=== PATIENT | male | born 1955 | race Two or more races ===

== ENCOUNTER 2024-02-29 11:08 | Emergency (ER) | payer MEDICARE, MEDICAID ==
[~2024-02-29] VITALS: Ht 180.3 cm; Wt 73.1 kg
--- NOTE | 2024-02-29 11:51 | ED.PDOC ---
History of Present Illness HPI Comments 68-year-old male who comes in with chief complaint of some shortness for breath for approximately 45 minutes. The patient comes by paramedics from his home. The patient has a history of COPD and CHF and states that his shortness for breath started to worsened. The patient was also having some left leg swelling. He does have a history of possible DVT but the patient does have a history of CHF as well as the COPD. When the paramedics arrived, the patient had an oxygen saturation in the 90s. The patient was also now complaining of some chest pain but he also does have some mild anxiety for the paramedics. EN route, the patient was given one hand-held nebulizer with some improvement. He denies any fever or chills. Upon arrival, the patient was able to give us his entire medical history. Currently he is on Eliquis for this possible DVT in the left leg. Chief Complaint: Shortness of Breath Time Seen by MD: 11:17 Primary Care Provider: "I DON'T KNOW THE NAME" Reviewed Notes: Nurses Notes, Medications, Allergies (NKDA) Allergies: Coded Allergies: NO KNOWN ALLERGIES (Unverified , 02/29/24) Information Source: Patient Mode of Arrival: EMS Severity: Moderate Duration: Since onset Prehospital treatment: 12 Lead EKG, Breathing Tx, Special Agent, IVF Associated signs and symptoms Associated chest pain with no cough Past Medical History PAST MEDICAL HISTORY: Anxiety, CHF, COPD Past Medical History (Other): Left DVT Surgical History: Appendectomy Family History Family History: No family hx of Cancer, No family hx of DM, No family hx of Heart damaris Social History Smoker: Cigarettes Alcohol: Occasionally Drugs: Denies Drug Use Lives In: Home Constitutional: denies: chills, diaphoresis, fatigue, fever, malaise, sweats, weakness, others EENTM: denies: blurred vision, double vision, ear bleeding, ear discharge, ear drainage, ear pain, ear ringing, eye pain, eye redness, hearing loss, mouth pain, mouth swelling, nasal discharge, nose bleeding, nose congestion, nose pain, photophobia, tearing, throat pain, throat swelling, voice changes, others Respiratory: reports: shortness of breath; denies: cough, hemoptysis, orthopnea, SOB at rest, SOB with excertion, stridor, wheezing, others Cardiovascular: reports: chest pain; denies: dizzy spells, diaphoresis, Dyspnea on exertion, edema, irregular heart beat, left arm pain, lightheadedness, palpitations, PND, syncope, others Gastrointestinal: denies: abdomen distended, abdominal pain, blood streaked bowels, constipated, diarrhea, dysphagia, difficulty swallowing, hematemesis, melena, nausea, poor appetite, poor fluid intake, rectal bleeding, rectal pain, vomiting, others Genitourinary: denies: burning, dysuria, flank pain, frequency, hematuria, incontinence, penile discharge, penile sore, pain, testicle pain, testicle swelling, urgency, others Neurological: denies: dizziness, fainting, headache, left sided numbness, left sided weakness, numbness, paresthesia, pre-existing deficit, right sided nu mbness, right sided weakness, seizure, speech problems, tingling, tremors, weakness, others Musculoskeletal: denies: back pain, gout, joint pain, joint swelling, muscle pain, muscle stiffness, neck pain, others Integumetry: denies: bruises, change in color, change in hair/nails, dryness, laceration, lesions, lumps, rash, wounds, others Allergic/Immunocompromised: denies: Difficulty Healing, Frequent Infections, Hives, Itching, others Hematologic/Lymphatic: denies: anemia, blood clots, easy bleeding, easy bruising, swollen glands, others Endocrine: denies: excessive hunger, excessive sweating, excessive thirst, excessive urination, flushing, intolerance to cold, intolerance to heat, unexplained weight gain, unexplained weight loss, others Psychiatric: denies: anxiety, bipolar disorder, depression, hopeless, panic disorder, schizophrenia, sleepless, suicidal, others Physical Exam General Appearance: Moderate Distress HEENT: Normal ENT Inspection, Pharynx Normal, TMs Normal Neck: Full Range of Motion, Non-Tender, Normal, Normal Inspection Respiratory: Decreased Breath Sounds, No Accessory Muscle Use, Respiratory Distress, Wheezing Cardiovascular: No Edema, No JVD, No Murmur, No Gallop, Normal Peripheral Pulses, Regular Rate/Rhythm Breast Exam: Deferred Gastrointestinal: No Organomegaly, Non Tender, No Pulsatile Mass, Normal Bowel Sounds, Soft Genitalia: Deferred Pelvic: Deferred Rectal: Deferred Extremities: No calf tenderness, Normal capillary refill, Normal inspection, Normal range of motion, Non-tender, No pedal edema Musculoskeletal : Apperance: Normal Neurologic: Alert, lens grinding machine operator II-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 Was a procedure done?: No EKG EKG : Pulse Rate (adult): 75 Milliken: Normal Cardiac Rhythm: NSR Block: RBBB Differential Dx Considerations may include: Pneumonia, COPD, CHF, pneumothorax X-Ray, Labs, Meds, VS Vital Signs Date Time Temp Pulse Resp B/P (MAP) Pulse Ox O2 Delivery O2 Flow Rate FiO2 02/29/24 12:18 66 20 96 Room Air 02/29/24 12:18 66 18 109/52 (71) 96 02/29/24 11:56 75 02/29/24 11:13 74 02/29/24 11:09 97.8 74 18 120/76 (91) 94 02/29/24 11:09 18 94 Room Air* 0 21 Lab Test 02/29/24 15:00 02/29/24 13:29 02/29/24 12:27 Range/Units Urine Color Pending Urine Clarity Pending Urine pH Pending Urine Specific Holden Pending Urine Protein Pending Urine Ketones Pending Urine Blood Pending Urine Nitrite Pending Urine Bilirubin Pending Urine Urobilinogen Pending Urine Leukocyte Esterase Pending Urine RBC Pending Urine WBC Pending Urine Squamous Epithelial Cells Pending Urine Bacteria Pending Urine Glucose Pending Troponin I High Sensitivity < 3 L < 3 L </=54 ng/L White Blood Count 9.5 4.4-10.8 10^3/uL Red Blood Count 5.01 4.5-5.90 10^6/uL Hemoglobin 16.3 13.5-17.5 g/dL Hematocrit 47.0 41.0-53.0 % Mean Corpuscular Volume 93.9 80.0-100.0 fL Mean Corpuscular Hemoglobin 32.6 H 28.0-32.0 pg Mean Corpuscular Hemoglobin Concent 34.7 32.0-36.0 g/dL Red Cell Distribution Width 13.6 11.8-14.3 % Platelet Count 223 140-450 10^3/uL Mean Platelet Volume 8.1 6.9-10.8 fL Neutrophils (%) (Auto) 82.9 H 37.0-80.0 % Lymphocytes (%) (Auto) 8.9 L 10.0-50.0 % Monocytes (%) (Auto) 6.5 0.0-12.0 % Eosinophils (%) (Auto) 1.4 0.0-7.0 % Basophils (%) (Auto) 0.3 0.0-2.0 % Neutrophils # (Auto) 7.9 1.6-8.6 10 ^3/uL Lymphocytes # (Auto) 0.8 0.4-5.4 10 ^3/uL Monocytes # (Auto) 0.6 0-1.3 10 ^3/uL Eosinophils # (Auto) 0.1 0-0.8 10 ^3/uL Basophils # (Auto) 0 0-0.2 10 ^3/uL Nucleated Red Blood Cells 0.0 % Sodium Level 142 136-145 mmol/L Potassium Level 4.2 3.5-5.1 mmol/L Chloride Level 109 H 98-107 mmol/L Carbon Dioxide Level 28 20-31 mmol/L Anion Gap 5 5-15 Blood Urea Nitrogen 8 L 9-23 mg/dL Creatinine 0.93 0.700-1.30 mg/dL Glomerular Filtration Rate Calc 89 >90 mL/min BUN/Creatinine Ratio 8.6 L 10.0-20.0 Serum Glucose 107 H 74-106 mg/dL Calcium Level 9.4 8.7-10.4 mg/dL B-Type Natriuretic Peptide 16.46 0-100 pg/mL Current Medications Medications (Trade) Dose Ordered Sig/Jania Route Start Time Stop Time Status Last Admin Methylprednisolone Sodium Succinate (Solu Medrol) 125 mg ONCE ONCE IV 02/29/24 11:45 02/29/24 11:46 DC 02/29/24 13:33 Chest x-ray is negative The patient was given Solu-Medrol 125 mg IV push The patient's CBC and chemistry panel are within normal limits The troponin level times two is negative The patient is being admitted with a diagnosis of COPD exacerbation The patient understands and agrees with the management. Ultrasound of the left lower extremity shows: Impression: Nonocclusive thrombus in the left superficial femoral vein and left popliteal vein. Images Reviewed?: Images reviewed and evaluated by me Time of 1ST Reevaluation: 11:56 Reevaluation 1ST: Unchanged Patient Education/Counseling: Diagnosis, Treatment, Prognosis Family Education/Counseling: No Family Present Departure 1 Departure Time of Disposition: 14:55 Impression: Primary Impression: COPD exacerbation Additional Impression: Left leg DVT Qualified Codes: I82.402 - Acute embolism and thrombosis of unspecified deep veins of left lower extremity Disposition: 09 ADMITTED INPATIENT Admit to: Tele Condition: Fair Critical Care Note Critical Care Time?: No Stability Stability form required: Yes Unstable for transfer: Telemetry monitoring (Telemetry monitoring required), ED Physician Assesment (Clinical assesment) Heart Score Heart Score: Heart Score Response (Comments) Value History N/A 0 EKG N/A 0 Age N/A 0 Risk Factors N/A 0 Troponin N/A 0 Total 0 FIONA BOONE MD Feb 29, 2024 11:51
--- NOTE | 2024-02-29 12:15 | DVH ---
XY CHEST PORTABLE, HISTORY: sob COMPARISON: None None TECHNICAL DATA: 1 view of the chest was obtained. FINDINGS: Lines and tubes: None Cardiomediastinal silhouette: normal Pulmonary vasculature: normal Lung expansion: normal Lung airspace: normal Lung interstitium: normal Pleura: normal Pneumothorax: no Bones: Unremarkable Other: no IMPRESSION: No acute intrathoracic abnormality.
[2024-02-29 12:18] VITALS: BP 109/52; PULSE 66; RESP 20; O2SAT 96
[2024-02-29 12:52] LABS: Chloride 109 mmol/L (98-107); Potassium 4.2 mmol/L (3.5-5.1); Sodium 142 mmol/L (136-145)
[2024-02-29 12:53] LABS: Anion Gap 5 (5-15); Carbon Dioxide 28 mmol/L (20-31)
[2024-02-29 12:54] LABS: Calcium 9.4 mg/dL (8.7-10.4)
[2024-02-29 12:58] LABS: Glucose 107 mg/dL (74-106)
[2024-02-29 12:59] LABS: BUN/Creatinine Ratio 8.6 (10.0-20.0); Blood Urea Nitrogen 8 mg/dL (9-23)
[2024-02-29] MEDS: methylPREDNISolone SOD SUCC 125 MG/2 ML VL IV ONE (13:33)
--- NOTE | 2024-02-29 13:35 | DVH ---
Clinical History: left leg pain Comparison: None Technique: Duplex Doppler evaluation of the deep venous system of the left lower extremity from the common femor al vein to the popliteal vein including color Doppler and spectral/pulsed waveform analysis was perfo rmed. Findings: The common femoral vein demonstrates appropriate compressibility and waveform variability. There is compressibility/patency of the great saphenous vein at the proximal thigh. The femoral vein demonstrates incomplete compressibility. The deep femoral vein demonstrates incomplete compressibility. The popliteal vein demonstrates incomplete compressibility.. There is normal compressibility at the tibioperoneal trunk. Impression: Nonocclusive thrombus in the left superficial femoral vein and left popliteal vein. Critical finding s were discussed with Dr. Pinon by industrial technologist at time of exam.
[2024-02-29 13:49] LABS: Basophils # (auto) 0 10 ^3/uL (0-0.2); Basophils % (auto) 0.3 % (0.0-2.0); Eosinophils # (auto) 0.1 10 ^3/uL (0-0.8); Eosinophils % (auto) 1.4 % (0.0-7.0); Hemoglobin 16.3 g/dL (13.5-17.5); Lymphocytes # (auto) 0.8 10 ^3/uL (0.4-5.4); Lymphocytes % (auto) 8.9 % (10.0-50.0); Mean Corpuscular Hemoglobin 32.6 pg (28.0-32.0); Mean Corpuscular Hgb Conc. 34.7 g/dL (32.0-36.0); Mean Corpuscular Volume 93.9 fL (80.0-100.0); Monocytes # (auto) 0.6 10 ^3/uL (0-1.3); Monocytes % (auto) 6.5 % (0.0-12.0); Neutrophils # (auto) 7.9 10 ^3/uL (1.6-8.6); Neutrophils % (auto) 82.9 % (37.0-80.0); Platelet Count (auto) 223 10^3/uL (140-450); Red Blood Cells 5.01 10^6/uL (4.5-5.90); Red Cell Distribution Width 13.6 % (11.8-14.3); White Blood Cell 9.5 10^3/uL (4.4-10.8)
[2024-02-29 15:22] LABS: Urine Bacteria None Seen /hpf (None Seen)
[2024-02-29 15:37] LABS: Urine Blood Negative /uL (Negative); Urine Clarity Clear (Clear); Urine Color Light-Yellow (Yellow); Urine Protein, UAD Negative (Negative); Urine Specific Gravity 1.014 (1.001-1.035); Urine Urobilinogen Normal (Negative); Urine WBC 1 /hpf (0 - 3)
--- NOTE | 2024-03-03 13:53 | ECG ---
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
== END 2024-02-29 16:38 | disposition left against medical advice (07) ==
LOC: ER 11:08 → EDBD 11:08 → ER 16:38
DX: I82.412 Acute embolism and thrombosis of left femoral vein (principal); I82.432 Acute embolism and thrombosis of left popliteal vein; J44.1 Chronic obstructive pulmonary disease with (acute) exacerbation; F41.9 Anxiety disorder, unspecified; I50.9 Heart failure, unspecified; F17.210 Nicotine dependence, cigarettes, uncomplicated; Z90.49 Acquired absence of other specified parts of digestive tract; Z79.01 Long term (current) use of anticoagulants
CPT/HCPCS: 36415; 71045; 80048; 81001; 83880; 84484; 85025; 93005; 93971; 96374; 99285; J2919

== ENCOUNTER 2024-03-12 05:28 | Inpatient (IN) | payer MEDICARE, MEDICAID ==
[~2024-03-12] VITALS: Ht 175.3 cm; Wt 75.5 kg
[2024-03-12] VITALS (14 sets, daily range): BP systolic 105–128; BP diastolic 61–76; PULSE 63–91; RESP 16–20; TEMP 97.1–98.4; O2SAT 94–100
--- NOTE | 2024-03-12 06:28 | ED.PDOC ---
GI ASSESSMENT HPI Comments 68 year old male presents to the ED with chief complaint of abdominal pain. Patient reports that he has been experiencing epigastric/LUQ abdominal pain that radiates to his left ribs/shoulder since 2100 yesterday. Patient relays that he has history of gastritis, but is not sure if this may be the cause of his pain. Patient denies any N/V/D, fever, chills, dysuria, hematuria, or chest pain. Chief Complaint: Abdominal Pain Time Seen by MD: 06:17 Primary Care Provider: "I DON'T KNOW THE NAME" Reviewed Notes: Nurses Notes, Product Planner Notes, Medications, Allergies Allergies: Coded Allergies: NO KNOWN ALLERGIES (Unverified , 02/29/24) Information Source: Patient, Emergency Med Personnel Mode of Arrival: EMS Timing: Hours Duration: Since onset Prehospital treatment: None Quality: Aching Vomitus: None Stool: Normal Severity: Moderate Recent: None Recent Hx of: Other (Gastritis) Pain Location: Epigastric, LUQ Modifying Factors: Nothing Associated sign and symptoms: Abdominal Pain Past Medical History PAST MEDICAL HISTORY: Anxiety, CHF, COPD Surgical History: Appendectomy Family History Family History: Reviewed,noncontributory to illness, No family hx of Cancer, No family hx of DM, No family hx of Heart damaris Social History Smoker: Cigarettes Alcohol: Occasionally Drugs: Denies Drug Use Lives In: Home Constitutional: denies: chills, diaphoresis, fatigue, fever, malaise, sweats, weakness, others EENTM: denies: blurred vision, double vision, ear bleeding, ear discharge, ear drainage, ear pain, ear ringing, eye pain, eye redness, hearing loss, mouth pain, mouth swelling, nasal discharge, nose bleeding, nose congestion, nose pain, photophobia, tearing, throat pain, throat swelling, voice changes, others Respiratory: denies: cough, hemoptysis, orthopnea, SOB at rest, shortness of breath, SOB with excertion, stridor, wheezing, others Cardiovascular: denies: chest pain, dizzy spells, diaphoresis, Dyspnea on exertion, edema, irregular heart beat, left arm pain, lightheadedness, palpitations, PND, syncope, others Gastrointestinal: reports: abdominal pain; denies: abdomen distended, blood streaked bowels, constipated, diarrhea, dysphagia, difficulty swallowing, hematemesis, melena, nausea, poor appetite, poor fluid intake, rectal bleeding, rectal pain, vomiting, others Genitourinary: denies: burning, dysuria, flank pain, frequency, hematuria, incontinence, penile discharge, penile sore, pain, testicle pain, testicle swelling, urgency, others Neurological: denies: dizziness, fainting, headache, left sided numbness, left sided weakness, numbness, paresthesia, pre-existing deficit, right sided numbness, right sided weakness, seizure, speech problems, tingling, tremors, weakness, others Musculoskeletal: reports: others (Left shoulder/rib pain); denies: back pain, gout, joint pain, joint swelling, muscle pain, muscle stiffness, neck pain Integumetry: denies: bruises, change in color, change in hair/nails, dryness, laceration, lesions, lumps, rash, wounds, others Allergic/Immunocompromised: denies: Difficulty Healing, Frequent Infections, Hives, Itching, others Hematologic/Lymphatic: denies: anemia, blood clots, easy bleeding, easy bruising, swollen glands, others Endocrine: denies: excessive hunger, excessive sweating, excessive thirst, excessive urination, flushing, intolerance to cold, intolerance to heat, unexplained weight gain, unexplained weight loss, others Psychiatric: denies: anxiety, bipolar disorder, depression, hopeless, panic disorder, schizophrenia, sleepless, suicidal, others All Other Systems: Reviewed and Negative Physical Exam General Appearance: Mild Distress, Normal HEENT: Normal ENT Inspection, PERRL/EOMI Neck: Full Range of Motion, Non-Tender, Normal, Normal Inspection Respiratory: Chest Non-Tender, Lungs Clear, No Accessory Muscle Use, No Respiratory Distress, Normal Breath Sounds Cardiovascular: No Edema, No JVD, No Murmur, No Gallop, Normal Peripheral Pulses, Regular Rate/Rhythm Breast Exam: Deferred Gastrointestinal: No Organomegaly, No Pulsatile Mass, Normal Bowel Sounds, Soft, Tenderness (Mild epigastric and LUQ tenderness) Genitalia: Deferred Pelvic: Deferred Rectal: Deferred Extremities: No calf tenderness, Normal capillary refill, Normal inspection, Normal range of motion, Non-tender, No pedal edema Musculoskeletal : Apperance: Normal Neurologic: Alert, director of corporate 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 Was a procedure done?: No GI differential Dx Differential Diagnosis: Cholecystitis, Gastritis/PUD, Gastroenteritis, Electrol yte Imbalance, Food Poisoning, Bacterial, Viral X-Ray, Labs, Meds, VS Vital Signs Date Time Temp Pulse Resp B/P (MAP) Pulse Ox O2 Delivery O2 Flow Rate FiO2 03/12/24 07:32 66 16 95 Room Air 03/12/24 07:32 98.2 66 16 116/62 (80) 95 98.2 03/12/24 05:36 97.9 80 14 128/77 (94) 96 Lab Test 03/12/24 07:43 03/12/24 06:45 Range/Units Troponin I High Sensitivity < 3 L < 3 L </=54 ng/L White Blood Count 7.9 4.4-10.8 10^3/uL Red Blood Count 5.03 4.5-5.90 10^6/uL Hemoglobin 16.0 13.5-17.5 g/dL Hematocrit 47.1 41.0-53.0 % Mean Corpuscular Volume 93.6 80.0-100.0 fL Mean Corpuscular Hemoglobin 31.8 28.0-32.0 pg Mean Corpuscular Hemoglobin Concent 34.0 32.0-36.0 g/dL Red Cell Distribution Width 13.4 11.8-14.3 % Platelet Count 221 140-450 10^3/uL Mean Platelet Volume 7.9 6.9-10.8 fL Neutrophils (%) (Auto) 74.2 37.0-80.0 % Lymphocytes (%) (Auto) 13.2 10.0-50.0 % Monocytes (%) (Auto) 7.1 0.0-12.0 % Eosinophils (%) (Auto) 4.8 0.0-7.0 % Basophils (%) (Auto) 0.7 0.0-2.0 % Neutrophils # (Auto) 5.9 1.6-8.6 10 ^3/uL Lymphocytes # (Auto) 1.1 0.4-5.4 10 ^3/uL Monocytes # (Auto) 0.6 0-1.3 10 ^3/uL Eosinophils # (Auto) 0.4 0-0.8 10 ^3/uL Basophils # (Auto) 0.1 0-0.2 10 ^3/uL Nucleated Red Blood Cells 0.0 % Sodium Level 144 136-145 mmol/L Potassium Level 4.5 3.5-5.1 mmol/L Chloride Level 111 H 98-107 mmol/L Carbon Dioxide Level 28 20-31 mmol/L Anion Gap 5 5-15 Blood Urea Nitrogen 11 9-23 mg/dL Creatinine 0.90 0.700-1.30 mg/dL Glomerular Filtration Rate Calc 93 >90 mL/min BUN/Creatinine Ratio 12.2 10.0-20.0 Serum Glucose 102 74-106 mg/dL Calcium Level 9.2 8.7-10.4 mg/dL Total Bilirubin 0.5 0.2-1.0 mg/dL Aspartate Amino Transferase (AST) 17 13-40 U/L Alanine Aminotransferase (ALT) 22 7-40 U/L Alkaline Phosphatase 141 H 46-116 U/L B-Type Natriuretic Peptide Pending Total Protein 5.8 5.7-8.2 g/dL Albumin 4.2 3.2-4.8 g/dL Lipase 41 12-53 U/L Current Medications Medications (Trade) Dose Ordered Sig/Jania Route Start Time Stop Time Status Last Admin Ondansetron HCl (Zofran Po) 8 mg ONCE ONCE PO 03/12/24 06:45 03/12/24 06:46 DC 03/12/24 07:30 Al Hydrox/Mg Hydrox/Simethicone (Maalox Plus) 30 ml ONCE ONCE PO 03/12/24 06:45 03/12/24 06:46 DC 03/12/24 07:28 Famotidine (Pepcid Tablet) 40 mg ONCE ONCE PO 03/12/24 06:45 03/12/24 06:46 DC 03/12/24 07:30 Prednisone 40 mg ONCE ONCE PO 03/12/24 08:00 03/12/24 08:01 DC 03/12/24 08:12 CT Abd/Pel: FINDINGS: Lower Chest: Unremarkable. Hepatobiliary: Unremarkable. Spleen: Mildly enlarged, 12.3 cm in craniocaudal. A large, 10.5 x 3.7 x 6.4 cm subcapsular fluid collection along the superolateral aspect the spleen noted with average attenuation of 9 Hounsfield units, which is of simple fluid. Pancreas: Unremarkable. Adrenal Glands: Unremarkable. tract: The kidneys are normal in size bilaterally without hydronephrosis or nephrolithiasis. The urinary bladder is unremarkable. GI tract: The stomach is grossly normal in appearance. No evidence of small bowel obstruction. The large bowel is unremarkable. The appendix is not visualized. No inflammatory change is noted in the right lower quadrant. Lymphatics: No mesenteric, retroperitoneal or periportal lymphadenopathy. Vasculature: Mildly ectatic distal abdominal aorta measuring 2.8 cm in the maximum transverse diameter. Diffuse atherosclerotic calcification of the ao rtoiliac arteries noted. Pelvic Organs: Prostate is moderately enlarged. Bones/soft tissues: No acute abnormality. Multilevel degenerative changes of the lumbar spine noted. Other: None. IMPRESSION: 1. No CT evidence for acute intra-abdominal or intrapelvic process. 2. Mild splenomegaly and a large, 10 x 6.4 cm subcapsular lateral splenic simple fluid collection likely an organizing hematoma or seroma. Evaluation is limited without IV contrast. Recommend further evaluation by ultrasound. 3. Atherosclerotic disease of the aortoiliac arteries fusiform aneurysm of distal abdominal aorta with maximum transverse diameter 2.8 cm. Chest XR: FINDINGS: Lines and Tubes: None Lungs: No focal consolidation. Pleura: No effusion.No pneumothorax. Cardiomediastinal contours: Unremarkable Bones: No acute osseous abnormality. IMPRESSION: 1. No acute cardiopulmonary disease. HS:Y Images Reviewed?: Images reviewed and evaluated by me Time of 1ST Reevaluation: 07:17 Reevaluation 1ST: Improved Time of 2ND Reevaluation: 08:22 Reevaluation 2ND: Unchanged (hypoxic on room air, large splenic hematoma noted on CT, will admit for oxygen and further workup) Patient Education/Counseling: Diagnosis, Treatment Family Education/Counseling: No Family Present Departure 1 Departure Time of Disposition: 08:21 Impression: Primary Impression: COPD exacerbation Additional Impressions: Respiratory failure with hypoxia Spleen hematoma Disposition: ADMITTED INPATIENT Condition: Guarded Critical Care Note Critical Care Time?: No Stability Stability form required: No Heart Score Heart Score: Heart Score Response (Comments) Value History N/A 0 EKG N/A 0 Age N/A 0 Risk Factors N/A 0 Troponin N/A 0 Total 0 I personally scribed for JOHNNY JOEL MD ([email or web address]) on 03/12/24 at 06:28. Electronically submitted by Arcadio Gallagher ([email or web address]). I personally scribed for JOHNNY JOEL MD ([email or web address]) on 03/12/24 at 06:47. Electronically submitted by Arcadio Gallagher ([email or web address]). I personally scribed for JOHNNY JOEL MD ([email or web address]) on 03/12/24 at 08:20. Electronically submitted by Arcadio Gallagher ([email or web address]). I personally scribed for JOHNNY JOEL MD ([email or web address]) on 03/12/24 at 08:30. Electronically submitted by Ladan Suarez ([email or web address]). JOHNNY JOEL MD Mar 12, 2024 06:28
[2024-03-12 07:13] LABS: Basophils # (auto) 0.1 10 ^3/uL (0-0.2); Basophils % (auto) 0.7 % (0.0-2.0); Eosinophils # (auto) 0.4 10 ^3/uL (0-0.8); Eosinophils % (auto) 4.8 % (0.0-7.0); Hematocrit 47.1 % (41.0-53.0); Lymphocytes # (auto) 1.1 10 ^3/uL (0.4-5.4); Lymphocytes % (auto) 13.2 % (10.0-50.0); Mean Corpuscular Hemoglobin 31.8 pg (28.0-32.0); Mean Corpuscular Volume 93.6 fL (80.0-100.0); Monocytes # (auto) 0.6 10 ^3/uL (0-1.3); Monocytes % (auto) 7.1 % (0.0-12.0); Neutrophils # (auto) 5.9 10 ^3/uL (1.6-8.6); Neutrophils % (auto) 74.2 % (37.0-80.0); Platelet Count (auto) 221 10^3/uL (140-450); Red Blood Cells 5.03 10^6/uL (4.5-5.90); Red Cell Distribution Width 13.4 % (11.8-14.3); White Blood Cell 7.9 10^3/uL (4.4-10.8)
[2024-03-12 07:16] LABS: Alanine Aminotransferase 22 U/L (7-40); Alkaline Phosphatase 141 U/L (46-116); Anion Gap 5 (5-15); Aspartate Aminotransferase 17 U/L (13-40); BUN/Creatinine Ratio 12.2 (10.0-20.0); Blood Urea Nitrogen 11 mg/dL (9-23); Calcium 9.2 mg/dL (8.7-10.4); Carbon Dioxide 28 mmol/L (20-31); Chloride 111 mmol/L (98-107); Glucose 102 mg/dL (74-106); Lipase 41 U/L (12-53); Potassium 4.5 mmol/L (3.5-5.1); Sodium 144 mmol/L (136-145)
[2024-03-12 07:17] LABS: Albumin 4.2 g/dL (3.2-4.8); Bilirubin, Total 0.5 mg/dL (0.2-1.0); Total Protein 5.8 g/dL (5.7-8.2)
[2024-03-12] MEDS: MAALOX PLUS or MAALOX 30 ML PO ONE (07:28)
[2024-03-12] MEDS: ONDANSETRON ODT 4 MG TAB PO ONE (07:30)
[2024-03-12] MEDS: FAMOTIDINE 20 MG TAB PO ONE (07:30)
[2024-03-12] MEDS: predniSONE 20 MG TAB PO ONE (08:12)
--- NOTE | 2024-03-12 08:14 | DVH ---
Procedure: CT CT AB PEL WO CON-NO ORAL OR IV 03/12/2024 07:45 AM Indication: left flank pain Comparison Study: None available at time of dictation. Technique: Axial images were obtained and reformatted in coronal and sagittal planes. All CT scans at this medical facility are performed using dose modulation techniques as appropriate t o a performed exam including the following: Automated exposure control was utilized; adjustment of th e MA and/or KV according to patient size; and use of iterative reconstruction technique. CT Dose: CTDI volume is 7 mGy. Dose-length product is 352 mGy*cm FINDINGS: Lower Chest: Unremarkable. Hepatobiliary: Unremarkable. Spleen: Mildly enlarged, 12.3 cm in craniocaudal. A large, 10.5 x 3.7 x 6.4 cm subcapsular fluid col lection along the superolateral aspect the spleen noted with average attenuation of 9 Hounsfield unit s, which is of simple fluid. Pancreas: Unremarkable. Adrenal Glands: Unremarkable. tract: The kidneys are normal in size bilaterally without hydronephrosis or nephrolithiasis. The urinary bladder is unremarkable. GI tract: The stomach is grossly normal in appearance. No evidence of small bowel obstruction. The la rge bowel is unremarkable. The appendix is not visualized. No inflammatory change is noted in the ri ght lower quadrant. Lymphatics: No mesenteric, retroperitoneal or periportal lymphadenopathy. Vasculature: Mildly ectatic distal abdominal aorta measuring 2.8 cm in the maximum transverse diamete r. Diffuse atherosclerotic calcification of the aortoiliac arteries noted. Pelvic Organs: Prostate is moderately enlarged. Bones/soft tissues: No acute abnormality. Multilevel degenerative changes of the lumbar spine noted. Other: None. IMPRESSION: 1. No CT evidence for acute intra-abdominal or intrapelvic process. 2. Mild splenomegaly and a large, 10 x 6.4 cm subcapsular lateral splenic simple fluid collection lik emily an organizing hematoma or seroma. Evaluation is limited without IV contrast. Recommend further evaluation by ultrasound. 3. Atherosclerotic disease of the aortoiliac arteries fusiform aneurysm of distal abdominal aorta wit h maximum transverse diameter 2.8 cm.
--- NOTE | 2024-03-12 08:23 | DVH ---
CHEST RADIOGRAPH Indication: SOB Technique: Single frontal view of the chest was obtained Comparison: XY CHEST PORTABLE on DOS: 02/29/24 FINDINGS: Lines and Tubes: None Lungs: No focal consolidation. Pleura: No effusion.No pneumothorax. Cardiomediastinal contours: Unremarkable Bones: No acute osseous abnormality. IMPRESSION: 1. No acute cardiopulmonary disease. HS:Y
[2024-03-12] MEDS: ALBUTEROL SULF 2.5 MG/0.5ML(0.5%) NEB SOLN HHN ONE (08:31)
[2024-03-12] MEDS: IPRATROPIUM BROM 0.5 MG/2.5ML INH SOL HHN ONE (08:32)
[2024-03-12] MEDS ORDERED: DOCUSATE SOD 100 MG CAP PO PRN (09:30)
[2024-03-12] MEDS ORDERED: MORPHINE SULFATE INJ 2 MG/ml SYRG IV PRN (09:30)
[2024-03-12] MEDS ORDERED: ONDANSETRON HCL 4 MG/2 ML VIAL IV PRN (09:30)
[2024-03-12] MEDS ORDERED: AZITHROMYCIN 500MG/ 250ML 250 ML IV ONE (09:30)
--- NOTE | 2024-03-12 09:43 | DVHHP2 ---
History of Present Illness Reason for Visit: Abdominal pain History of Present Illness Yoandy Ac is a 68YO M with pmHx of gastritis, anxiety, CHF, and COPD who presents to the ED for abdominal pain x 2 days. Upon examination he reports his pain is in the epigastric area and radiates to the LUQ and RUQ throbbing, current pain is 0/10 but increases to 4/10. He reports he uses home O2 2LNC and smokes cigarettes 1/2 pack a day. He also reports he has been coughing phlegm yellow in color. He states he rents a room and he had an appendectomy in 1977. He denies N/V/D, fever, chills, shortness of breath, and chest pain. Cardiovascular: CHF Pulmonary: COPD GI: Gastritis Psych: Anxiety Past Surgical History: Appendectomy Family History: None Smoke: <1 pack per day ALCOHOL: none Drugs: None Lives: Other Domestic Violence: Neg Review of Systems Constitutional: No: Fever, Chills, Sweats, Weakness, Malaise, Other Eyes: No: Pain, Vision change, Conjunctivae inflammation, Eyelid inflammation, Other, Redness ENT: No: Ear pain, Ear discharge, Nose pain, Nose discharge, Nose congestion, Mouth pain, Mouth swelling, Throat pain, Throat swelling, Other Respiratory: Cough, Sputum; No: Dry, Shortness of breath, SOB with excertion, Wheezing, Hemoptysis, Pleuritic Pain, Wheezing, Other Cardiovascular: No: Chest Pain, Palpitations, Orthopnea, Paroxysmal Noc. Dyspnea, Edema, Lt Headedness, Other Gastrointestinal: Abdominal Pain; No: Nausea, Vomiting, Diarrhea, Constipation, Melena, Hematochezia, Other Genitourinary: No Dysuria, No Frequency, No Incontinence, No Hematuria, No Retention, No Other Musculoskeletal: No: other, neck pain, shoulder pain, arm pain, back pain, hand pain, leg pain, foot pain Skin: No: Rash, Lesions, Jaundice, Bruising, Other Neurological: No: Weakness, Numbness, Incoordination, Change in speech, Confusion, Seizures, Other Allergies: Coded Allergies: NO KNOWN ALLERGIES (Unverified , 02/29/24) Exam Vital Signs Vital Signs Date Time Temp Pulse Resp B/P (MAP) Pulse Ox O2 Delivery O2 Flow Rate FiO2 03/12/24 08:32 18 97 Nasal Cannula* 2 28 03/12/24 07:32 66 03/12/24 07:32 98.2 116/62 (80) 98.2 General Appearance: Alert, Oriented X3, Cooperative HEENT: Atraumatic, PERRLA, EOMI, Mucous membr. moist/pink Respiratory: Normal air movement Cardiovascular: Regular rate, Normal S1, Normal S2, No murmurs Abdominal: Normal bowel sounds, Soft Extremities: No clubbing, No cyanosis, No edema, Normal pulses, No tenderness/swelling Skin: No breakdown, No significant lesion Neuro: Normal gait, Normal speech, Strength at 5/5 X4 ext, Normal tone, Sensation intact Psych/Mental Status: Mental status NL, Mood NL Labs/Xrays Labs Test 03/12/24 07:43 03/12/24 06:45 Range/Units Troponin I High Sensitivity < 3 L </=54 ng/L White Blood Count 7.9 4.4-10.8 10^3/uL Red Blood Count 5.03 4.5-5.90 10^6/uL Hemoglobin 16.0 13.5-17.5 g/dL Hematocrit 47.1 41.0-53.0 % Mean Corpuscular Volume 93.6 80.0-100.0 fL Mean Corpuscular Hemoglobin 31.8 28.0-32.0 pg Mean Corpuscular Hemoglobin Concent 34.0 32.0-36.0 g/dL Red Cell Distribution Width 13.4 11.8-14.3 % Platelet Count 221 140-450 10^3/uL Mean Platelet Volume 7.9 6.9-10.8 fL Neutrophils (%) (Auto) 74.2 37.0-80.0 % Lymphocytes (%) (Auto) 13.2 10.0-50.0 % Monocytes (%) (Auto) 7.1 0.0-12.0 % Eosinophils (%) (Auto) 4.8 0.0-7.0 % Basophils (%) (Auto) 0.7 0.0-2.0 % Neutrophils # (Auto) 5.9 1.6-8.6 10 ^3/uL Lymphocytes # (Auto) 1.1 0.4-5.4 10 ^3/uL Monocytes # (Auto) 0.6 0-1.3 10 ^3/uL Eosinophils # (Auto) 0.4 0-0.8 10 ^3/uL Basophils # (Auto) 0.1 0-0.2 10 ^3/uL Nucleated Red Blood Cells 0.0 % Sodium Level 144 136-145 mmol/L Potassium Level 4.5 3.5-5.1 mmol/L Chloride Level 111 H 98-107 mmol/L Carbon Dioxide Level 28 20-31 mmol/L Anion Gap 5 5-15 Blood Urea Nitrogen 11 9-23 mg/dL Creatinine 0.90 0.700-1.30 mg/dL Glomerular Filtration Rate Calc 93 >90 mL/min BUN/Creatinine Ratio 12.2 10.0-20.0 Serum Glucose 102 74-106 mg/dL Calcium Level 9.2 8.7-10.4 mg/dL Total Bilirubin 0.5 0.2-1.0 mg/dL Aspartate Amino Transferase (AST) 17 13-40 U/L Alanine Aminotransferase (ALT) 22 7-40 U/L Alkaline Phosphatase 141 H 46-116 U/L B-Type Natriuretic Peptide 8.41 0-100 pg/mL Total Protein 5.8 5.7-8.2 g/dL Albumin 4.2 3.2-4.8 g/dL Lipase 41 12-53 U/L CHEST RADIOGRAPH Indication: SOB FINDINGS: Lines and Tubes: None Lungs: No focal consolidation. Pleura: No effusion.No pneumothorax. Cardiomediastinal contours: Unremarkable Bones: No acute osseous abnormality. IMPRESSION: 1. No acute cardiopulmonary disease. Procedure: CT CT AB PEL WO CON-NO ORAL OR IV 03/12/2024 07:45 AM Indication: left flank pain FINDINGS: Lower Chest: Unremarkable. Hepatobiliary: Unremarkable. Spleen: Mildly enlarged, 12.3 cm in craniocaudal. A large, 10.5 x 3.7 x 6.4 cm subcapsular fluid collection along the superolateral aspect the spleen noted with average attenuation of 9 Hounsfield units, which is of simple fluid. Pancreas: Unremarkable. Adrenal Glands: Unremarkable. tract: The kidneys are normal in size bilaterally without hydronephrosis or nephrolithiasis. The urinary bladder is unremarkable. GI tract: The stomach is grossly normal in appearance. No evidence of small bowel obstruction. The large bowel is unremarkable. The appendix is not visualized. No inflammatory change is noted in the right lower quadrant. Lymphatics: No mesenteric, retroperitoneal or periportal lymphadenopathy. Vasculature: Mildly ectatic distal abdominal aorta measuring 2.8 cm in the maximum transverse diameter. Diffuse atherosclerotic calcification of the aortoiliac arteries noted. Pelvic Organs: Prostate is moderately enlarged. Bones/soft tissues: No acute abnormality. Multilevel degenerative changes of the lumbar spine noted. Other: None. IMPRESSION: 1. No CT evidence for acute intra-abdominal or intrapelvic process. 2. Mild splenomegaly and a large, 10 x 6.4 cm subcapsular lateral splenic simple fluid collection likely an organizing hematoma or seroma. Evaluation is limited without IV contrast. Recommend further evaluation by ultrasound. 3. Atherosclerotic disease of the aortoiliac arteries fusiform aneurysm of distal abdominal aorta with maximum transverse diameter 2.8 cm. PROCEDURE(s): SPLUS - SPLEEN REASON: Spleen hematoma CLINICAL INFORMATION: 68 years old, Male; Spleen hematoma. COMPARISON: None FINDINGS: The spleen measures 11.3 cm in greatest dimension. Complex fluid collection with multiple septations along the superior aspect of the spleen measures up to 9.1 x 6.5 x 7.8 cm corresponding to history of splenic hematoma. IMPRESSION: Complex fluid collection adjacent to the spleen corresponds to history of splenic hematoma as described above. Assessment/Plan Assessment/Plan Assessment: Splenomegaly suspected spleen laceration COPD exacerbation suspected PNA Gastritis Hx of anxiety CHF Appendectomy Plan: Admit to med surg Surgery cx IVf IV and PO Abx Resp txs diet as tolerated O2 use at baseline GI ppx Spleen US noted Laxatives trend troponins Home medications reconciled Discussed plan of care with patient and nurse Plan discussed with: Patient Problem List: (1) COPD exacerbation (2) Spleen hematoma Date of Service: Mar 12, 2024 Billing Provider: ADVID BOWMAN Common Visit Codes: [id number] INP/OBS CARE (MOD) DAVID BOWMAN Mar 12, 2024 09:43
[2024-03-12] MEDS ORDERED: THIA100T10 PO (09:44)
[2024-03-12] MEDS ORDERED: ASPI-325 PO (09:44)
[2024-03-12] MEDS ORDERED: ARIP5TAB22 PO (09:44)
[2024-03-12] MEDS ORDERED: PANT40T PO (09:44)
[2024-03-12] MEDS ORDERED: FURO20TA4 PO (09:44)
[2024-03-12] MEDS ORDERED: ATOR40TA52 PO (09:44)
[2024-03-12] MEDS ORDERED: AZITHROMYCIN 500MG/ 250ML 250 ML IV SCH (10:00)
[2024-03-12] MEDS: ALBUTEROL SULF 2.5 MG/0.5ML(0.5%) NEB SOLN NEB SCH (10:28)
[2024-03-12] MEDS: MULTIPLE VITAMIN TAB PO SCH (10:33)
[2024-03-12] MEDS: ASCORBIC ACID 500 MG TAB PO SCH (10:33)
[2024-03-12] MEDS: ZINC SULFATE 220mg CAP or TAB PO SCH (10:33)
[2024-03-12] MEDS: cefTRIAXone 1GM/50ML D5W 50 ML IV ONE (11:56)
[2024-03-12] MEDS: SODIUM CHLORIDE 0.9% 1,000 ML IV SCH (11:56)
--- NOTE | 2024-03-12 11:57 | DVH ---
CLINICAL INFORMATION: 68 years old, Male; Spleen hematoma. TECHNIQUE: Grayscale sonographic imaging of the spleen was performed, assisted by color doppler oscar quinones. COMPARISON: None FINDINGS: The spleen measures 11.3 cm in greatest dimension. Complex fluid collection with multiple septations along the superior aspect of the spleen measures up to 9.1 x 6.5 x 7.8 cm corresponding t o history of splenic hematoma. IMPRESSION: Complex fluid collection adjacent to the spleen corresponds to history of splenic hematoma as describ ed above.
[2024-03-12 14:09] LABS: Urine Bacteria None Seen /hpf (None Seen)
[2024-03-12 14:20] LABS: Urine Blood Negative /uL (Negative); Urine Clarity Clear (Clear); Urine Color Yellow (Yellow); Urine Mucus FEW (None Seen); Urine Protein, UAD Negative (Negative); Urine Specific Gravity 1.017 (1.001-1.035); Urine Urobilinogen Normal (Negative); Urine WBC 3 /hpf (0 - 3); Urine pH 6.5 (5.0-9.0)
[2024-03-12] MEDS: HYDROcodone-ACET 5/325MG TAB PO PRN (21:03)
[2024-03-13] VITALS (18 sets, daily range): BP systolic 109–117; BP diastolic 54–67; PULSE 62–90; RESP 14–20; TEMP 97.8–98.5; O2SAT 91–100
[2024-03-13 06:21] LABS: Basophils # (auto) 0.1 10 ^3/uL (0-0.2); Basophils % (auto) 0.8 % (0.0-2.0); Eosinophils # (auto) 0.2 10 ^3/uL (0-0.8); Eosinophils % (auto) 2.7 % (0.0-7.0); Hematocrit 43.4 % (41.0-53.0); Hemoglobin 14.7 g/dL (13.5-17.5); Lymphocytes # (auto) 1.7 10 ^3/uL (0.4-5.4); Lymphocytes % (auto) 19.4 % (10.0-50.0); Mean Corpuscular Hemoglobin 31.7 pg (28.0-32.0); Mean Corpuscular Volume 93.2 fL (80.0-100.0); Monocytes # (auto) 0.6 10 ^3/uL (0-1.3); Monocytes % (auto) 6.5 % (0.0-12.0); Neutrophils # (auto) 6.4 10 ^3/uL (1.6-8.6); Neutrophils % (auto) 70.6 % (37.0-80.0); Nucleated Red Blood Cells % 0.1 %; Platelet Count (auto) 209 10^3/uL (140-450); Red Blood Cells 4.66 10^6/uL (4.5-5.90); Red Cell Distribution Width 13.7 % (11.8-14.3)
[2024-03-13 06:42] LABS: Alanine Aminotransferase 19 U/L (7-40); Albumin 3.7 g/dL (3.2-4.8); Alkaline Phosphatase 115 U/L (46-116); Anion Gap 6 (5-15); Bilirubin, Total 0.9 mg/dL (0.2-1.0); Blood Urea Nitrogen 15 mg/dL (9-23); Calcium 9.4 mg/dL (8.7-10.4); Carbon Dioxide 26 mmol/L (20-31); Glucose 87 mg/dL (74-106); Potassium 4.3 mmol/L (3.5-5.1); Sodium 143 mmol/L (136-145)
[2024-03-13 06:48] LABS: Aspartate Aminotransferase 10 U/L (13-40); Chloride 111 mmol/L (98-107); Total Protein 5.3 g/dL (5.7-8.2)
[2024-03-13] MEDS: AZITHROMYCIN 250 MG TAB PO SCH (08:32)
[2024-03-13] MEDS: FAMOTIDINE (10MG/ML) 2ML VL IV SCH (08:33)
[2024-03-13] MEDS: methylPREDNISolone SOD SUCC 40 MG/ML VL IV SCH (08:33)
[2024-03-13] MEDS: cefTRIAXone 1GM/50ML D5W 50 ML IV SCH (08:34)
[2024-03-13 08:48] LABS: INR 1.03 (0.9-1.15); Partial Thromboplastin Time 25.7 SEC (24.5-34.5); Prothrombin Time 10.9 sec (9.3-11.8)
[2024-03-13] MEDS: FUROSEMIDE 20 MG TAB PO SCH (10:52)
[2024-03-13] MEDS: PANTOPRAZOLE 40 MG TAB PO SCH (10:52)
--- NOTE | 2024-03-13 14:43 | DVHPNRES ---
Progress Note Date Seen: Mar 13, 2024 Resident Creating Document: GWEN MATUTE RESIDENT Medical Necessity Reason Pt with a Central, PICC or Fol: No Subjective Review of Systems Yoandy Ac is a 68-year-old male with PMH of CHF, COPD, gastritis, anxiety presented to the ED with the chief complaints of abdominal pain for past 2 days. Patient reported, that he poorly remembered that he hit a table corner to his abdomen but no pain at the time. But for past 2 days a developing out of no where in the epigastric area and radiates to the LUQ and RUQ throbbing, current pain is 0/10 but increases to 4/10, no aggravating or relieving factors, not associated with nausea, vomiting, fever, chest pain, diarrhea or hematemesis and other other symptoms PMH: CHF, COPD, gastritis, anxiety, DVT on Eliquis PSH: Appendectomy Family history: Reviewed, noncontributory Social history: Lives alone. Active smoker smokes less than 1 pack per day. Denies alcohol and other drug abuse Allergies: No known allergies Patient seen and examined at the bedside. Patient reports mild improvement in the pain since admission. CT abdominal pelvis showed mild splenomegaly and a large, 10 x 6.4 cm subcapsular lateral splenic simple fluid collection likely an organizing hematoma or seroma and atherosclerotic disease of the aortoiliac arteries fusiform aneurysm of distal abdominal aorta with maximum transverse diameter 2.8 cm. Splenic ultrasound showed Complex fluid collection adjacent to the spleen corresponds to history of splenic hematoma as described above. Consulted surgery for further evaluation Objective vital signs Vital Sign Date Time Temp Pulse Resp B/P (MAP) Pulse Ox O2 Delivery O2 Flow Rate FiO2 03/13/24 12:56 98.5 65 16 112/62 (79) 97 98.5 03/13/24 10:31 Room Air* 0 21 Total Intake and Output 03/12/24 03/12/24 03/13/24 15:00 23:00 07:00 Intake Total 220 ml Balance 220 ml medications Current Medications Medications Dose Ordered Sig/Jania Route Start Time Stop Time Status Last Admin Dose Admin Sodium Chloride 1,000 ml @ 60 mls/hr [id number] IV 03/12/24 09:30 03/13/24 02:34 60 MLS/HR Acetaminophen/ Hydrocodone Bitart 1 tab Q4HP PRN PO 03/12/24 09:30 03/12/24 21:03 1 TAB Ondansetron HCl 4 mg Q4HP PRN IV 03/12/24 09:30 Docusate Sodium 100 mg BIDPRN PRN PO 03/12/24 09:30 Zinc Sulfate 220 mg DAILY PO 03/12/24 10:00 03/13/24 08:32 220 MG Ascorbic Acid 500 mg BID PO 03/12/24 10:00 03/13/24 08:33 500 MG Multivitamins 1 tab DAILY PO 03/12/24 10:00 03/13/24 08:32 1 TAB Acetaminophen 650 mg Q6HP PRN PO 03/12/24 09:30 Morphine Sulfate 2 mg Q4HPRN PRN IV 03/12/24 09:30 Ceftriaxone Sodium 50 ml @ 100 mls/hr DAILY@09 IV 03/13/24 09:00 03/13/24 08:34 100 MLS/HR Famotidine 20 mg DAILY IV 03/13/24 10:00 03/13/24 08:33 20 MG Albuterol 2.5 mg Q4HWA NEB 03/12/24 10:00 03/13/24 10:31 2.5 MG Albuterol 2.5 mg Q2HPRN PRN NEB 03/12/24 09:30 Furosemide 20 mg DAILY PO 03/13/24 10:00 03/13/24 10:52 20 MG Pantoprazole Sodium 40 mg DAILY@0630 PO 03/13/24 10:00 03/13/24 10:52 40 MG Patient Own Medication 1 tab DAILY PO 03/13/24 10:00 Atorvastatin Calcium 40 mg HS PO 03/13/24 22:00 Examination Pt is lying on bed General Appearance: Alert, Oriented X3, Cooperative, Not in acute distress HEENT: Atraumatic, Mucous membranes moist/pink Respiratory: Clear to auscultation, Normal air movement, No added sounds Cardiovascular: Regular rate, Normal S1, Normal S2, No murmurs Abdominal: mild diffuse abdominal tenderness . Active bowel sounds, Soft, Extremities: both extremities are swollen but no edematous Skin: No Significant rash, except past surgical scars Neuro: Normal speech, sensorimotor deficits none Psych/Mental Status: Mental status NL, Mood NL Nurse was there as sharperone during examination laboratory and microbiology Laboratory Tests 03/13/24 06:03 Test 03/13/24 06:03 Range/Units Serum Glucose 87 74-106 mg/dL Microbiology Date/Time Source Procedure Growth Status 03/13/24 01:00 Nose MRSA Screen - Final Complete Labs and/or images reviewed: Labs reviewed by me, Image(s) reviewed by me Problem List/Assessment/Plan Problem List/Assessment/Plan # Splenomegaly with possible splenic hematoma -CT abdominal pelvis showed mild splenomegaly and a large, 10 x 6.4 cm subcapsular lateral splenic simple fluid collection likely an organizing hematoma or seroma - Splenic ultrasound showed Complex fluid collection adjacent to the spleen corresponds to history of splenic hematoma as described above. - Consulted surgery for further evaluation - currently on Rocephin # ruled out COPD exacerbation and pneumonia - discontinued azithromycin and methylprednisolone # chronic gastritis - continue home meds # CHF not in exacerbation - continue home meds # anxiety - resumed home meds # history of DVT - ordered new venous study - hold Eliquis due to splenic hematoma no DVT PPX since patient is bleeding Protonix Cardiac diet Reconciled home meds Goals of care discussed with the patient for more than 27 minutes: Full code status Case management discussed with Dr. Park, patient and nurse Plan discussed with: Patient My Orders My Orders Orders - GWEN MATUTE Procedure Category Date Status Time Vitamin D, 25-Hydroxy LAB 03/13/24 In Process 08:23 Vitamin B12 LAB 03/13/24 In Process 08:23 Drug Screen LAB 03/13/24 Logged 08:23 Furosemide Tablet PHA 03/13/24 In Process (Lasix Tablet) 10:00 Pantoprazole Tablet PHA 03/13/24 In Process (Protonix Tablet) 10:00 (Nf) Aripiprazole PHA 03/13/24 In Process 10:00 Atorvastatin (Lipitor) PHA 03/13/24 In Process 22:00 Bilat Lower Dvt US 03/13/24 Taken 13:53 Date of Service: Mar 13, 2024 Billing Provider: JOSE DE JESUS PARK MD Common Visit Codes: [id number] INP/OBS CARE(HIGH) GWEN MATUTE RESIDENT Mar 13, 2024 14:43 JOSE DE JESUS PARK MD Mar 15, 2024 23:18
--- NOTE | 2024-03-13 14:59 | DVHINCON2 ---
Date of service: Mar 13, 2024 History of Present Illness 68-year-old male with a history of gastritis, anxiety, CHF, and COPD admitted secondary to two day history of epigastric abdominal pain without fevers, chi lls, nausea or vomiting. Past Medical History As mentioned in HPI Past Surgical History No abdominal surgeries Family History: Cardiovascular disease G8 MOTHER G8 FATHER Diabetes mellitus G8 MOTHER Family History Noncontributory Social History Reports tobacco use. Denies any alcohol IV drug use. Allergies: Coded Allergies: NO KNOWN ALLERGIES (Unverified , 02/29/24) Home Meds Reported Medications Thiamine Hcl (VITAMIN B-1) 100 Mg Tb, 1 TAB PO DAILY 03/12/24 Aspirin (Aspirin Low Dose) 81 Mg Tab, 1 TAB PO DAILY 03/12/24 Aripiprazole (Aripiprazole) 5 Mg Tab, 1 TAB PO DAILY 03/12/24 Atorvastatin Calcium (ATORVASTATIN CALCIUM) 40 Mg Tab, 40 MG PO DAILY 03/12/24 Pantoprazole Sodium Sesquihydr (Pantoprazole Sodium) 40 Mg Tab, 1 TAB PO DAILY 03/12/24 Furosemide (Furosemide) 20 Mg Tab, 1 TAB PO DAILY 03/12/24 Current Medications Current Medications Medications (Trade) Dose Ordered Sig/Jania Route PRN Reason Start Time Stop Time Status Last Admin Ceftriaxone Sodium 50 ml @ 100 mls/hr DAILY@09 IV 03/13/24 09:00 03/13/24 08:34 Methylprednisolone Sodium Succinate (Solu Medrol) 40 mg DAILY IV 03/13/24 10:00 03/13/24 13:55 DC 03/13/24 08:33 Famotidine (Pepcid Injection) 20 mg DAILY IV 03/13/24 10:00 03/13/24 08:33 Azithromycin (Zithromax Tablet) 250 mg DAILY PO 03/13/24 10:00 03/13/24 14:40 DC 03/13/24 08:32 Furosemide (Lasix Tablet) 20 mg DAILY PO 03/13/24 10:00 03/13/24 10:52 Pantoprazole Sodium (Protonix Tablet) 40 mg DAILY@0630 PO 03/13/24 10:00 03/13/24 10:52 Patient Own Medication 1 tab DAILY PO 03/13/24 10:00 Atorvastatin Calcium (Lipitor) 40 mg HS PO 03/13/24 22:00 Vital Signs Vital Signs Date Time Temp Pulse Resp B/P (MAP) Pulse Ox O2 Delivery O2 Flow Rate FiO2 03/13/24 14:52 85 18 100 03/13/24 14:46 Room Air* 0 21 03/13/24 12:56 98.5 112/62 (79) 98.5 Physical Exam GEN: Elderly male in no acute distress. Alert. On nasal cannula oxygen. HEENT: Normocephalic atraumatic. Moist mucous membranes. Anicteric sclerae. CV: RRR Respiratory: Coarse breath sounds ABD: Soft. Nontender nondistended. CT of the abdomen and pelvis: No acute intra-abdominal or intrapelvic process. A large 10 x 6.4 cm subcapsular lateral splenic simple fluid collection likely organizing hematoma versus seroma. Splenic ultrasound: Complex fluid collection with multiple septations along the superior aspect of the spleen measuring up to 9.1 x 6.5 x 7.8 cm. Labs/Diagnostic Data Labs Test 03/13/24 06:03 03/12/24 07:43 03/12/24 07:30 03/12/24 06:45 Range/Units White Blood Count 9.0 4.4-10.8 10^3/uL Red Blood Count 4.66 4.5-5.90 10^6/uL Hemoglobin 14.7 13.5-17.5 g/dL Hematocrit 43.4 41.0-53.0 % Mean Corpuscular Volume 93.2 80.0-100.0 fL Mean Corpuscular Hemoglobin 31.7 28.0-32.0 pg Mean Corpuscular Hemoglobin Concent 34.0 32.0-36.0 g/dL Red Cell Distribution Width 13.7 11.8-14.3 % Platelet Count 209 140-450 10^3/uL Mean Platelet Volume 7.8 6.9-10.8 fL Neutrophils (%) (Auto) 70.6 37.0-80.0 % Lymphocytes (%) (Auto) 19.4 10.0-50.0 % Monocytes (%) (Auto) 6.5 0.0-12.0 % Eosinophils (%) (Auto) 2.7 0.0-7.0 % Basophils (%) (Auto) 0.8 0.0-2.0 % Neutrophils # (Auto) 6.4 1.6-8.6 10 ^3/uL Lymphocytes # (Auto) 1.7 0.4-5.4 10 ^3/uL Monocytes # (Auto) 0.6 0-1.3 10 ^3/uL Eosinophils # (Auto) 0.2 0-0.8 10 ^3/uL Basophils # (Auto) 0.1 0-0.2 10 ^3/uL Nucleated Red Blood Cells 0.1 % Prothrombin Time 10.9 9.3-11.8 sec Prothrombin Time INR 1.03 0.9-1.15 Activated Partial Thromboplast Time 25.7 24.5-34.5 SEC Sodium Level 143 136-145 mmol/L Potassium Level 4.3 3.5-5.1 mmol/L Chloride Level 111 H 98-107 mmol/L Carbon Dioxide Level 26 20-31 mmol/L Anion Gap 6 5-15 Blood Urea Nitrogen 15 9-23 mg/dL Creatinine 1.00 0.700-1.30 mg/dL Glomerular Filtration Rate Calc 82 >90 mL/min BUN/Creatinine Ratio 15.0 10.0-20.0 Serum Glucose 87 74-106 mg/dL Hemoglobin A1c 5.6 <5.7 % A1C Calcium Level 9.4 8.7-10.4 mg/dL Magnesium Level 1.9 1.6-2.6 mg/dL Total Bilirubin 0.9 0.2-1.0 mg/dL Aspartate Amino Transferase (AST) 10 L 13-40 U/L Alanine Aminotransferase (ALT) 19 7-40 U/L Alkaline Phosphatase 115 46-116 U/L Total Protein 5.3 L 5.7-8.2 g/dL Albumin 3.7 3.2-4.8 g/dL Thyroid Stimulating Hormone (TSH) 0.21 L 0.55-4.78 uIU/mL Troponin I High Sensitivity < 3 L </=54 ng/L Urine Color Yellow Yellow Urine Clarity Clear Clear Urine pH 6.5 5.0-9.0 Urine Specific Corry 1.017 1.001-1.035 Urine Protein Negative Negative Urine Ketones Negative Negative Urine Blood Negative Negative /uL Urine Nitrite Negative Negative Urine Bilirubin Negative Negative Urine Urobilinogen Normal Negative mg/dL Urine Leukocyte Esterase Negative Negative /uL Urine RBC <1 0 - 3 /hpf Urine WBC 3 0 - 3 /hpf Urine Squamous Epithelial Cells None seen <5 /hpf Urine Bacteria None seen None Seen /hpf Urine Mucus Few None Seen Urine Glucose Normal Normal mg/dL B-Type Natriuretic Peptide 8.41 0-100 pg/mL Lipase 41 12-53 U/L Microbiology Date/Time Source Procedure Growth Status 03/13/24 01:00 Nose MRSA Screen - Final Complete Assessment 1. Likely old splenic hematoma without acute infection. Plan/Recommendation 1. Consider IR consult for percutaneous drainage. No indication for acute surgical intervention at this time. Plan discussed with: Patient SHOBHA ZALDIVAR MD Mar 13, 2024 14:59
--- NOTE | 2024-03-13 15:12 | DVH ---
Bilateral lower extremity venous duplex Clinical History: history dvt Comparison: US LT LOWER DVT on DOS: 02/29/24 Technique: Duplex Doppler evaluation of the deep venous systems of both lower extremities from the common femora l veins to the popliteal veins including color Doppler and spectral/pulsed waveform analysis was perf ormed. Findings: RIGHT SIDE: The common femoral vein demonstrates appropriate compressibility and waveform variability. There is compressibility/patency of the great saphenous vein at the proximal thigh. The femoral vein demonstrates appropriate compressibility and waveform variability. The deep femoral vein demonstrates appropriate compressibility and waveform variability. The popliteal vein demonstrates appropriate compressibility and waveform variability. There is normal compressibility at the tibioperoneal trunk. LEFT SIDE: The common femoral vein demonstrates nonocclusive thrombus in the left femoral vein and popliteal vei n. There is compressibility/patency of the great saphenous vein at the proximal thigh. The femoral vein demonstrates appropriate compressibility and waveform variability. The deep femoral vein demonstrates appropriate compressibility and waveform variability. The popliteal vein demonstrates appropriate compressibility and waveform variability. There is normal compressibility at the tibioperoneal trunk Left inguinal lymph nodes Impression: 1. Nonocclusive thrombus throughout the left femoral vein and popliteal vein. 2. Left inguinal lymph nodes. 3. Unchanged from 02/29/2024
[2024-03-13] MEDS: ATORVASTATIN 20 MG TAB PO SCH (21:47)
[2024-03-14] VITALS (20 sets, daily range): BP systolic 97–114; BP diastolic 49–63; PULSE 52–71; RESP 15–20; TEMP 97.6–98.4; O2SAT 91–100
[2024-03-14 08:36] LABS: Basophils # (auto) 0 10 ^3/uL (0-0.2); Basophils % (auto) 0.4 % (0.0-2.0); Eosinophils # (auto) 0.1 10 ^3/uL (0-0.8); Eosinophils % (auto) 1.2 % (0.0-7.0); Hematocrit 42.8 % (41.0-53.0); Hemoglobin 14.5 g/dL (13.5-17.5); Lymphocytes # (auto) 1.8 10 ^3/uL (0.4-5.4); Mean Corpuscular Hemoglobin 31.6 pg (28.0-32.0); Mean Corpuscular Hgb Conc. 33.9 g/dL (32.0-36.0); Mean Corpuscular Volume 93.3 fL (80.0-100.0); Monocytes # (auto) 0.6 10 ^3/uL (0-1.3); Monocytes % (auto) 7.1 % (0.0-12.0); Neutrophils # (auto) 6.5 10 ^3/uL (1.6-8.6); Neutrophils % (auto) 71.3 % (37.0-80.0); Platelet Count (auto) 198 10^3/uL (140-450); Red Blood Cells 4.59 10^6/uL (4.5-5.90); Red Cell Distribution Width 13.5 % (11.8-14.3); White Blood Cell 9.1 10^3/uL (4.4-10.8)
--- NOTE | 2024-03-14 15:18 | DVHPNRES ---
Progress Note Date Seen: Mar 14, 2024 Resident Creating Document: GWEN MATUTE RESIDENT Medical Necessity Reason Pt with a Central, PICC or Fol: No Subjective Review of Systems Yoandy Ac is a 68-year-old male with PMH of CHF, COPD, gastritis, anxiety presented to the ED with the chief complaints of abdominal pain for past 2 days. Patient seen and examined at the bedside. Patient reports improvement in the pain since admission. No active complaints today CT abdominal pelvis showed mild splenomegaly and a large, 10 x 6.4 cm subcapsular lateral splenic simple fluid collection likely an organizing hematoma or seroma and atherosclerotic disease of the aortoiliac arteries fusiform aneurysm of distal abdominal aorta with maximum transverse diameter 2.8 cm. Splenic ultrasound showed Complex fluid collection adjacent to the spleen corresponds to history of splenic hematoma as described above. Consulted surgery, Advised IR consult for percutaneous drainage and no indication for acute surgical intervention. Pending drainage by IR consult Patient reports: No new complaints Objective vital signs Vital Sign Date Time Temp Pulse Resp B/P (MAP) Pulse Ox O2 Delivery O2 Flow Rate FiO2 03/14/24 14:30 60 18 98 03/14/24 13:00 98.0 97/60 (72) 98.0 03/14/24 10:00 Nasal Cannula 2.0 03/14/24 10:00 28 Total Intake and Output 03/13/24 03/13/24 03/14/24 14:59 22:59 06:59 Intake Total 600 ml Balance 600 ml medications Current Medications Medications Dose Ordered Sig/Jania Route Start Time Stop Time Status Last Admin Dose Admin Acetaminophen/ Hydrocodone Bitart 1 tab Q4HP PRN PO 03/12/24 09:30 03/14/24 05:40 1 TAB Ondansetron HCl 4 mg Q4HP PRN IV 03/12/24 09:30 Docusate Sodium 100 mg BIDPRN PRN PO 03/12/24 09:30 Zinc Sulfate 220 mg DAILY PO 03/12/24 10:00 03/14/24 10:12 220 MG Ascorbic Acid 500 mg BID PO 03/12/24 10:00 03/14/24 10:11 500 MG Multivitamins 1 tab DAILY PO 03/12/24 10:00 03/14/24 10:11 1 TAB Acetaminophen 650 mg Q6HP PRN PO 03/12/24 09:30 Morphine Sulfate 2 mg Q4HPRN PRN IV 03/12/24 09:30 Ceftriaxone Sodium 50 ml @ 100 mls/hr DAILY@09 IV 03/13/24 09:00 03/14/24 10:11 100 MLS/HR Famotidine 20 mg DAILY IV 03/13/24 10:00 03/14/24 10:13 20 MG Albuterol 2.5 mg Q4HWA NEB 03/12/24 10:00 03/14/24 14:20 2.5 MG Albuterol 2.5 mg Q2HPRN PRN NEB 03/12/24 09:30 Furosemide 20 mg DAILY PO 03/13/24 10:00 03/13/24 10:52 20 MG Pantoprazole Sodium 40 mg DAILY@0630 PO 03/13/24 10:00 03/14/24 05:40 40 MG Patient Own Medication 1 tab DAILY PO 03/13/24 10:00 Atorvastatin Calcium 40 mg HS PO 03/13/24 22:00 03/13/24 21:47 40 MG Examination Pt is lying on bed General Appearance: Alert, Oriented X3, Cooperative, Not in acute distress HEENT: Atraumatic, Mucous membranes moist/pink Respiratory: Clear to auscultation, Normal air movement, No added sounds Cardiovascular: Regular rate, Normal S1, Normal S2, No murmurs Abdominal: mild diffuse abdominal tenderness . Active bowel sounds, Soft, Extremities: both extremities are swollen but no edematous Skin: No Significant rash, except past surgical scars Neuro: Normal speech, sensorimotor deficits none Psych/Mental Status: Mental status NL, Mood NL Nurse was there as sharperone during examination laboratory and microbiology Laboratory Tests 03/14/24 08:15 03/13/24 06:03 Test 03/13/24 06:03 Range/Units Serum Glucose 87 74-106 mg/dL Microbiology Date/Time Source Procedure Growth Status 03/13/24 01:00 Nose MRSA Screen - Final Complete Labs and/or images reviewed: Labs reviewed by me, Image(s) reviewed by me Problem List/Assessment/Plan Problem List/Assessment/Plan # Splenomegaly with possible splenic hematoma -CT abdominal pelvis showed mild splenomegaly and a large, 10 x 6.4 cm subcapsular lateral splenic simple fluid collection likely an organizing hematoma or seroma - Splenic ultrasound showed Complex fluid collection adjacent to the spleen corresponds to history of splenic hematoma as described above. - Consulted surgery, Advised IR consult for percutaneous drainage and no indication for acute surgical intervention. - Pending IR consult - currently on Rocephin # ruled out COPD exacerbation and pneumonia - discontinued azithromycin and methylprednisolone # chronic gastritis - continue home meds # CHF not in exacerbation - continue home meds # anxiety - resumed home meds # history of DVT - ordered new venous study - hold Eliquis due to splenic hematoma no DVT PPX since patient is bleeding Protonix Cardiac diet Reconciled home meds Goals of care discussed with the patient for more than 27 minutes: Full code status Case management discussed with Dr. Park, patient and nurse. Consulted surgery, Advised IR consult for percutaneous drainage and no indication for acute surgical intervention. Pending drainage by IR consult Plan discussed with: Patient My Orders My Orders Orders - GWEN MATUTE Procedure Category Date Status Time Discharge DISCHARGE 03/14/24 Transmitted 12:17 Schedule For Dc ARIANA 03/14/24 In Process Clinic F/U 12:17 Date of Service: Mar 14, 2024 Billing Provider: JOSE DE JESUS PARK MD Common Visit Codes: [id number] INP/OBS CARE(HIGH) GWEN MATUTE Mar 14, 2024 15:18 JOSE DE JESUS PARK MD Mar 15, 2024 23:18
[2024-03-14 16:50] LABS: Free T3 2.97 pg/mL (2.3-4.2)
[2024-03-14 16:51] LABS: Free T4 (Free Thyroxine) 1.18 ng/dL (0.89-1.76)
[2024-03-15] VITALS (19 sets, daily range): BP systolic 105–121; BP diastolic 52–72; PULSE 61–101; RESP 15–31; TEMP 97.6–99.3; O2SAT 94–100
[2024-03-15] MEDS: ALBUTEROL SULF 2.5 MG/0.5ML(0.5%) NEB SOLN NEB PRN (02:38)
--- NOTE | 2024-03-15 09:21 | DVHPNRES ---
Progress Note Date Seen: Mar 15, 2024 Resident Creating Document: GWEN MATUTE RESIDENT Medical Necessity Reason Pt with a Central, PICC or Fol: No Subjective Review of Systems Yoandy Ac is a 68-year-old male with PMH of CHF, COPD, gastritis, anxiety presented to the ED with the chief complaints of abdominal pain for past 2 days. Patient seen and examined at the bedside. Patient reports improvement in the pain since admission. No active complaints today CT abdominal pelvis and splenic ultrasound showed Complex fluid collection adjacent to the spleen corresponds to history of splenic hematoma Consulted surgery, Advised IR consult for percutaneous drainage and no indication for acute surgical intervention. Pending IR consult for possible drainage and IVC filter placement Patient reports: No new complaints Changes from previous H/P or p: No Changes Objective vital signs Vital Sign Date Time Temp Pulse Resp B/P (MAP) Pulse Ox O2 Delivery O2 Flow Rate FiO2 03/15/24 08:59 113/66 03/15/24 07:21 77 18 99 03/15/24 07:15 Nasal Cannula 3.0 03/15/24 07:15 32 03/15/24 05:00 98.6 98.6 Total Intake and Output 03/14/24 03/14/24 03/15/24 15:00 23:00 07:00 Intake Total 50 ml Balance 50 ml medications Current Medications Medications Dose Ordered Sig/Jania Route Start Time Stop Time Status Last Admin Dose Admin Acetaminophen/ Hydrocodone Bitart 1 tab Q4HP PRN PO 03/12/24 09:30 03/15/24 06:03 1 TAB Ondansetron HCl 4 mg Q4HP PRN IV 03/12/24 09:30 Docusate Sodium 100 mg BIDPRN PRN PO 03/12/24 09:30 Zinc Sulfate 220 mg DAILY PO 03/12/24 10:00 03/15/24 08:52 220 MG Ascorbic Acid 500 mg BID PO 03/12/24 10:00 03/15/24 08:52 500 MG Multivitamins 1 tab DAILY PO 03/12/24 10:00 03/15/24 08:53 1 TAB Acetaminophen 650 mg Q6HP PRN PO 03/12/24 09:30 Morphine Sulfate 2 mg Q4HPRN PRN IV 03/12/24 09:30 Ceftriaxone Sodium 50 ml @ 100 mls/hr DAILY@09 IV 03/13/24 09:00 03/15/24 08:52 100 MLS/HR Famotidine 20 mg DAILY IV 03/13/24 10:00 03/15/24 08:52 20 MG Albuterol 2.5 mg Q4HWA NEB 03/12/24 10:00 03/15/24 07:20 2.5 MG Albuterol 2.5 mg Q2HPRN PRN NEB 03/12/24 09:30 03/15/24 02:38 2.5 MG Furosemide 20 mg DAILY PO 03/13/24 10:00 03/15/24 08:59 20 MG Pantoprazole Sodium 40 mg DAILY@0630 PO 03/13/24 10:00 03/15/24 06:02 40 MG Patient Own Medication 1 tab DAILY PO 03/13/24 10:00 Atorvastatin Calcium 40 mg HS PO 03/13/24 22:00 03/14/24 21:19 40 MG Examination Pt is lying on bed General Appearance: Alert, Oriented X3, Cooperative, Not in acute distress HEENT: Atraumatic, Mucous membranes moist/pink Respiratory: Clear to auscultation, Normal air movement, No added sounds Cardiovascular: Regular rate, Normal S1, Normal S2, No murmurs Abdominal: mild diffuse abdominal tenderness . Active bowel sounds, Soft, Extremities: both extremities are swollen but no edematous Skin: No Significant rash, except past surgical scars Neuro: Normal speech, sensorimotor deficits none Psych/Mental Status: Mental status NL, Mood NL Nurse was there as sharperone during examination laboratory and microbiology Laboratory Tests 03/14/24 08:15 03/13/24 06:03 Test 03/13/24 06:03 Range/Units Serum Glucose 87 74-106 mg/dL Microbiology Date/Time Source Procedure Growth Status 03/13/24 01:00 Nose MRSA Screen - Final Complete Labs and/or images reviewed: Labs reviewed by me, Image(s) reviewed by me Problem List/Assessment/Plan Problem List/Assessment/Plan # Splenomegaly with possible splenic hematoma -CT abdominal pelvis showed mild splenomegaly and a large, 10 x 6.4 cm subcapsular lateral splenic simple fluid collection likely an organizing hematoma or seroma - Splenic ultrasound showed Complex fluid collection adjacent to the spleen corresponds to history of splenic hematoma as described above. - Consulted surgery, Advised IR consult for percutaneous drainage and no indication for acute surgical intervention. - Pending IR consult for possible drainage and IVC filter placement - currently on Rocephin # Chronic DVT left femoral popliteal vein - evident on new venous scan - hold Eliquis due to splenic hematoma - consulted IR for possible IVC placement # COPD exacerbation and pneumonia - currently on doxycycline and prednisolone 20 mg and breathing treatments # chronic gastritis - continue home meds # CHF not in exacerbation - continue home meds # anxiety - resumed home meds no DVT PPX since patient is bleeding Protonix Cardiac diet Reconciled home meds Goals of care discussed with the patient for more than 27 minutes: Full code status Case management discussed with Dr. Moore, patient and nurse. Pending IR consult for possible drainage and IVC filter placement Plan discussed with: Patient My Orders My Orders Orders - GWEN MATUTE Procedure Category Date Status Time Discharge DISCHARGE 03/14/24 Transmitted 12:17 Schedule For Dc ARIANA 03/14/24 In Process Clinic F/U 12:17 * Radiologist Consult CONS 03/14/24 Transmitted 15:24 Date of Service: Mar 15, 2024 Billing Provider: KIMBERLY MOORE MD Common Visit Codes: [id number] INP/OBS CARE(HIGH) GWEN MATUTE Mar 15, 2024 09:21 KIMBERLY MOORE MD Mar 15, 2024 21:37
[2024-03-15] MEDS: DOXYCYCLINE 100 MG TAB/CAP PO ONE (13:49)
[2024-03-15] MEDS: predniSONE 20 MG TAB PO ONE (13:49)
[2024-03-15] MEDS: predniSONE 20 MG TAB PO SCH (21:41)
[2024-03-15] MEDS: DOXYCYCLINE 100 MG TAB/CAP PO SCH (21:41)
[2024-03-16] VITALS (18 sets, daily range): BP systolic 95–113; BP diastolic 57–64; PULSE 66–104; RESP 14–20; TEMP 97.8–98.5; O2SAT 92–99
[2024-03-16 07:10] LABS: Chloride 104 mmol/L (98-107); Potassium 4.4 mmol/L (3.5-5.1); Sodium 140 mmol/L (136-145)
[2024-03-16 07:11] LABS: Anion Gap 7 (5-15); Carbon Dioxide 29 mmol/L (20-31)
[2024-03-16 07:17] LABS: BUN/Creatinine Ratio 15.2 (10.0-20.0); Blood Urea Nitrogen 14 mg/dL (9-23)
[2024-03-16 07:37] LABS: Glucose 129 mg/dL (74-106)
--- NOTE | 2024-03-16 19:24 | DVHPNRES ---
Progress Note Date Seen: Mar 16, 2024 Resident Creating Document: LIBORIO TRAN RESIDENT Medical Necessity Reason Pt with a Central, PICC or Fol: No Subjective Review of Systems Yoandy Ac is a 68-year-old male who presents the ED chief complaint of abdominal pain for the past two days. Patient denies any recent left-sided abdominal trauma. He did have mild trauma on the right side of his abdomen approximately three months ago. Past medical history: CHF, COPD on home oxygen at 3 liters/minute, gastritis, anxiety, bilateral DVT under chronic anticoagulation with apixaban Surgical history: Denies Family history: Mother had procoagulant state (multiple clots) Social history: Lives alone in [place]. Current smoker (40 pack year history of smoking). Denies current alcohol and other drug abuse Allergies: Denies Home medication: Aripiprazole 5 mg p.o. daily, aspirin 81 mg p.o. daily, atorvastatin 40 mg p.o. daily, furosemide full 20 mg p.o. daily, pantoprazole 40 mg p.o. daily, thiamine 100 mg p.o. daily, apixaban 5 mg p.o. b.i.d. Patient seen and examined at bedside. Currently has no new complaints. Objective vital signs Vital Sign Date Time Temp Pulse Resp B/P (MAP) Pulse Ox O2 Delivery O2 Flow Rate FiO2 03/16/24 17:22 97.8 69 14 112/64 (80) 92 97.8 03/16/24 14:19 Room Air 0.0 03/16/24 14:19 21 Total Intake and Output 03/15/24 03/15/24 03/16/24 15:00 23:00 07:00 Intake Total 50 ml Balance 50 ml medications Current Medications Medications Dose Ordered Sig/Jania Route Start Time Stop Time Status Last Admin Dose Admin Acetaminophen/ Hydrocodone Bitart 1 tab Q4HP PRN PO 03/12/24 09:30 03/16/24 14:34 1 TAB Ondansetron HCl 4 mg Q4HP PRN IV 03/12/24 09:30 Docusate Sodium 100 mg BIDPRN PRN PO 03/12/24 09:30 Zinc Sulfate 220 mg DAILY PO 03/12/24 10:00 03/16/24 09:08 220 MG Ascorbic Acid 500 mg BID PO 03/12/24 10:00 03/16/24 09:08 500 MG Multivitamins 1 tab DAILY PO 03/12/24 10:00 03/16/24 09:09 1 TAB Acetaminophen 650 mg Q6HP PRN PO 03/12/24 09:30 Morphine Sulfate 2 mg Q4HPRN PRN IV 03/12/24 09:30 Famotidine 20 mg DAILY IV 03/13/24 10:00 03/16/24 09:10 20 MG Albuterol 2.5 mg Q4HWA NEB 03/12/24 10:00 03/16/24 18:58 2.5 MG Albuterol 2.5 mg Q2HPRN PRN NEB 03/12/24 09:30 03/16/24 04:28 2.5 MG Furosemide 20 mg DAILY PO 03/13/24 10:00 03/16/24 09:09 20 MG Pantoprazole Sodium 40 mg DAILY@0630 PO 03/13/24 10:00 03/16/24 06:26 40 MG Patient Own Medication 1 tab DAILY PO 03/13/24 10:00 Atorvastatin Calcium 40 mg HS PO 03/13/24 22:00 03/15/24 21:41 40 MG Doxycycline Monohydrate 100 mg Q12HR PO 03/15/24 22:00 03/16/24 09:09 100 MG Prednisone 20 mg BID PO 03/15/24 22:00 03/16/24 09:08 20 MG Examination Patient lying in bed, in no acute distress General: Lucid, cachectic, afebrile, mucosae are moist Cardiovascular: Normal S1 and S2. No murmurs, gallops or rubs Respiratory: Normal ventilation mechanics. Decreased lung sounds on auscultation. Currently on nasal cannula 3 liters/minute Abdomen: Soft, nontender, no organomegaly, normal bowel sounds MSK/skin: Mobilizes 4 limbs. Skin is dry and warm Neurological: Oriented in 3 spheres. No motor no sensitive deficits. Pupils are isocoric and reactive laboratory and microbiology Laboratory Tests 03/16/24 06:24 03/14/24 08:15 Test 03/16/24 06:24 Range/Units Serum Glucose 129 H 74-106 mg/dL Microbiology Date/Time Source Procedure Growth Status 03/13/24 01:00 Nose MRSA Screen - Final Complete Problem List/Assessment/Plan Problem List/Assessment/Plan Splenomegaly with possible splenic hematoma CT abdominal pelvis showed mild splenomegaly and a large, 10 x 6.4 cm subcapsular lateral splenic simple fluid collection likely an organizing hematoma or seroma Splenic ultrasound showed Complex fluid collection adjacent to the spleen corresponds to history of splenic hematoma as described above. Consulted surgery: Advised IR consult for percutaneous drainage and no indication for acute surgical intervention. Pending IR consult for possible drainage and IVC filter placement Chronic DVT left femoral popliteal vein Completed lower limb venous ultrasound which showed chronic nonocclusive DVT Hold Eliquis due to splenic hematoma Consulted IR for possible IVC placement COPD exacerbation vs pneumonia Currently on doxycycline and prednisolone 20 mg and breathing treatments Chronic gastritis Continue home meds CHF not in exacerbation Patient on furosemide p.o. 20 mg daily Ordered echocardiogram to evaluate optimal treatment depending on LVEF Anxiety Resumed home meds Sick euthyroid syndrome Evidence and laboratory findings. Follow up as outpatient Malnutrition BMI 16 Patient will benefit from stonework tracer as outpatient, eventual screening for lung cancer. Current tobacco abuse Patient has over 40 pack-year history of smoking We will benefit from lung cancer screening Counseled strongly on cessation of tobacco Indicated nicotine patches at this point. Goals of care discussed with the patient for over minutes: Full code status Case management discussed with Dr. Moore, patient and nurse: Pending IR consult for possible splenic drainage and IVC filter placement. Have hold apixaban due to splenic hematoma. Plan discussed with: Patient, Other (Nurses) My Orders My Orders Orders - LIBORIO TRAN Procedure Category Date Status Time Phosphorus LAB 03/17/24 Verified 04:00 PTPTT LAB 03/17/24 Verified 04:00 Magnesium LAB 03/17/24 Verified 04:00 Complete Blood Count LAB 03/17/24 Verified 04:00 Basic Metabolic Panel LAB 03/17/24 Verified 04:00 Date of Service: Mar 16, 2024 Billing Provider: KIMBERLY MOORE MD Common Visit Codes: [id number] INP/OBS CARE(HIGH) LIBORIO TRAN Mar 16, 2024 19:24 KIMBERLY MOORE MD Mar 16, 2024 23:24
[2024-03-16] MEDS: guaiFENesin-DM 100/10mg/5ml SYR PO PRN (21:39)
[2024-03-17] VITALS (19 sets, daily range): BP systolic 94–115; BP diastolic 48–71; PULSE 61–82; RESP 13–20; TEMP 97.5–98.3; O2SAT 93–100
[2024-03-17 08:09] LABS: Basophils # (auto) 0 10 ^3/uL (0-0.2); Basophils % (auto) 0.2 % (0.0-2.0); Eosinophils # (auto) 0 10 ^3/uL (0-0.8); Eosinophils % (auto) 0.1 % (0.0-7.0); Hematocrit 46.4 % (41.0-53.0); Hemoglobin 15.7 g/dL (13.5-17.5); Lymphocytes # (auto) 0.7 10 ^3/uL (0.4-5.4); Lymphocytes % (auto) 9.8 % (10.0-50.0); Mean Corpuscular Hemoglobin 31.7 pg (28.0-32.0); Mean Corpuscular Hgb Conc. 33.8 g/dL (32.0-36.0); Mean Corpuscular Volume 93.7 fL (80.0-100.0); Monocytes # (auto) 0.6 10 ^3/uL (0-1.3); Monocytes % (auto) 9.6 % (0.0-12.0); Neutrophils # (auto) 5.4 10 ^3/uL (1.6-8.6); Neutrophils % (auto) 80.3 % (37.0-80.0); Platelet Count (auto) 199 10^3/uL (140-450); Red Blood Cells 4.95 10^6/uL (4.5-5.90); Red Cell Distribution Width 13.5 % (11.8-14.3); White Blood Cell 6.8 10^3/uL (4.4-10.8)
[2024-03-17 08:21] LABS: INR 1.01 (0.9-1.15); Partial Thromboplastin Time 25.9 SEC (24.5-34.5); Prothrombin Time 10.7 sec (9.3-11.8)
[2024-03-17 08:34] LABS: Anion Gap 7 (5-15); Calcium 9.7 mg/dL (8.7-10.4); Carbon Dioxide 28 mmol/L (20-31); Chloride 103 mmol/L (98-107); Potassium 4.2 mmol/L (3.5-5.1); Sodium 138 mmol/L (136-145)
[2024-03-17 08:40] LABS: BUN/Creatinine Ratio 12.2 (10.0-20.0); Blood Urea Nitrogen 12 mg/dL (9-23)
[2024-03-17 08:42] LABS: Phosphorus 3.6 mg/dL (2.4-5.1)
[2024-03-17 08:52] LABS: Glucose 116 mg/dL (74-106)
[2024-03-17] MEDS: NICOTINE 14 MG/24HR TOPICAL PATCH TD SCH (09:56)
--- NOTE | 2024-03-17 14:36 | DVHPNRES ---
Progress Note Date Seen: Mar 17, 2024 Resident Creating Document: GWEN MATUTE RESIDENT Medical Necessity Reason Pt with a Central, PICC or Fol: No Subjective Review of Systems Yoandy Ac is a 68-year-old male with PMH of CHF, COPD, gastritis, anxiety presented to the ED with the chief complaints of abdominal pain for past 2 days. Patient seen and examined at the bedside. Patient reports improvement in the pain since admission. No active complaints today. Consulted surgery, Advised IR consult for percutaneous drainage and no indication for acute surgical intervention. Per radiologist Dr. Adams splenic hematoma can not be drained or draining can not be placed due to high risk for infection. IVC filter placement Likely tomorrow by IR. Patient reports: No new complaints, Feels better Objective vital signs Vital Sign Date Time Temp Pulse Resp B/P (MAP) Pulse Ox O2 Delivery O2 Flow Rate FiO2 03/17/24 13:26 82 20 98 03/17/24 13:20 Room Air* 0 21 03/17/24 09:57 108/71 03/17/24 09:15 97.5 97.5 Total Intake and Output 03/16/24 03/16/24 03/17/24 15:00 23:00 07:00 Intake Total 960 ml 2560 ml 550 ml Output Total 280 ml 800 ml Balance 960 ml 2280 ml -250 ml medications Current Medications Medications Dose Ordered Sig/Jania Route Start Time Stop Time Status Last Admin Dose Admin Acetaminophen/ Hydrocodone Bitart 1 tab Q4HP PRN PO 03/12/24 09:30 03/17/24 12:32 1 TAB Ondansetron HCl 4 mg Q4HP PRN IV 03/12/24 09:30 Docusate Sodium 100 mg BIDPRN PRN PO 03/12/24 09:30 Zinc Sulfate 220 mg DAILY PO 03/12/24 10:00 03/17/24 09:54 220 MG Ascorbic Acid 500 mg BID PO 03/12/24 10:00 03/17/24 09:54 500 MG Multivitamins 1 tab DAILY PO 03/12/24 10:00 03/17/24 09:55 1 TAB Acetaminophen 650 mg Q6HP PRN PO 03/12/24 09:30 Morphine Sulfate 2 mg Q4HPRN PRN IV 03/12/24 09:30 Famotidine 20 mg DAILY IV 03/13/24 10:00 03/17/24 09:54 20 MG Albuterol 2.5 mg Q4HWA NEB 03/12/24 10:00 03/17/24 13:19 2.5 MG Albuterol 2.5 mg Q2HPRN PRN NEB 03/12/24 09:30 03/17/24 02:39 2.5 MG Furosemide 20 mg DAILY PO 03/13/24 10:00 03/17/24 09:57 20 MG Pantoprazole Sodium 40 mg DAILY@0630 PO 03/13/24 10:00 03/17/24 05:09 40 MG Patient Own Medication 1 tab DAILY PO 03/13/24 10:00 Atorvastatin Calcium 40 mg HS PO 03/13/24 22:00 03/16/24 21:39 40 MG Doxycycline Monohydrate 100 mg Q12HR PO 03/15/24 22:00 03/17/24 09:54 100 MG Prednisone 20 mg BID PO 03/15/24 22:00 03/17/24 09:55 20 MG Nicotine 1 patch DAILY TD 03/17/24 10:00 Guaifenesin/ Dextromethorphan 10 ml Q6HPRN PRN PO 03/16/24 21:15 03/16/24 21:39 10 ML Examination Pt is lying on bed General Appearance: Alert, Oriented X3, Cooperative, Not in acute distress HEENT: Atraumatic, Mucous membranes moist/pink Respiratory: Clear to auscultation, Normal air movement, No added sounds Cardiovascular: Regular rate, Normal S1, Normal S2, No murmurs Abdominal: mild diffuse abdominal tenderness . Active bowel sounds, Soft, Extremities: both extremities are swollen but no edematous Skin: No Significant rash, except past surgical scars Neuro: Normal speech, sensorimotor deficits none Psych/Mental Status: Mental status NL, Mood NL Nurse was there as sharperone during examination laboratory and microbiology Laboratory Tests 03/17/24 06:59 Test 03/17/24 06:59 Range/Units Serum Glucose 116 H 74-106 mg/dL Microbiology Date/Time Source Procedure Growth Status 03/13/24 01:00 Nose MRSA Screen - Final Complete Labs and/or images reviewed: Labs reviewed by me, Image(s) reviewed by me Problem List/Assessment/Plan Problem List/Assessment/Plan # Splenomegaly with possible splenic hematoma -CT abdominal pelvis showed mild splenomegaly and a large, 10 x 6.4 cm subcapsular lateral splenic simple fluid collection likely an organizing hematoma or seroma - Splenic ultrasound showed Complex fluid collection adjacent to the spleen corresponds to history of splenic hematoma as described above. - Consulted surgery, Advised IR consult for percutaneous drainage and no indication for acute surgical intervention. - Per radiologist Dr. Adams splenic hematoma can not be drained or draining can not be placed due to high risk for infection &IVC filter placement Likely tomorrow by IR. - currently on Rocephin # Chronic DVT left femoral popliteal vein - evident on new venous scan - hold Eliquis due to splenic hematoma - consulted IR for possible IVC placement # COPD exacerbation and pneumonia - currently on doxycycline and prednisolone 20 mg and breathing treatments # chronic gastritis - continue home meds # CHF not in exacerbation - continue home meds # anxiety - resumed home meds # Sick euthyroid syndrome - Evidence and laboratory findings. - Follow up as outpatient # Tobacco dependence # tobacco abuse disorders - patient counseled regarding cessation for more than 17 minutes and advised nicotine patch, refused no DVT PPX since patient is bleeding Protonix Cardiac diet Reconciled home meds Goals of care discussed with the patient for more than 27 minutes: Full code status Case management discussed with Dr. Altman, patient and nurse. Per radiologist Dr. Adams splenic hematoma can not be drained or draining can not be placed due to high risk for infection. IVC filter placement Likely tomorrow by IR. Plan discussed with: Patient My Orders My Orders Orders - GWEN MATUTE Procedure Category Date Status Time * Radiologist Consult CONS 03/17/24 Transmitted 14:25 Date of Service: Mar 17, 2024 Billing Provider: HERNESTO ALTMAN MD Common Visit Codes: [id number] INP/OBS CARE(HIGH) GWEN MATUTE Mar 17, 2024 14:36 HERNESTO ALTMAN MD Mar 22, 2024 18:49
--- NOTE | 2024-03-17 14:42 | DVHSR ---
APPROVED REPORT EXAM: Two-dimensional and M-mode echocardiogram with Doppler and color Doppler. Blood Pressure: 94/48 mmHg INDICATION CHF RISK FACTORS Height: 69, Weight: 166 DIMENSIONS LVDd5.2 (3.8-5.7cm)LA (2D)4.2 (1.9-4.0cm)Aortic Root3.8 (2.0-3.7cm) LVDs3.9 (2.5-4.0cm)LA (MM) (1.9-4.0cm)Aortic Cusp Exc1.8 (1.5-2.0cm) EF (%) 50.0 (55-70%)Rt. Atrium4.9 (1.9-4.0cm)Asc. Aorta cm IVSd1.1 (0.7-1.1cm)RV (D) (1.8-2.4cm) PWd1.2 (0.7-1.1cm) Mitral Valve MitralMitral Stenosis E wave0.66m/sMV Mean GR.mmHg A wave0.54m/sMV Peak GR.mmHg E/A ratio1.22D MVAcm2 DECEL [id number] 1/2 Timems Aortic Valve Aortic ValveAortic Stenosis LVOT Diameter2.4 (1.8-2.4cm)Doppler AVAcm2 Other Information Technically limited study due to body habitus. Conclusion Lower normal limit left ventricular systolic function estimated ejection fraction 50%. There is mild septal wall hypokinesia. Normal right ventricular size and dimension. Normal right ventricular systolic function. Normal biatrial size and dimension. Normal aortic valve structure and function. Normal mitral valve structure and function. Normal tricuspid valve structure and function. The pulmonary valve is grossly normal. No pericardial effusion.
[2024-03-17] MEDS: ACETAMINOPHEN 325 MG TAB PO PRN (19:42)
[2024-03-18] VITALS (18 sets, daily range): BP systolic 100–122; BP diastolic 49–72; PULSE 58–83; RESP 14–20; TEMP 98.1–98.4; O2SAT 90–100
[2024-03-18 07:31] LABS: Basophils # (auto) 0 10 ^3/uL (0-0.2); Basophils % (auto) 0.2 % (0.0-2.0); Eosinophils # (auto) 0 10 ^3/uL (0-0.8); Eosinophils % (auto) 0.1 % (0.0-7.0); Hematocrit 43.4 % (41.0-53.0); Hemoglobin 15.4 g/dL (13.5-17.5); Lymphocytes # (auto) 0.6 10 ^3/uL (0.4-5.4); Lymphocytes % (auto) 11.2 % (10.0-50.0); Mean Corpuscular Hemoglobin 32.8 pg (28.0-32.0); Mean Corpuscular Hgb Conc. 35.5 g/dL (32.0-36.0); Mean Corpuscular Volume 92.5 fL (80.0-100.0); Monocytes # (auto) 0.7 10 ^3/uL (0-1.3); Monocytes % (auto) 13.5 % (0.0-12.0); Neutrophils # (auto) 3.8 10 ^3/uL (1.6-8.6); Nucleated Red Blood Cells % 0.1 %; Platelet Count (auto) 187 10^3/uL (140-450); Red Blood Cells 4.69 10^6/uL (4.5-5.90); Red Cell Distribution Width 13.5 % (11.8-14.3)
[2024-03-18 07:35] LABS: Anion Gap 7 (5-15); Carbon Dioxide 28 mmol/L (20-31); Chloride 104 mmol/L (98-107); Potassium 4.4 mmol/L (3.5-5.1); Sodium 139 mmol/L (136-145)
[2024-03-18 07:36] LABS: Calcium 9.6 mg/dL (8.7-10.4)
[2024-03-18 07:41] LABS: BUN/Creatinine Ratio 16.1 (10.0-20.0); Blood Urea Nitrogen 15 mg/dL (9-23); Glucose 117 mg/dL (74-106)
[2024-03-18] MEDS ORDERED: NICO14DI9 TD (14:18)
[2024-03-18] MEDS ORDERED: PRED20TA2 PO (14:18)
[2024-03-18] MEDS ORDERED: ACET-1882 PO (14:18)
[2024-03-18] MEDS ORDERED: DEXT1SYP9 PO (14:18)
[2024-03-18] MEDS ORDERED: MULTTAB99 PO (14:18)
[2024-03-18] MEDS ORDERED: ASCO500T11 PO (14:18)
[2024-03-18] MEDS ORDERED: DOX100T PO (14:18)
--- NOTE | 2024-03-18 16:51 | DVHPNRES ---
Progress Note Date Seen: Mar 18, 2024 Resident Creating Document: GWEN MATUTE RESIDENT Medical Necessity Reason Pt with a Central, PICC or Fol: No Subjective Review of Systems Yoandy Ac is a 68-year-old male with PMH of CHF, COPD, gastritis, anxiety presented to the ED with the chief complaints of abdominal pain for past 2 days. Patient seen and examined at the bedside. Patient reports improvement in the pain since admission. No active complaints today. Consulted surgery, Advised IR consult for percutaneous drainage and no indication for acute surgical intervention. Per radiologist Dr. Adams splenic hematoma can not be drained or draining can not be placed due to high risk for infection. IVC filter placement unable to do it today , Likely tomorrow by IR. Patient reports: No new complaints, Feels better Objective vital signs Vital Sign Date Time Temp Pulse Resp B/P (MAP) Pulse Ox O2 Delivery O2 Flow Rate FiO2 03/18/24 16:43 77 16 100 03/18/24 13:00 98.2 107/72 (84) 98.2 03/18/24 09:37 Nasal Cannula 3.0 03/18/24 09:37 32 Total Intake and Output 03/17/24 03/17/24 03/18/24 15:00 23:00 07:00 Intake Total 600 ml 300 ml Output Total 600 ml Balance 600 ml -300 ml medications Current Medications Medications Dose Ordered Sig/Jania Route Start Time Stop Time Status Last Admin Dose Admin Acetaminophen/ Hydrocodone Bitart 1 tab Q4HP PRN PO 03/12/24 09:30 03/17/24 12:32 1 TAB Ondansetron HCl 4 mg Q4HP PRN IV 03/12/24 09:30 Docusate Sodium 100 mg BIDPRN PRN PO 03/12/24 09:30 Zinc Sulfate 220 mg DAILY PO 03/12/24 10:00 03/17/24 09:54 220 MG Ascorbic Acid 500 mg BID PO 03/12/24 10:00 03/17/24 21:02 500 MG Multivitamins 1 tab DAILY PO 03/12/24 10:00 03/17/24 09:55 1 TAB Acetaminophen 650 mg Q6HP PRN PO 03/12/24 09:30 03/17/24 19:42 650 MG Morphine Sulfate 2 mg Q4HPRN PRN IV 03/12/24 09:30 Famotidine 20 mg DAILY IV 03/13/24 10:00 03/18/24 09:27 20 MG Albuterol 2.5 mg Q4HWA NEB 03/12/24 10:00 03/18/24 09:37 2.5 MG Albuterol 2.5 mg Q2HPRN PRN NEB 03/12/24 09:30 03/18/24 16:42 2.5 MG Furosemide 20 mg DAILY PO 03/13/24 10:00 03/18/24 09:28 20 MG Pantoprazole Sodium 40 mg DAILY@0630 PO 03/13/24 10:00 03/17/24 05:09 40 MG Patient Own Medication 1 tab DAILY PO 03/13/24 10:00 Atorvastatin Calcium 40 mg HS PO 03/13/24 22:00 03/17/24 21:02 40 MG Doxycycline Monohydrate 100 mg Q12HR PO 03/15/24 22:00 03/18/24 09:27 100 MG Prednisone 20 mg BID PO 03/15/24 22:00 03/18/24 09:27 20 MG Nicotine 1 patch DAILY TD 03/17/24 10:00 Guaifenesin/ Dextromethorphan 10 ml Q6HPRN PRN PO 03/16/24 21:15 03/16/24 21:39 10 ML Examination Pt is lying on bed General Appearance: Alert, Oriented X3, Cooperative, Not in acute distress HEENT: Atraumatic, Mucous membranes moist/pink Respiratory: Clear to auscultation, Normal air movement, No added sounds Cardiovascular: Regular rate, Normal S1, Normal S2, No murmurs Abdominal: mild diffuse abdominal tenderness . Active bowel sounds, Soft, Extremities: both extremities are swollen but no edematous Skin: No Significant rash, except past surgical scars Neuro: Normal speech, sensorimotor deficits none Psych/Mental Status: Mental status NL, Mood NL Nurse was there as sharperone during examination laboratory and microbiology Laboratory Tests 03/18/24 05:59 Test 03/18/24 05:59 Range/Units Serum Glucose 117 H 74-106 mg/dL Microbiology Date/Time Source Procedure Growth Status 03/13/24 01:00 Nose MRSA Screen - Final Complete Labs and/or images reviewed: Labs reviewed by me, Image(s) reviewed by me Problem List/Assessment/Plan Problem List/Assessment/Plan # Splenomegaly with possible splenic hematoma -CT abdominal pelvis showed mild splenomegaly and a large, 10 x 6.4 cm subcapsular lateral splenic simple fluid collection likely an organizing hematoma or seroma - Splenic ultrasound showed Complex fluid collection adjacent to the spleen corresponds to history of splenic hematoma as described above. - Consulted surgery, Advised IR consult for percutaneous drainage and no indication for acute surgical intervention. - Per radiologist Dr. Adams splenic hematoma can not be drained or draining can not be placed due to high risk for infection &IVC filter placement Likely tomorrow by IR. - currently on Rocephin # Chronic DVT left femoral popliteal vein - evident on new venous scan - hold Eliquis due to splenic hematoma - consulted IR for possible IVC placement # COPD exacerbation and pneumonia - currently on doxycycline and prednisolone 20 mg and breathing treatments # chronic gastritis - continue home meds # CHF not in exacerbation - continue home meds # anxiety - resumed home meds # Sick euthyroid syndrome - Evidence and laboratory findings. - Follow up as outpatient # Tobacco dependence # tobacco abuse disorders - patient counseled regarding cessation for more than 17 minutes and advised nicotine patch, refused no DVT PPX since patient is bleeding Protonix Cardiac diet NPO after midnight Reconciled home meds Goals of care discussed with the patient for more than 27 minutes: Full code status Case management discussed with Dr. Altman, patient and nurse. Per radiologist Dr. Adams splenic hematoma can not be drained or draining can not be placed due to high risk for infection. IVC filter placement Likely tomorrow by IR. Plan discussed with: Patient Dietary Evaluation Review Comments: 1) Continue current plan of care Expected Outcomes/Goals: F/U in 3-5 days Date of Service: Mar 18, 2024 Billing Provider: HERNESTO ALTMAN MD Common Visit Codes: [id number] INP/OBS CARE(HIGH) GWEN MATUTE RESIDENT Mar 18, 2024 16:51 HERNESTO ALTMAN MD Mar 22, 2024 18:50
[2024-03-19] VITALS (15 sets, daily range): BP systolic 98–113; BP diastolic 58–68; PULSE 51–69; RESP 16–20; TEMP 98; O2SAT 92–99
[2024-03-19 06:29] LABS: Chloride 104 mmol/L (98-107); Potassium 4.4 mmol/L (3.5-5.1); Sodium 138 mmol/L (136-145)
[2024-03-19 06:30] LABS: Anion Gap 8 (5-15); Calcium 9.4 mg/dL (8.7-10.4); Carbon Dioxide 26 mmol/L (20-31)
[2024-03-19 06:35] LABS: BUN/Creatinine Ratio 18.1 (10.0-20.0); Blood Urea Nitrogen 17 mg/dL (9-23)
[2024-03-19 06:43] LABS: Basophils # (auto) 0 10 ^3/uL (0-0.2); Basophils % (auto) 0.4 % (0.0-2.0); Eosinophils # (auto) 0 10 ^3/uL (0-0.8); Eosinophils % (auto) 0.1 % (0.0-7.0); Hematocrit 44.4 % (41.0-53.0); Hemoglobin 15.5 g/dL (13.5-17.5); Lymphocytes # (auto) 0.7 10 ^3/uL (0.4-5.4); Lymphocytes % (auto) 14.4 % (10.0-50.0); Mean Corpuscular Hgb Conc. 34.8 g/dL (32.0-36.0); Mean Corpuscular Volume 91.8 fL (80.0-100.0); Monocytes # (auto) 0.6 10 ^3/uL (0-1.3); Monocytes % (auto) 12.4 % (0.0-12.0); Neutrophils # (auto) 3.5 10 ^3/uL (1.6-8.6); Neutrophils % (auto) 72.7 % (37.0-80.0); Nucleated Red Blood Cells % 0.2 %; Platelet Count (auto) 193 10^3/uL (140-450); Red Blood Cells 4.83 10^6/uL (4.5-5.90); Red Cell Distribution Width 13.6 % (11.8-14.3); White Blood Cell 4.8 10^3/uL (4.4-10.8)
[2024-03-19 06:45] LABS: Glucose 129 mg/dL (74-106)
[2024-03-19] MEDS: MIDAZOLAM HCL 2MG/2ML 2ml VIAL (1mg/ml) ONE (07:56)
[2024-03-19] MEDS: fentaNYL CITRATE 100 MCG/2 ML VL ONE (07:56)
[2024-03-19] MEDS: LIDOCAINE 2%HCL (LOCAL ANESTH.) INJ 20ML MDV ONE (07:56)
[2024-03-19] MEDS: NICOTINE 14 MG/24HR TOPICAL PATCH TD ONE (10:45)
--- NOTE | 2024-03-19 12:13 | DVH ---
XY INFERIOR VENA CAVA FILTER, HISTORY: IVC FILTER placement due to splenic hematoma and a DVT. PROCEDURE: Informed consent was obtained. The patient was placed on the fluoroscopic table in supine position. The right groin was prepped with chlorhexidine which was allowed to dry and draped in the u sual sterile fashion. Time out was performed. Following administration of 1% local lidocaine, the com mon femoral vein was accessed with a micropuncture set under ultrasound guidance, and an image docume nting patency sent to PACS. A 6 Danish sheath was placed into iliac vein. A cavogram was performed and the level of the renal veins were identified. The sheath was exchanged for a 9.6 Danish introduc er sheath, and a Bard G2 Jia IVC filter was deployed in an infrarenal location. The introducer she ath was removed and the venotomy closed with manual compression. Post-deployment image was obtained. No immediate complication was identified. FLUOROSCOPY TIME: 2.6 minutes. DAP 407 CONTRAST USED: 15 mL. SEDATION: Dr. Jodie Sears was personally responsible for the administration of moderate sedation during the procedure performed, including the use of an independent trained observer who had no other duties during the procedure. The drugs utilized were IV fentanyl and versed (see nursing log for details). The total time of supervision by the attending physician was approximately 30 minutes. FINDINGS: There is a patent single IVC visualized without intraluminal filling defect. No renal venou s anomaly is noted. Post-procedure image demonstrates good positioning of the IVC filter in an infrar enal position. IMPRESSION: Infra-renal IVC filter placement. PLAN: Consideration should be made for removal of this retrievable filter after and if medical necess ity for caval filtration is no longer present. If we in IR are unable to contact the patient in a lion emily fashion, please contact our office, and we will attempt to arrange for filter retrieval at the ea rliest convenience.
[2024-03-19] MEDS ORDERED: IPR002IS HHN (14:58)
[2024-03-19] MEDS ORDERED: RESPKIT15 XX (14:58)
[2024-03-19] MEDS ORDERED: ALB5IS NEB (14:58)
--- NOTE | 2024-03-19 17:57 | DVHDSRES ---
Discharge Summary Date of Admission Resident Creating Document: GWEN MATUTE RESIDENT Mar 12, 2024 at 09:28 Date of Discharge: Mar 19, 2024 Admitting Diagnosis Abdominal pain Labs/Diagnostic Data: Laboratory Results Test 03/19/24 05:43 03/17/24 06:59 03/14/24 08:15 03/13/24 06:03 White Blood Count 4.8 10^3/uL (4.4-10.8) Red Blood Count 4.83 10^6/uL (4.5-5.90) Hemoglobin 15.5 g/dL (13.5-17.5) Hematocrit 44.4 % (41.0-53.0) Mean Corpuscular Volume 91.8 fL (80.0-100.0) Mean Corpuscular Hemoglobin 32.0 pg (28.0-32.0) Mean Corpuscular Hemoglobin Concent 34.8 g/dL (32.0-36.0) Red Cell Distribution Width 13.6 % (11.8-14.3) Platelet Count 193 10^3/uL (140-450) Mean Platelet Volume 8.5 fL (6.9-10.8) Neutrophils (%) (Auto) 72.7 % (37.0-80.0) Lymphocytes (%) (Auto) 14.4 % (10.0-50.0) Monocytes (%) (Auto) 12.4 % (0.0-12.0) Eosinophils (%) (Auto) 0.1 % (0.0-7.0) Basophils (%) (Auto) 0.4 % (0.0-2.0) Neutrophils # (Auto) 3.5 10 ^3/uL (1.6-8.6) Lymphocytes # (Auto) 0.7 10 ^3/uL (0.4-5.4) Monocytes # (Auto) 0.6 10 ^3/uL (0-1.3) Eosinophils # (Auto) 0 10 ^3/uL (0-0.8) Basophils # (Auto) 0 10 ^3/uL (0-0.2) Nucleated Red Blood Cells 0.2 % Sodium Level 138 mmol/L (136-145) Potassium Level 4.4 mmol/L (3.5-5.1) Chloride Level 104 mmol/L (98-107) Carbon Dioxide Level 26 mmol/L (20-31) Anion Gap 8 (5-15) Blood Urea Nitrogen 17 mg/dL (9-23) Creatinine 0.94 mg/dL (0.700-1.30) Glomerular Filtration Rate Calc 88 mL/min (>90) BUN/Creatinine Ratio 18.1 (10.0-20.0) Serum Glucose 129 mg/dL (74-106) Calcium Level 9.4 mg/dL (8.7-10.4) Prothrombin Time 10.7 sec (9.3-11.8) Prothrombin Time INR 1.01 (0.9-1.15) Activated Partial Thromboplast Time 25.9 SEC (24.5-34.5) Phosphorus Level 3.6 mg/dL (2.4-5.1) Magnesium Level 2.0 mg/dL (1.6-2.6) Free Thyroxine (T4) Calculated 1.18 ng/dL (0.89-1.76) Free Triiodothyronine (T3) pg/mL 2.97 pg/mL (2.3-4.2) Hemoglobin A1c 5.6 % A1C (<5.7) Total Bilirubin 0.9 mg/dL (0.2-1.0) Aspartate Amino Transferase (AST) 10 U/L (13-40) Alanine Aminotransferase (ALT) 19 U/L (7-40) Alkaline Phosphatase 115 U/L (46-116) Total Protein 5.3 g/dL (5.7-8.2) Albumin 3.7 g/dL (3.2-4.8) Vitamin B12 Level 237 pg/mL (211-911) Vitamin D 25-Hydroxy 33.4 ng/mL (30.0-100) Thyroid Stimulating Hormone (TSH) 0.21 uIU/mL (0.55-4.78) Test 03/12/24 07:43 03/12/24 07:30 03/12/24 06:45 Troponin I High Sensitivity < 3 ng/L (</=54) Urine Color Yellow (Yellow) Urine Clarity Clear (Clear) Urine pH 6.5 (5.0-9.0) Urine Specific [place] 1.017 (1.001-1.035) Urine Protein Negative (Negative) Urine Ketones Negative (Negative) Urine Blood Negative /uL (Negative) Urine Nitrite Negative (Negative) Urine Bilirubin Negative (Negative) Urine Urobilinogen Normal mg/dL (Negative) Urine Leukocyte Esterase Negative /uL (Negative) Urine RBC <1 /hpf (0 - 3) Urine WBC 3 /hpf (0 - 3) Urine Squamous Epithelial Cells None seen /hpf (<5) Urine Bacteria None seen /hpf (None Seen) Urine Mucus Few (None Seen) Urine Glucose Normal mg/dL (Normal) B-Type Natriuretic Peptide 8.41 pg/mL (0-100) Lipase 41 U/L (12-53) Other Laboratory Tests 03/19/24 05:43 Brief Hx & Hospital Course: Yoandy Ac is a 68-year-old male with PMH of CHF, COPD, gastritis, anxiety presented to the ED with the chief complaints of abdominal pain for past 2 days. Patient reported, that he poorly remembered that he hit a table corner to his abdomen but no pain at the time. But for past 2 days a developing out of no where in the epigastric area and radiates to the LUQ and RUQ throbbing, current pain is 0/10 but increases to 4/10, no aggravating or relieving factors, not associated with nausea, vomiting, fever, chest pain, diarrhea or hematemesis and other other symptoms Patient required hospital admission for further evaluation and management. CT abdominal pelvis showed mild splenomegaly and a large, 10 x 6.4 cm subcapsular lateral splenic simple fluid collection likely an organizing hematoma or seroma and atherosclerotic disease of the aortoiliac arteries fusiform aneurysm of distal abdominal aorta with maximum transverse diameter 2.8 cm. Splenic ultrasound showed Complex fluid collection adjacent to the spleen corresponds to history of splenic hematoma as described above. Consulted surgery for further evaluation, advised IR consult for percutaneous drainage and no indication for acute surgical intervention. Per radiologist Dr. Adams splenic hematoma can not be drained or draining can not be placed due to high risk for infection. patient is on Eliquis for chronic DVT in lower extremities which leads to expansion of hematoma, advised to put IVC filter, consulted IR, placed IVC filter. Patient was advised about avoidance of contact sports injury. due to COPD exacerbation patient was given doxycycline, prednisolone 20 and breathing treatments. Patient was active smoker advised to quit smoking but patient is not willing. Patient condition was improved, hemodynamically stable and in condition to be discharged home with optimal medical treatment. Patient was advised about healthy lifestyle habits including diet and exercise and to quit smoking and to follow up with PCP after the discharge. Pt is lying on bed General Appearance: Alert, Oriented X3, Cooperative, Not in acute distress HEENT: Atraumatic, Mucous membranes moist/pink Respiratory: Clear to auscultation, Normal air movement, No added sounds Cardiovascular: Regular rate, Normal S1, Normal S2, No murmurs Abdominal: mild diffuse abdominal tenderness . Active bowel sounds, Soft, Extremities: both extremities are swollen but no edematous Skin: No Significant rash, except past surgical scars Neuro: Normal speech, sensorimotor deficits none Psych/Mental Status: Mental status NL, Mood NL Nurse was there as sharperone during examination Operations or Procedures CT abdominal pelvis showed mild splenomegaly and a large, 10 x 6.4 cm subcapsular lateral splenic simple fluid collection likely an organizing hematoma or seroma and atherosclerotic disease of the aortoiliac arteries fusiform aneurysm of distal abdominal aorta with maximum transverse diameter 2.8 cm. Splenic ultrasound showed Complex fluid collection adjacent to the spleen corresponds to history of splenic hematoma as described above. Bilateral lower extremity venous duplex Impression: 1. Nonocclusive thrombus throughout the left femoral vein and popliteal vein. 2. Left inguinal lymph nodes. 3. Unchanged from 02/29/2024 Condition at Discharge: Stable Final Diagnosis/Problems List # Splenomegaly with possible splenic hematoma # Chronic DVT left femoral popliteal vein # COPD exacerbation and pneumonia # chronic gastritis # CHF not in exacerbation # anxiety # Sick euthyroid syndrome # Tobacco dependence # tobacco abuse disorders Discharge Disposition: Home Discharge Instruct/Medications Diet: Consistent carbohydrate, Cardiac 2g Na,low cholest Diet comment: Consistant carb, cardiac diet Activity: No Restrictions, As Tolerated Follow Up/Referral: PCP Medications: per EMR Discharge Statement: "Patient was advised to return to the ER or call 911 if any headaches, dizziness, shortness of breath, chest pain, abdominal pain, bleeding, fevers, or worsening of medical condition. Patient was counseled about treatment plan, medications, possible side effects, patientverbalized understanding. All questions were answered to the best of my ability. This discharge took greater then 30 minutes in planning, reviewing documentation, counseling the patient, and discussing with other team members." ASSESSMENT ASSESSMENT Assessment Spleenic hematoma Chronic DVT status post IVC filter Date of Service: Mar 19, 2024 Billing Provider: HERNESTO FAIRBANKS MD Common Visit Codes: 50251-QCP/OBS DISCH DAY >30min GIOVANI,KHAJA RESIDENT Mar 19, 2024 17:57 HERNESTO FAIRBANKS MD Mar 22, 2024 18:51
== END 2024-03-19 17:30 | disposition home or self-care (01) | DRG 663 ==
LOC: ER 05:28 → EDBD 05:28 → OVERFLOW 09:28 → EAST 09:41
PROVIDERS: ADMIT Internal Medicine Geriatric Medicine; ATTEND Internal Medicine Geriatric Medicine
PROC: 06H03DZ Insertion of Intraluminal Device into Inferior Vena Cava, Percutaneous Approach (ICD-10-PCS; principal; 2024-03-19)
PROC: B5191ZZ Fluoroscopy of Inferior Vena Cava using Low Osmolar Contrast (ICD-10-PCS; 2024-03-19)
DX: D73.5 Infarction of spleen (principal); J96.01 Acute respiratory failure with hypoxia; J15.69 Pneumonia due to other Gram-negative bacteria; I50.9 Heart failure, unspecified; J15.9 Unspecified bacterial pneumonia; I82.512 Chronic embolism and thrombosis of left femoral vein; J44.1 Chronic obstructive pulmonary disease with (acute) exacerbation; R16.1 Splenomegaly, not elsewhere classified; K29.70 Gastritis, unspecified, without bleeding; F17.210 Nicotine dependence, cigarettes, uncomplicated; F41.9 Anxiety disorder, unspecified; K29.50 Unspecified chronic gastritis without bleeding; E07.81 Sick-euthyroid syndrome; I82.531 Chronic embolism and thrombosis of right popliteal vein; Z83.3 Family history of diabetes mellitus; Z82.49 Family history of ischemic heart disease and other diseases of the circulatory system; Z79.899 Other long term (current) drug therapy
CPT/HCPCS: 36415; 37191; 37619; 71045; 74176; 76705; 80048; 80053; 81001; 82306; 82607; 83036; 83690; 83735; 83880; 84100; 84439; 84443; 84481; 84484; 85025; 85610; 85730; 87081; 93306; 93970; 94640; 96365; 96375; 99152; C1894; G0378; J2250; J3490; Q0162

== ENCOUNTER 2024-04-15 16:20 | Inpatient (IN) | payer MEDICARE, MEDICAID ==
[~2024-04-15] VITALS: Ht 180.3 cm; Wt 73.6 kg
[~2024-04-15 16:20] MED LIST: ACET-1882 PO; ALB5IS NEB; ARIP5TAB22 PO; ASCO500T11 PO; ASCO500T6 PO; ATOR40TA52 PO; DEXT1SYP9 PO; DOX100T PO; FURO20TA4 PO; IPR002IS HHN; MULTTAB99 PO; NICO14DI9 TD; PANT40T PO; PRED20TA2 PO; RESPKIT15 XX; THIA100T10 PO
--- NOTE | 2024-04-15 17:02 | DVH ---
CHEST RADIOGRAPH Indication: sob Technique: Single frontal view of the chest was obtained COMPARISON: XY CHEST PORTABLE on DOS: 03/12/24, XY CHEST PORTABLE on DOS: 02/29/24 FINDINGS: Lines and Tubes: None Lungs: Clear Pleura: No effusion. No pneumothorax. Cardiomediastinal contours: Unremarkable Bones: Unremarkable IMPRESSION: 1. No acute disease.
[2024-04-15 17:14] LABS: Basophils # (auto) 0 10 ^3/uL (0-0.2); Basophils % (auto) 0.2 % (0.0-2.0); Eosinophils # (auto) 0.3 10 ^3/uL (0-0.8); Eosinophils % (auto) 3.3 % (0.0-7.0); Hematocrit 47.6 % (41.0-53.0); Hemoglobin 16.2 g/dL (13.5-17.5); Mean Corpuscular Hemoglobin 31.6 pg (28.0-32.0); Mean Corpuscular Hgb Conc. 34.1 g/dL (32.0-36.0); Mean Corpuscular Volume 92.7 fL (80.0-100.0); Monocytes # (auto) 0.6 10 ^3/uL (0-1.3); Monocytes % (auto) 6.2 % (0.0-12.0); Neutrophils # (auto) 7.7 10 ^3/uL (1.6-8.6); Neutrophils % (auto) 80.3 % (37.0-80.0); Nucleated Red Blood Cells % 0.1 %; Platelet Count (auto) 226 10^3/uL (140-450); Red Blood Cells 5.13 10^6/uL (4.5-5.90); Red Cell Distribution Width 14.2 % (11.8-14.3); White Blood Cell 9.6 10^3/uL (4.4-10.8)
[2024-04-15 17:21] LABS: Chloride 108 mmol/L (98-107); Potassium 3.8 mmol/L (3.5-5.1); Sodium 143 mmol/L (136-145)
[2024-04-15 17:22] LABS: Anion Gap 6 (5-15); Calcium 9.8 mg/dL (8.7-10.4); Carbon Dioxide 29 mmol/L (20-31)
--- NOTE | 2024-04-15 17:24 | ED.PDOC ---
History of Present Illness HPI Comments 69 y/o M, with a Hx of anxiety, CHF, COPD, DVT, HTN, pre-DM, gastritis, sick euthyroid syndrome, and tobacco abuse, is BIBA for c/o chest and abdominal pain and wheezing, today. Per EMS report, patient endorses on sudden and unprovoked onset of symptoms after waking up from his sleep, while seated at home, this evening. Patient reports on pain originating in his epigastric abdominal region and radiating to his chest area and describes it as pressure-like in quality. Patient denies having any shortness of breath, palpitations, dizziness, nausea, vomiting, fever, chills, or other associated symptoms or modifiers at this time. Chief Complaint: Chest Pain Time Seen by MD: 16:40 Primary Care Provider: none Reviewed Notes: Nurses Notes, Fish Hatchery Assistant Notes, Medications, Allergies Allergies: Coded Allergies: NO KNOWN ALLERGIES (Unverified , 02/29/24) Home Meds Active Scripts Respiratory Therapy Supplies (Nebulizer Kit/Tubing/Mout) Kit, APPLIC XX BID PRN, #1 For nebulization Prov:[facility] [place] 03/19/24 Ipratropium [place] (Ipratropium [place]) 0.02 % Adriana, 0.5 % HHN BID for 30 Days, #120 ML Prov:[facility] [place] 03/19/24 Albuterol Sulfate (Ventolin) 2.5 Mg/0.5 Ml Nb, 2.5 MG NEB Q4HWA for 30 Days, #10 INH Prov:[facility] [place] 03/19/24 Prednisone (Prednisone) 20 Mg Tab, 20 MG PO DAILY for 3 Days, #3 MG Prov:[facility] [place] 03/18/24 Nicotine (Nicotine) 14 Mg/24 Hr Dis, 1 PATCH TD DAILY for 30 Days, #30 DIS Prov:[facility]ORIO TRAN 03/18/24 Multiple Vitamin (Mvi Tab) 1 Tab Tb, 1 TAB PO DAILY for 30 Days, #30 TAB Prov:[facility] [place] 03/18/24 Doxycycline Monohydrate (Doxycycline Monohydrate) 100 Mg Tab, 100 MG PO Q12HR fo r 5 Days, #10 TAB Prov:[facility] [place] 03/18/24 Dextromethorphan-Guaifenesin (Robitussin-Dm) 10 Ml Sr, 10 ML PO Q6HPRN PRN for 30 Days, #120 SYP Prov:LIBORIO TRAN 03/18/24 Ascorbic Acid (VITAMIN C TABLET) 500 Mg Tb, 500 MG PO BID for 30 Days, #60 TAB Prov:[facility] TRAN 03/18/24 Acetaminophen (Acetaminophen) 325 Mg Tab, 650 MG PO Q6HP PRN for 10 Days, #80 TAB Prov:[facility]ORIO TRAN RESIDENT 03/18/24 Reported Medications Thiamine Hcl (VITAMIN B-1) 100 Mg Tb, 1 TAB PO DAILY 03/12/24 Aripiprazole (Aripiprazole) 5 Mg Tab, 1 TAB PO DAILY 03/12/24 Atorvastatin Calcium (ATORVASTATIN CALCIUM) 40 Mg Tab, 40 MG PO DAILY 03/12/24 Pantoprazole Sodium Sesquihydr (Pantoprazole Sodium) 40 Mg Tab, 1 TAB PO DAILY 03/12/24 Furosemide (Furosemide) 20 Mg Tab, 1 TAB PO DAILY 03/12/24 Information Source: Patient, Emergency Med Personnel Mode of Arrival: EMS Severity: Moderate Timing: Hours Duration: Since onset Prehospital treatment: 12 Lead EKG, Front End Technician Past Medical History PAST MEDICAL HISTORY: Anxiety, CHF, COPD, HTN Past Medical History (Other): gastritis, sick euthyroid syndrome, PNA, chronic DVT left femoral popliteal vein, Splenomegaly Surgical History: Appendectomy Family History Family History: Reviewed,noncontributory to illness, No family hx of Cancer, No family hx of DM, No family hx of Heart damaris Social History Smoker: Cigarettes Alcohol: Occasionally Drugs: Denies Drug Use Lives In: Home Respiratory: reports: wheezing Cardiovascular: reports: chest pain Gastrointestinal: reports: abdominal pain All Other Systems: Reviewed and Negative (negative unless otherwise stated above or in HPI) Physical Exam General Appearance: Moderate Distress HEENT: Normal ENT Inspection, Pharynx Normal, TMs Normal Neck: Full Range of Motion, Non-Tender, Normal, Normal Inspection Respiratory: Respiratory Distress, Wheezing Cardiovascular: Tachycardia Breast Exam: Deferred Gastrointestinal: No Organomegaly, Non Tender, No Pulsatile Mass, Normal Bowel Sounds, Soft Genitalia: Deferred Pelvic: Deferred Rectal: Deferred Extremities: No calf tenderness, Normal capillary refill, Normal inspection, Normal range of motion, Non-tender, No pedal edema Musculoskeletal : Apperance: Normal Neurologic: Alert, fence rider II-XII nml as Tested, No Motor Deficits, Normal Affect, Normal Mood, No Sensory Deficits Cerebellar Function: Normal Reflexes: Normal Skin: Dry, Normal Color, Warm Peripheral Pulses: 3+ Radial (R), 3+ Radial (L) Lymphatic: No Adenopathy Was a procedure done? Was a procedure done?: No EKG EKG : Pulse Rate (adult): 79 [place]: RAD Cardiac Rhythm: NSR Block: None Hypertrophy: None ST: Normal Differential Dx Considerations may include: ID, ACS, PE, PNA, Angina, anxiety, gastritis, gastroenteritis, pericarditis, costochondritis X-Ray, Labs, Meds, VS Vital Signs Date Time Temp Pulse Resp B/P (MAP) Pulse Ox O2 Delivery O2 Flow Rate FiO2 04/15/24 17:24 79 04/15/24 16:20 98.4 98 16 115/71 (86) 98 Lab Test 04/15/24 16:51 Range/Units White Blood Count 9.6 4.4-10.8 10^3/uL Red Blood Count 5.13 4.5-5.90 10^6/uL Hemoglobin 16.2 13.5-17.5 g/dL Hematocrit 47.6 41.0-53.0 % Mean Corpuscular Volume 92.7 80.0-100.0 fL Mean Corpuscular Hemoglobin 31.6 28.0-32.0 pg Mean Corpuscular Hemoglobin Concent 34.1 32.0-36.0 g/dL Red Cell Distribution Width 14.2 11.8-14.3 % Platelet Count 226 140-450 10^3/uL Mean Platelet Volume 7.9 6.9-10.8 fL Neutrophils (%) (Auto) 80.3 H 37.0-80.0 % Lymphocytes (%) (Auto) 10.0 10.0-50.0 % Monocytes (%) (Auto) 6.2 0.0-12.0 % Eosinophils (%) (Auto) 3.3 0.0-7.0 % Basophils (%) (Auto) 0.2 0.0-2.0 % Neutrophils # (Auto) 7.7 1.6-8.6 10 ^3/uL Lymphocytes # (Auto) 1.0 0.4-5.4 10 ^3/uL Monocytes # (Auto) 0.6 0-1.3 10 ^3/uL Eosinophils # (Auto) 0.3 0-0.8 10 ^3/uL Basophils # (Auto) 0 0-0.2 10 ^3/uL Nucleated Red Blood Cells 0.1 % Sodium Level 143 136-145 mmol/L Potassium Level 3.8 3.5-5.1 mmol/L Chloride Level 108 H 98-107 mmol/L Carbon Dioxide Level 29 20-31 mmol/L Anion Gap 6 5-15 Blood Urea Nitrogen Pending Creatinine Pending Glomerular Filtration Rate Calc Pending BUN/Creatinine Ratio Pending Serum Glucose Pending Calcium Level 9.8 8.7-10.4 mg/dL Troponin I High Sensitivity Pending Patient alert. Complaining of shortness a breath. Placed on oxygen. Vitals stable. Does not take care himself. Continues to smoke cigarettes. Counseled patient on effects of smoking cigarettes for 15 minutes. Chest x-ray does show pneumonitis. Reviewed his previous visit. Explained to the patient. Continue cardiac monitoring. Time of 1ST Reevaluation: 17:20 Reevaluation 1ST: Unchanged Patient Education/Counseling: Diagnosis, Treatment Family Education/Counseling: No Family Present Additional Information Reviewed admission discharge report on 03/19/24 Additional information gathered from EMS staff Ordered: Troponin, BMP, CBC, CXR Concur with results: CXR Departure 1 Departure Time of Disposition: 17:30 Impression: Primary Impression: COPD exacerbation Disposition: ADMITTED INPATIENT Admit to: Med Surg Condition: Guarded Critical Care Note Critical Care Time?: Yes (90 min-critical care time only) Stability Stability form required: No Heart Score Heart Score: Heart Score Response (Comments) Value History Moderate Suspicious 1 EKG Normal 0 Age >65 2 Risk Factors >3 or Hx ASHD 2 Troponin Normal limit 0 Total 5 I personally scribed for ANGIE CAMPOS MD ([email or web address]) on 04/15/24 at 17:24. Electronically submitted by Andrez Merlos ([email or web address]). ANGIE CAMPOS MD Apr 15, 2024 17:24
[2024-04-15 17:27] LABS: BUN/Creatinine Ratio 6.1 (10.0-20.0)
[2024-04-15 17:28] LABS: Blood Urea Nitrogen 6 mg/dL (9-23); Glucose 125 mg/dL (74-106)
--- NOTE | 2024-04-15 17:53 | ECG ---
[facility] Test Date: 2024-04-15 Test Time: 16:28:51 Pat Name: ELLEN LOYD Department: ER Room: Gender: M Record Filing Clerk: NGUYỄN : 1955 Requested By: ANGIE CAMPOS Order Number: [id number] Reading MD: Michael Degroot Measurements Intervals [place] Rate: 74 P: 91 DE: 152 QRS: 97 QRSD: 96 T: 77 QT: 401 QTc: 445 Interpretive Statements Sinus rhythm Right axis deviation Electronically Signed On 04-15-2024 17:56:17 PST by Michael Degroot Please click the below link to view image of tracing.
[2024-04-15] MEDS: ASPirin 325 MG TAB PO ONE (21:07)
[2024-04-15] MEDS: methylPREDNISolone SOD SUCC 125 MG/2 ML VL IV ONE (21:09)
[2024-04-15] MEDS: cefTRIAXone 1GM/50ML D5W 50 ML IV ONE (21:10)
[2024-04-15] MEDS ORDERED: NITROGLYCERIN 0.4 MG SL TAB SL PRN (22:00)
[2024-04-15] MEDS ORDERED: MORPHINE SULFATE INJ 2 MG/ml SYRG IV PRN (22:00)
[2024-04-15] MEDS: IPRATROPIUM BROM 0.5 MG/2.5ML INH SOL NEB ONE (22:00)
[2024-04-15] MEDS: ALBUTEROL SULF 2.5 MG/0.5ML(0.5%) NEB SOLN NEB ONE (22:00)
[2024-04-15] MEDS: IPRATROPIUM BROM 0.5 MG/2.5ML INH SOL ONE (22:15)
[2024-04-15] MEDS: ALBUTEROL SULF 2.5 MG/0.5ML(0.5%) NEB SOLN ONE (22:15)
[2024-04-15 22:18] LABS: Basophils # (auto) 0 10 ^3/uL (0-0.2); Basophils % (auto) 0.3 % (0.0-2.0); Eosinophils # (auto) 0 10 ^3/uL (0-0.8); Eosinophils % (auto) 0.2 % (0.0-7.0); Hematocrit 49.8 % (41.0-53.0); Hemoglobin 16.8 g/dL (13.5-17.5); Lymphocytes # (auto) 0.4 10 ^3/uL (0.4-5.4); Lymphocytes % (auto) 3.9 % (10.0-50.0); Mean Corpuscular Hemoglobin 31.5 pg (28.0-32.0); Mean Corpuscular Hgb Conc. 33.8 g/dL (32.0-36.0); Mean Corpuscular Volume 93.1 fL (80.0-100.0); Monocytes # (auto) 0.6 10 ^3/uL (0-1.3); Monocytes % (auto) 5.8 % (0.0-12.0); Neutrophils # (auto) 8.5 10 ^3/uL (1.6-8.6); Neutrophils % (auto) 89.8 % (37.0-80.0); Platelet Count (auto) 219 10^3/uL (140-450); Red Blood Cells 5.34 10^6/uL (4.5-5.90); White Blood Cell 9.5 10^3/uL (4.4-10.8)
[2024-04-15 22:29] VITALS: PULSE 149; O2SAT 100
[2024-04-15] MEDS: ATORVASTATIN 20 MG TAB PO ONE (22:34)
[2024-04-15] MEDS: AZITHROMYCIN 500MG/ 250ML 250 ML IV ONE (22:34)
[2024-04-15 22:42] LABS: Albumin 4.5 g/dL (3.2-4.8); Anion Gap 7 (5-15); BUN/Creatinine Ratio 7.9 (10.0-20.0); Calcium 10.1 mg/dL (8.7-10.4); Carbon Dioxide 25 mmol/L (20-31); Potassium 4.5 mmol/L (3.5-5.1); Sodium 140 mmol/L (136-145); Total Protein 6.6 g/dL (5.7-8.2)
[2024-04-15 22:59] LABS: Alanine Aminotransferase 544 U/L (7-40); Alkaline Phosphatase 310 U/L (46-116); Aspartate Aminotransferase 902 U/L (13-40); Bilirubin, Total 2.6 mg/dL (0.2-1.0); Blood Urea Nitrogen 8 mg/dL (9-23); Chloride 108 mmol/L (98-107); Glucose 177 mg/dL (74-106)
[2024-04-15 23:00] VITALS: PULSE 95; RESP 40; O2SAT 95
--- NOTE | 2024-04-15 23:58 | DVHHPRES ---
History of Present Illness Resident Creating Document: FREDDYKELVINCANDICE RESIDENT History of Present Illness Patient is a 69-year-old male with a past medical history as described below came to the ED with a chief complaint of worsening shortness of breath for 2 days prior to admission. Patient was admitted to the hospital in February for upper abdominal and was found to have a splenic hematoma and COPD exacerbation which was treated and sent home. Patient reported that he did not have oxygen at home and since the time he got discharge was having intermittent shortness of breath for which he was using his albuterol inhaler as needed. He reports that since day before yesterday shortness of breath got worse and he was not able to breathe following which she came to the hospital further evaluation. Patient had associated chest pain which was substernal, dull, pressure-like, nonradiating but no associated sweating, palpitations and no association with change in position or deep breaths. He also reports pain in the epigastrium and the Left upper quadrant which is intermittent and gets sharp intermittently otherwise is normal. Past medical history: Heart failure with preserved ejection fraction, COPD (on home oxygen but not using currently),GERD, back pain, h/o DVT (was previously on Eliquis but IVC filter placed in February 2024) Past surgical history: IVC filter placement Social history: Smokes less than half a pack a day currently, denies alcohol, drug use Home medications: Atorvastatin 40 mg hs, furosemide 20 mg q.d., Review of Systems Review of Systems At the time of examination patient was sitting in a tripod position with respiratory distress . Patient reports feeling short of breath Reports mild lower substernal chest pain and associated pain in the epigastrium in the left upper quadrant Denied chills, palpitations, diarrhea, nausea, vomiting Allergies: Coded Allergies: NO KNOWN ALLERGIES (Unverified , 02/29/24) Medications Current Medications Medications Dose Ordered Sig/Jania Route Start Time Stop Time Status Last Admin Dose Admin Nitroglycerin 0.4 mg Q5MINP PRN SL 04/15/24 22:00 Morphine Sulfate 2 mg Q30M PRN IV 04/15/24 22:00 Albuterol 2.5 mg Q6HR NEB 04/16/24 02:00 Ipratropium [place] 0.5 mg Q6HR NEB 04/16/24 02:00 Exam Vital Signs Vital Signs Date Time Temp Pulse Resp B/P (MAP) Pulse Ox O2 Delivery O2 Flow Rate FiO2 04/15/24 23:00 98.1 95 40 140/69 (92) 95 98.1 04/15/24 23:00 Nasal Cannula* 3 32 Exam Physical Examination Constitutional: Patient was alert and oriented to time, place and person and appears to be in respiratory distress, sitting in a tripod position with increased work of breathing and use of his accessory muscles. Gen - no pallor, mild scleral icterus, no cyanosis, no clubbing, no LAD, no edema . Skin - Patients skin is warm and dry. HEENT - normocephalic, atraumatic, dry mucous membranes. Neck - full ROM, no LAD, no JVD Pulmonary - B/L equal air entry diminished with scattered expiratory wheezes heard. No crackles cardiovascular - normal S1,S2 heard. no murmurs heard. peripheral pulses radial 2+, pedal 2+. GI - soft abdomen without tenderness to palpation. no hepatospleenomegaly. Bowel sounds normoactive Neurological - Bilateral upper extremity strength 5/5, bilateral lower extremity strength 5/5, no facial droop, normal speech, no tremor, no sensory deficiets. Labs/Xrays Labs Test 04/15/24 23:19 04/15/24 22:11 04/15/24 19:42 Range/Units White Blood Count 9.5 4.4-10.8 10^3/uL Red Blood Count 5.34 4.5-5.90 10^6/uL Hemoglobin 16.8 13.5-17.5 g/dL Hematocrit 49.8 41.0-53.0 % Mean Corpuscular Volume 93.1 80.0-100.0 fL Mean Corpuscular Hemoglobin 31.5 28.0-32.0 pg Mean Corpuscular Hemoglobin Concent 33.8 32.0-36.0 g/dL Red Cell Distribution Width 14.0 11.8-14.3 % Platelet Count 219 140-450 10^3/uL Mean Platelet Volume 7.6 6.9-10.8 fL Neutrophils (%) (Auto) 89.8 H 37.0-80.0 % Lymphocytes (%) (Auto) 3.9 L 10.0-50.0 % Monocytes (%) (Auto) 5.8 0.0-12.0 % Eosinophils (%) (Auto) 0.2 0.0-7.0 % Basophils (%) (Auto) 0.3 0.0-2.0 % Neutrophils # (Auto) 8.5 1.6-8.6 10 ^3/uL Lymphocytes # (Auto) 0.4 0.4-5.4 10 ^3/uL Monocytes # (Auto) 0.6 0-1.3 10 ^3/uL Eosinophils # (Auto) 0 0-0.8 10 ^3/uL Basophils # (Auto) 0 0-0.2 10 ^3/uL Nucleated Red Blood Cells 0.0 % Sodium Level 140 136-145 mmol/L Potassium Level 4.5 3.5-5.1 mmol/L Chloride Level 108 H 98-107 mmol/L Carbon Dioxide Level 25 20-31 mmol/L Anion Gap 7 5-15 Blood Urea Nitrogen 8 L 9-23 mg/dL Creatinine 1.01 0.700-1.30 mg/dL Glomerular Filtration Rate Calc 81 >90 mL/min BUN/Creatinine Ratio 7.9 L 10.0-20.0 Serum Glucose 177 H 74-106 mg/dL Calcium Level 10.1 8.7-10.4 mg/dL Total Bilirubin 2.6 H 0.2-1.0 mg/dL Aspartate Amino Transferase (AST) 902 H 13-40 U/L Alanine Aminotransferase (ALT) 544 H 7-40 U/L Alkaline Phosphatase 310 H 46-116 U/L Total Protein 6.6 5.7-8.2 g/dL Albumin 4.5 3.2-4.8 g/dL Troponin I High Sensitivity 3 L </=54 ng/L Assessment/Plan Assessment/Plan # Acute hypoxemic respiratory failure likely due to COPD exacerbation # COPD exacerbation # ?Acute exacerbation of heart failure with a preserved ejection fraction - chest x-ray shows hyperinflated lungs with mild pulmonary vascular congestion. - patient given Solu-Medrol 125 mg IV once - 1 dose of ceftriaxone and azithromycin IV given - furosemide 20 mg IV once - patient is started on ceftriaxone 1 g daily, furosemide 20 mg q.d. - duo nebs albuterol and ipratropium q.6 hours - budesonide 0.5 mg b.i.d. neb - incentive spirometry # Acute chest pain, rule out ACS - symptoms of typical chest pain with comorbidities - ECG showed sinus rhythm with right axis deviation but no evidence of ST segment or T-wave changes - troponins trended under normal limits - given atorvastatin 80 mg and aspirin 325 mg - patient is on telemetry # Transaminitis # ? Acute hepatitis , alcohol versus viral induced # ?Acute cholecystitis # suspected acute cholangitis - AST 902, ALT 544, ALP 310 - bilirubin 2.6 - right upper quadrant ultrasound shows Cholelithiasis with mild gallbladder wall thickening - on zosyn 3.375 q8hr - surgery consulted - MRCP pending - lipid panel pending - urine drug screen and blood alcohol pending # H/o spleen hematoma - CT abdomen pelvis pending to evaluate for progression or regression shows Perisplenic fluid collection appear similar to slightly decreased in size. - previous CT on 03/12/2024 showed a large 10.5 X 3.7 X 6.4 cm subcapsular fluid collection # H/o DVT - earlier patient was on Eliquis but due to the splenic hematoma it was stopped - IVC filter placed during the previous admission in February Goals of care discussed with the patient for over 27 minutes. Full code Plan discussed with Dr. Slaughter Plan discussed with: Patient My Orders Orders - HODA HAYES RESIDENT Procedure Category Date Status Time Admit ADMIT 04/15/24 Transmitted 21:49 Nitroglycerin PHA 04/15/24 In Process Sublingual (Ntrostat 22:00 Morphine Sulfate PHA 04/15/24 In Process Injection 22:00 Oxygen By Nasal RT 04/15/24 Transmitted Cannula 21:49 Stat Ekg For Chest ARIANA 04/15/24 In Process Pain 21:49 Notify Of Changes ARIANA 04/15/24 In Process From Base 21:49 Damage Adjuster For [facility] 04/15/24 In Process 24 Hours 21:49 Emergency Dysrhythmia ARIANA 04/15/24 In Process Protocol 21:49 Urinalysis LAB 04/15/24 Logged 21:49 Drug Screen LAB 04/15/24 Logged 21:49 Covid19 Antigen [place] LAB 04/15/24 In Process Rapid Influenza A&B LAB 04/15/24 In Process 21:49 Incentive Spirometry ORDERS 04/15/24 Transmitted 21:49 Albuterol Medneb PHA 04/16/24 In Process (Ventolin Medneb) 02:00 Ipratropium Medneb PHA 04/16/24 In Process (Atrovent Medneb) 02:00 Code Status CODE 04/15/24 Transmitted 21:49 Regular Diet DIET 04/16/24 Transmitted Breakfast Date of Service: Apr 15, 2024 Billing Provider: JOSE MANUEL SLAUGHTER MD Common Visit Codes: 86328-[id number] INP/OBS CARE (HIGH) Secondary Visit Codes: [id number] CARE PLAN 30 MINUTES HODA HAYES RESIDENT Apr 15, 2024 23:58 JOSE MANUEL SLAUGHTER MD Apr 16, 2024 08:33
[2024-04-16] VITALS (14 sets, daily range): BP systolic 102–140; BP diastolic 52–65; PULSE 61–99; RESP 16–28; TEMP 97.7–98.3; O2SAT 94–99
[2024-04-16 00:11] LABS: COVID19 ANTIGEN SOFIA FIA NEGATIVE (NEGATIVE); Rapid Influenza A Negative (Negative); Rapid Influenza B Negative (Negative)
[2024-04-16] MEDS: ALBUTEROL SULF 2.5 MG/0.5ML(0.5%) NEB SOLN NEB SCH (02:00)
[2024-04-16] MEDS: IPRATROPIUM BROM 0.5 MG/2.5ML INH SOL NEB SCH (02:00)
[2024-04-16 03:18] LABS: Urine Bacteria None Seen /hpf (None Seen)
[2024-04-16 03:40] LABS: Amphetamine Screen, Urine Neg (NEGATIVE); Barbiturate Scree,Urine Neg (NEGATIVE); Benzodiazephine Screen, Urine Neg (NEGATIVE); Cannabinoid Screen, Urine Neg (NEGATIVE); Cocaine Screen, Urine Neg (NEGATIVE); Opiate Scree,Urine Neg (NEGATIVE); Phencyclidine Screen, Urine Neg (NEGATIVE); Urine Blood Negative /uL (Negative); Urine Clarity Clear (Clear); Urine Color Yellow (Yellow); Urine Mucus FEW (None Seen); Urine Protein, UAD Negative (Negative); Urine Specific Gravity 1.018 (1.001-1.035); Urine Squamous Epithelial Cell FEW /hpf (<5); Urine Urobilinogen 4 mg/dL (Negative); Urine WBC 4 /hpf (0 - 3)
[2024-04-16] MEDS: FUROSEMIDE 40 MG/4 ML VIAL IV ONE (04:13)
--- NOTE | 2024-04-16 05:34 | DVH ---
INDICATION: acute hepatitis TECHNIQUE: Real time ultrasonography of the right upper quadrant was performed. COMPARISON: US SPLEEN on DOS: 03/12/24, CT 03/12/2024 FINDINGS: The liver appears normal in echogenicity. There is cholelithiasis with prominent gallbladder wall laney suring 0.4 cm. No evidence of pericholecystic fluid. Visualized portions of the pancreas, intrahepati c IVC, and right kidney appear unremarkable. There is a complex appearing fluid collection measuring 9.3 x 9.0 x 7.3 cm along the spleen as seen o n prior CT of 03/12/2024 IMPRESSION: 1. Cholelithiasis with mild gallbladder wall thickening 2. Complex Perisplenic fluid collection as seen on prior imaging, relatively similar. Clinical manage ment is recommended.
--- NOTE | 2024-04-16 05:46 | DVH ---
Exam: CT CT AB PEL WO CON-NO ORAL OR IV History: epigastric and LUQ abd pain, h/o spleenomegaly Comparison Study: 03/12/2024 TECHNIQUE: Multidetector CT of the abdomen was performed from lung bases to pubic symphysis. Imaging was performed without IV contrast. Axial, coronal and sagittal multiplanar reformats were obtained fr om the axial data set by the technologist. Radiation optimization: All CT scans at this facility use at least one of these dose optimization pam hniques: automated exposure control mA and/or kV adjustment per patient size (includes targeted exam s where dose is matched to clinical indication) or iterative reconstruction. Radiation Dose Information: CT Dose: CTDI volume is 8.29 mGy. Dose-length product is 395.04 mGy*cm FINDINGS: Evaluation of solid organs is limited due to lack of intravenous contrast use. Findings: Imaged portions of the lung bases demonstrate centrilobular emphysema. Possible small hiatal hernia. Limited noncontrast evaluation of the liver, gallbladder, and pancreas appear unremarkable. There is stable fullness of the left adrenal gland. The kidneys appear unremarkable without hydronephrosis. Fluid collection along the lateral aspect of the spleen has possibly mildly decreased in size estimat ed 8.8 x 5.8 x 5.6 cm. Internal contents appear hypodense. There is an IVC filter. No evidence of bowel obstruction or focal bowel wall thickening. Scattered colonic diverticulosis. En larged prostate gland measuring up to 5.8 cm. IMPRESSION: Perisplenic fluid collection appear similar to slightly decreased in size. If patient has persistent pain, image guided drainage could be considered. Centrilobular emphysema.
[2024-04-16 06:08] LABS: Anion Gap 7 (5-15); BUN/Creatinine Ratio 10.9 (10.0-20.0); Blood Urea Nitrogen 11 mg/dL (9-23); Calcium 9.4 mg/dL (8.7-10.4); Carbon Dioxide 24 mmol/L (20-31); LDL Cholesterol 58 mg/dL (< 100); Potassium 3.9 mmol/L (3.5-5.1); Sodium 141 mmol/L (136-145); Triglycerides 46 mg/dL (< 150)
[2024-04-16 06:09] LABS: Albumin 3.9 g/dL (3.2-4.8); Cholesterol 104 mg/dL (< 200); HDL Cholesterol 41 mg/dL (40-59)
[2024-04-16 06:10] LABS: INR 1.03 (0.9-1.15); Partial Thromboplastin Time 24.5 SEC (24.5-34.5); Prothrombin Time 10.9 sec (9.3-11.8)
[2024-04-16] MEDS: BUDESONIDE (INHALATION) 0.5 MG/2 ML NEB NEB SCH (06:28)
[2024-04-16 06:31] LABS: Basophils # (auto) 0 10 ^3/uL (0-0.2); Basophils % (auto) 0.2 % (0.0-2.0); Eosinophils # (auto) 0 10 ^3/uL (0-0.8); Hematocrit 46.6 % (41.0-53.0); Lymphocytes # (auto) 0.3 10 ^3/uL (0.4-5.4); Lymphocytes % (auto) 2.3 % (10.0-50.0); Mean Corpuscular Hemoglobin 31.3 pg (28.0-32.0); Mean Corpuscular Hgb Conc. 32.2 g/dL (32.0-36.0); Mean Corpuscular Volume 97.2 fL (80.0-100.0); Monocytes # (auto) 0.5 10 ^3/uL (0-1.3); Monocytes % (auto) 3.1 % (0.0-12.0); Neutrophils # (auto) 14.2 10 ^3/uL (1.6-8.6); Neutrophils % (auto) 94.4 % (37.0-80.0); Platelet Count (auto) 184 10^3/uL (140-450); Red Cell Distribution Width 14.5 % (11.8-14.3); White Blood Cell 15.1 10^3/uL (4.4-10.8)
[2024-04-16 06:49] LABS: Alanine Aminotransferase 603 U/L (7-40); Alkaline Phosphatase 281 U/L (46-116); Aspartate Aminotransferase 677 U/L (13-40); Bilirubin, Total 3.4 mg/dL (0.2-1.0); Blood Alcohol < 3.0 mg/dL (<10); Chloride 110 mmol/L (98-107); Glucose 187 mg/dL (74-106); Total Protein 5.5 g/dL (5.7-8.2)
--- NOTE | 2024-04-16 10:41 | DVH ---
[id number] MRI MRCP MRI Attending Name: Raghav Garcia RESIDENT COMPARISON: CT abdomen/ pelvis 04/16/2024; gallbladder ultrasound 04/16/2024 INDICATION: suspected acute cholangitis TECHNIQUE: MRCP was performed without the use of intravenous contrast using a MRI imaging system. Three-dimensional MRCP was performed using maximum intensity projection reconstruction on an [employer] ent workstation. FINDINGS: Visualized lower thorax: Limited imaging of the thorax is unremarkable. Liver: 9 mm cyst in the left hepatic lobe. Gallbladder: Numerous small gallstones fill the gallbladder, including a 1.4 x 0.9 cm stone at the ga llbladder neck. There is mild gallbladder wall thickening. Biliary system: Common bile duct measures up to 7 mm, upper limits of normal for age. Focal area of l uminal attenuation of the common hepatic artery (series 6, image 11) likely represents artifact relat ed to the adjacent hepatic artery. Spleen: Redemonstration of a complex perisplenic fluid collection that measures 9.1 x 4.0 x 5.5 cm (A P by TV by CC). This demonstrates fluid signal with numerous internal septations. Pancreas: Unremarkable. Adrenal glands: Mild thickening in the left adrenal gland which likely represents a small adenoma bas ed on density from comparison CT. Kidneys: Exophytic 1.1 cm cyst from the left kidney. No hydronephrosis. GI tract: Possible duodenal diverticulum projecting superiorly from the 3rd portion of the duodenum. IMPRESSION: 1. Cholelithiasis with a 1.4 x 0.9 cm stone at the gallbladder neck. There is mild gallbladder wall t hickening. Consider correlation with nuclear medicine HIDA scan if clinically indicated. 2. No significant biliary ductal dilatation. 3. Complex perisplenic fluid collection with numerous internal septations. This is similar in size f rom prior studies.
--- NOTE | 2024-04-16 10:53 | DVHINCON2 ---
Date of service: Apr 16, 2024 History of Present Illness 69-year-old male with a history of multiple medical problems including COPD on home oxygen, heart failure, history of DVT status post IVC filter placement in 2023, and a history of splenic hematoma now admitted secondary to shortness of breath and epigastric abdominal pain with nausea and vomiting yesterday. Patient denies any fevers or chills. Past Medical History Heart failure. COPD on home oxygen. GERD. History of DVT status post IVC filter. History of [place] and stroke. Past Surgical History Denies any abdominal surgeries. Family History: Cardiovascular disease G8 MOTHER G8 FATHER Diabetes mellitus G8 MOTHER Family History Noncontributory Social History Still smokes half a pack a day. Rare alcohol. Denies any IV drug use. Allergies: Coded Allergies: NO KNOWN ALLERGIES (Unverified , 02/29/24) Home Meds Active Scripts Respiratory Therapy Supplies (Nebulizer Kit/Tubing/Mout) Kit, APPLIC XX BID PRN, #1 For nebulization Prov:LIBORIO TRAN [facility] 03/19/24 Ipratropium [place] (Ipratropium [place]) 0.02 % Adriana, 0.5 % HHN BID for 30 Days, #120 ML Prov:CHELSEALIBORIO [facility] 03/19/24 Albuterol Sulfate (Ventolin) 2.5 Mg/0.5 Ml Nb, 2.5 MG NEB Q4HWA for 30 Days, #10 INH Prov:LIBORIO RTAN [facility] 03/19/24 Prednisone (Prednisone) 20 Mg Tab, 20 MG PO DAILY for 3 Days, #3 MG Prov:CHELSEALIBORIO [facility] 03/18/24 Nicotine (Nicotine) 14 Mg/24 Hr Dis, 1 PATCH TD DAILY for 30 Days, #30 DIS Prov:CHELSEALIBORIO [facility] 03/18/24 Multiple Vitamin (Mvi Tab) 1 Tab Tb, 1 TAB PO DAILY for 30 Days, #30 TAB Prov:CHELSEALIBORIO [facility] 03/18/24 Doxycycline Monohydrate (Doxycycline Monohydrate) 100 Mg Tab, 100 MG PO Q12HR for 5 Days, #10 TAB Prov:LIBORIO TRAN [facility] 03/18/24 Dextromethorphan-Guaifenesin (Robitussin-Dm) 10 Ml Sr, 10 ML PO Q6HPRN PRN for 30 Days, #120 SYP Prov:LIBORIO TRAN RESIDENT 03/18/24 Ascorbic Acid (VITAMIN C TABLET) 500 Mg Tb, 500 MG PO BID for 30 Days, #60 TAB Prov:LIBORIO TRAN RESIDENT 03/18/24 Acetaminophen (Acetaminophen) 325 Mg Tab, 650 MG PO Q6HP PRN for 10 Days, #80 TAB Prov:LIBORIO TRAN 03/18/24 Reported Medications Thiamine Hcl (VITAMIN B-1) 100 Mg Tb, 1 TAB PO DAILY 03/12/24 Aripiprazole (Aripiprazole) 5 Mg Tab, 1 TAB PO DAILY for 30 Days, #30 03/12/24 Atorvastatin Calcium (ATORVASTATIN CALCIUM) 40 Mg Tab, 40 MG PO DAILY for 30 Days, #30 03/12/24 Pantoprazole Sodium Sesquihydr (Pantoprazole Sodium) 40 Mg Tab, 1 TAB PO DAILY for 30 Days, #30 03/12/24 Furosemide (Furosemide) 20 Mg Tab, 1 TAB PO DAILY 03/12/24 Current Medications Current Medications Medications (Trade) Dose Ordered Sig/Jania Route PRN Reason Start Time Stop Time Status Last Admin Nitroglycerin (Ntrostat Sublingual) 0.4 mg Q5MINP PRN SL FOR CHEST PAIN 04/15/24 22:00 Morphine Sulfate 2 mg Q30M PRN IV FOR CHEST PAIN 04/15/24 22:00 Albuterol (Ventolin Medneb) 2.5 mg Q6HR NEB 04/16/24 02:00 04/16/24 06:25 Ipratropium [place] (Atrovent Medneb) 0.5 mg Q6HR NEB 04/16/24 02:00 04/16/24 06:25 Ceftriaxone Sodium 50 ml @ 100 mls/hr Q24H IV 04/16/24 21:00 04/16/24 07:24 DC Atorvastatin Calcium (Lipitor) 40 mg HS PO 04/16/24 22:00 04/16/24 08:13 DC Budesonide (Pulmicort) 0.5 mg BID NEB 04/16/24 10:00 04/16/24 06:28 Furosemide (Lasix Tablet) 20 mg DAILY PO 04/16/24 10:00 Piperacillin Sod/ Tazobactam Sod 100 ml @ 25 mls/hr Q8HR IV 04/16/24 14:00 Pantoprazole Sodium (Protonix) 40 mg DAILY IV 04/16/24 10:00 Vital Signs Vital Signs Date Time Temp Pulse Resp B/P (MAP) Pulse Ox O2 Delivery O2 Flow Rate FiO2 04/16/24 08:57 97.9 84 24 105/52 (69) 96 97.9 04/16/24 06:42 Nasal Cannula* 2 28 Physical Exam GEN: Disheveled-appearing elderly male in no acute distress on nasal cannula oxygen. Alert. HEENT: Normocephalic atraumatic. Moist mucous membranes. Slight scleral icterus. CV: RRR Respiratory: Coarse breath sounds ABD: Epigastric tenderness to palpation with minimal guarding. Nondistended. Abdominal ultrasound: Cholelithiasis . MRCP: Cholelithiasis with 1.4 x 0.9 cm stone at the gallbladder neck. There was mild gallbladder wall thickening. No significant biliary ductal dilatation. Complex perisplenic fluid collection with numerous internal septations. CT of the abdomen and pelvis: Fluid collection along the lateral aspect of the spleen possibly mildly decreased in size estimated to be 8.8 x 5.8 x 5.6 cm. There was an IVC filter. Labs/Diagnostic Data Labs Test 04/16/24 05:14 04/16/24 03:18 04/15/24 23:19 04/15/24 19:42 Range/Units White Blood Count 15.1 #H 4.4-10.8 10^3/uL Red Blood Count 4.80 4.5-5.90 10^6/uL Hemoglobin 15.0 13.5-17.5 g/dL Hematocrit 46.6 41.0-53.0 % Mean Corpuscular Volume 97.2 # 80.0-100.0 fL Mean Corpuscular Hemoglobin 31.3 28.0-32.0 pg Mean Corpuscular Hemoglobin Concent 32.2 32.0-36.0 g/dL Red Cell Distribution Width 14.5 H 11.8-14.3 % Platelet Count 184 140-450 10^3/uL Mean Platelet Volume 7.9 6.9-10.8 fL Neutrophils (%) (Auto) 94.4 H 37.0-80.0 % Lymphocytes (%) (Auto) 2.3 L 10.0-50.0 % Monocytes (%) (Auto) 3.1 0.0-12.0 % Eosinophils (%) (Auto) 0.0 0.0-7.0 % Basophils (%) (Auto) 0.2 0.0-2.0 % Neutrophils # (Auto) 14.2 H 1.6-8.6 10 ^3/uL Lymphocytes # (Auto) 0.3 L 0.4-5.4 10 ^3/uL Monocytes # (Auto) 0.5 0-1.3 10 ^3/uL Eosinophils # (Auto) 0 0-0.8 10 ^3/uL Basophils # (Auto) 0 0-0.2 10 ^3/uL Nucleated Red Blood Cells 0.0 % Prothrombin Time 10.9 9.3-11.8 sec Prothrombin Time INR 1.03 0.9-1.15 Activated Partial Thromboplast Time 24.5 24.5-34.5 SEC Sodium Level 141 136-145 mmol/L Potassium Level 3.9 3.5-5.1 mmol/L Chloride Level 110 H 98-107 mmol/L Carbon Dioxide Level 24 20-31 mmol/L Anion Gap 7 5-15 Blood Urea Nitrogen 11 9-23 mg/dL Creatinine 1.01 0.700-1.30 mg/dL Glomerular Filtration Rate Calc 81 >90 mL/min BUN/Creatinine Ratio 10.9 10.0-20.0 Serum Glucose 187 H 74-106 mg/dL Hemoglobin A1c 5.5 <5.7 % A1C Calcium Level 9.4 8.7-10.4 mg/dL Total Bilirubin 3.4 H 0.2-1.0 mg/dL Aspartate Amino Transferase (AST) 677 H 13-40 U/L Alanine Aminotransferase (ALT) 603 H 7-40 U/L Alkaline Phosphatase 281 H 46-116 U/L B-Type Natriuretic Peptide 43.79 0-100 pg/mL Total Protein 5.5 L 5.7-8.2 g/dL Albumin 3.9 3.2-4.8 g/dL Triglycerides Level 46 < 150 mg/dL Cholesterol Level 104 < 200 mg/dL LDL Cholesterol 58 < 100 mg/dL HDL Cholesterol 41 40-59 mg/dL Plasma/Serum Blood Alcohol < 3.0 <10 mg/dL Urine Color Yellow Yellow Urine Clarity Clear Clear Urine pH 6.0 5.0-9.0 Urine Specific [place] 1.018 1.001-1.035 Urine Protein Negative Negative Urine Ketones Negative Negative Urine Blood Negative Negative /uL Urine Nitrite Negative Negative Urine Bilirubin Negative Negative Urine Urobilinogen 4 H Negative mg/dL Urine Leukocyte Esterase Trace Negative /uL Urine RBC <1 0 - 3 /hpf Urine WBC 4 0 - 3 /hpf Urine Squamous Epithelial Cells Few <5 /hpf Urine Bacteria None seen None Seen /hpf Urine Mucus Few None Seen Urine Glucose Normal Normal mg/dL Urine Opiates Screen Neg NEGATIVE Urine Fentanyl Screen Neg NEGATIVE Urine Barbiturates Screen Neg NEGATIVE Urine Phencyclidine Screen Neg NEGATIVE Urine Amphetamines Screen Neg NEGATIVE Urine Benzodiazepines Screen Neg NEGATIVE Urine Cocaine Screen Neg NEGATIVE Urine Cannabinoids Screen Neg NEGATIVE Influenza Type A Antigen Negative Negative Influenza Type B Antigen Negative Negative SARS-CoV-2 Antigen (Rapid) Negative NEGATIVE Troponin I High Sensitivity 3 L </=54 ng/L Assessment 1. Possible acute cholecystitis 2. COPD exacerbation 3. CHF with a history of [place] and CVA 4. Perisplenic fluid collection Plan/Recommendation 1. HIDA scan 2. Cardiology and pulmonary consult for surgical clearance. If he has a moderate to high risk, I recommend proceeding with a percutaneous cholecystostomy if the HIDA is positive. 3. IR consult for possible percutaneous drainage of the perisplenic fluid collection. Plan discussed with: Patient SHOBHA ZALDIVAR MD Apr 16, 2024 10:53
--- NOTE | 2024-04-16 11:00 | DVHPNRES ---
Progress Note Date Seen: Apr 16, 2024 Resident Creating Document: ABELINO GRAVES RESIDENT Medical Necessity Reason Pt with a Central, PICC or Fol: No Subjective Review of Systems Patient is 69 years old male with past medical history of HFpEF, COPD on home oxygen but not using lately, history of DVT, history of Eliquis use, complained with a splenic hematoma, on IVC filter because of splenic hematoma came with a complaint of shortness of breaths and epigastric pain. As per patient she has been having epigastric pain since yesterday, sudden onset, sharp, 10/10, radiating to the lower chest. Patient also complained of nausea and vomiting twice, watery, yellowish, no blood. Patient also endorsed some shortness of breaths for last 2 days, was seen with the exertion.. Patient denied any fever, constipation, diarrhea, dysuria, joint swelling. Initial lab workup revealed WBC 9.6, hemoglobin 16.2, platelet 226, sodium 140, potassium 4.5, HGB A1c 5.5, bilirubin 2.6, elevated AST 92, elevated ALT 544, alkaline phosphatase 310, troponin I within normal limit, BNP 43, TG 46, cholesterol 104, LDL 58, lipase 32. UDS negative. CT abdomen revealed-Perisplenic fluid collection appear similar to slightly decreased in size. If patient has persistent pain, image guided drainage could be considered. Centrilobular emphysema. Focal ultrasound revealed- Cholelithiasis with mild gallbladder wall thickening. Complex Perisplenic fluid collection as seen on prior imaging, relatively similar. Clinical management is recommended.There is a complex appearing fluid collection measuring 9.3 x 9.0 x 7.3 cm along the spleen as seen on prior CT of 03/12/2024. MRCP revealed-Cholelithiasis with a 1.4 x 0.9 cm stone at the gallbladder neck. There is mild gallbladder wall thickening. Consider correlation with nuclear medicine HIDA scan if clinically indicated. No significant biliary ductal dilatation. Complex perisplenic fluid collection with numerous internal septations. This is similar in size from prior studies. Past medical history: Heart failure with preserved ejection fraction, COPD (on home oxygen but not using currently),GERD, back pain, h/o DVT (was previously on Eliquis but IVC filter placed in February 2024) Past surgical history: IVC filter placement Social history: Lives in a boarding house, Smokes less than half a pack a day currently, denies alcohol, drug use Home medications: Atorvastatin 40 mg hs, furosemide 20 mg q.d. Allergy- NKDA Patient was seen today at the bedside. Cardiovascular- deny acute chest pain or shortness of breath or cough or palpitation Respiratory- denies cough or short of breath or wheezing Gastrointestinal- denies any rectal bleeding Musculoskeletal-denies acute joint swelling or tenderness or redness Neurological- denies acute dysarthria, dysphagia, change in vision Psychiatry- denies depression or SI or HI Skin- denies acute rash or purpura Patient was seen today for clinical evaluation. Labs and chart reviewed. Patient complained of some shortness of breath and mild upper abdominal pain. Was seen by surgery, recommendation reviewed and appreciated. Objective vital signs Vital Sign Date Time Temp Pulse Resp B/P (MAP) Pulse Ox O2 Delivery O2 Flow Rate FiO2 04/16/24 08:57 97.9 84 24 105/52 (69) 96 97.9 04/16/24 06:42 Nasal Cannula* 2 28 Total Intake and Output 04/15/24 04/15/24 04/16/24 15:00 23:00 07:00 Intake Total 50 ml 250 ml Balance 50 ml 250 ml medications Current Medications Medications Dose Ordered Sig/Jania Route Start Time Stop Time Status Last Admin Dose Admin Nitroglycerin 0.4 mg Q5MINP PRN SL 04/15/24 22:00 Morphine Sulfate 2 mg Q30M PRN IV 04/15/24 22:00 Albuterol 2.5 mg Q6HR NEB 04/16/24 02:00 04/16/24 06:25 2.5 MG Ipratropium [place] 0.5 mg Q6HR NEB 04/16/24 02:00 04/16/24 06:25 0.5 MG Budesonide 0.5 mg BID NEB 04/16/24 10:00 04/16/24 06:28 0.5 MG Furosemide 20 mg DAILY PO 04/16/24 10:00 Piperacillin Sod/ Tazobactam Sod 100 ml @ 25 mls/hr Q8HR IV 04/16/24 14:00 Pantoprazole Sodium 40 mg DAILY IV 04/16/24 10:00 Examination General examination- awake, alert, oriented, conversant HEENT- PEERLA, no acute nasal discharge Cardiovascular- S1-S2 audible, rate and rhythm regular, no murmur Respiratory-crackles at left lung jamil+ Gastrointestinal-epigastric tenderness++, bowel sound+. Nondistended Musculoskeletal-no acute joint swelling or tenderness or redness# Lower extremity- right leg edema + likely from previous DVT Neurological- cranial nerves intact, no acute dysarthria or dysphagia Psychiatry- denies depression or SI or HI Skin- no acute rash or purpura laboratory and microbiology Laboratory Tests 04/16/24 05:14 Test 04/16/24 05:14 Range/Units Serum Glucose 187 H 74-106 mg/dL Problem List/Assessment/Plan Problem List/Assessment/Plan #Possible acute cholecystitis # Acute hypoxemic respiratory failure likely due to COPD exacerbation # COPD exacerbation # ?Acute exacerbation of heart failure with a preserved ejection fraction # Acute chest pain, rule out ACS # Transaminitis likely due to acute cholecystitis due to cholelithiasis # suspected acute cholangitis # H/o spleen hematoma # H/o DVT - IVC filter placed during the previous admission in February #Perisplenic fluid collection Pending HIDA scan Continue Zosyn 3.37 g IV q.8h Continue Lasix 20 mg p.o. daily Continue nebulization as prescribed Continue pantoprazole as prescribed Continue other medication as prescribed Goals of care/advance care planning; FULL CODE; discussed with the patient >15 minutes PUD prophylaxis: Pantoprazole DVT prophylaxis: Lovenox Plan discussed with Dr. Moore,, nursing staff, patient Total time spent on patient evaluation, chart review, assessment and plan, discussion discussion >30 minutes Plan discussed with: Patient Plan discussed with: Patient, Other (RN) Date of Service: Apr 16, 2024 Billing Provider: KIMBERLY MOORE MD Common Visit Codes: [id number] INP/OBS CARE(HIGH) ABELINO GRAVES RESIDENT Apr 16, 2024 11:00 KIMBERLY MOORE MD Apr 16, 2024 19:29
[2024-04-16] MEDS: FUROSEMIDE 20 MG TAB PO SCH (11:02)
[2024-04-16] MEDS: PANTOPRAZOLE 40 MG/10 ML VIAL INJ IV SCH (11:02)
--- NOTE | 2024-04-16 12:16 | DVHINCON2 ---
Date Seen: Apr 16, 2024 Referring Physician MD Kristin Reason for Consultation Cardiac risk stratification History of Present Illness This is a 69-year-old male patient who presents to the emergency room with chief complaint of abdominal and chest pain. The patient reports the onset of symptom s began on day of emergency room arrival. He reports that the pain was unprovoked and initially began in his abdomen and radiated to the right side of his chest. He reports he only experiences chest pain when the abdominal pain is active. He describes the chest pain as provoked by the abdominal pain, pressure-like, and radiating back and forth to his epigastric area. He denies any associated symptoms. He comes to the emergency room for further evaluation. Imaging has revealed cholelithiasis with stone at the gallbladder neck. Cardiology has now been consulted by the surgical team for cardiac risk stratification. Initial twelve lead electrocardiogram reveals normal sinus rhythm without any significant ST segment changes. Serial troponin levels have been negative. Significant past medical history includes congestive heart failure, myocardial infarction status post PTCA without catheter based intervention, chronic left lower extremity DVT status post IVC filter placement (03/19/24), COPD on 3 L oxygen home O2, splenic hematoma, CVA without residual deficit, euthyroid sick syndrome, anxiety, and tobacco use. The patient reports he does not see a non destructive evaluation specialist in the outpatient setting. Past Medical History Past medical history reviewed. No other significant than mentioned above. Past Surgical History Denies all previous surgeries Family History: Cardiovascular disease G8 MOTHER G8 FATHER Diabetes mellitus G8 MOTHER Family History Family history reviewed. Social History Patient has a 31 pack-year history, smokes approximately half a pack per day Patient denies any illicit drug use Patient denies any alcohol use Allergies: Coded Allergies: NO KNOWN ALLERGIES (Unverified , 02/29/24) Home Meds Active Scripts Respiratory Therapy Supplies (Nebulizer Kit/Tubing/Mout) Kit, APPLIC XX BID PRN, #1 For nebulization Prov:[employer] RESIDENT 03/19/24 Ipratropium [place] (Ipratropium [place]) 0.02 % Adriana, 0.5 % HHN BID for 30 Days, #120 ML Prov:[employer] RESIDENT 03/19/24 Albuterol Sulfate (Ventolin) 2.5 Mg/0.5 Ml Nb, 2.5 MG NEB Q4HWA for 30 Days, #10 INH Prov:[facility]IO TRAN [facility] 03/19/24 Prednisone (Prednisone) 20 Mg Tab, 20 MG PO DAILY for 3 Days, #3 MG Prov:[facility] TRAN [facility] 03/18/24 Nicotine (Nicotine) 14 Mg/24 Hr Dis, 1 PATCH TD DAILY for 30 Days, #30 DIS Prov:[facility] [employer] [facility] 03/18/24 Multiple Vitamin (Mvi Tab) 1 Tab Tb, 1 TAB PO DAILY for 30 Days, #30 TAB Prov:[facility] [employer] [facility] 03/18/24 Doxycycline Monohydrate (Doxycycline Monohydrate) 100 Mg Tab, 100 MG PO Q12HR for 5 Days, #10 TAB Prov:[facility] [employer] [facility] 03/18/24 Dextromethorphan-Guaifenesin (Robitussin-Dm) 10 Ml Sr, 10 ML PO Q6HPRN PRN for 30 Days, #120 SYP Prov:[facility] [employer] [facility] 03/18/24 Ascorbic Acid (VITAMIN C TABLET) 500 Mg Tb, 500 MG PO BID for 30 Days, #60 TAB Prov:[facility] [employer] [facility] 03/18/24 Acetaminophen (Acetaminophen) 325 Mg Tab, 650 MG PO Q6HP PRN for 10 Days, #80 TAB Prov:[facility] [employer] [facility] 03/18/24 Reported Medications Thiamine Hcl (VITAMIN B-1) 100 Mg Tb, 1 TAB PO DAILY 03/12/24 Aripiprazole (Aripiprazole) 5 Mg Tab, 1 TAB PO DAILY for 30 Days, #30 03/12/24 Atorvastatin Calcium (ATORVASTATIN CALCIUM) 40 Mg Tab, 40 MG PO DAILY for 30 D ays, #30 03/12/24 Pantoprazole Sodium Sesquihydr (Pantoprazole Sodium) 40 Mg Tab, 1 TAB PO DAILY for 30 Days, #30 03/12/24 Furosemide (Furosemide) 20 Mg Tab, 1 TAB PO DAILY 03/12/24 Home Meds Home medications reviewed. Current Medications Current Medications Medications (Trade) Dose Ordered Sig/Jania Route PRN Reason Start Time Stop Time Status Last Admin Nitroglycerin (Ntrostat Sublingual) 0.4 mg Q5MINP PRN SL FOR CHEST PAIN 04/15/24 22:00 Morphine Sulfate 2 mg Q30M PRN IV FOR CHEST PAIN 04/15/24 22:00 Albuterol (Ventolin Medneb) 2.5 mg Q6HR NEB 04/16/24 02:00 04/16/24 06:25 Ipratropium [place] (Atrovent Medneb) 0.5 mg Q6HR NEB 04/16/24 02:00 04/16/24 06:25 Ceftriaxone Sodium 50 ml @ 100 mls/hr Q24H IV 04/16/24 21:00 04/16/24 07:24 DC Atorvastatin Calcium (Lipitor) 40 mg HS PO 04/16/24 22:00 04/16/24 08:13 DC Budesonide (Pulmicort) 0.5 mg BID NEB 04/16/24 10:00 04/16/24 06:28 Furosemide (Lasix Tablet) 20 mg DAILY PO 04/16/24 10:00 Piperacillin Sod/ Tazobactam Sod 100 ml @ 25 mls/hr Q8HR IV 04/16/24 14:00 Pantoprazole Sodium (Protonix) 40 mg DAILY IV 04/16/24 10:00 04/16/24 11:02 Review of Systems Constitutional: No symptom reported Ears, Nose, & Throat: No symptom reported Eyes: No symptom reported Neurological: No symptoms reported Pulmonary/Respiratory: No symptoms reported Cardiovascular: Chest pain Gastrointestinal: Abdominal pain Genitourinary: No symptom reported Musculoskeletal: No symptom reported Skin: No symptom reported Psychiatric: No symptom reported Endocrine: No symptom reported Hematologic/Lymphatic: No symptom reported Vital Signs Vital Signs Date Time Temp Pulse Resp B/P (MAP) Pulse Ox O2 Delivery O2 Flow Rate FiO2 04/16/24 08:57 97.9 84 24 105/52 (69) 96 97.9 04/16/24 06:42 Nasal Cannula* 2 28 Physical Exam General Appearance: Cooperative. Well-developed. Well-nourished. No acute distress. Pulmonary/Respiratory: Clear, bilateral breaths sounds. Cardiovascular/Chest: Regular rate and rhythm. Peripheral Pulses: 2+ Radial (R). 2+ Radial (L). 2+ Pedal (R). 2+ Pedal (L) Abdominal Exam: Normal bowel sounds. Ankle Exam: Negative ankle edema Lower extremities: Negative lower extremity edema Neuro/Mental Status: A/OX4, coherent. Thoughts/Psych: Normal thought pattern. Appropriate mood and affect. Good judgment and insight. Appearance: No acute distress. Skin Exam: Normal inspection. Normal color. Warm and dry. Labs/Diagnostic Data Labs Test 04/16/24 05:14 04/16/24 03:18 04/15/24 23:19 04/15/24 19:42 Range/Units White Blood Count 15.1 #H 4.4-10.8 10^3/uL Red Blood Count 4.80 4.5-5.90 10^6/uL Hemoglobin 15.0 13.5-17.5 g/dL Hematocrit 46.6 41.0-53.0 % Mean Corpuscular Volume 97.2 # 80.0-100.0 fL Mean Corpuscular Hemoglobin 31.3 28.0-32.0 pg Mean Corpuscular Hemoglobin Concent 32.2 32.0-36.0 g/dL Red Cell Distribution Width 14.5 H 11.8-14.3 % Platelet Count 184 140-450 10^3/uL Mean Platelet Volume 7.9 6.9-10.8 fL Neutrophils (%) (Auto) 94.4 H 37.0-80.0 % Lymphocytes (%) (Auto) 2.3 L 10.0-50.0 % Monocytes (%) (Auto) 3.1 0.0-12.0 % Eosinophils (%) (Auto) 0.0 0.0-7.0 % Basophils (%) (Auto) 0.2 0.0-2.0 % Neutrophils # (Auto) 14.2 H 1.6-8.6 10 ^3/uL Lymphocytes # (Auto) 0.3 L 0.4-5.4 10 ^3/uL Monocytes # (Auto) 0.5 0-1.3 10 ^3/uL Eosinophils # (Auto) 0 0-0.8 10 ^3/uL Basophils # (Auto) 0 0-0.2 10 ^3/uL Nucleated Red Blood Cells 0.0 % Prothrombin Time 10.9 9.3-11.8 sec Prothrombin Time INR 1.03 0.9-1.15 Activated Partial Thromboplast Time 24.5 24.5-34.5 SEC Sodium Level 141 136-145 mmol/L Potassium Level 3.9 3.5-5.1 mmol/L Chloride Level 110 H 98-107 mmol/L Carbon Dioxide Level 24 20-31 mmol/L Anion Gap 7 5-15 Blood Urea Nitrogen 11 9-23 mg/dL Creatinine 1.01 0.700-1.30 mg/dL Glomerular Filtration Rate Calc 81 >90 mL/min BUN/Creatinine Ratio 10.9 10.0-20.0 Serum Glucose 187 H 74-106 mg/dL Hemoglobin A1c 5.5 <5.7 % A1C Calcium Level 9.4 8.7-10.4 mg/dL Total Bilirubin 3.4 H 0.2-1.0 mg/dL Aspartate Amino Transferase (AST) 677 H 13-40 U/L Alanine Aminotransferase (ALT) 603 H 7-40 U/L Alkaline Phosphatase 281 H 46-116 U/L B-Type Natriuretic Peptide 43.79 0-100 pg/mL Total Protein 5.5 L 5.7-8.2 g/dL Albumin 3.9 3.2-4.8 g/dL Triglycerides Level 46 < 150 mg/dL Cholesterol Level 104 < 200 mg/dL LDL Cholesterol 58 < 100 mg/dL HDL Cholesterol 41 40-59 mg/dL Lipase 32 12-53 U/L Plasma/Serum Blood Alcohol < 3.0 <10 mg/dL Urine Color Yellow Yellow Urine Clarity Clear Clear Urine pH 6.0 5.0-9.0 Urine Specific [place] 1.018 1.001-1.035 Urine Protein Negative Negative Urine Ketones Negative Negative Urine Blood Negative Negative /uL Urine Nitrite Negative Negative Urine Bilirubin Negative Negative Urine Urobilinogen 4 H Negative mg/dL Urine Leukocyte Esterase Trace Negative /uL Urine RBC <1 0 - 3 /hpf Urine WBC 4 0 - 3 /hpf Urine Squamous Epithelial Cells Few <5 /hpf Urine Bacteria None seen None Seen /hpf Urine Mucus Few None Seen Urine Glucose Normal Normal mg/dL Urine Opiates Screen Neg NEGATIVE Urine Fentanyl Screen Neg NEGATIVE Urine Barbiturates Screen Neg NEGATIVE Urine Phencyclidine Screen Neg NEGATIVE Urine Amphetamines Screen Neg NEGATIVE Urine Benzodiazepines Screen Neg NEGATIVE Urine Cocaine Screen Neg NEGATIVE Urine Cannabinoids Screen Neg NEGATIVE Influenza Type A Antigen Negative Negative Influenza Type B Antigen Negative Negative SARS-CoV-2 Antigen (Rapid) Negative NEGATIVE Troponin I High Sensitivity 3 L </=54 ng/L Assessment Preprocedural cardiovascular examination Chronic HFpEF, NYHA class II History of myocardial infarction Chronic left lower extremity DVT status post IVC filter COPD with home O2 History of CVA without residual deficits Euthyroid sick syndrome Hx of splenic hematoma Tobacco use Plan/Recommendation We will continue with the following plan/recommendations (Dr. lAbright): Patient seen and examined at bedside with . Transthoracic echocardiogram done on 03/17/2024 reveals EF 50% with mild septal wall hypokinesia. Revised cardiac risk index (Matt criteria): 2 points (10.1%, risk of major cardiac event). Patient has an underlying history of congestive heart failure. Chest x-ray reveals no acute cardiopulmonary disease at this time. Patient not in exacerbation from CHF. No history of coronary artery disease noted. Prior to admission, the patient reports a fair functional capacity. Per Cardiology standpoint, the patient is at a moderate risk for moderate risk surgery. There is no additional cardiac workup indicated prior to surgery. Thank you for allowing us to care for this patient. Please call with any questions or concerns. Critical care time spent: 40 minutes This medical document was created using an electronic medical record system with voice recognition software and computerized dictation system. Although this document has been carefully reviewed, there might still be some phonetic and typographical errors. Occasional wrong-word or ``sound-alike substitutions may have occurred due to the inherent limitations of voice recognition software. These areas are purely typographical due to imperfections of the software programs and do not reflect any compromise in the patient's medical care. Please read the chart carefully and recognize, using context, where these substitutions have occurred. Plan discussed with: Patient NYHA Physical activity limitations: Class2(Slight)fatigue,sob (palpitatns, angina w a ctivityv) Date of Service: Apr 16, 2024 Billing Provider: KONSTANTIN GREEN Cardiology Common Codes: [id number] INP/OBS CARE (High) Cardiology Consultation Codes: [id number] CONSULT <45MIN KONSTANTIN GREEN Apr 16, 2024 12:16
[2024-04-16] MEDS: PIPERACILLIN-TAZOB 3.375GM 100 ML IV SCH (14:00)
[2024-04-16] MEDS: ENOXAPARIN SOD 40 MG/0.4 ML SYRINGE SC ONE (17:52)
[2024-04-16] MEDS ORDERED: cefTRIAXone 1GM/50ML D5W 50 ML IV SCH (21:00)
[2024-04-16] MEDS ORDERED: ATORVASTATIN 20 MG TAB PO SCH (22:00)
--- NOTE | 2024-04-16 22:51 | DVHINCON2 ---
Date of service: Apr 16, 2024 Referring Physician MD Kristin Reason for Consultation Cardiac risk stratification History of Present Illness This is a 69-year-old male with a past medical history of congestive heart failure, myocardial infarction status post PTCA without catheter based intervention, chronic left lower extremity DVT status post IVC filter placement (03/19/24), COPD on 3 L oxygen home O2, splenic hematoma, CVA without residual deficit, euthyroid sick syndrome, anxiety, and tobacco use who presents to the ED with complaint of abdominal and chest pain. The patient reports the onset of symptoms began on the day of emergency room arrival. He reports that the pain was unprovoked and initially began in his abdomen and radiated to the right side of his chest. He reports he only experiences chest pain when the abdominal pain is active. He describes the chest pain as provoked by the abdominal pain, pressure-like, and radiating back and forth to his epigastric area. He denies any associated symptoms. The patient reports he does not see a petroleum laboratory technician in the outpatient setting. CT ABD PEL shows cholelithiasis with stone at the gallbladder neck. Cardiology has now been consulted by the surgical team for cardiac risk stratification. Initial twelve lead electrocardiogram reveals normal sinus rhythm without any significant ST segment changes. Serial troponin levels have been negative. Family History: Cardiovascular disease G8 MOTHER G8 FATHER Diabetes mellitus G8 MOTHER Allergies: Coded Allergies: NO KNOWN ALLERGIES (Unverified , 02/29/24) Home Meds Active Scripts Respiratory Therapy Supplies (Nebulizer Kit/Tubing/Mout) Kit, APPLIC XX BID PRN, #1 For nebulization Prov:LIBORIO TRAN 03/19/24 Ipratropium [place] (Ipratropium [place]) 0.02 % Adriana, 0.5 % HHN BID for 30 Days, #120 ML Prov:LIBORIO TRAN 03/19/24 Albuterol Sulfate (Ventolin) 2.5 Mg/0.5 Ml Nb, 2.5 MG NEB Q4HWA for 30 Days, #10 INH Prov:LIBORIO TRAN 03/19/24 Prednisone (Prednisone) 20 Mg Tab, 20 MG PO DAILY for 3 Days, #3 MG Prov:LIBORIO TRAN 03/18/24 Nicotine (Nicotine) 14 Mg/24 Hr Dis, 1 PATCH TD DAILY for 30 Days, #30 DIS Prov:LIBORIO TRAN [facility] 03/18/24 Multiple Vitamin (Mvi Tab) 1 Tab Tb, 1 TAB PO DAILY for 30 Days, #30 TAB Prov:LIBORIO TRAN [facility] 03/18/24 Doxycycline Monohydrate (Doxycycline Monohydrate) 100 Mg Tab, 100 MG PO Q12HR for 5 Days, #10 TAB Prov:LIBORIO TRAN [facility] 03/18/24 Dextromethorphan-Guaifenesin (Robitussin-Dm) 10 Ml Sr, 10 ML PO Q6HPRN PRN for 30 Days, #120 SYP Prov:LIBORIO TRAN [facility] 03/18/24 Ascorbic Acid (VITAMIN C TABLET) 500 Mg Tb, 500 MG PO BID for 30 Days, #60 TAB Prov:LIBORIO TRAN [facility] 03/18/24 Acetaminophen (Acetaminophen) 325 Mg Tab, 650 MG PO Q6HP PRN for 10 Days, #80 TAB Prov:LIBORIO TRAN [facility] 03/18/24 Reported Medications Thiamine Hcl (VITAMIN B-1) 100 Mg Tb, 1 TAB PO DAILY 03/12/24 Aripiprazole (Aripiprazole) 5 Mg Tab, 1 TAB PO DAILY for 30 Days, #30 03/12/24 Atorvastatin Calcium (ATORVASTATIN CALCIUM) 40 Mg Tab, 40 MG PO DAILY for 30 Days, #30 03/12/24 Pantoprazole Sodium Sesquihydr (Pantoprazole Sodium) 40 Mg Tab, 1 TAB PO DAILY for 30 Days, #30 03/12/24 Furosemide (Furosemide) 20 Mg Tab, 1 TAB PO DAILY 03/12/24 Current Medications Current Medications Medications (Trade) Dose Ordered Sig/Jania Route PRN Reason Start Time Stop Time Status Last Admin Nitroglycerin (Ntrostat Sublingual) 0.4 mg Q5MINP PRN SL FOR CHEST PAIN 04/15/24 22:00 Morphine Sulfate 2 mg Q30M PRN IV FOR CHEST PAIN 04/15/24 22:00 Albuterol (Ventolin Medneb) 2.5 mg Q6HR NEB 04/16/24 02:00 04/16/24 12:36 Ipratropium [place] (Atrovent Medneb) 0.5 mg Q6HR NEB 04/16/24 02:00 04/16/24 12:36 Ceftriaxone Sodium 50 ml @ 100 mls/hr Q24H IV 04/16/24 21:00 04/16/24 07:24 DC Atorvastatin Calcium (Lipitor) 40 mg HS PO 04/16/24 22:00 04/16/24 08:13 DC Budesonide (Pulmicort) 0.5 mg BID NEB 04/16/24 10:00 04/16/24 06:28 Furosemide (Lasix Tablet) 20 mg DAILY PO 04/16/24 10:00 Piperacillin Sod/ Tazobactam Sod 100 ml @ 25 mls/hr Q8HR IV 04/16/24 14:00 Pantoprazole Sodium (Protonix) 40 mg DAILY IV 04/16/24 10:00 04/16/24 11:02 Review of Systems Constitutional: No symptom reported Ears, Nose, & Throat: No symptom reported Eyes: No symptom reported Neurological: No symptoms reported Pulmonary/Respiratory: No symptoms reported Cardiovascular: Chest pain Gastrointestinal: Abdominal pain Genitourinary: No symptom reported Musculoskeletal: No symptom reported Skin: No symptom reported Psychiatric: No symptom reported Endocrine: No symptom reported Hematologic/Lymphatic: No symptom reported Vital Signs Vital Signs Date Time Temp Pulse Resp B/P (MAP) Pulse Ox O2 Delivery O2 Flow Rate FiO2 04/16/24 08:57 97.9 84 24 105/52 (69) 96 97.9 04/16/24 06:42 Nasal Cannula* 2 28 Physical Exam GENERAL: Awake, alert, oriented. LUNGS: Clear. CARDIOVASCULAR: Heart sounds are good. ABDOMEN: Soft. Labs/Diagnostic Data Labs Test 04/16/24 05:14 04/16/24 03:18 04/15/24 23:19 04/15/24 19:42 Range/Units White Blood Count 15.1 #H 4.4-10.8 10^3/uL Red Blood Count 4.80 4.5-5.90 10^6/uL Hemoglobin 15.0 13.5-17.5 g/dL Hematocrit 46.6 41.0-53.0 % Mean Corpuscular Volume 97.2 # 80.0-100.0 fL Mean Corpuscular Hemoglobin 31.3 28.0-32.0 pg Mean Corpuscular Hemoglobin Concent 32.2 32.0-36.0 g/dL Red Cell Distribution Width 14.5 H 11.8-14.3 % Platelet Count 184 140-450 10^3/uL Mean Platelet Volume 7.9 6.9-10.8 fL Neutrophils (%) (Auto) 94.4 H 37.0-80.0 % Lymphocytes (%) (Auto) 2.3 L 10.0-50.0 % Monocytes (%) (Auto) 3.1 0.0-12.0 % Eosinophils (%) (Auto) 0.0 0.0-7.0 % Basophils (%) (Auto) 0.2 0.0-2.0 % Neutrophils # (Auto) 14.2 H 1.6-8.6 10 ^3/uL Lymphocytes # (Auto) 0.3 L 0.4-5.4 10 ^3/uL Monocytes # (Auto) 0.5 0-1.3 10 ^3/uL Eosinophils # (Auto) 0 0-0.8 10 ^3/uL Basophils # (Auto) 0 0-0.2 10 ^3/uL Nucleated Red Blood Cells 0.0 % Prothrombin Time 10.9 9.3-11.8 sec Prothrombin Time INR 1.03 0.9-1.15 Activated Partial Thromboplast Time 24.5 24.5-34.5 SEC Sodium Level 141 136-145 mmol/L Potassium Level 3.9 3.5-5.1 mmol/L Chloride Level 110 H 98-107 mmol/L Carbon Dioxide Level 24 20-31 mmol/L Anion Gap 7 5-15 Blood Urea Nitrogen 11 9-23 mg/dL Creatinine 1.01 0.700-1.30 mg/dL Glomerular Filtration Rate Calc 81 >90 mL/min BUN/Creatinine Ratio 10.9 10.0-20.0 Serum Glucose 187 H 74-106 mg/dL Hemoglobin A1c 5.5 <5.7 % A1C Calcium Level 9.4 8.7-10.4 mg/dL Total Bilirubin 3.4 H 0.2-1.0 mg/dL Aspartate Amino Transferase (AST) 677 H 13-40 U/L Alanine Aminotransferase (ALT) 603 H 7-40 U/L Alkaline Phosphatase 281 H 46-116 U/L B-Type Natriuretic Peptide 43.79 0-100 pg/mL Total Protein 5.5 L 5.7-8.2 g/dL Albumin 3.9 3.2-4.8 g/dL Triglycerides Level 46 < 150 mg/dL Cholesterol Level 104 < 200 mg/dL LDL Cholesterol 58 < 100 mg/dL HDL Cholesterol 41 40-59 mg/dL Lipase 32 12-53 U/L Plasma/Serum Blood Alcohol < 3.0 <10 mg/dL Urine Color Yellow Yellow Urine Clarity Clear Clear Urine pH 6.0 5.0-9.0 Urine Specific [place] 1.018 1.001-1.035 Urine Protein Negative Negative Urine Ketones Negative Negative Urine Blood Negative Negative /uL Urine Nitrite Negative Negative Urine Bilirubin Negative Negative Urine Urobilinogen 4 H Negative mg/dL Urine Leukocyte Esterase Trace Negative /uL Urine RBC <1 0 - 3 /hpf Urine WBC 4 0 - 3 /hpf Urine Squamous Epithelial Cells Few <5 /hpf Urine Bacteria None seen None Seen /hpf Urine Mucus Few None Seen Urine Glucose Normal Normal mg/dL Urine Opiates Screen Neg NEGATIVE Urine Fentanyl Screen Neg NEGATIVE Urine Barbiturates Screen Neg NEGATIVE Urine Phencyclidine Screen Neg NEGATIVE Urine Amphetamines Screen Neg NEGATIVE Urine Benzodiazepines Screen Neg NEGATIVE Urine Cocaine Screen Neg NEGATIVE Urine Cannabinoids Screen Neg NEGATIVE Influenza Type A Antigen Negative Negative Influenza Type B Antigen Negative Negative SARS-CoV-2 Antigen (Rapid) Negative NEGATIVE Troponin I High Sensitivity 3 L </=54 ng/L Assessment Preprocedural cardiovascular examination. Chronic HFpEF, NYHA class II. History of myocardial infarction. Chronic left lower extremity DVT status post IVC filter. COPD with home O2. History of CVA without residual deficits. Euthyroid sick syndrome. Hx of splenic hematoma. Tobacco use. Plan/Recommendation I agree with your ongoing assessment and care of plan. Patient has been seen by Dede Cheema NP on my behalf, her and I discussed the plan with the patient. Transthoracic echocardiogram done on 03/17/2024 reveals EF 50% with mild septal wall hypokinesia. Revised cardiac risk index (Matt criteria): 2 points (10.1%, risk of major cardiac event). Patient has an underlying history of congestive heart failure. Chest x-ray reveals no acute cardiopulmonary disease at this time. Patient not in exacerbation from CHF. No history of coronary artery disease noted. Prior to admission, the patient reports a fair functional capacity. Per Cardiology standpoint, the patient is at a moderate risk for moderate risk surgery. DVT and GI prophylactics. Diuretics with Lasix. Morphine for pain management. IV antibiotics as ordered. Additional plan as per the hospital course. Plan discussed with: Patient ORQUIDEA MCGINNIS MD Apr 16, 2024 12:49
--- NOTE | 2024-04-16 23:17 | DVHINCON2 ---
Date of service: Apr 16, 2024 Referring Physician Raghav Garcia MD Reason for Consultation Acute on chronic hypoxic respiratory failure, COPD, emphysema History of Present Illness A 69-year-old man with past medical history including CHF, COPD, hx of DVT and GERD who presented to ED on 04/15/24 with c/o worsening shortness of breath for 2 days prior to admission. Patient was admitted to the hospital in February for COPD exacerbation and upper abdominal pain, was found to have a splenic hematoma. Patient reported that he did not have oxygen at home and since discharge, was having intermittent shortness of breath for which he was using his albuterol inhaler PRN. SOB worsened with difficulty breathing, prompting him to present to ER. He c/o associated chest pain which was substernal, dull, pressure-like, nonradiating with no associated sweating or palpitations; pain in epigastrium and LUQ which is sharp and intermittent. Patient was admitted for further care and pulmonary consultation is requested for evaluation and management of acute on chronic hypoxic respiratory failure, COPD, emphysema. Review of Systems: 14-point review of systems negative unless otherwise noted above. Past Medical History: Heart failure with preserved ejection fraction, COPD (on home oxygen but not using currently),GERD, back pain, h/o DVT (was previously on Eliquis but IVC filter placed in February 2024) Past Surgical History: IVC filter placement Medications: Reviewed. Allergies: No known drug allergies. Family History: Heart disease, DM. Social History: Smoker. Smokes less than half a pack a day currently, No alcohol or illicit drug use. Family History: Cardiovascular disease G8 MOTHER G8 FATHER Diabetes mellitus G8 MOTHER Allergies: Coded Allergies: NO KNOWN ALLERGIES (Unverified , 02/29/24) Home Meds Active Scripts Respiratory Therapy Supplies (Nebulizer Kit/Tubing/Mout) Kit, APPLIC XX BID PRN, #1 For nebulization Prov:LIBORIO TRAN [facility] 03/19/24 Ipratropium [place] (Ipratropium [place]) 0.02 % Adriana, 0.5 % HHN BID for 30 Days, #120 ML Prov:LIBORIO TRAN [facility] 03/19/24 Albuterol Sulfate (Ventolin) 2.5 Mg/0.5 Ml Nb, 2.5 MG NEB Q4HWA for 30 Days, #10 INH Prov:ETCHEGOYEN,LIBORIO [facility] 03/19/24 Prednisone (Prednisone) 20 Mg Tab, 20 MG PO DAILY for 3 Days, #3 MG Prov:CHELSEALIBORIO [facility] 03/18/24 Nicotine (Nicotine) 14 Mg/24 Hr Dis, 1 PATCH TD DAILY for 30 Days, #30 DIS Prov:LIBORIO TRAN [facility] 03/18/24 Multiple Vitamin (Mvi Tab) 1 Tab Tb, 1 TAB PO DAILY for 30 Days, #30 TAB Prov:CHELSEALIBORIO [facility] 03/18/24 Doxycycline Monohydrate (Doxycycline Monohydrate) 100 Mg Tab, 100 MG PO Q12HR for 5 Days, #10 TAB Prov:CHELSEALIBORIO [facility] 03/18/24 Dextromethorphan-Guaifenesin (Robitussin-Dm) 10 Ml Sr, 10 ML PO Q6HPRN PRN for 30 Days, #120 SYP Prov:CHELSEALIBORIO [facility] 03/18/24 Ascorbic Acid (VITAMIN C TABLET) 500 Mg Tb, 500 MG PO BID for 30 Days, #60 TAB Prov:CHELSEALIBORIO [facility] 03/18/24 Acetaminophen (Acetaminophen) 325 Mg Tab, 650 MG PO Q6HP PRN for 10 Days, #80 TAB Prov:CHELSEALIBORIO [facility] 03/18/24 Reported Medications Thiamine Hcl (VITAMIN B-1) 100 Mg Tb, 1 TAB PO DAILY 03/12/24 Aripiprazole (Aripiprazole) 5 Mg Tab, 1 TAB PO DAILY for 30 Days, #30 03/12/24 Atorvastatin Calcium (ATORVASTATIN CALCIUM) 40 Mg Tab, 40 MG PO DAILY for 30 Days, #30 03/12/24 Pantoprazole Sodium Sesquihydr (Pantoprazole Sodium) 40 Mg Tab, 1 TAB PO DAILY for 30 Days, #30 03/12/24 Furosemide (Furosemide) 20 Mg Tab, 1 TAB PO DAILY 03/12/24 Current Medications Current Medications Medications (Trade) Dose Ordered Sig/Jania Route PRN Reason Start Time Stop Time Status Last Admin Albuterol (Ventolin Medneb) 2.5 mg Q6HR NEB 04/16/24 02:00 04/16/24 19:28 Ipratropium [place] (Atrovent Medneb) 0.5 mg Q6HR NEB 04/16/24 02:00 04/16/24 19:28 Ceftriaxone Sodium 50 ml @ 100 mls/hr Q24H IV 04/16/24 21:00 04/16/24 07:24 DC Atorvastatin Calcium (Lipitor) 40 mg HS PO 04/16/24 22:00 04/16/24 08:13 DC Budesonide (Pulmicort) 0.5 mg BID NEB 04/16/24 10:00 04/16/24 19:28 Furosemide (Lasix Tablet) 20 mg DAILY PO 04/16/24 10:00 Piperacillin Sod/ Tazobactam Sod 100 ml @ 25 mls/hr Q8HR IV 04/16/24 14:00 04/16/24 21:46 Pantoprazole Sodium (Protonix) 40 mg DAILY IV 04/16/24 10:00 04/16/24 11:02 Enoxaparin Sodium (Lovenox) 40 mg DAILY SC 04/17/24 10:00 Vital Signs Vital Signs Date Time Temp Pulse Resp B/P (MAP) Pulse Ox O2 Delivery O2 Flow Rate FiO2 04/16/24 21:00 98.3 71 16 102/53 (69) 99 98.3 04/16/24 19:28 Nasal Cannula 3.0 04/16/24 19:28 32 Physical Exam Gen.: Patient lying in bed in no apparent distress. On supplemental oxygen. Head: Normocephalic, atraumatic. Eyes: EOMI/PERRLA. Ears: Normal hearing. Normal anatomy. Neck/trachea: Trachea midline, supple. Nose: Normal external anatomy. Mouth: Moist mucous membranes. Chest: Decreased air entry bilaterally. No wheezing or rhonchi. Cardiovascular: Positive S1, positive S2. Regular rate and rhythm. Abdomen: Positive bowel sounds in all 4 quadrants. Soft, non-tender, non- distended. : Deferred. Rectal: Deferred. Skin: Warm, dry. Intact. Extremities: 2+ radial pulses bilaterally. No lower extremity edema. Neuro: Awake, alert, oriented x3. No gross motor or sensory deficits. Cranial nerves II through XII intact. Gait not assessed. Labs/Diagnostic Data Labs Test 04/16/24 05:14 04/16/24 03:18 04/15/24 23:19 04/15/24 19:42 Range/Units White Blood Count 15.1 #H 4.4-10.8 10^3/uL Red Blood Count 4.80 4.5-5.90 10^6/uL Hemoglobin 15.0 13.5-17.5 g/dL Hematocrit 46.6 41.0-53.0 % Mean Corpuscular Volume 97.2 # 80.0-100.0 fL Mean Corpuscular Hemoglobin 31.3 28.0-32.0 pg Mean Corpuscular Hemoglobin Concent 32.2 32.0-36.0 g/dL Red Cell Distribution Width 14.5 H 11.8-14.3 % Platelet Count 184 140-450 10^3/uL Mean Platelet Volume 7.9 6.9-10.8 fL Neutrophils (%) (Auto) 94.4 H 37.0-80.0 % Lymphocytes (%) (Auto) 2.3 L 10.0-50.0 % Monocytes (%) (Auto) 3.1 0.0-12.0 % Eosinophils (%) (Auto) 0.0 0.0-7.0 % Basophils (%) (Auto) 0.2 0.0-2.0 % Neutrophils # (Auto) 14.2 H 1.6-8.6 10 ^3/uL Lymphocytes # (Auto) 0.3 L 0.4-5.4 10 ^3/uL Monocytes # (Auto) 0.5 0-1.3 10 ^3/uL Eosinophils # (Auto) 0 0-0.8 10 ^3/uL Basophils # (Auto) 0 0-0.2 10 ^3/uL Nucleated Red Blood Cells 0.0 % Prothrombin Time 10.9 9.3-11.8 sec Prothrombin Time INR 1.03 0.9-1.15 Activated Partial Thromboplast Time 24.5 24.5-34.5 SEC Sodium Level 141 136-145 mmol/L Potassium Level 3.9 3.5-5.1 mmol/L Chloride Level 110 H 98-107 mmol/L Carbon Dioxide Level 24 20-31 mmol/L Anion Gap 7 5-15 Blood Urea Nitrogen 11 9-23 mg/dL Creatinine 1.01 0.700-1.30 mg/dL Glomerular Filtration Rate Calc 81 >90 mL/min BUN/Creatinine Ratio 10.9 10.0-20.0 Serum Glucose 187 H 74-106 mg/dL Hemoglobin A1c 5.5 <5.7 % A1C Calcium Level 9.4 8.7-10.4 mg/dL Total Bilirubin 3.4 H 0.2-1.0 mg/dL Aspartate Amino Transferase (AST) 677 H 13-40 U/L Alanine Aminotransferase (ALT) 603 H 7-40 U/L Alkaline Phosphatase 281 H 46-116 U/L B-Type Natriuretic Peptide 43.79 0-100 pg/mL Total Protein 5.5 L 5.7-8.2 g/dL Albumin 3.9 3.2-4.8 g/dL Triglycerides Level 46 < 150 mg/dL Cholesterol Level 104 < 200 mg/dL LDL Cholesterol 58 < 100 mg/dL HDL Cholesterol 41 40-59 mg/dL Lipase 32 12-53 U/L Plasma/Serum Blood Alcohol < 3.0 <10 mg/dL Urine Color Yellow Yellow Urine Clarity Clear Clear Urine pH 6.0 5.0-9.0 Urine Specific [place] 1.018 1.001-1.035 Urine Protein Negative Negative Urine Ketones Negative Negative Urine Blood Negative Negative /uL Urine Nitrite Negative Negative Urine Bilirubin Negative Negative Urine Urobilinogen 4 H Negative mg/dL Urine Leukocyte Esterase Trace Negative /uL Urine RBC <1 0 - 3 /hpf Urine WBC 4 0 - 3 /hpf Urine Squamous Epithelial Cells Few <5 /hpf Urine Bacteria None seen None Seen /hpf Urine Mucus Few None Seen Urine Glucose Normal Normal mg/dL Urine Opiates Screen Neg NEGATIVE Urine Fentanyl Screen Neg NEGATIVE Urine Barbiturates Screen Neg NEGATIVE Urine Phencyclidine Screen Neg NEGATIVE Urine Amphetamines Screen Neg NEGATIVE Urine Benzodiazepines Screen Neg NEGATIVE Urine Cocaine Screen Neg NEGATIVE Urine Cannabinoids Screen Neg NEGATIVE Influenza Type A Antigen Negative Negative Influenza Type B Antigen Negative Negative SARS-CoV-2 Antigen (Rapid) Negative NEGATIVE Troponin I High Sensitivity 3 L </=54 ng/L Assessment Impression: Acute on chronic hypoxic respiratory failure Dependence on supplemental oxygen COPD, STAGE III Nicotine dependence Emphysema DVT, status post IVC filter Congestive heart failure Plan: Supplemental oxygen 3 LPM NC Titrate to keep O2 sats above 92%. Taper O2 as tolerated. CXR showed no acute opacities, pleural effusion or pneumothorax Continue bronchodilators. Continue antibiotics Obtain HIDA scan in the AM. Patient needs preop risk stratification Monitor renal function. Monitor electrolytes. Supplement as necessary. Monitor ins and outs. Smoking cessation discussed for greater than 10 minutes GI prophylaxis - Protonix DVT prophylaxis. Prognosis: Poor given patient's multiple co-morbidities. Rest of plan per hospitalist and other consultants. Thank you, Dr. Garcia, for allowing me to participate in this patient's care. Further recommendations will depend on the patient's clinical course. Please do not hesitate to contact me if you have any questions or concerns. This medical document was created using an electronic medical record system with [employer] dictation system. Although these documentations are being carefully reviewed, there may still be some phonetic and typographical changes. The errors are purely typographical, due to imperfection on the software program, and do not reflect any compromise in the patient's medical care. Plan discussed with: Patient, Other (FARHEEN Rowell/MD Garcia) MARK ULRICH MD Apr 16, 2024 23:17
[2024-04-17] VITALS (17 sets, daily range): BP systolic 101–114; BP diastolic 52–68; PULSE 60–80; RESP 16–24; TEMP 97.6–98.5; O2SAT 95–99
[2024-04-17 05:13] LABS: Basophils # (auto) 0 10 ^3/uL (0-0.2); Basophils % (auto) 0.1 % (0.0-2.0); Eosinophils # (auto) 0 10 ^3/uL (0-0.8); Eosinophils % (auto) 0.1 % (0.0-7.0); Hemoglobin 13.9 g/dL (13.5-17.5); Lymphocytes # (auto) 0.7 10 ^3/uL (0.4-5.4); Lymphocytes % (auto) 5.2 % (10.0-50.0); Mean Corpuscular Hemoglobin 30.9 pg (28.0-32.0); Mean Corpuscular Hgb Conc. 33.2 g/dL (32.0-36.0); Mean Corpuscular Volume 93.2 fL (80.0-100.0); Monocytes # (auto) 0.9 10 ^3/uL (0-1.3); Monocytes % (auto) 7.1 % (0.0-12.0); Neutrophils # (auto) 11.4 10 ^3/uL (1.6-8.6); Neutrophils % (auto) 87.5 % (37.0-80.0); Platelet Count (auto) 198 10^3/uL (140-450)
[2024-04-17 05:37] LABS: Albumin 3.7 g/dL (3.2-4.8); Anion Gap 10 (5-15); BUN/Creatinine Ratio 16.2 (10.0-20.0); Blood Urea Nitrogen 16 mg/dL (9-23); Calcium 9.3 mg/dL (8.7-10.4); Carbon Dioxide 24 mmol/L (20-31); Sodium 144 mmol/L (136-145)
[2024-04-17 06:10] LABS: Alanine Aminotransferase 463 U/L (7-40); Alkaline Phosphatase 266 U/L (46-116); Aspartate Aminotransferase 264 U/L (13-40); Bilirubin, Total 2.3 mg/dL (0.2-1.0); Chloride 110 mmol/L (98-107); Glucose 113 mg/dL (74-106); Total Protein 5.4 g/dL (5.7-8.2)
[2024-04-17] MEDS: ENOXAPARIN SOD 40 MG/0.4 ML SYRINGE SC SCH (09:57)
[2024-04-17 10:33] LABS: Hepatitis A Ab IgM Negative; Hepatitis B Core IgM Negative (Negative); Hepatitis B Surface Antigen Negative (Negative); Hepatitis C Antibody Negative (Negative)
--- NOTE | 2024-04-17 12:49 | DVH ---
Procedure: NM NM HIDA SCAN Exam Date: 04/17/2024 07:54 AM Clinical History: poss cholecystitis Comparison Study: MRI dated 04/16/2024 Nuclear Medicine Hepatobiliary Scan. Technique: Following the intravenous administration of 4.2 mCi of technetium 99m labeled Choletec multiple plana r abdominal planar images were obtained in anterior projection in 5 minute intervals for45 minutes . Right lateral images were obtained at 4 hours after injection. Findings: The liver appears grossly normal in size. There is no abnormal persistence of the cardiac or blood po ol activity. There is excretion of activity into the small bowel. There is nonvisualization of the g allbladder. Impression: Nonvisualization of the gallbladder suggestive of cystic duct obstruction.
--- NOTE | 2024-04-17 15:57 | DVHPN2 ---
Progress Note - Dictate Date Seen: Apr 17, 2024 Medical Necessity Reason Pt with a Central, PICC or Fol: No Subjective E: no major events o/n. hungry vital signs Vital Sign Date Time Temp Pulse Resp B/P (MAP) Pulse Ox O2 Delivery O2 Flow Rate FiO2 04/17/24 12:31 98.4 62 20 114/68 (83) 97 98.4 04/17/24 11:34 Nasal Cannula* 3 32 Total Intake and Output 04/16/24 04/16/24 04/17/24 15:00 23:00 07:00 Intake Total 0 ml 0 ml Output Total 1400 ml 400 ml Balance -1400 ml -400 ml medications Current Medications Medications Dose Ordered Sig/Jania Route Start Time Stop Time Status Last Admin Dose Admin Nitroglycerin 0.4 mg Q5MINP PRN SL 04/15/24 22:00 Morphine Sulfate 2 mg Q30M PRN IV 04/15/24 22:00 Albuterol 2.5 mg Q6HR NEB 04/16/24 02:00 04/17/24 11:34 2.5 MG Ipratropium [place] 0.5 mg Q6HR NEB 04/16/24 02:00 04/17/24 11:34 0.5 MG Budesonide 0.5 mg BID NEB 04/16/24 10:00 04/17/24 07:11 0.5 MG Furosemide 20 mg DAILY PO 04/16/24 10:00 Piperacillin Sod/ Tazobactam Sod 100 ml @ 25 mls/hr Q8HR IV 04/16/24 14:00 04/17/24 13:49 25 MLS/HR Pantoprazole Sodium 40 mg DAILY IV 04/16/24 10:00 04/17/24 09:56 40 MG Enoxaparin Sodium 40 mg DAILY SC 04/17/24 10:00 objective GEN: NAD ABD: RUQ TTP laboratory and microbiology Laboratory Tests 04/17/24 04:26 Test 04/17/24 04:26 Range/Units Serum Glucose 113 H 74-106 mg/dL Assessment/Plan A: 1. acute cholecystitis 2. COPD exacerbation 3. CHF with a history of TX and CVA 4. Perisplenic fluid collection P: 1. pulm assess the patient as mod to high risk. cardiology says mod risk. based on these recs, I discussed the treatment option of surgery with the increased risks vs percutaneous cholecystostomy. will ask IR for poss cholecystostomy. Plan discussed with: Patient SHOBHA ZALDIVAR MD Apr 17, 2024 15:57
--- NOTE | 2024-04-17 18:30 | DVHPNRES ---
Progress Note Date Seen: Apr 17, 2024 Resident Creating Document: ABELINO GRAVES RESIDENT Medical Necessity Reason Pt with a Central, PICC or Fol: No Subjective Review of Systems Patient is 69 years old male with past medical history of HFpEF, COPD on home oxygen but not using lately, history of DVT, history of Eliquis use, complained with a splenic hematoma, on IVC filter because of splenic hematoma came with a complaint of shortness of breaths and epigastric pain. As per patient she has been having epigastric pain since yesterday, sudden onset, sharp, 10/10, radiating to the lower chest. Patient also complained of nausea and vomiting twice, watery, yellowish, no blood. Patient also endorsed some shortness of breaths for last 2 days, was seen with the exertion.. Patient denied any fever, constipation, diarrhea, dysuria, joint swelling. Initial lab workup revealed WBC 9.6, hemoglobin 16.2, platelet 226, sodium 140, potassium 4.5, HGB A1c 5.5, bilirubin 2.6, elevated AST 92, elevated ALT 544, alkaline phosphatase 310, troponin I within normal limit, BNP 43, TG 46, cholesterol 104, LDL 58, lipase 32. UDS negative. CT abdomen revealed-Perisplenic fluid collection appear similar to slightly decreased in size. If patient has persistent pain, image guided drainage could be considered. Centrilobular emphysema. Focal ultrasound revealed- Cholelithiasis with mild gallbladder wall thickening. Complex Perisplenic fluid collection as seen on prior imaging, relatively similar. Clinical management is recommended.There is a complex appearing fluid collection measuring 9.3 x 9.0 x 7.3 cm along the spleen as seen on prior CT of 03/12/2024. MRCP revealed-Cholelithiasis with a 1.4 x 0.9 cm stone at the gallbladder neck. There is mild gallbladder wall thickening. Consider correlation with nuclear medicine HIDA scan if clinically indicated. No significant biliary ductal dilatation. Complex perisplenic fluid collection with numerous internal septations. This is similar in size from prior studies.HIDA scan revealed- Nonvisualization of the gallbladder suggestive of cystic duct obstruction. Past medical history: Heart failure with preserved ejection fraction, COPD (on home oxygen but not using currently),GERD, back pain, h/o DVT (was previously on Eliquis but IVC filter placed in February 2024) Past surgical history: IVC filter placement Social history: Lives in a boarding house, Smokes less than half a pack a day currently, denies alcohol, drug use Home medications: Atorvastatin 40 mg hs, furosemide 20 mg q.d. Allergy- NKDA Patient was seen today at the bedside. Cardiovascular- deny acute chest pain or shortness of breath or cough or palpitation Respiratory- denies cough or short of breath or wheezing Gastrointestinal- denies any rectal bleeding Musculoskeletal-denies acute joint swelling or tenderness or redness Neurological- denies acute dysarthria, dysphagia, change in vision Psychiatry- denies depression or SI or HI Skin- denies acute rash or purpura Patient was seen today for clinical evaluation. Labs and chart reviewed. Patient with some improvement with breathing. Patient with ongoing right upper quadrant chest pain, Kent sign is still positive. Patient was by Cardiology and pulmonology. Both of them recommended patient is at moderate for surgery. As per surgeon plan is to do IR cholecystostomy. Objective vital signs Vital Sign Date Time Temp Pulse Resp B/P (MAP) Pulse Ox O2 Delivery O2 Flow Rate FiO2 04/17/24 16:48 98.3 68 24 106/66 (79) 97 98.3 04/17/24 11:34 Nasal Cannula* 3 32 Total Intake and Output 04/16/24 04/16/24 04/17/24 15:00 23:00 07:00 Intake Total 0 ml 0 ml Output Total 1400 ml 400 ml Balance -1400 ml -400 ml medications Current Medications Medications Dose Ordered Sig/Jania Route Start Time Stop Time Status Last Admin Dose Admin Nitroglycerin 0.4 mg Q5MINP PRN SL 04/15/24 22:00 Morphine Sulfate 2 mg Q30M PRN IV 04/15/24 22:00 Albuterol 2.5 mg Q6HR NEB 04/16/24 02:00 04/17/24 11:34 2.5 MG Ipratropium [place] 0.5 mg Q6HR NEB 04/16/24 02:00 04/17/24 11:34 0.5 MG Budesonide 0.5 mg BID NEB 04/16/24 10:00 04/17/24 07:11 0.5 MG Furosemide 20 mg DAILY PO 04/16/24 10:00 Piperacillin Sod/ Tazobactam Sod 100 ml @ 25 mls/hr Q8HR IV 04/16/24 14:00 04/17/24 13:49 25 MLS/HR Pantoprazole Sodium 40 mg DAILY IV 04/16/24 10:00 04/17/24 09:56 40 MG laboratory and microbiology Laboratory Tests 04/17/24 04:26 Test 04/17/24 04:26 Range/Units Serum Glucose 113 H 74-106 mg/dL Problem List/Assessment/Plan Problem List/Assessment/Plan #Possible acute cholecystitis # Acute hypoxemic respiratory failure likely due to COPD exacerbation # COPD exacerbation # ?Acute exacerbation of heart failure with a preserved ejection fraction # Acute chest pain, rule out ACS # Transaminitis likely due to acute cholecystitis due to cholelithiasis # suspected acute cholangitis # H/o spleen hematoma # H/o DVT - IVC filter placed during the previous admission in February #Perisplenic fluid collection -CT abdomen revealed-Perisplenic fluid collection appear similar to slightly decreased in size. If patient has persistent pain, image guided drainage could be considered. Centrilobular emphysema. - Focal ultrasound revealed- Cholelithiasis with mild gallbladder wall thickening. Complex Perisplenic fluid collection as seen on prior imaging, relatively similar. Clinical management is recommended.There is a complex appearing fluid collection measuring 9.3 x 9.0 x 7.3 cm along the spleen as seen on prior CT of 03/12/2024. - MRCP revealed-Cholelithiasis with a 1.4 x 0.9 cm stone at the gallbladder neck. There is mild gallbladder wall thickening. Consider correlation with nuclear medicine HIDA scan if clinically indicated. No significant biliary ductal dilatation. Complex perisplenic fluid collection with numerous internal septations. This is similar in size from prior studies. HIDA scan revealed-Nonvisualization of the gallbladder suggestive of cystic duct obstruction. Patient was by Cardiology and pulmonology. Both of them recommended patient is at moderate for surgery. As per surgeon plan is to do IR cholecystostomy. Patient's leukocytosis likely due to steroid. Continue Zosyn 3.37 g IV q.8h Continue Lasix 20 mg p.o. daily Continue nebulization as prescribed Continue pantoprazole as prescribed Continue other medication as prescribed Goals of care/advance care planning; FULL CODE; discussed with the patient >15 minutes PUD prophylaxis: Pantoprazole DVT prophylaxis: Lovenox Plan discussed with Dr. Carter,, nursing staff, patient Total time spent on patient evaluation, chart review, assessment and plan, discussion discussion >30 minutes Plan discussed with: Patient Plan discussed with: Patient, Other (RN) Date of Service: Apr 17, 2024 Billing Provider: JOSE DE JESUS CARTER MD Common Visit Codes: [id number] INP/OBS CARE(HIGH) ABELINO GRAVES RESIDENT Apr 17, 2024 18:30 JOSE DE JESUS CARTER MD Apr 18, 2024 08:22
--- NOTE | 2024-04-17 19:08 | DVHPN2 ---
Subjective FEELS BETTER Reviewed: Care Plan, H&P, Labs, Medications, Previous Orders, Radiology Changes from previous H/P or p: No Changes Objective Vitals Vital Signs Date Time Temp Pulse Resp B/P (MAP) Pulse Ox O2 Delivery O2 Flow Rate FiO2 04/17/24 16:48 98.3 68 24 106/66 (79) 97 98.3 04/17/24 11:34 Nasal Cannula* 3 32 Intake/Output Intake and Output 04/17/24 07:00 Intake Total 0 ml Output Total 1800 ml Balance -1800 ml Intake Oral 0 ml Output Urine Total 1800 ml General Appearance: Alert, Oriented X3, Cooperative, No acute distress HEENT: Atraumatic Lungs: Clear to auscultation Cardiovascular: Regular rate Abdomen: Other (TENDERNESS IN RUQ. YEUNG'S POSITIVE) Medications Current Medications Medications Dose Ordered Sig/Jania Route Start Time Stop Time Status Last Admin Dose Admin Nitroglycerin 0.4 mg Q5MINP PRN SL 04/15/24 22:00 Morphine Sulfate 2 mg Q30M PRN IV 04/15/24 22:00 Albuterol 2.5 mg Q6HR NEB 04/16/24 02:00 04/17/24 11:34 2.5 MG Ipratropium [place] 0.5 mg Q6HR NEB 04/16/24 02:00 04/17/24 11:34 0.5 MG Budesonide 0.5 mg BID NEB 04/16/24 10:00 04/17/24 07:11 0.5 MG Furosemide 20 mg DAILY PO 04/16/24 10:00 Piperacillin Sod/ Tazobactam Sod 100 ml @ 25 mls/hr Q8HR IV 04/16/24 14:00 04/17/24 13:49 25 MLS/HR Pantoprazole Sodium 40 mg DAILY IV 04/16/24 10:00 04/17/24 09:56 40 MG Laboratory Results Laboratory Tests 04/17/24 04:26 Chemistry Test 04/17/24 04:26 Albumin 3.7 g/dL (3.2-4.8) Calcium Level 9.3 mg/dL (8.7-10.4) Magnesium Level 2.0 mg/dL (1.6-2.6) Total Protein 5.4 g/dL (5.7-8.2) L LFT Test 04/17/24 04:26 Alanine Aminotransferase (ALT) 463 U/L (7-40) H Alkaline Phosphatase 266 U/L (46-116) H Aspartate Amino Transferase (AST) 264 U/L (13-40) H Total Bilirubin 2.3 mg/dL (0.2-1.0) H Urinalysis Test 04/16/24 03:18 Urine Color Yellow (Yellow) Urine Clarity Clear (Clear) Urine pH 6.0 (5.0-9.0) Urine Specific [place] 1.018 (1.001-1.035) Urine Protein Negative (Negative) Urine Ketones Negative (Negative) Urine Blood Negative /uL (Negative) Urine Nitrite Negative (Negative) Urine Bilirubin Negative (Negative) Urine Urobilinogen 4 mg/dL (Negative) H Urine Leukocyte Esterase Trace /uL (Negative) Urine RBC <1 /hpf (0 - 3) Urine WBC 4 /hpf (0 - 3) Urine Squamous Epithelial Cells Few /hpf (<5) Urine Bacteria None seen /hpf (None Seen) Urine Mucus Few (None Seen) Urine Glucose Normal mg/dL (Normal) Assessment/Plan Assessment/Plan CHOLELITHIASIS CHOLECYSTITIS SPLEEN HEMATOMA INCREASED LFTS PLAN PER SURGERY Plan discussed with: Patient Date of Service: Apr 17, 2024 Billing Provider: KIMBERLY MOORE MD Common Visit Codes: [id number] INP/OBS CARE(MOD) KIMBERLY MOORE MD Apr 17, 2024 19:08
--- NOTE | 2024-04-17 20:12 | DVHPN2 ---
Progress Note - Dictate Date Seen: Apr 17, 2024 Medical Necessity Reason Pt with a Central, PICC or Fol: No Subjective Patient was seen and evaluated in follow up. Patient is complaining of generalized pain. WBC 13, CL 110, AST 264, ALT 463. vital signs Vital Sign Date Time Temp Pulse Resp B/P (MAP) Pulse Ox O2 Delivery O2 Flow Rate FiO2 04/17/24 16:48 98.3 68 24 106/66 (79) 97 98.3 04/17/24 11:34 Nasal Cannula* 3 32 Total Intake and Output 04/16/24 04/16/24 04/17/24 15:00 23:00 07:00 Intake Total 0 ml 0 ml Output Total 1400 ml 400 ml Balance -1400 ml -400 ml medications Current Medications Medications Dose Ordered Sig/Jania Route Start Time Stop Time Status Last Admin Dose Admin Nitroglycerin 0.4 mg Q5MINP PRN SL 04/15/24 22:00 Morphine Sulfate 2 mg Q30M PRN IV 04/15/24 22:00 Albuterol 2.5 mg Q6HR NEB 04/16/24 02:00 04/17/24 11:34 2.5 MG Ipratropium [place] 0.5 mg Q6HR NEB 04/16/24 02:00 04/17/24 11:34 0.5 MG Budesonide 0.5 mg BID NEB 04/16/24 10:00 04/17/24 07:11 0.5 MG Furosemide 20 mg DAILY PO 04/16/24 10:00 Piperacillin Sod/ Tazobactam Sod 100 ml @ 25 mls/hr Q8HR IV 04/16/24 14:00 04/17/24 13:49 25 MLS/HR Pantoprazole Sodium 40 mg DAILY IV 04/16/24 10:00 04/17/24 09:56 40 MG objective GENERAL: Awake, alert, oriented. LUNGS: Clear. CARDIOVASCULAR: Heart sounds are good. ABDOMEN: Soft. laboratory and microbiology Laboratory Tests 04/17/24 04:26 Test 04/17/24 04:26 Range/Units Serum Glucose 113 H 74-106 mg/dL Problem List Preprocedural cardiovascular examination. Chronic HFpEF, NYHA class II. History of myocardial infarction. Chronic left lower extremity DVT status post IVC filter. COPD with home O2. History of CVA without residual deficits. Euthyroid sick syndrome. Hx of splenic hematoma. Tobacco use. Assessment/Plan Continued all current supportive medical care. Diuretics with Lasix. Morphine for pain management. GI prophylactics. IV antibiotics as ordered. Additional plan as per the hospital course. Plan discussed with: Patient ORQUIDEA MCGINNIS MD Apr 17, 2024 17:55
--- NOTE | 2024-04-17 22:21 | DVHPN2 ---
Progress Note - Dictate Date Seen: Apr 17, 2024 Medical Necessity Reason Pt with a Central, PICC or Fol: No Subjective Patient seen and examined at bedside. Remains on supplemental oxygen Overnight events reviewed. vital signs Vital Sign Date Time Temp Pulse Resp B/P (MAP) Pulse Ox O2 Delivery O2 Flow Rate FiO2 04/17/24 19:27 69 18 99 04/17/24 19:15 Nasal Cannula 3.0 04/17/24 19:15 32 04/17/24 16:48 98.3 106/66 (79) 98.3 Total Intake and Output 04/16/24 04/16/24 04/17/24 15:00 23:00 07:00 Intake Total 0 ml 0 ml Output Total 1400 ml 400 ml Balance -1400 ml -400 ml medications Current Medications Medications Dose Ordered Sig/Jania Route Start Time Stop Time Status Last Admin Dose Admin Nitroglycerin 0.4 mg Q5MINP PRN SL 04/15/24 22:00 Morphine Sulfate 2 mg Q30M PRN IV 04/15/24 22:00 Albuterol 2.5 mg Q6HR NEB 04/16/24 02:00 04/17/24 19:19 2.5 MG Ipratropium [place] 0.5 mg Q6HR NEB 04/16/24 02:00 04/17/24 19:19 0.5 MG Budesonide 0.5 mg BID NEB 04/16/24 10:00 04/17/24 19:20 0.5 MG Furosemide 20 mg DAILY PO 04/16/24 10:00 Piperacillin Sod/ Tazobactam Sod 100 ml @ 25 mls/hr Q8HR IV 04/16/24 14:00 04/17/24 13:49 25 MLS/HR Pantoprazole Sodium 40 mg DAILY IV 04/16/24 10:00 04/17/24 09:56 40 MG objective Gen.: Patient lying in bed in no apparent distress. On supplemental oxygen. Head: Normocephalic, atraumatic. Eyes: EOMI/PERRLA. Ears: Normal hearing. Normal anatomy. Neck/trachea: Trachea midline, supple. Nose: Normal external anatomy. Mouth: Moist mucous membranes. Chest: Decreased air entry bilaterally. No wheezing or rhonchi. Cardiovascular: Positive S1, positive S2. Regular rate and rhythm. Abdomen: Positive bowel sounds in all 4 quadrants. Soft, non-tender, non- distended. : Deferred. Rectal: Deferred. Skin: Warm, dry. Intact. Extremities: 2+ radial pulses bilaterally. No lower extremity edema. Neuro: Awake, alert, oriented x3. No gross motor or sensory deficits. Cranial nerves II through XII intact. Gait not assessed. laboratory and microbiology Laboratory Tests 04/17/24 04:26 Test 04/17/24 04:26 Range/Units Serum Glucose 113 H 74-106 mg/dL Assessment/Plan Impression: Acute on chronic hypoxic respiratory failure Dependence on supplemental oxygen COPD Nicotine dependence Emphysema DVT, status post IVC filter Congestive heart failure Events: Remains on supplemental oxygen, 3 LPM NC Taper O2 as tolerated Spirometry notable for severe obstructive ventilatory defect. FEV1 above 1 liter. Plan for IR drain: Pt can undergo planned procedure. No further pulmonary testing required. He is at moderate to high risk for pulmonary complications. Continue bronchodilators/Pulmicort Continue antibiotics Clear liquids Diurese w/ Lasix as tolerated Monitor renal function. Monitor electrolytes. Supplement as necessary. Monitor ins and outs. Protonix for GI prophylaxis Patient refused Lovenox Labs and imaging reviewed. Rest of plan as noted below. Plan: Supplemental oxygen 3 LPM NC Titrate to keep O2 sats above 92%. Taper O2 as tolerated. CXR showed no acute opacities, pleural effusion or pneumothorax Continue bronchodilators. Continue antibiotics HIDA scan c/w nonvisualization of the gallbladder suggestive of cystic duct obstruction. Pt cleared to undergo planned procedure. No further pulmonary testing required. He is at moderate to high risk for pulmonary complications. Monitor renal function. Monitor electrolytes. Supplement as necessary. Monitor ins and outs. Smoking cessation discussed for greater than 10 minutes GI prophylaxis - Protonix DVT prophylaxis. Prognosis: Poor given patient's multiple co-morbidities. Rest of plan per hospitalist and other consultants. Thank you, Dr. Garcia, for allowing me to participate in this patient's care. Further recommendations will depend on the patient's clinical course. Please do not hesitate to contact me if you have any questions or concerns. This medical document was created using an electronic medical record system with [employer] system. Although these documentations are being carefully reviewed, there may still be some phonetic and typographical changes. The errors are purely typographical, due to imperfection on the software program, and do not reflect any compromise in the patient's medical care. Plan discussed with: Patient, Other (FARHEEN Lauren) MARK ULRICH MD Apr 17, 2024 22:21
[2024-04-18] VITALS (19 sets, daily range): BP systolic 92–134; BP diastolic 58–74; PULSE 50–68; RESP 16–21; TEMP 97.5–98.3; O2SAT 95–99
[2024-04-18 05:52] LABS: Basophils # (auto) 0 10 ^3/uL (0-0.2); Basophils % (auto) 0.4 % (0.0-2.0); Eosinophils # (auto) 0.2 10 ^3/uL (0-0.8); Eosinophils % (auto) 3.8 % (0.0-7.0); Hematocrit 39.9 % (41.0-53.0); Hemoglobin 13.5 g/dL (13.5-17.5); Lymphocytes # (auto) 0.9 10 ^3/uL (0.4-5.4); Mean Corpuscular Hemoglobin 31.5 pg (28.0-32.0); Mean Corpuscular Hgb Conc. 33.9 g/dL (32.0-36.0); Monocytes # (auto) 0.7 10 ^3/uL (0-1.3); Monocytes % (auto) 11.4 % (0.0-12.0); Neutrophils # (auto) 4.4 10 ^3/uL (1.6-8.6); Neutrophils % (auto) 69.4 % (37.0-80.0); Nucleated Red Blood Cells % 0.1 %; Platelet Count (auto) 176 10^3/uL (140-450); Red Blood Cells 4.29 10^6/uL (4.5-5.90); Red Cell Distribution Width 13.6 % (11.8-14.3); White Blood Cell 6.3 10^3/uL (4.4-10.8)
[2024-04-18 06:12] LABS: Albumin 3.6 g/dL (3.2-4.8); Anion Gap 5 (5-15); BUN/Creatinine Ratio 10.3 (10.0-20.0); Blood Urea Nitrogen 9 mg/dL (9-23); Calcium 9.2 mg/dL (8.7-10.4); Carbon Dioxide 27 mmol/L (20-31); Glucose 98 mg/dL (74-106); Potassium 4.2 mmol/L (3.5-5.1); Sodium 141 mmol/L (136-145)
[2024-04-18 06:20] LABS: Alanine Aminotransferase 358 U/L (7-40); Alkaline Phosphatase 266 U/L (46-116); Aspartate Aminotransferase 131 U/L (13-40); Bilirubin, Total 1.5 mg/dL (0.2-1.0); Chloride 109 mmol/L (98-107); Total Protein 5.2 g/dL (5.7-8.2)
[2024-04-18] MEDS: IODIXANOL 320MG/ML 100ML BTL IV ONE (10:22)
[2024-04-18] MEDS: fentaNYL CITRATE 100 MCG/2 ML VL ONE (10:36)
[2024-04-18] MEDS: LIDOCAINE 2%HCL (LOCAL ANESTH.) INJ 20ML MDV ONE (10:36)
[2024-04-18] MEDS: MIDAZOLAM HCL 2MG/2ML 2ml VIAL (1mg/ml) ONE (10:36)
--- NOTE | 2024-04-18 11:51 | DVH ---
US US GUIDANCE FOR NEEDLE PLACEME, HISTORY: JOSH TUBE PROCEDURE: Informed consent was obtained. The patient was placed in supine position, and initial limi abel ultrasound evaluation of the RUQ abdomen was obtained. The skin overlying the gallbladder was pre pped with chlorhexidine which was allowed to dry and draped in the usual sterile fashion. Time out wa s performed. IV sedation and 1% lidocaine local anesthetic were administered. Using US needle biopsy guide, a 21 g Accu Stick needle was advanced into the gallbladder via a subcostal, trans-peritoneal a pproach. Following aspiration of bile, a small amount of contrast was injected to delineate the visco us. The needle was then exchanged over mandrill wire to a non-vascular access set, through which a Am mateus guidewire was advanced into the gallbladder. Following serial dilation, an 8.5 [place] multipurp ose pigtail catheter was placed within the gallbladder. Approximately 5 cc of fluid was withdrawn and sent to the laboratory for analysis. The drain was secured in place and attached to gravity drainage . A sterile dressing was applied. No immediate complication was identified. DAP 249 FLUOROSCOPY TIME: 2.4 minutes. CONTRAST USED: 10 mL. SEDATION: Dr. Jodie Sears was personally responsible for the administration of moderate sedation during the procedure performed, including the use of an independent trained observer who had no other duties during the procedure. The drugs utilized were IV fentanyl and versed (see nursing log for details). The total time of supervision by the attending physician was [id number] minutes. FINDINGS: Limited US scan of the right upper abdomen demonstrates multiple gallstones in the gallblad humera. Aspirated bile is thin. Completion image demonstrates good positioning of the drainage catheter. The cystic duct is patent. IMPRESSION: US/fluoro-guided percutaneous 8.5 [place] cholecystostomy tube placement. PLAN: This tube will need to remain in place for at least 6-8 weeks before removal, so as to prevent bile leakage. If cholecystectomy is not planned, please have patient follow-up with IR at discharge t o schedule cholangiogram in 6-8 weeks. If cystic duct patency and tract maturation is established, we will consider clamp trial prior to removal of the tube in 1-2 weeks.
--- NOTE | 2024-04-18 14:38 | DVHPN2 ---
Subjective Status post percutaneous cholecystostomy tube placement. Reviewed: Care Plan, H&P, Labs, Medications, Previous Orders, Radiology Changes from previous H/P or p: No Changes Objective Vitals Vital Signs Date Time Temp Pulse Resp B/P (MAP) Pulse Ox O2 Delivery O2 Flow Rate FiO2 04/18/24 12:20 50 19 132/74 (93) 99 04/18/24 11:38 98.0 98.0 04/18/24 06:23 Nasal Cannula* 3 32 Intake/Output Intake and Output 04/18/24 07:00 Intake Total 600 ml Output Total 2950 ml Balance -2350 ml Intake Oral 400 ml IV Total 200 ml Output Urine Total 2950 ml General Appearance: Alert, Oriented X3, Cooperative, No acute distress HEENT: Atraumatic Lungs: Clear to auscultation Cardiovascular: Regular rate Abdomen: Other (More tenderness in the right upper quadrant) Medications Current Medications Medications Dose Ordered Sig/Jania Route Start Time Stop Time Status Last Admin Dose Admin Nitroglycerin 0.4 mg Q5MINP PRN SL 04/15/24 22:00 Morphine Sulfate 2 mg Q30M PRN IV 04/15/24 22:00 Albuterol 2.5 mg Q6HR NEB 04/16/24 02:00 04/18/24 06:21 2.5 MG Ipratropium [place] 0.5 mg Q6HR NEB 04/16/24 02:00 04/18/24 06:21 0.5 MG Budesonide 0.5 mg BID NEB 04/16/24 10:00 04/18/24 06:21 0.5 MG Furosemide 20 mg DAILY PO 04/16/24 10:00 Piperacillin Sod/ Tazobactam Sod 100 ml @ 25 mls/hr Q8HR IV 04/16/24 14:00 04/18/24 05:59 25 MLS/HR Pantoprazole Sodium 40 mg DAILY IV 04/16/24 10:00 04/17/24 09:56 40 MG Laboratory Results Laboratory Tests 04/18/24 05:07 Chemistry Test 04/18/24 05:07 Albumin 3.6 g/dL (3.2-4.8) Calcium Level 9.2 mg/dL (8.7-10.4) Magnesium Level 2.0 mg/dL (1.6-2.6) Total Protein 5.2 g/dL (5.7-8.2) L LFT Test 04/18/24 05:07 Alanine Aminotransferase (ALT) 358 U/L (7-40) H Alkaline Phosphatase 266 U/L (46-116) H Aspartate Amino Transferase (AST) 131 U/L (13-40) H Total Bilirubin 1.5 mg/dL (0.2-1.0) H Urinalysis Test 04/16/24 03:18 Urine Color Yellow (Yellow) Urine Clarity Clear (Clear) Urine pH 6.0 (5.0-9.0) Urine Specific [place] 1.018 (1.001-1.035) Urine Protein Negative (Negative) Urine Ketones Negative (Negative) Urine Blood Negative /uL (Negative) Urine Nitrite Negative (Negative) Urine Bilirubin Negative (Negative) Urine Urobilinogen 4 mg/dL (Negative) H Urine Leukocyte Esterase Trace /uL (Negative) Urine RBC <1 /hpf (0 - 3) Urine WBC 4 /hpf (0 - 3) Urine Squamous Epithelial Cells Few /hpf (<5) Urine Bacteria None seen /hpf (None Seen) Urine Mucus Few (None Seen) Urine Glucose Normal mg/dL (Normal) Assessment/Plan Assessment/Plan CHOLELITHIASIS CHOLECYSTITIS status post percutaneous cholecystostomy tube placement SPLEEN HEMATOMA INCREASED LFTS PLAN Pain management. Repeat labs amylase and lipase tomorrow. Further plan per orders Plan discussed with: Patient, Other (Nursing) My Orders Orders - KIMBERLY MOORE MD Procedure Category Date Status Time Percutaneous Cholangio XY 04/18/24 Resulted 11:32 Morphine Sulfate PHA 04/18/24 Transmitted Injection 14:45 Morphine Sulfate PHA 04/18/24 Transmitted Injection 14:45 Date of Service: Apr 18, 2024 Billing Provider: KIMBERLY MOORE MD Common Visit Codes: [id number] INP/OBS CARE(HIGH) KIMBERLY MOORE MD Apr 18, 2024 14:38
[2024-04-18] MEDS ORDERED: MORPHINE SULFATE INJ 2 MG/ml SYRG IV PRN (14:45)
[2024-04-18] MEDS: MORPHINE SULFATE INJ 2 MG/ml SYRG IV PRN (15:41)
--- NOTE | 2024-04-18 23:20 | DVHPN2 ---
Progress Note - Dictate Date Seen: Apr 18, 2024 Medical Necessity Reason Pt with a Central, PICC or Fol: No Subjective Patient seen and examined at bedside. Remains on supplemental oxygen Overnight events reviewed. vital signs Vital Sign Date Time Temp Pulse Resp B/P (MAP) Pulse Ox O2 Delivery O2 Flow Rate FiO2 04/18/24 22:46 62 18 99 04/18/24 21:48 118/68 3.0 04/18/24 21:00 97.5 97.5 04/18/24 19:00 Nasal Cannula 04/18/24 19:00 32 Total Intake and Output 04/17/24 04/17/24 04/18/24 15:00 23:00 07:00 Intake Total 100 ml 500 ml 0 ml Output Total 700 ml 2250 ml Balance 100 ml -200 ml -2250 ml medications Current Medications Medications Dose Ordered Sig/Jania Route Start Time Stop Time Status Last Admin Dose Admin Nitroglycerin 0.4 mg Q5MINP PRN SL 04/15/24 22:00 Morphine Sulfate 2 mg Q30M PRN IV 04/15/24 22:00 Albuterol 2.5 mg Q6HR NEB 04/16/24 02:00 04/18/24 19:00 2.5 MG Ipratropium [place] 0.5 mg Q6HR NEB 04/16/24 02:00 04/18/24 19:00 0.5 MG Budesonide 0.5 mg BID NEB 04/16/24 10:00 04/18/24 22:46 0.5 MG Furosemide 20 mg DAILY PO 04/16/24 10:00 04/18/24 15:40 20 MG Piperacillin Sod/ Tazobactam Sod 100 ml @ 25 mls/hr Q8HR IV 04/16/24 14:00 04/18/24 15:41 25 MLS/HR Pantoprazole Sodium 40 mg DAILY IV 04/16/24 10:00 04/18/24 15:40 40 MG Morphine Sulfate 1 mg Q4HPRN PRN IV 04/18/24 14:45 Morphine Sulfate 2 mg Q4HPRN PRN IV 04/18/24 14:45 04/18/24 15:41 2 MG objective Gen.: Patient lying in bed in no apparent distress. On supplemental oxygen. Head: Normocephalic, atraumatic. Eyes: EOMI/PERRLA. Ears: Normal hearing. Normal anatomy. Neck/trachea: Trachea midline, supple. Nose: Normal external anatomy. Mouth: Moist mucous membranes. Chest: Decreased air entry bilaterally. No wheezing or rhonchi. Cardiovascular: Positive S1, positive S2. Regular rate and rhythm. Abdomen: Positive bowel sounds in all 4 quadrants. Soft, non-tender, non- distended. : Deferred. Rectal: Deferred. Skin: Warm, dry. Intact. Extremities: 2+ radial pulses bilaterally. No lower extremity edema. Neuro: Awake, alert, oriented x3. No gross motor or sensory deficits. Cranial nerves II through XII intact. Gait not assessed. laboratory and microbiology Laboratory Tests 04/18/24 05:07 Test 04/18/24 05:07 Range/Units Serum Glucose 98 74-106 mg/dL Assessment/Plan Impression: Acute on chronic hypoxic respiratory failure Dependence on supplemental oxygen COPD, STAGE III Nicotine dependence Emphysema DVT, status post IVC filter Congestive heart failure Events: Remains on supplemental oxygen, 3 LPM NC Taper O2 as tolerated S/p percutaneous cholecystostomy tube placement by IR. Continue bronchodilators Continue antibiotics Incentive spirometry Labs and imaging reviewed. Rest of plan as noted below. Plan: Supplemental oxygen Titrate to keep O2 sats above 92%. Taper O2 as tolerated. CXR showed no acute opacities, pleural effusion or pneumothorax Continue bronchodilators. Continue antibiotics S/p percutaneous cholecystostomy tube placement by IR. Monitor renal function. Monitor electrolytes. Supplement as necessary. Monitor ins and outs. Smoking cessation discussed for greater than 10 minutes GI prophylaxis - Protonix DVT prophylaxis. Prognosis: Poor given patient's multiple co-morbidities. Rest of plan per hospitalist and other consultants. Thank you, Dr. Garcia, for allowing me to participate in this patient's care. Further recommendations will depend on the patient's clinical course. Please do not hesitate to contact me if you have any questions or concerns. This medical document was created using an electronic medical record system with [employer] system. Although these documentations are being carefully reviewed, there may still be some phonetic and typographical changes. The errors are purely typographical, due to imperfection on the software program, and do not reflect any compromise in the patient's medical care. Plan discussed with: Patient, Other (FARHEEN Galeas) MARK ULRICH MD Apr 18, 2024 23:20
--- NOTE | 2024-04-18 23:56 | DVHPN2 ---
Progress Note - Dictate Date Seen: Apr 18, 2024 Medical Necessity Reason Pt with a Central, PICC or Fol: No Subjective Patient was seen and evaluated in follow up. Patient is complaining of generalized pain. Patient is planned for [facility] today. CL 109, AST 131, ALT 358. vital signs Vital Sign Date Time Temp Pulse Resp B/P (MAP) Pulse Ox O2 Delivery O2 Flow Rate FiO2 04/18/24 12:20 50 19 132/74 (93) 99 04/18/24 11:38 98.0 98.0 04/18/24 06:23 Nasal Cannula* 3 32 Total Intake and Output 04/17/24 04/17/24 04/18/24 14:59 22:59 06:59 Intake Total 100 ml 500 ml 0 ml Output Total 700 ml 2250 ml Balance 100 ml -200 ml -2250 ml medications Current Medications Medications Dose Ordered Sig/Jania Route Start Time Stop Time Status Last Admin Dose Admin Nitroglycerin 0.4 mg Q5MINP PRN SL 04/15/24 22:00 Morphine Sulfate 2 mg Q30M PRN IV 04/15/24 22:00 Albuterol 2.5 mg Q6HR NEB 04/16/24 02:00 04/18/24 06:21 2.5 MG Ipratropium [place] 0.5 mg Q6HR NEB 04/16/24 02:00 04/18/24 06:21 0.5 MG Budesonide 0.5 mg BID NEB 04/16/24 10:00 04/18/24 06:21 0.5 MG Furosemide 20 mg DAILY PO 04/16/24 10:00 Piperacillin Sod/ Tazobactam Sod 100 ml @ 25 mls/hr Q8HR IV 04/16/24 14:00 04/18/24 05:59 25 MLS/HR Pantoprazole Sodium 40 mg DAILY IV 04/16/24 10:00 04/17/24 09:56 40 MG objective GENERAL: Awake, alert, oriented. LUNGS: Clear. CARDIOVASCULAR: Heart sounds are good. ABDOMEN: Soft. laboratory and microbiology Laboratory Tests 04/18/24 05:07 Test 04/18/24 05:07 Range/Units Serum Glucose 98 74-106 mg/dL Problem List Preprocedural cardiovascular examination. Chronic HFpEF, NYHA class II. History of myocardial infarction. Chronic left lower extremity DVT status post IVC filter. COPD with home O2. History of CVA without residual deficits. Euthyroid sick syndrome. Hx of splenic hematoma. Tobacco use. Assessment/Plan Continued all current supportive medical care. Diuretics with Lasix. Morphine for pain management. GI prophylactics. IV antibiotics as ordered. Additional plan as per the hospital course. Plan discussed with: Patient ORQUIDEA MCGINNIS MD Apr 18, 2024 13:42
[2024-04-19] VITALS (17 sets, daily range): BP systolic 99–117; BP diastolic 54–67; PULSE 50–65; RESP 14–21; TEMP 97.1–98; O2SAT 91–100
[2024-04-19 05:49] LABS: Basophils # (auto) 0 10 ^3/uL (0-0.2); Basophils % (auto) 0.8 % (0.0-2.0); Eosinophils # (auto) 0.3 10 ^3/uL (0-0.8); Eosinophils % (auto) 4.8 % (0.0-7.0); Hemoglobin 14.5 g/dL (13.5-17.5); Lymphocytes # (auto) 1.4 10 ^3/uL (0.4-5.4); Lymphocytes % (auto) 22.5 % (10.0-50.0); Mean Corpuscular Hemoglobin 31.8 pg (28.0-32.0); Mean Corpuscular Hgb Conc. 34.5 g/dL (32.0-36.0); Mean Corpuscular Volume 92.3 fL (80.0-100.0); Monocytes # (auto) 0.5 10 ^3/uL (0-1.3); Monocytes % (auto) 9.1 % (0.0-12.0); Neutrophils # (auto) 3.8 10 ^3/uL (1.6-8.6); Neutrophils % (auto) 62.8 % (37.0-80.0); Platelet Count (auto) 196 10^3/uL (140-450); Red Blood Cells 4.55 10^6/uL (4.5-5.90); Red Cell Distribution Width 13.7 % (11.8-14.3)
[2024-04-19 06:13] LABS: Albumin 3.7 g/dL (3.2-4.8); Amylase 52 U/L (30-118); Anion Gap 4 (5-15); BUN/Creatinine Ratio 7.7 (10.0-20.0); Calcium 9.4 mg/dL (8.7-10.4); Chloride 105 mmol/L (98-107); Glucose 93 mg/dL (74-106); Potassium 4.4 mmol/L (3.5-5.1); Sodium 140 mmol/L (136-145)
[2024-04-19 06:15] LABS: Alanine Aminotransferase 268 U/L (7-40); Alkaline Phosphatase 260 U/L (46-116); Aspartate Aminotransferase 48 U/L (13-40); Bilirubin, Total 1.5 mg/dL (0.2-1.0); Blood Urea Nitrogen 8 mg/dL (9-23); Carbon Dioxide 31 mmol/L (20-31); Total Protein 5.5 g/dL (5.7-8.2)
[2024-04-19 06:33] LABS: Lipase 25 U/L (12-53)
--- NOTE | 2024-04-19 14:28 | DVHPN2 ---
Progress Note - Dictate Date Seen: Apr 19, 2024 Medical Necessity Reason Pt with a Central, PICC or Fol: No Subjective Patient was seen and evaluated in follow up. Patient is complaining of generalized pain. Patient is status post percutaneous cholecystostomy tube placement. Hematology panel is WNL. AST 48, ALT 268. vital signs Vital Sign Date Time Temp Pulse Resp B/P (MAP) Pulse Ox O2 Delivery O2 Flow Rate FiO2 04/19/24 13:24 97.6 65 21 104/56 (72) 95 97.6 04/19/24 12:27 Nasal Cannula 3.0 04/19/24 12:27 32 Total Intake and Output 04/18/24 04/18/24 04/19/24 15:00 23:00 07:00 Intake Total 200 ml 350 ml 950 ml Output Total 680 ml 3050 ml Balance 200 ml -330 ml -2100 ml medications Current Medications Medications Dose Ordered Sig/Jania Route Start Time Stop Time Status Last Admin Dose Admin Nitroglycerin 0.4 mg Q5MINP PRN SL 04/15/24 22:00 Morphine Sulfate 2 mg Q30M PRN IV 04/15/24 22:00 Albuterol 2.5 mg Q6HR NEB 04/16/24 02:00 04/19/24 12:27 2.5 MG Ipratropium [place] 0.5 mg Q6HR NEB 04/16/24 02:00 04/19/24 12:27 0.5 MG Budesonide 0.5 mg BID NEB 04/16/24 10:00 04/19/24 06:19 0.5 MG Furosemide 20 mg DAILY PO 04/16/24 10:00 04/18/24 15:40 20 MG Piperacillin Sod/ Tazobactam Sod 100 ml @ 25 mls/hr Q8HR IV 04/16/24 14:00 04/19/24 06:08 25 MLS/HR Pantoprazole Sodium 40 mg DAILY IV 04/16/24 10:00 04/19/24 11:10 40 MG Morphine Sulfate 1 mg Q4HPRN PRN IV 04/18/24 14:45 Morphine Sulfate 2 mg Q4HPRN PRN IV 04/18/24 14:45 04/18/24 22:00 2 MG Acetaminophen 500 mg Q6HP PRN PO 04/19/24 13:45 objective GENERAL: Awake, alert, oriented. LUNGS: Clear. CARDIOVASCULAR: Heart sounds are good. ABDOMEN: Soft. laboratory and microbiology Laboratory Tests 04/19/24 05:25 Test 04/19/24 05:25 Range/Units Serum Glucose 93 74-106 mg/dL Problem List Preprocedural cardiovascular examination. Chronic HFpEF, NYHA class II. History of myocardial infarction. Chronic left lower extremity DVT status post IVC filter. COPD with home O2. History of CVA without residual deficits. Euthyroid sick syndrome. Hx of splenic hematoma. Tobacco use. Assessment/Plan Continued all current supportive medical care. Diuretics with Lasix. Morphine for pain management. GI prophylactics. IV antibiotics as ordered. Additional plan as per the hospital course. Plan discussed with: Patient ORQUIDEA MCGINNIS MD Apr 19, 2024 13:58
[2024-04-19] MEDS: ACETAMINOPHEN 500 MG TAB or CAP PO PRN (16:09)
--- NOTE | 2024-04-19 18:30 | DVHPN2 ---
Subjective Feels better today. Status post percutaneous cholecystostomy tube placement yesterday. Reviewed: Care Plan, H&P, Labs, Medications, Previous Orders, Radiology Changes from previous H/P or p: No Changes Objective Vitals Vital Signs Date Time Temp Pulse Resp B/P (MAP) Pulse Ox O2 Delivery O2 Flow Rate FiO2 04/19/24 17:11 97.2 56 19 114/61 (78) 99 97.2 04/19/24 12:27 Nasal Cannula 3.0 04/19/24 12:27 32 Intake/Output Intake and Output 04/19/24 07:00 Intake Total 1500 ml Output Total 3730 ml Balance -2230 ml Intake Oral 1300 ml IV Total 200 ml Output Urine Total 3680 ml Drainage Total 50 ml General Appearance: Alert, Oriented X3, Cooperative, No acute distress HEENT: Atraumatic Lungs: Clear to auscultation Cardiovascular: Regular rate Abdomen: Other (Less tenderness in the right upper quadrant today) Medications Current Medications Medications Dose Ordered Sig/Jania Route Start Time Stop Time Status Last Admin Dose Admin Nitroglycerin 0.4 mg Q5MINP PRN SL 04/15/24 22:00 Morphine Sulfate 2 mg Q30M PRN IV 04/15/24 22:00 Albuterol 2.5 mg Q6HR NEB 04/16/24 02:00 04/19/24 17:52 2.5 MG Ipratropium [place] 0.5 mg Q6HR NEB 04/16/24 02:00 04/19/24 17:52 0.5 MG Budesonide 0.5 mg BID NEB 04/16/24 10:00 04/19/24 17:52 0.5 MG Furosemide 20 mg DAILY PO 04/16/24 10:00 04/18/24 15:40 20 MG Piperacillin Sod/ Tazobactam Sod 100 ml @ 25 mls/hr Q8HR IV 04/16/24 14:00 04/19/24 16:09 25 MLS/HR Pantoprazole Sodium 40 mg DAILY IV 04/16/24 10:00 04/19/24 11:10 40 MG Morphine Sulfate 1 mg Q4HPRN PRN IV 04/18/24 14:45 Morphine Sulfate 2 mg Q4HPRN PRN IV 04/18/24 14:45 04/18/24 22:00 2 MG Acetaminophen 500 mg Q6HP PRN PO 04/19/24 13:45 04/19/24 16:09 500 MG Laboratory Results Laboratory Tests 04/19/24 05:25 Chemistry Test 04/19/24 05:25 Albumin 3.7 g/dL (3.2-4.8) Calcium Level 9.4 mg/dL (8.7-10.4) Total Protein 5.5 g/dL (5.7-8.2) L Lipid panel Test 04/19/24 05:25 Lipase 25 U/L (12-53) LFT Test 04/19/24 05:25 Alanine Aminotransferase (ALT) 268 U/L (7-40) H Alkaline Phosphatase 260 U/L (46-116) H Aspartate Amino Transferase (AST) 48 U/L (13-40) H Total Bilirubin 1.5 mg/dL (0.2-1.0) H Urinalysis Test 04/16/24 03:18 Urine Color Yellow (Yellow) Urine Clarity Clear (Clear) Urine pH 6.0 (5.0-9.0) Urine Specific [place] 1.018 (1.001-1.035) Urine Protein Negative (Negative) Urine Ketones Negative (Negative) Urine Blood Negative /uL (Negative) Urine Nitrite Negative (Negative) Urine Bilirubin Negative (Negative) Urine Urobilinogen 4 mg/dL (Negative) H Urine Leukocyte Esterase Trace /uL (Negative) Urine RBC <1 /hpf (0 - 3) Urine WBC 4 /hpf (0 - 3) Urine Squamous Epithelial Cells Few /hpf (<5) Urine Bacteria None seen /hpf (None Seen) Urine Mucus Few (None Seen) Urine Glucose Normal mg/dL (Normal) Microbiology Microbiology Date/Time Source Procedure Growth Status 04/18/24 11:24 Gallbladder Fluid Gram Stain - Final Resulted 04/18/24 11:24 Gallbladder Fluid Body Fluid Culture - Preliminary Resulted Assessment/Plan Assessment/Plan CHOLELITHIASIS CHOLECYSTITIS status post percutaneous cholecystostomy tube placement SPLEEN HEMATOMA INCREASED LFTS PLAN Continue current plan of care. Advance diet Plan discussed with: Patient, Other (Nursing) My Orders Orders - KIMBERLY MOORE MD Procedure Category Date Status Time Acetaminophen Tab Or PHA 04/19/24 In Process Cap (Tylenol Tablet 13:45 Mechanical Soft Diet DIET 04/19/24 Transmitted Dinner Date of Service: Apr 19, 2024 Billing Provider: KIMBERLY MOORE MD Common Visit Codes: [id number] INP/OBS CARE(MOD) KIMBERLY MOORE MD Apr 19, 2024 18:30
--- NOTE | 2024-04-19 23:23 | DVHPN2 ---
Progress Note - Dictate Date Seen: Apr 19, 2024 Medical Necessity Reason Pt with a Central, PICC or Fol: No Subjective Patient seen and examined at bedside. Remains on supplemental oxygen Overnight events reviewed. vital signs Vital Sign Date Time Temp Pulse Resp B/P (MAP) Pulse Ox O2 Delivery O2 Flow Rate FiO2 04/19/24 21:00 98.0 56 17 117/54 (75) 96 98.0 04/19/24 17:52 Nasal Cannula 3.0 04/19/24 17:52 32 Total Intake and Output 04/18/24 04/18/24 04/19/24 15:00 23:00 07:00 Intake Total 200 ml 350 ml 950 ml Output Total 680 ml 3050 ml Balance 200 ml -330 ml -2100 ml medications Current Medications Medications Dose Ordered Sig/Jania Route Start Time Stop Time Status Last Admin Dose Admin Nitroglycerin 0.4 mg Q5MINP PRN SL 04/15/24 22:00 Morphine Sulfate 2 mg Q30M PRN IV 04/15/24 22:00 Albuterol 2.5 mg Q6HR NEB 04/16/24 02:00 04/19/24 17:52 2.5 MG Ipratropium [place] 0.5 mg Q6HR NEB 04/16/24 02:00 04/19/24 17:52 0.5 MG Budesonide 0.5 mg BID NEB 04/16/24 10:00 04/19/24 17:52 0.5 MG Furosemide 20 mg DAILY PO 04/16/24 10:00 04/18/24 15:40 20 MG Piperacillin Sod/ Tazobactam Sod 100 ml @ 25 mls/hr Q8HR IV 04/16/24 14:00 04/19/24 16:09 25 MLS/HR Pantoprazole Sodium 40 mg DAILY IV 04/16/24 10:00 04/19/24 11:10 40 MG Morphine Sulfate 1 mg Q4HPRN PRN IV 04/18/24 14:45 Morphine Sulfate 2 mg Q4HPRN PRN IV 04/18/24 14:45 04/18/24 22:00 2 MG Acetaminophen 500 mg Q6HP PRN PO 04/19/24 13:45 04/19/24 16:09 500 MG objective Gen.: Patient lying in bed in no apparent distress. On supplemental oxygen. Head: Normocephalic, atraumatic. Eyes: EOMI/PERRLA. Ears: Normal hearing. Normal anatomy. Neck/trachea: Trachea midline, supple. Nose: Normal external anatomy. Mouth: Moist mucous membranes. Chest: Decreased air entry bilaterally. No wheezing or rhonchi. Cardiovascular: Positive S1, positive S2. Regular rate and rhythm. Abdomen: Positive bowel sounds in all 4 quadrants. Soft, non-tender, non- distended. : Deferred. Rectal: Deferred. Skin: Warm, dry. Intact. Extremities: 2+ radial pulses bilaterally. No lower extremity edema. Neuro: Awake, alert, oriented x3. No gross motor or sensory deficits. Cranial nerves II through XII intact. Gait not assessed. laboratory and microbiology Laboratory Tests 04/19/24 05:25 Test 04/19/24 05:25 Range/Units Serum Glucose 93 74-106 mg/dL Assessment/Plan Impression: Acute on chronic hypoxic respiratory failure Dependence on supplemental oxygen COPD, STAGE III Nicotine dependence Emphysema DVT, status post IVC filter Congestive heart failure Events: Remains on supplemental oxygen, 3 LPM NC Taper O2 as tolerated No new complaints S/p percutaneous cholecystostomy tube placement by IR. Monitor output Pain control Avoid over-sedation Continue bronchodilators Continue antibiotics Incentive spirometry Labs and imaging reviewed. Rest of plan as noted below. Plan: Supplemental oxygen Titrate to keep O2 sats above 92%. Taper O2 as tolerated. CXR showed no acute opacities, pleural effusion or pneumothorax Continue bronchodilators. Continue antibiotics S/p percutaneous cholecystostomy tube placement by IR. Monitor renal function. Monitor electrolytes. Supplement as necessary. Monitor ins and outs. Smoking cessation discussed for greater than 10 minutes GI prophylaxis - Protonix DVT prophylaxis. Prognosis: Poor given patient's multiple co-morbidities. Rest of plan per hospitalist and other consultants. Thank you, Dr. Garcia, for allowing me to participate in this patient's care. Further recommendations will depend on the patient's clinical course. Please do not hesitate to contact me if you have any questions or concerns. This medical document was created using an electronic medical record system with [employer] system. Although these documentations are being carefully reviewed, there may still be some phonetic and typographical changes. The errors are purely typographical, due to imperfection on the software program, and do not reflect any compromise in the patient's medical care. Plan discussed with: Patient, Other (FARHEEN Glover MD) MARK ULRICH MD Apr 19, 2024 23:23
[2024-04-20] VITALS (15 sets, daily range): BP systolic 100–115; BP diastolic 48–67; PULSE 52–93; RESP 16–18; TEMP 97.4–98.2; O2SAT 95–100
--- NOTE | 2024-04-20 15:47 | DVHPN2 ---
Subjective Feels better today. Status post percutaneous cholecystostomy tube placement yesterday. Reviewed: Care Plan, H&P, Labs, Medications, Previous Orders, Radiology Changes from previous H/P or p: No Changes Objective Vitals Vital Signs Date Time Temp Pulse Resp B/P (MAP) Pulse Ox O2 Delivery O2 Flow Rate FiO2 04/20/24 14:17 56 18 04/20/24 14:12 98 Nasal Cannula* 3 32 04/20/24 13:00 97.4 115/64 (81) 97.4 Intake/Output Intake and Output 04/20/24 07:00 Intake Total 3000 ml Output Total 2650 ml Balance 350 ml Intake Oral 2700 ml IV Total 300 ml Output Urine Total 2650 ml General Appearance: Alert, Oriented X3, Cooperative, No acute distress HEENT: Atraumatic Lungs: Clear to auscultation Cardiovascular: Regular rate Abdomen: Other (Less tenderness in the right upper quadrant today) Medications Current Medications Medications Dose Ordered Sig/Jania Route Start Time Stop Time Status Last Admin Dose Admin Nitroglycerin 0.4 mg Q5MINP PRN SL 04/15/24 22:00 Morphine Sulfate 2 mg Q30M PRN IV 04/15/24 22:00 Albuterol 2.5 mg Q6HR NEB 04/16/24 02:00 04/20/24 14:09 2.5 MG Ipratropium [place] 0.5 mg Q6HR NEB 04/16/24 02:00 04/20/24 14:10 0.5 MG Budesonide 0.5 mg BID NEB 04/16/24 10:00 04/20/24 08:32 0.5 MG Furosemide 20 mg DAILY PO 04/16/24 10:00 04/20/24 09:31 20 MG Piperacillin Sod/ Tazobactam Sod 100 ml @ 25 mls/hr Q8HR IV 04/16/24 14:00 04/20/24 13:47 25 MLS/HR Pantoprazole Sodium 40 mg DAILY IV 04/16/24 10:00 04/20/24 09:28 40 MG Morphine Sulfate 1 mg Q4HPRN PRN IV 04/18/24 14:45 Morphine Sulfate 2 mg Q4HPRN PRN IV 04/18/24 14:45 04/18/24 22:00 2 MG Acetaminophen 500 mg Q6HP PRN PO 04/19/24 13:45 04/19/24 16:09 500 MG Laboratory Results Laboratory Tests 04/19/24 05:25 Urinalysis Test 04/16/24 03:18 Urine Color Yellow (Yellow) Urine Clarity Clear (Clear) Urine pH 6.0 (5.0-9.0) Urine Specific [place] 1.018 (1.001-1.035) Urine Protein Negative (Negative) Urine Ketones Negative (Negative) Urine Blood Negative /uL (Negative) Urine Nitrite Negative (Negative) Urine Bilirubin Negative (Negative) Urine Urobilinogen 4 mg/dL (Negative) H Urine Leukocyte Esterase Trace /uL (Negative) Urine RBC <1 /hpf (0 - 3) Urine WBC 4 /hpf (0 - 3) Urine Squamous Epithelial Cells Few /hpf (<5) Urine Bacteria None seen /hpf (None Seen) Urine Mucus Few (None Seen) Urine Glucose Normal mg/dL (Normal) Microbiology Microbiology Date/Time Source Procedure Growth Status 04/18/24 11:24 Gallbladder Fluid Gram Stain - Final Complete 04/18/24 11:24 Body Fluid Culture - Final Klebsiella pneumoniae Complete Assessment/Plan Assessment/Plan CHOLELITHIASIS CHOLECYSTITIS status post percutaneous cholecystostomy tube placement SPLEEN HEMATOMA INCREASED LFTS PLAN Repeat labs. Continue current plan care. Gallbladder fluid growing Klebsiella pneumoniae sensitive to ceftriaxone. We will stop Zosyn and start Rocephin 1 g daily Plan discussed with: Patient My Orders Orders - KIMBERLY MOORE MD Procedure Category Date Status Time Mechanical Soft Diet DIET 04/19/24 Transmitted Dinner Complete Blood Count LAB 04/21/24 Verified 06:00 Comprehensive LAB 04/21/24 Verified Metabolic Panel 06:00 Lipase LAB 04/21/24 Verified 06:00 Date of Service: Apr 20, 2024 Billing Provider: KIMBERLY MOORE MD Common Visit Codes: [id number] INP/OBS CARE(HIGH) KIMBERLY MOORE MD Apr 20, 2024 15:47
[2024-04-20] MEDS: cefTRIAXone 1GM/50ML D5W 50 ML IV ONE (18:13)
--- NOTE | 2024-04-20 23:31 | DVHPN2 ---
Progress Note - Dictate Date Seen: Apr 20, 2024 Medical Necessity Reason Pt with a Central, PICC or Fol: No Subjective Patient seen and examined at bedside. Remains on supplemental oxygen Overnight events reviewed. vital signs Vital Sign Date Time Temp Pulse Resp B/P (MAP) Pulse Ox O2 Delivery O2 Flow Rate FiO2 04/20/24 21:00 97.5 59 17 108/67 (81) 99 97.5 04/20/24 20:16 Nasal Cannula* 3 32 Total Intake and Output 04/19/24 04/19/24 04/20/24 15:00 23:00 07:00 Intake Total 200 ml 1900 ml 900 ml Output Total 1900 ml 750 ml Balance 200 ml 0 ml 150 ml medications Current Medications Medications Dose Ordered Sig/Jania Route Start Time Stop Time Status Last Admin Dose Admin Nitroglycerin 0.4 mg Q5MINP PRN SL 04/15/24 22:00 Morphine Sulfate 2 mg Q30M PRN IV 04/15/24 22:00 Albuterol 2.5 mg Q6HR NEB 04/16/24 02:00 04/20/24 20:16 2.5 MG Ipratropium [place] 0.5 mg Q6HR NEB 04/16/24 02:00 04/20/24 20:15 0.5 MG Budesonide 0.5 mg BID NEB 04/16/24 10:00 04/20/24 20:16 0.5 MG Furosemide 20 mg DAILY PO 04/16/24 10:00 04/20/24 09:31 20 MG Pantoprazole Sodium 40 mg DAILY IV 04/16/24 10:00 04/20/24 09:28 40 MG Morphine Sulfate 1 mg Q4HPRN PRN IV 04/18/24 14:45 Morphine Sulfate 2 mg Q4HPRN PRN IV 04/18/24 14:45 04/18/24 22:00 2 MG Acetaminophen 500 mg Q6HP PRN PO 04/19/24 13:45 04/19/24 16:09 500 MG Ceftriaxone Sodium 50 ml @ 100 mls/hr DAILY@09 IV 04/21/24 09:00 objective Gen.: Patient lying in bed in no apparent distress. On supplemental oxygen. Head: Normocephalic, atraumatic. Eyes: EOMI/PERRLA. Ears: Normal hearing. Normal anatomy. Neck/trachea: Trachea midline, supple. Nose: Normal external anatomy. Mouth: Moist mucous membranes. Chest: Decreased air entry bilaterally. No wheezing or rhonchi. Cardiovascular: Positive S1, positive S2. Regular rate and rhythm. Abdomen: Positive bowel sounds in all 4 quadrants. Soft, non-tender, non- distended. : Deferred. Rectal: Deferred. Skin: Warm, dry. Intact. Extremities: 2+ radial pulses bilaterally. No lower extremity edema. Neuro: Awake, alert, oriented x3. No gross motor or sensory deficits. Cranial nerves II through XII intact. Gait not assessed. laboratory and microbiology Laboratory Tests 04/19/24 05:25 Test 04/19/24 05:25 Range/Units Serum Glucose 93 74-106 mg/dL Assessment/Plan Impression: Acute on chronic hypoxic respiratory failure Dependence on supplemental oxygen COPD, STAGE III Nicotine dependence Emphysema DVT, status post IVC filter Congestive heart failure Events: Remains on supplemental oxygen, 3 LPM NC Taper O2 as tolerated No new complaints S/p percutaneous cholecystostomy tube placement by IR. Monitor output Pain control Avoid over-sedation Continue bronchodilators/Pulmicort Continue antibiotics Incentive spirometry Labs and imaging reviewed. Rest of plan as noted below. Plan: Supplemental oxygen Titrate to keep O2 sats above 92%. Taper O2 as tolerated. CXR showed no acute opacities, pleural effusion or pneumothorax Continue bronchodilators. Continue antibiotics S/p percutaneous cholecystostomy tube placement by IR. Monitor renal function. Monitor electrolytes. Supplement as necessary. Monitor ins and outs. Smoking cessation discussed for greater than 10 minutes GI prophylaxis - Protonix DVT prophylaxis. Prognosis: Poor given patient's multiple co-morbidities. Rest of plan per hospitalist and other consultants. Thank you, Dr. Garcia, for allowing me to participate in this patient's care. Further recommendations will depend on the patient's clinical course. Please do not hesitate to contact me if you have any questions or concerns. This medical document was created using an electronic medical record system with [employer] dictation system. Although these documentations are being carefully reviewed, there may still be some phonetic and typographical changes. The errors are purely typographical, due to imperfection on the software program, and do not reflect any compromise in the patient's medical care. Plan discussed with: Patient, Other (FARHEEN Garrett) MARK ULRICH MD Apr 20, 2024 23:31
[2024-04-21] VITALS (18 sets, daily range): BP systolic 103–119; BP diastolic 52–68; PULSE 49–80; RESP 16–19; TEMP 97.6–98.3; O2SAT 92–100
--- NOTE | 2024-04-21 00:07 | DVHPN2 ---
Progress Note - Dictate Date Seen: Apr 20, 2024 Medical Necessity Reason Pt with a Central, PICC or Fol: No Subjective Patient was seen and evaluated in follow up. No overnight events. Patient is complaining of generalized pain. He is on 3 LPM NC. vital signs Vital Sign Date Time Temp Pulse Resp B/P (MAP) Pulse Ox O2 Delivery O2 Flow Rate FiO2 04/20/24 10:00 Nasal Cannula* 3 32 04/20/24 09:31 100/59 04/20/24 09:00 98.2 61 17 95 98.2 Total Intake and Output 04/19/24 04/19/24 04/20/24 15:00 23:00 07:00 Intake Total 200 ml 1900 ml 900 ml Output Total 1900 ml 750 ml Balance 200 ml 0 ml 150 ml medications Current Medications Medications Dose Ordered Sig/Jania Route Start Time Stop Time Status Last Admin Dose Admin Nitroglycerin 0.4 mg Q5MINP PRN SL 04/15/24 22:00 Morphine Sulfate 2 mg Q30M PRN IV 04/15/24 22:00 Albuterol 2.5 mg Q6HR NEB 04/16/24 02:00 04/20/24 08:32 2.5 MG Ipratropium [place] 0.5 mg Q6HR NEB 04/16/24 02:00 04/20/24 08:32 0.5 MG Budesonide 0.5 mg BID NEB 04/16/24 10:00 04/20/24 08:32 0.5 MG Furosemide 20 mg DAILY PO 04/16/24 10:00 04/20/24 09:31 20 MG Piperacillin Sod/ Tazobactam Sod 100 ml @ 25 mls/hr Q8HR IV 04/16/24 14:00 04/20/24 13:47 25 MLS/HR Pantoprazole Sodium 40 mg DAILY IV 04/16/24 10:00 04/20/24 09:28 40 MG Morphine Sulfate 1 mg Q4HPRN PRN IV 04/18/24 14:45 Morphine Sulfate 2 mg Q4HPRN PRN IV 04/18/24 14:45 04/18/24 22:00 2 MG Acetaminophen 500 mg Q6HP PRN PO 04/19/24 13:45 04/19/24 16:09 500 MG objective GENERAL: Awake, alert, oriented. LUNGS: Clear. CARDIOVASCULAR: Heart sounds are good. ABDOMEN: Soft. laboratory and microbiology Laboratory Tests 04/19/24 05:25 Test 04/19/24 05:25 Range/Units Serum Glucose 93 74-106 mg/dL Problem List Preprocedural cardiovascular examination. Chronic HFpEF, NYHA class II. History of myocardial infarction. Chronic left lower extremity DVT status post IVC filter. COPD with home O2. History of CVA without residual deficits. Euthyroid sick syndrome. Hx of splenic hematoma. Tobacco use. Assessment/Plan Continued all current supportive medical care. Diuretics with Lasix. Morphine for pain management. GI prophylactics. IV antibiotics as ordered. Additional plan as per the hospital course. Plan discussed with: Patient ORQUIDEA MCGINNIS MD Apr 20, 2024 14:03
[2024-04-21 06:26] LABS: Albumin 3.6 g/dL (3.2-4.8); Anion Gap 5 (5-15); Aspartate Aminotransferase 17 U/L (13-40); BUN/Creatinine Ratio 14.1 (10.0-20.0); Bilirubin, Total 0.7 mg/dL (0.2-1.0); Blood Urea Nitrogen 13 mg/dL (9-23); Calcium 9.5 mg/dL (8.7-10.4); Carbon Dioxide 29 mmol/L (20-31); Chloride 106 mmol/L (98-107); Glucose 95 mg/dL (74-106); Potassium 4.6 mmol/L (3.5-5.1); Sodium 140 mmol/L (136-145)
[2024-04-21 06:31] LABS: Alanine Aminotransferase 148 U/L (7-40); Alkaline Phosphatase 211 U/L (46-116); Total Protein 5.2 g/dL (5.7-8.2)
[2024-04-21 06:40] LABS: Lipase 33 U/L (12-53)
[2024-04-21 06:56] LABS: Basophils # (auto) 0 10 ^3/uL (0-0.2); Basophils % (auto) 0.7 % (0.0-2.0); Eosinophils # (auto) 0.3 10 ^3/uL (0-0.8); Eosinophils % (auto) 4.8 % (0.0-7.0); Hematocrit 43.4 % (41.0-53.0); Hemoglobin 14.6 g/dL (13.5-17.5); Lymphocytes # (auto) 1.6 10 ^3/uL (0.4-5.4); Lymphocytes % (auto) 23.2 % (10.0-50.0); Mean Corpuscular Hemoglobin 31.3 pg (28.0-32.0); Mean Corpuscular Hgb Conc. 33.7 g/dL (32.0-36.0); Mean Corpuscular Volume 92.6 fL (80.0-100.0); Monocytes # (auto) 0.5 10 ^3/uL (0-1.3); Monocytes % (auto) 7.6 % (0.0-12.0); Neutrophils # (auto) 4.3 10 ^3/uL (1.6-8.6); Neutrophils % (auto) 63.7 % (37.0-80.0); Nucleated Red Blood Cells % 0.1 %; Platelet Count (auto) 225 10^3/uL (140-450); Red Blood Cells 4.68 10^6/uL (4.5-5.90); Red Cell Distribution Width 13.9 % (11.8-14.3); White Blood Cell 6.7 10^3/uL (4.4-10.8)
[2024-04-21] MEDS: cefTRIAXone 1GM/50ML D5W 50 ML IV SCH (08:50)
--- NOTE | 2024-04-21 16:55 | DVHPN2 ---
Progress Note - Dictate Date Seen: Apr 21, 2024 Medical Necessity Reason Pt with a Central, PICC or Fol: No Subjective E: no major events o/n. no complaints. bennett po well. vital signs Vital Sign Date Time Temp Pulse Resp B/P (MAP) Pulse Ox O2 Delivery O2 Flow Rate FiO2 04/21/24 16:51 98.3 60 18 114/63 (80) 97 98.3 04/21/24 11:46 Nasal Cannula 3.0 04/21/24 11:46 32 Total Intake and Output 04/20/24 04/20/24 04/21/24 15:00 23:00 07:00 Intake Total 400 ml 1150 ml 1100 ml Output Total 100 ml 2100 ml 760 ml Balance 300 ml -950 ml 340 ml medications Current Medications Medications Dose Ordered Sig/Jania Route Start Time Stop Time Status Last Admin Dose Admin Nitroglycerin 0.4 mg Q5MINP PRN SL 04/15/24 22:00 Morphine Sulfate 2 mg Q30M PRN IV 04/15/24 22:00 Albuterol 2.5 mg Q6HR NEB 04/16/24 02:00 04/21/24 11:46 2.5 MG Ipratropium [place] 0.5 mg Q6HR NEB 04/16/24 02:00 04/21/24 11:46 0.5 MG Budesonide 0.5 mg BID NEB 04/16/24 10:00 04/21/24 07:49 0.5 MG Furosemide 20 mg DAILY PO 04/16/24 10:00 04/21/24 08:52 20 MG Pantoprazole Sodium 40 mg DAILY IV 04/16/24 10:00 04/21/24 08:51 40 MG Morphine Sulfate 1 mg Q4HPRN PRN IV 04/18/24 14:45 Morphine Sulfate 2 mg Q4HPRN PRN IV 04/18/24 14:45 04/18/24 22:00 2 MG Acetaminophen 500 mg Q6HP PRN PO 04/19/24 13:45 04/21/24 04:36 500 MG Ceftriaxone Sodium 50 ml @ 100 mls/hr DAILY@09 IV 04/21/24 09:00 04/21/24 08:50 100 MLS/HR objective GEN: NAD ABD: soft. cholecystostomy tube 110 mL laboratory and microbiology Laboratory Tests 04/21/24 05:16 Test 04/21/24 05:16 Range/Units Serum Glucose 95 74-106 mg/dL Assessment/Plan A: 1. acute cholecystitis s/p percutaneous cholecystostomy clinically improving. 2. COPD exacerbation 3. CHF with a history of GA and CVA 4. Perisplenic fluid collection improving on CT P: 1. pulm assess the patient as mod to high risk. cardiology says mod risk. clinically he is improving. recommend conservative treatment with oral abx. f/u in clinic this Fri for poss drain removal. Plan discussed with: Patient SHOBHA ZALDIVAR MD Apr 21, 2024 16:55
[2024-04-21 17:27] LABS: Base Excess 4.7 mmol/L (-2.0-3.0)
--- NOTE | 2024-04-21 17:30 | DVHPN2 ---
Subjective Patient reports that his symptoms have improved. Reviewed: Care Plan, H&P, Labs, Medications, Previous Orders, Radiology Changes from previous H/P or p: No Changes General: Per HPI Objective Vitals Vital Signs Date Time Temp Pulse Resp B/P (MAP) Pulse Ox O2 Delivery O2 Flow Rate FiO2 04/21/24 16:51 98.3 60 18 114/63 (80) 97 98.3 04/21/24 11:46 Nasal Cannula 3.0 04/21/24 11:46 32 Intake/Output Intake and Output 04/21/24 07:00 Intake Total 2650 ml Output Total 2960 ml Balance -310 ml Intake Oral 2100 ml IV Total 550 ml Output Urine Total 2850 ml Drainage Total 110 ml General Appearance: Alert, Oriented X3, Cooperative, No acute distress HEENT: Atraumatic, PERRLA Lungs: Clear to auscultation Cardiovascular: Regular rate Abdomen: Other (Less tenderness in the right upper quadrant today) Medications Current Medications Medications Dose Ordered Sig/Jania Route Start Time Stop Time Status Last Admin Dose Admin Nitroglycerin 0.4 mg Q5MINP PRN SL 04/15/24 22:00 Morphine Sulfate 2 mg Q30M PRN IV 04/15/24 22:00 Albuterol 2.5 mg Q6HR NEB 04/16/24 02:00 04/21/24 11:46 2.5 MG Ipratropium [place] 0.5 mg Q6HR NEB 04/16/24 02:00 04/21/24 11:46 0.5 MG Budesonide 0.5 mg BID NEB 04/16/24 10:00 04/21/24 07:49 0.5 MG Furosemide 20 mg DAILY PO 04/16/24 10:00 04/21/24 08:52 20 MG Pantoprazole Sodium 40 mg DAILY IV 04/16/24 10:00 04/21/24 08:51 40 MG Morphine Sulfate 1 mg Q4HPRN PRN IV 04/18/24 14:45 Morphine Sulfate 2 mg Q4HPRN PRN IV 04/18/24 14:45 04/18/24 22:00 2 MG Acetaminophen 500 mg Q6HP PRN PO 04/19/24 13:45 04/21/24 04:36 500 MG Ceftriaxone Sodium 50 ml @ 100 mls/hr DAILY@09 IV 04/21/24 09:00 04/21/24 08:50 100 MLS/HR Laboratory Results Laboratory Tests 04/21/24 05:16 Chemistry Test 04/21/24 05:16 Albumin 3.6 g/dL (3.2-4.8) Calcium Level 9.5 mg/dL (8.7-10.4) Total Protein 5.2 g/dL (5.7-8.2) L Lipid panel Test 04/21/24 05:16 Lipase 33 U/L (12-53) LFT Test 04/21/24 05:16 Alanine Aminotransferase (ALT) 148 U/L (7-40) H Alkaline Phosphatase 211 U/L (46-116) H Aspartate Amino Transferase (AST) 17 U/L (13-40) Total Bilirubin 0.7 mg/dL (0.2-1.0) Urinalysis Test 04/16/24 03:18 Urine Color Yellow (Yellow) Urine Clarity Clear (Clear) Urine pH 6.0 (5.0-9.0) Urine Specific [place] 1.018 (1.001-1.035) Urine Protein Negative (Negative) Urine Ketones Negative (Negative) Urine Blood Negative /uL (Negative) Urine Nitrite Negative (Negative) Urine Bilirubin Negative (Negative) Urine Urobilinogen 4 mg/dL (Negative) H Urine Leukocyte Esterase Trace /uL (Negative) Urine RBC <1 /hpf (0 - 3) Urine WBC 4 /hpf (0 - 3) Urine Squamous Epithelial Cells Few /hpf (<5) Urine Bacteria None seen /hpf (None Seen) Urine Mucus Few (None Seen) Urine Glucose Normal mg/dL (Normal) Blood Gas Results Test 04/21/24 17:17 Arterial Blood pH 7.471 (7.350-7.450) FiO2 % 21.0 Microbiology Microbiology Date/Time Source Procedure Growth Status 04/18/24 11:24 Gallbladder Fluid Gram Stain - Final Complete 04/18/24 11:24 Body Fluid Culture - Final Klebsiella pneumoniae Complete Labs and/or images reviewed: Labs reviewed by me, Image(s) reviewed by me Assessment/Plan Assessment/Plan Impression: -sepsis secondary to cholecystitis -acute on chronic hypoxic respiratory failure -COPD -history of CAD with previous stent placement -questionable spleen hematoma Plan: -plan of care discussed with general surgeon. At this time patient will have conservative management after having cholecystostomy tube placed. Patient was symptoms have improved. White blood cell count improving. -social service consultation for DC plan -continue antibiotic therapy -room air ABG to assess for home O2 -continue current recommendations per Cardiology -DC plan for tomorrow with home health services Total time spent with patient discussing and formulating plan of care: 35 minutes. This medical document was created using an electronic medical record system with [employer] dictation system. Although this document has been carefully reviewed, there may still be some phonetic and typographical errors. These areas are purely typographical due to imperfections of the software programs, and do not reflect any compromise in the patient's medical care. Plan discussed with: Patient, Other (RN) My Orders Orders - LAURA MEZA NP Procedure Category Date Status Time Pt Request For Service PT 04/21/24 Logged 16:27 Abg W/ Co-Ox RT 04/21/24 Logged 16:27 Comprehensive LAB 04/22/24 Verified Metabolic Panel 04:00 * Dust Mill Operator CONS 04/21/24 Verified Consult Date of Service: Apr 21, 2024 Billing Provider: LAURA MEZA NP Common Visit Codes: [id number] INP/OBS CARE(HIGH) LAURA MEZA NP Apr 21, 2024 17:30
--- NOTE | 2024-04-21 23:08 | DVHPN2 ---
Progress Note - Dictate Date Seen: Apr 21, 2024 Medical Necessity Reason Pt with a Central, PICC or Fol: No Subjective Patient seen and examined at bedside. Remains on supplemental oxygen Overnight events reviewed. vital signs Vital Sign Date Time Temp Pulse Resp B/P (MAP) Pulse Ox O2 Delivery O2 Flow Rate FiO2 04/21/24 21:31 62 18 114/63 97 3.0 32 04/21/24 18:38 Nasal Cannula* 04/21/24 16:51 98.3 98.3 Total Intake and Output 04/20/24 04/20/24 04/21/24 15:00 23:00 07:00 Intake Total 400 ml 1150 ml 1100 ml Output Total 100 ml 2100 ml 760 ml Balance 300 ml -950 ml 340 ml medications Current Medications Medications Dose Ordered Sig/Jania Route Start Time Stop Time Status Last Admin Dose Admin Nitroglycerin 0.4 mg Q5MINP PRN SL 04/15/24 22:00 Morphine Sulfate 2 mg Q30M PRN IV 04/15/24 22:00 Albuterol 2.5 mg Q6HR NEB 04/16/24 02:00 04/21/24 18:38 2.5 MG Ipratropium [place] 0.5 mg Q6HR NEB 04/16/24 02:00 04/21/24 18:38 0.5 MG Budesonide 0.5 mg BID NEB 04/16/24 10:00 04/21/24 18:38 0.5 MG Furosemide 20 mg DAILY PO 04/16/24 10:00 04/21/24 08:52 20 MG Pantoprazole Sodium 40 mg DAILY IV 04/16/24 10:00 04/21/24 08:51 40 MG Morphine Sulfate 1 mg Q4HPRN PRN IV 04/18/24 14:45 Morphine Sulfate 2 mg Q4HPRN PRN IV 04/18/24 14:45 04/18/24 22:00 2 MG Acetaminophen 500 mg Q6HP PRN PO 04/19/24 13:45 04/21/24 04:36 500 MG Ceftriaxone Sodium 50 ml @ 100 mls/hr DAILY@09 IV 04/21/24 09:00 04/21/24 08:50 100 MLS/HR objective Gen.: Patient lying in bed in no apparent distress. On supplemental oxygen. Head: Normocephalic, atraumatic. Eyes: EOMI/PERRLA. Ears: Normal hearing. Normal anatomy. Neck/trachea: Trachea midline, supple. Nose: Normal external anatomy. Mouth: Moist mucous membranes. Chest: Decreased air entry bilaterally. No wheezing or rhonchi. Cardiovascular: Positive S1, positive S2. Regular rate and rhythm. Abdomen: Positive bowel sounds in all 4 quadrants. Soft, non-tender, non- distended. : Deferred. Rectal: Deferred. Skin: Warm, dry. Intact. Extremities: 2+ radial pulses bilaterally. No lower extremity edema. Neuro: Awake, alert, oriented x3. No gross motor or sensory deficits. Cranial nerves II through XII intact. Gait not assessed. laboratory and microbiology Laboratory Tests 04/21/24 05:16 Test 04/21/24 05:16 Range/Units Serum Glucose 95 74-106 mg/dL Assessment/Plan Impression: Acute on chronic hypoxic respiratory failure Dependence on supplemental oxygen COPD, STAGE III Nicotine dependence Emphysema DVT, status post IVC filter Congestive heart failure Events: Remains on supplemental oxygen, 3 LPM NC Taper O2 as tolerated No new complaints Using supplemental oxygen at night Surgery recs appreciated. Monitor drain output - 25 mL Pain control Avoid over-sedation Continue bronchodilators/Pulmicort Continue antibiotics Incentive spirometry Labs and imaging reviewed. Rest of plan as noted below. Plan: Supplemental oxygen Titrate to keep O2 sats above 92%. Taper O2 as tolerated. CXR showed no acute opacities, pleural effusion or pneumothorax Continue bronchodilators. Continue antibiotics S/p percutaneous cholecystostomy tube placement by IR. Monitor renal function. Monitor electrolytes. Supplement as necessary. Monitor ins and outs. Smoking cessation discussed for greater than 10 minutes GI prophylaxis - Protonix DVT prophylaxis. Prognosis: Poor given patient's multiple co-morbidities. Rest of plan per hospitalist and other consultants. Thank you, Dr. Garcia, for allowing me to participate in this patient's care. Further recommendations will depend on the patient's clinical course. Please do not hesitate to contact me if you have any questions or concerns. This medical document was created using an electronic medical record system with [employer] system. Although these documentations are being carefully reviewed, there may still be some phonetic and typographical changes. The errors are purely typographical, due to imperfection on the software program, and do not reflect any compromise in the patient's medical care. Plan discussed with: Patient, Other (FARHEEN Glover) MARK ULRICH MD Apr 21, 2024 23:08
--- NOTE | 2024-04-21 23:28 | DVHPN2 ---
Progress Note - Dictate Date Seen: Apr 21, 2024 Medical Necessity Reason Pt with a Central, PICC or Fol: No Subjective Patient was seen and evaluated in follow up. Patient is complaining of generalized pain. Patient stable on supplemental O2. Patient is tolerating diet. CBC is unremarkable. ALT 148, Alk Phos 211. vital signs Vital Sign Date Time Temp Pulse Resp B/P (MAP) Pulse Ox O2 Delivery O2 Flow Rate FiO2 04/21/24 21:31 62 18 114/63 97 3.0 32 04/21/24 18:38 Nasal Cannula* 04/21/24 16:51 98.3 98.3 Total Intake and Output 04/20/24 04/20/24 04/21/24 15:00 23:00 07:00 Intake Total 400 ml 1150 ml 1100 ml Output Total 100 ml 2100 ml 760 ml Balance 300 ml -950 ml 340 ml medications Current Medications Medications Dose Ordered Sig/Jania Route Start Time Stop Time Status Last Admin Dose Admin Nitroglycerin 0.4 mg Q5MINP PRN SL 04/15/24 22:00 Morphine Sulfate 2 mg Q30M PRN IV 04/15/24 22:00 Albuterol 2.5 mg Q6HR NEB 04/16/24 02:00 04/21/24 18:38 2.5 MG Ipratropium [place] 0.5 mg Q6HR NEB 04/16/24 02:00 04/21/24 18:38 0.5 MG Budesonide 0.5 mg BID NEB 04/16/24 10:00 04/21/24 18:38 0.5 MG Furosemide 20 mg DAILY PO 04/16/24 10:00 04/21/24 08:52 20 MG Pantoprazole Sodium 40 mg DAILY IV 04/16/24 10:00 04/21/24 08:51 40 MG Morphine Sulfate 1 mg Q4HPRN PRN IV 04/18/24 14:45 Morphine Sulfate 2 mg Q4HPRN PRN IV 04/18/24 14:45 04/18/24 22:00 2 MG Acetaminophen 500 mg Q6HP PRN PO 04/19/24 13:45 04/21/24 04:36 500 MG Ceftriaxone Sodium 50 ml @ 100 mls/hr DAILY@09 IV 04/21/24 09:00 04/21/24 08:50 100 MLS/HR objective GENERAL: Awake, alert, oriented. LUNGS: Clear. CARDIOVASCULAR: Heart sounds are good. ABDOMEN: Soft. laboratory and microbiology Laboratory Tests 04/21/24 05:16 Test 04/21/24 05:16 Range/Units Serum Glucose 95 74-106 mg/dL Problem List Preprocedural cardiovascular examination. Chronic HFpEF, NYHA class II. History of myocardial infarction. Chronic left lower extremity DVT status post IVC filter. COPD with home O2. History of CVA without residual deficits. Euthyroid sick syndrome. Hx of splenic hematoma. Tobacco use. Assessment/Plan Continued all current supportive medical care. Diuretics with Lasix. Morphine for pain management. GI prophylactics. IV antibiotics as ordered. Additional plan as per the hospital course. Plan discussed with: Patient ORQUIDEA MCGINNIS MD Apr 21, 2024 23:28
[2024-04-22] VITALS (12 sets, daily range): BP systolic 95–116; BP diastolic 53–58; PULSE 50–62; RESP 16–18; TEMP 97.7–98; O2SAT 92–100
[2024-04-22 07:24] LABS: Anion Gap 7 (5-15); Calcium 9.8 mg/dL (8.7-10.4); Carbon Dioxide 30 mmol/L (20-31); Chloride 104 mmol/L (98-107); Potassium 4.6 mmol/L (3.5-5.1); Sodium 141 mmol/L (136-145)
[2024-04-22 07:26] LABS: BUN/Creatinine Ratio 16.2 (10.0-20.0); Blood Urea Nitrogen 17 mg/dL (9-23); Glucose 86 mg/dL (74-106)
[2024-04-22 07:28] LABS: Alanine Aminotransferase 122 U/L (7-40); Albumin 4.2 g/dL (3.2-4.8); Alkaline Phosphatase 214 U/L (46-116); Aspartate Aminotransferase 16 U/L (13-40)
[2024-04-22 07:29] LABS: Total Protein 6.1 g/dL (5.7-8.2)
--- NOTE | 2024-04-22 12:45 | DVHDS2 ---
Discharge Summary Date of Admission Apr 15, 2024 at 21:49 Date of Discharge: Apr 22, 2024 Admitting Diagnosis Acute hypoxic respiratory failure secondary to COPD exacerbation Labs/Diagnostic Data: Laboratory Results Test 04/22/24 05:50 04/21/24 17:17 04/21/24 05:16 04/19/24 05:25 Sodium Level 141 mmol/L (136-145) Potassium Level 4.6 mmol/L (3.5-5.1) Chloride Level 104 mmol/L (98-107) Carbon Dioxide Level 30 mmol/L (20-31) Anion Gap 7 (5-15) Blood Urea Nitrogen 17 mg/dL (9-23) Creatinine 1.05 mg/dL (0.700-1.30) Glomerular Filtration Rate Calc 77 mL/min (>90) BUN/Creatinine Ratio 16.2 (10.0-20.0) Serum Glucose 86 mg/dL (74-106) Calcium Level 9.8 mg/dL (8.7-10.4) Total Bilirubin 1.0 mg/dL (0.2-1.0) Aspartate Amino Transferase (AST) 16 U/L (13-40) Alanine Aminotransferase (ALT) 122 U/L (7-40) Alkaline Phosphatase 214 U/L (46-116) Total Protein 6.1 g/dL (5.7-8.2) Albumin 4.2 g/dL (3.2-4.8) Blood Gas Specimen Type Arterial Blood Gas Sample Site Right radial Blood Gas Patient Temperature 37.0 Arterial Blood Date Drawn [id number] Arterial Blood pH 7.471 (7.350-7.450) Arterial Blood Partial Pressure CO2 40.3 mmHg (35.0-48.0) Arterial Blood Partial Pressure O2 68.2 mmHg (83.0-108.0) Arterial Blood HCO3 28.7 mmol/L (21.0-28.0) Arterial Blood Oxygen Saturation 94.1 % (94.0-98.0) Arterial Blood Base Excess 4.7 mmol/L (-2.0-3.0) Arterial Blood Oxyhemoglobin 93.0 % (94.0-98.0) Arterial Blood Carboxyhemoglobin 0.9 % (0.5-1.5) Arterial Blood Methemoglobin 0.3 % (0.0-1.5) Jonnie Test Yes Blood Gas Total Hemoglobin 16.40 g/dL (13.5-17.5) Blood Gas Modality Room air FiO2 % 21.0 Blood Gas Critical Value Read Back Yes White Blood Count 6.7 10^3/uL (4.4-10.8) Red Blood Count 4.68 10^6/uL (4.5-5.90) Hemoglobin 14.6 g/dL (13.5-17.5) Hematocrit 43.4 % (41.0-53.0) Mean Corpuscular Volume 92.6 fL (80.0-100.0) Mean Corpuscular Hemoglobin 31.3 pg (28.0-32.0) Mean Corpuscular Hemoglobin Concent 33.7 g/dL (32.0-36.0) Red Cell Distribution Width 13.9 % (11.8-14.3) Platelet Count 225 10^3/uL (140-450) Mean Platelet Volume 8.2 fL (6.9-10.8) Neutrophils (%) (Auto) 63.7 % (37.0-80.0) Lymphocytes (%) (Auto) 23.2 % (10.0-50.0) Monocytes (%) (Auto) 7.6 % (0.0-12.0) Eosinophils (%) (Auto) 4.8 % (0.0-7.0) Basophils (%) (Auto) 0.7 % (0.0-2.0) Neutrophils # (Auto) 4.3 10 ^3/uL (1.6-8.6) Lymphocytes # (Auto) 1.6 10 ^3/uL (0.4-5.4) Monocytes # (Auto) 0.5 10 ^3/uL (0-1.3) Eosinophils # (Auto) 0.3 10 ^3/uL (0-0.8) Basophils # (Auto) 0 10 ^3/uL (0-0.2) Nucleated Red Blood Cells 0.1 % Lipase 33 U/L (12-53) Amylase Level 52 U/L (30-118) Test 04/18/24 05:07 04/16/24 05:14 04/16/24 03:18 04/15/24 23:19 Magnesium Level 2.0 mg/dL (1.6-2.6) Prothrombin Time 10.9 sec (9.3-11.8) Prothrombin Time INR 1.03 (0.9-1.15) Activated Partial Thromboplast Time 24.5 SEC (24.5-34.5) Hemoglobin A1c 5.5 % A1C (<5.7) B-Type Natriuretic Peptide 43.79 pg/mL (0-100) Triglycerides Level 46 mg/dL (< 150) Cholesterol Level 104 mg/dL (< 200) LDL Cholesterol 58 mg/dL (< 100) HDL Cholesterol 41 mg/dL (40-59) Plasma/Serum Blood Alcohol < 3.0 mg/dL (<10) Hepatitis A IgM Antibody Negative Hepatitis B Surface Antigen Negative (Negative) Hepatitis B Core IgM Antibody Negative (Negative) Hepatitis C Antibody Negative (Negative) Urine Color Yellow (Yellow) Urine Clarity Clear (Clear) Urine pH 6.0 (5.0-9.0) Urine Specific [place] 1.018 (1.001-1.035) Urine Protein Negative (Negative) Urine Ketones Negative (Negative) Urine Blood Negative /uL (Negative) Urine Nitrite Negative (Negative) Urine Bilirubin Negative (Negative) Urine Urobilinogen 4 mg/dL (Negative) Urine Leukocyte Esterase Trace /uL (Negative) Urine RBC <1 /hpf (0 - 3) Urine WBC 4 /hpf (0 - 3) Urine Squamous Epithelial Cells Few /hpf (<5) Urine Bacteria None seen /hpf (None Seen) Urine Mucus Few (None Seen) Urine Glucose Normal mg/dL (Normal) Urine Opiates Screen Neg (NEGATIVE) Urine Fentanyl Screen Neg (NEGATIVE) Urine Barbiturates Screen Neg (NEGATIVE) Urine Phencyclidine Screen Neg (NEGATIVE) Urine Amphetamines Screen Neg (NEGATIVE) Urine Benzodiazepines Screen Neg (NEGATIVE) Urine Cocaine Screen Neg (NEGATIVE) Urine Cannabinoids Screen Neg (NEGATIVE) Influenza Type A Antigen Negative (Negative) Influenza Type B Antigen Negative (Negative) SARS-CoV-2 Antigen (Rapid) Negative (NEGATIVE) Test 04/15/24 19:42 Troponin I High Sensitivity 3 ng/L (</=54) Other Laboratory Tests 04/22/24 05:50 04/21/24 05:16 Brief Hx & Hospital Course: History of Present Illness Patient is a 69-year-old male with a past medical history as described below came to the ED with a chief complaint of worsening shortness of breath for 2 days prior to admission. Patient was admitted to the hospital in February for upper abdominal and was found to have a splenic hematoma and COPD exacerbation which was treated and sent home. Patient reported that he did not have oxygen at home and since the time he got discharge was having intermittent shortness of breath for which he was using his albuterol inhaler as needed. He reports that since day before yesterday shortness of breath got worse and he was not able to breathe following which she came to the hospital further evaluation. Patient had associated chest pain which was substernal, dull, pressure-like, nonradiating but no associated sweating, palpitations and no association with change in position or deep breaths. He also reports pain in the epigastrium and the Left upper quadrant which is intermittent and gets sharp intermittently otherwise is normal. Course of hospitalization: Patient was treated with empiric antibiotic therapy. Patient was found to have cholecystitis with General surgery being consulted. Given the risk factors found by both Pulmonary and Cardiology consultation, decision was made to have cholecystostomy tube placement. Patient's cholecystostomy drainage was positive for Klebsiella pneumonia. Antibiotic therapy was deescalated to IV Rocephin. Patient is now tolerating oral intake without any issues. White blood cell count is now normal. Patient was afebrile. Discussion was made with General surgery regarding plan of care. At this time patient will follow up as an outpatient this coming Sunday for evaluation of removal of cholecystostomy tube. Patient will also follow up with Dr. Florentino, pulmonology for further evaluation of the patient's COPD. Room air ABG was performed with the patient revealing that his PO2 is 65, for which the patient was not qualify for oxygen at home. He will be sent home with home health services for assistance with the patient's vital signs as well as monitoring his cholecystostomy tube. The patient was agreeable with discharge plan. All questions answered. Physical examination General: Alert and Oriented x3. No acute distress. Well-nourished. Eyes: EOMI. Anicteric. HENT: Moist mucous membranes. Lungs: Clear to auscultation bilaterally. No accessory muscle use. Cardiovascular: Regular rate and rhythm. No murmur. No JVD. Abdomen: Soft, non-tender and non-distended. No palpable masses. Right upper quadrant drain with bilious secretions. Extremities: No edema. Non-tender. Skin: No rashes or lesions. Warm. Neurologic: No focal neurological deficits. CN II-XII grossly intact, but not individually tested. Psychiatric: Cooperative. Appropriate mood and affect. Total time spent with patient discussing and formulating plan of care: 35 minutes. This medical document was created using an electronic medical record system with [employer] system. Although this document has been carefully reviewed, there may still be some phonetic and typographical errors. These areas are purely typographical due to imperfections of the software programs, and do not reflect any compromise in the patient's medical care. Consults/Reason for consult Pulmonology: Surgical clearance Cardiology: Surgical clearance General surgery: Evaluation of cholecystitis Interventional Radiology: Placement of cholecystostomy drain Operations or Procedures 04/18/2024: Cholecystostomy drain placement Condition at Discharge: Guarded Final Diagnosis/Problems List Sepsis secondary to cholecystitis Secondary Diagnosis: -sepsis secondary to cholecystitis -acute on chronic hypoxic respiratory failure -COPD -history of CAD with previous stent placement -questionable spleen hematoma Discharge Disposition: Home with Health Services Discharge Instruct/Medications Diet: Cardiac 2g Na,low cholest Activity: No Restrictions, As Tolerated Follow Up/Referral: Follow up with PCP in 1-2 weeks Follow up with Dr. Florentino, pulmonology in 2-3 weeks. Recommend getting pulmonary function test Follow up with General surgery, Dr. Foster this Sunday for evaluation of removal of cholecystostomy tube Medications: Continue all previous home medications Cefdinir 300 mg p.o. b.i.d. for seven days Tramadol q.12 p.r.n. [id number] pain 36 Discharge Statement: "Patient was advised to return to the ER or call 911 if any headaches, dizziness, shortness of breath, chest pain, abdominal pain, bleeding, fevers, or worsening of medical condition. Patient was counseled about treatment plan, medications, possible side effects, patientverbalized understanding. All questions were answered to the best of my ability. This discharge took greater then 30 minutes in planning, reviewing documentation, counseling the patient, and discussing with other team members." ASSESSMENT ASSESSMENT Assessment Sepsis secondary to cholecystitis Date of Service: Apr 22, 2024 Billing Provider: LAURA MEZA NP Common Visit Codes: [id number]/OBS DISCH DAY >30min LAURA MEZA NP Apr 22, 2024 12:45
--- NOTE | 2024-04-22 22:39 | DVHPN2 ---
Progress Note - Dictate Date Seen: Apr 22, 2024 Medical Necessity Reason Pt with a Central, PICC or Fol: No Subjective Patient was seen and evaluated in follow up. Patient has no new complaints at this time. Patient denies any cardiac symptoms. Patient is cardiac stable for discharge. vital signs Vital Sign Date Time Temp Pulse Resp B/P (MAP) Pulse Ox O2 Delivery O2 Flow Rate FiO2 04/22/24 11:21 56 18 99 04/22/24 11:15 Nasal Cannula* 3 32 04/22/24 08:35 116/58 04/22/24 08:30 98.0 98.0 Total Intake and Output 04/21/24 04/21/24 04/22/24 15:00 23:00 07:00 Intake Total 50 ml 920 ml 400 ml Output Total 1200 ml 680 ml Balance 50 ml -280 ml -280 ml objective GENERAL: Awake, alert, oriented. LUNGS: Clear. CARDIOVASCULAR: Heart sounds are good. ABDOMEN: Soft. laboratory and microbiology Laboratory Tests 04/22/24 05:50 04/21/24 05:16 Test 04/22/24 05:50 Range/Units Serum Glucose 86 74-106 mg/dL Problem List Preprocedural cardiovascular examination. Chronic HFpEF, NYHA class II. History of myocardial infarction. Chronic left lower extremity DVT status post IVC filter. COPD with home O2. History of CVA without residual deficits. Euthyroid sick syndrome. Hx of splenic hematoma. Tobacco use. Assessment/Plan Continued all current supportive medical care. Diuretics with Lasix. Morphine for pain management. GI prophylactics. IV antibiotics as ordered. Additional plan as per the hospital course. Plan discussed with: Patient ORQUIDEA MCGINNIS MD Apr 22, 2024 22:39
--- NOTE | 2024-04-22 23:44 | DVHPN2 ---
Progress Note - Dictate Date Seen: Apr 22, 2024 Medical Necessity Reason Pt with a Central, PICC or Fol: No Subjective Patient seen and examined at bedside. Remains on supplemental oxygen Overnight events reviewed. vital signs Vital Sign Date Time Temp Pulse Resp B/P (MAP) Pulse Ox O2 Delivery O2 Flow Rate FiO2 04/22/24 11:21 56 18 99 04/22/24 11:15 Nasal Cannula* 3 32 04/22/24 08:35 116/58 04/22/24 08:30 98.0 98.0 Total Intake and Output 04/21/24 04/21/24 04/22/24 15:00 23:00 07:00 Intake Total 50 ml 920 ml 400 ml Output Total 1200 ml 680 ml Balance 50 ml -280 ml -280 ml objective Gen.: Patient lying in bed in no apparent distress. On supplemental oxygen. Head: Normocephalic, atraumatic. Eyes: EOMI/PERRLA. Ears: Normal hearing. Normal anatomy. Neck/trachea: Trachea midline, supple. Nose: Normal external anatomy. Mouth: Moist mucous membranes. Chest: Decreased air entry bilaterally. No wheezing or rhonchi. Cardiovascular: Positive S1, positive S2. Regular rate and rhythm. Abdomen: Positive bowel sounds in all 4 quadrants. Soft, non-tender, non- distended. : Deferred. Rectal: Deferred. Skin: Warm, dry. Intact. Extremities: 2+ radial pulses bilaterally. No lower extremity edema. Neuro: Awake, alert, oriented x3. No gross motor or sensory deficits. Cranial nerves II through XII intact. Gait not assessed. laboratory and microbiology Laboratory Tests 04/22/24 05:50 04/21/24 05:16 Test 04/22/24 05:50 Range/Units Serum Glucose 86 74-106 mg/dL Assessment/Plan Impression: Acute on chronic hypoxic respiratory failure Dependence on supplemental oxygen COPD, STAGE III Nicotine dependence Emphysema DVT, status post IVC filter Congestive heart failure Events: Remains on supplemental oxygen, 3 LPM NC Taper O2 as tolerated No new complaints Using supplemental oxygen at night Continue bronchodilators Continue antibiotics Incentive spirometry Patient is stable for discharge from the pulmonary standpoint. Disposition per hospitalist. Labs and imaging reviewed. Rest of plan as noted below. Plan: Supplemental oxygen Titrate to keep O2 sats above 92%. Taper O2 as tolerated. CXR showed no acute opacities, pleural effusion or pneumothorax Continue bronchodilators. Continue antibiotics S/p percutaneous cholecystostomy tube placement by IR. Surgery recs appreciated. Monitor drain output Monitor renal function. Monitor electrolytes. Supplement as necessary. Monitor ins and outs. Smoking cessation discussed for greater than 10 minutes GI prophylaxis - Protonix DVT prophylaxis. Prognosis: Poor given patient's multiple co-morbidities. Rest of plan per hospitalist and other consultants. Thank you, Dr. Garcia, for allowing me to participate in this patient's care. Further recommendations will depend on the patient's clinical course. Please do not hesitate to contact me if you have any questions or concerns. This medical document was created using an electronic medical record system with [employer] dictation system. Although these documentations are being carefully reviewed, there may still be some phonetic and typographical changes. The errors are purely typographical, due to imperfection on the software program, and do not reflect any compromise in the patient's medical care. Plan discussed with: Patient, Other (FARHEEN Leo) MARK ULRICH MD Apr 22, 2024 23:44
== END 2024-04-22 15:05 | disposition home health service (06) ==
LOC: EDBD 16:20 → ER 16:20 → TELE 21:49 → TELE-WESTW 04-16 10:19
PROVIDERS: ADMIT Internal Medicine; ATTEND Nurse Practitioner Acute Care
PROC: 0F9430Z Drainage of Gallbladder with Drainage Device, Percutaneous Approach (ICD-10-PCS; principal; 2024-04-18)
DX: K80.00 Calculus of gallbladder with acute cholecystitis without obstruction (principal); J96.21 Acute and chronic respiratory failure with hypoxia; I50.32 Chronic diastolic (congestive) heart failure; I11.0 Hypertensive heart disease with heart failure; K70.10 Alcoholic hepatitis without ascites; J44.1 Chronic obstructive pulmonary disease with (acute) exacerbation; Z99.81 Dependence on supplemental oxygen; Z20.822 Contact with and (suspected) exposure to COVID-19; D73.5 Infarction of spleen; J43.9 Emphysema, unspecified; E07.81 Sick-euthyroid syndrome; F41.9 Anxiety disorder, unspecified; R73.03 Prediabetes; F17.210 Nicotine dependence, cigarettes, uncomplicated; K21.9 Gastro-esophageal reflux disease without esophagitis; I25.10 Atherosclerotic heart disease of native coronary artery without angina pectoris; B96.1 Klebsiella pneumoniae [K. pneumoniae] as the cause of diseases classified elsewhere; Z95.828 Presence of other vascular implants and grafts; I25.2 Old myocardial infarction; Z86.73 Personal history of transient ischemic attack (TIA), and cerebral infarction without residual deficits; Z86.718 Personal history of other venous thrombosis and embolism; Z83.3 Family history of diabetes mellitus; Z82.49 Family history of ischemic heart disease and other diseases of the circulatory system; Z95.5 Presence of coronary angioplasty implant and graft
CPT/HCPCS: 36415; 36600; 47532; 71045; 74176; 74181; 76705; 76942; 78226; 80048; 80053; 80061; 80074; 80307; 80320; 81001; 82150; 82805; 83036; 83690; 83735; 83880; 84484; 85025; 85610; 85730; 86850; 86900; 86901; 87077; 87186; 87205; 87426; 87804; 93005; 94640; 97163; 99152; 99291; 99292; G0378; J2250; J2470; J2543; Q9967

== ENCOUNTER 2024-05-16 16:49 | Inpatient (IN) | payer OTHER, MEDICAID ==
[~2024-05-16] VITALS: Ht 175.3 cm; Wt 77.2 kg
[~2024-05-16 16:49] MED LIST changes: -ASCO500T6 PO
--- NOTE | 2024-05-16 18:19 | ED.PDOC ---
History of Present Illness HPI Comments 69 year old male presents to the ED with a chief complaint of cholecystostomy tube malfunction onset today. Patient states he had tube placed a few days ago, when he was walking by a door, tube got stuck on the door knob and pulled tube. Patient states he drained about 25 mL around 12:00 and has not drained since. PMHx of HTN, CHF, COPD. Denies chest pain, dizziness, nausea, vomiting, diarrhea, dizziness, blurry vision. No other symptoms or modifying factors present at this time. Patient has nlulxpew-xa-zbtkot pain related to his concerns. Chief Complaint: Tube Replacement Time Seen by MD: 18:05 Primary Care Provider: KASANDRA Keating Notes: Nurses Notes, Medications, Allergies Allergies: Coded Allergies: NO KNOWN ALLERGIES (Unverified , 02/29/24) Home Meds Active Scripts Respiratory Therapy Supplies (Nebulizer Kit/Tubing/Mout) Kit, APPLIC XX BID PRN, #1 For nebulization Prov:LIBORIO TRAN [facility] 03/19/24 Ipratropium York (Ipratropium York) 0.02 % Adriana, 0.5 % HHN BID for 30 Days, #120 ML Prov:LIBORIO TRAN [facility] 03/19/24 Albuterol Sulfate (Ventolin) 2.5 Mg/0.5 Ml Nb, 2.5 MG NEB Q4HWA for 30 Days, #10 INH Prov:LIBORIO TRAN [facility] 03/19/24 Prednisone (Prednisone) 20 Mg Tab, 20 MG PO DAILY for 3 Days, #3 MG Prov:LIBORIO TRAN [facility] 03/18/24 Nicotine (Nicotine) 14 Mg/24 Hr Dis, 1 PATCH TD DAILY for 30 Days, #30 DIS Prov:LIBORIO TRAN [facility] 03/18/24 Multiple Vitamin (Mvi Tab) 1 Tab Tb, 1 TAB PO DAILY for 30 Days, #30 TAB Prov:LIBORIO TRAN [facility] 03/18/24 Doxycycline Monohydrate (Doxycycline Monohydrate) 100 Mg Tab, 100 MG PO Q12HR for 5 Days, #10 TAB Prov:LIBORIO TRAN [facility] 03/18/24 Dextromethorphan-Guaifenesin (Robitussin-Dm) 10 Ml Sr, 10 ML PO Q6HPRN PRN for 30 Days, #120 SYP Prov:LIBORIO TRAN 03/18/24 Ascorbic Acid (VITAMIN C TABLET) 500 Mg Tb, 500 MG PO BID for 30 Days, #60 TAB Prov:LIBORIO TRAN [facility] 03/18/24 Acetaminophen (Acetaminophen) 325 Mg Tab, 650 MG PO Q6HP PRN for 10 Days, #80 TAB Prov:LIBORIO TRAN 03/18/24 Reported Medications Thiamine Hcl (VITAMIN B-1) 100 Mg Tb, 1 TAB PO DAILY 03/12/24 Aripiprazole (Aripiprazole) 5 Mg Tab, 1 TAB PO DAILY for 30 Days, #30 03/12/24 Atorvastatin Calcium (ATORVASTATIN CALCIUM) 40 Mg Tab, 40 MG PO DAILY for 30 Days, #30 03/12/24 Pantoprazole Sodium Sesquihydr (Pantoprazole Sodium) 40 Mg Tab, 1 TAB PO DAILY for 30 Days, #30 03/12/24 Furosemide (Furosemide) 20 Mg Tab, 1 TAB PO DAILY 03/12/24 Information Source: Patient Mode of Arrival: Ambulatory Severity: Moderate Timing: Hours Duration: Since onset Prehospital treatment: None Past Medical History PAST MEDICAL HISTORY: Anxiety, CHF, COPD, HTN Surgical History: Appendectomy Surgical History (Other): Recent history of cholecystostomy placement Family History Family History: Reviewed,noncontributory to illness, No family hx of Cancer, No family hx of DM, No family hx of Heart damaris Social History Smoker: Cigarettes Alcohol: Occasionally Drugs: Denies Drug Use Lives In: Home Constitutional: denies: chills, diaphoresis, fatigue, fever, malaise, sweats, weakness, others EENTM: denies: blurred vision, double vision, ear bleeding, ear discharge, ear drainage, ear pain, ear ringing, eye pain, eye redness, hearing loss, mouth pain, mouth swelling, nasal discharge, nose bleeding, nose congestion, nose pain, photophobia, tearing, throat pain, throat swelling, voice changes, others Respiratory: denies: cough, hemoptysis, orthopnea, SOB at rest, shortness of breath, SOB with excertion, stridor, wheezing, others Cardiovascular: denies: chest pain, dizzy spells, diaphoresis, Dyspnea on exertion, edema, irregular heart beat, left arm pain, lightheadedness, palpitations, PND, syncope, others Gastrointestinal: reports: abdominal pain (s/p tube malfunction ); denies: abdomen distended, blood streaked bowels, constipated, diarrhea, dysphagia, difficulty swallowing, hematemesis, melena, nausea, poor appetite, poor fluid intake, rectal bleeding, rectal pain, vomiting, others Genitourinary: denies: burning, dysuria, flank pain, frequency, hematuria, incontinence, penile discharge, penile sore, pain, testicle pain, testicle swelling, urgency, others Neurological: denies: dizziness, fainting, headache, left sided numbness, left sided weakness, numbness, paresthesia, pre-existing deficit, right sided numbness, right sided weakness, seizure, speech problems, tingling, tremors, weakness, others Musculoskeletal: denies: back pain, gout, joint pain, joint swelling, muscle pain, muscle stiffness, neck pain, others Integumetry: denies: bruises, change in color, change in hair/nails, dryness, laceration, lesions, lumps, rash, wounds, others Allergic/Immunocompromised: denies: Difficulty Healing, Frequent Infections, Hives, Itching, others Hematologic/Lymphatic: denies: anemia, blood clots, easy bleeding, easy bruising, swollen glands, others Endocrine: denies: excessive hunger, excessive sweating, excessive thirst, excessive urination, flushing, intolerance to cold, intolerance to heat, unexplained weight gain, unexplained weight loss, others Psychiatric: denies: anxiety, bipolar disorder, depression, hopeless, panic disorder, schizophrenia, sleepless, suicidal, others Physical Exam General Appearance: Moderate Distress (Due to abdominal pain concerns.), Normal HEENT: Normal ENT Inspection, Pharynx Normal, TMs Normal Neck: Full Range of Motion, Non-Tender, Normal, Normal Inspection Respiratory: Chest Non-Tender, Lungs Clear, No Accessory Muscle Use, No Respiratory Distress, Normal Breath Sounds Cardiovascular: No Edema, No JVD, No Murmur, No Gallop, Normal Peripheral Pulses, Regular Rate/Rhythm Breast Exam: Deferred Gastrointestinal: Other (Patient quit is a lrniodqd-dg-uzwsou tenderness to palpation throughout the cholecystostomy site. No signs of infection. No drainage noted. Abdomen was mildly rigid.) Genitalia: Deferred Pelvic: Deferred Rectal: Deferred Extremities: No calf tenderness, Normal capillary refill, Normal inspection, Normal range of motion, Non-tender, No pedal edema Musculoskeletal : Apperance: Normal Neurologic: Alert, No Motor Deficits, Normal Affect, Normal Mood, No Sensory Deficits Cerebellar Function: Normal Reflexes: Normal Skin: Dry, Normal Color, Warm Lymphatic: No Adenopathy Was a procedure done? Was a procedure done?: No Differential Dx Considerations may include: Postoperative complication, sepsis, electrolyte abnormality, medical equipment malfunction X-Ray, Labs, Meds, VS Vital Signs Date Time Temp Pulse Resp B/P (MAP) Pulse Ox O2 Delivery O2 Flow Rate FiO2 05/16/24 18:49 105 18 94 Room Air 05/16/24 18:49 98.7 105 18 142/83 (102) 94 98.7 05/16/24 17:37 97.0 96 23 132/67 (88) 94 Lab Test 05/16/24 18:29 Range/Units White Blood Count 12.2 H 4.4-10.8 10^3/uL Red Blood Count 5.15 4.5-5.90 10^6/uL Hemoglobin 16.1 13.5-17.5 g/dL Hematocrit 47.2 41.0-53.0 % Mean Corpuscular Volume 91.7 80.0-100.0 fL Mean Corpuscular Hemoglobin 31.3 28.0-32.0 pg Mean Corpuscular Hemoglobin Concent 34.1 32.0-36.0 g/dL Red Cell Distribution Width 13.9 11.8-14.3 % Platelet Count 238 140-450 10^3/uL Mean Platelet Volume 8.2 6.9-10.8 fL Neutrophils (%) (Auto) 85.8 H 37.0-80.0 % Lymphocytes (%) (Auto) 4.8 L 10.0-50.0 % Monocytes (%) (Auto) 7.6 0.0-12.0 % Eosinophils (%) (Auto) 1.4 0.0-7.0 % Basophils (%) (Auto) 0.4 0.0-2.0 % Neutrophils # (Auto) 10.5 H 1.6-8.6 10 ^3/uL Lymphocytes # (Auto) 0.6 0.4-5.4 10 ^3/uL Monocytes # (Auto) 0.9 0-1.3 10 ^3/uL Eosinophils # (Auto) 0.2 0-0.8 10 ^3/uL Basophils # (Auto) 0 0-0.2 10 ^3/uL Nucleated Red Blood Cells 0.0 % Sodium Level 141 136-145 mmol/L Potassium Level 4.0 3.5-5.1 mmol/L Chloride Level 108 H 98-107 mmol/L Carbon Dioxide Level 27 20-31 mmol/L Anion Gap 6 5-15 Blood Urea Nitrogen 13 9-23 mg/dL Creatinine 0.94 0.700-1.30 mg/dL Glomerular Filtration Rate Calc 88 >90 mL/min BUN/Creatinine Ratio 13.8 10.0-20.0 Serum Glucose 109 H 74-106 mg/dL Lactic Acid Level 1.5 0.4-2.0 mmol/L Calcium Level 9.7 8.7-10.4 mg/dL Current Medications Medications (Trade) Dose Ordered Sig/Jania Route Start Time Stop Time Status Last Admin Acetaminophen/ Hydrocodone Bitart ([place] 10/325MG Tab) 1 tab ONCE ONCE PO 05/16/24 18:15 05/16/24 18:16 DC 05/16/24 18:44 X-Ray, Labs, Meds, VS Comment All studies performed the ED today were evaluated by me personally. Labora tories were unremarkable for any definitive systemic process. Mild leukocytosis with mild left shift. Imaging studies revealed a trace right perihepatic fluid that may reflect residual from initial catheter placement acute bear layer leak is felt to be less likely but can not be entirely excluded. Fluoroscopy drained evaluation may be obtained to confirm positioning. Patient will be admitted for pain management as well as continued imaging studies tomorrow. Time of 1ST Reevaluation: 22:52 Reevaluation 1ST: Improved Consultation: PCP Patient Education/Counseling: Diagnosis, Treatment Family Education/Counseling: Diagnosis, Treatment Departure 1 Departure Time of Disposition: 22:52 Impression: Primary Impression: Postoperative complication Additional Impression: Intractable abdominal pain Disposition: 09 ADMITTED INPATIENT Condition: Fair Discharged With: Self Critical Care Note Critical Care Time?: No Stability Stability form required: No Heart Score Heart Score: Heart Score Response (Comments) Value History N/A 0 EKG N/A 0 Age N/A 0 Risk Factors N/A 0 Troponin N/A 0 Total 0 I personally scribed for ROBBIE COATES PAC ([email or web address]) on 05/16/24 at 18:19. Electronically submitted by Lore Funes ([email or web address]). ROBBIE COATES PAC May 16, 2024 18:19
[2024-05-16] MEDS: HYDROcodone-ACET 10/325MG TAB PO ONE (18:44)
[2024-05-16 19:20] LABS: Basophils # (auto) 0 10 ^3/uL (0-0.2); Basophils % (auto) 0.4 % (0.0-2.0); Eosinophils # (auto) 0.2 10 ^3/uL (0-0.8); Eosinophils % (auto) 1.4 % (0.0-7.0); Hematocrit 47.2 % (41.0-53.0); Hemoglobin 16.1 g/dL (13.5-17.5); Lymphocytes # (auto) 0.6 10 ^3/uL (0.4-5.4); Lymphocytes % (auto) 4.8 % (10.0-50.0); Mean Corpuscular Hemoglobin 31.3 pg (28.0-32.0); Mean Corpuscular Hgb Conc. 34.1 g/dL (32.0-36.0); Mean Corpuscular Volume 91.7 fL (80.0-100.0); Monocytes # (auto) 0.9 10 ^3/uL (0-1.3); Monocytes % (auto) 7.6 % (0.0-12.0); Neutrophils # (auto) 10.5 10 ^3/uL (1.6-8.6); Neutrophils % (auto) 85.8 % (37.0-80.0); Platelet Count (auto) 238 10^3/uL (140-450); Red Blood Cells 5.15 10^6/uL (4.5-5.90); Red Cell Distribution Width 13.9 % (11.8-14.3); White Blood Cell 12.2 10^3/uL (4.4-10.8)
[2024-05-16 19:27] LABS: Sodium 141 mmol/L (136-145)
[2024-05-16 19:28] LABS: Anion Gap 6 (5-15); Carbon Dioxide 27 mmol/L (20-31)
[2024-05-16 19:29] LABS: Calcium 9.7 mg/dL (8.7-10.4)
[2024-05-16 19:34] LABS: BUN/Creatinine Ratio 13.8 (10.0-20.0); Blood Urea Nitrogen 13 mg/dL (9-23)
[2024-05-16 19:46] LABS: Chloride 108 mmol/L (98-107); Glucose 109 mg/dL (74-106)
[2024-05-16] MEDS: IOHEXOL 300 MG/ML 100ML BOTTLE IJ ONE (21:49)
--- NOTE | 2024-05-16 22:03 | DVH ---
CT OF THE ABDOMEN AND PELVIS WITH CONTRAST. HISTORY: Right-sided lower abdominal drain that may have been dislodg COMPARISON: Abdominal CT and MRCP dated 04/16/2024. TECHNIQUE: Helical axial CT images of the abdomen and pelvis were obtained with intravenous contrast. Multiplanar reformats. One or more of the following radiation dose reduction techniques were used fo r this examination: automated exposure control, adjustment of the mA and/or kV according to patient s ize, use of iterative reconstruction technique. FINDINGS: Emphysematous changes in the imaged lung bases. Liver: Trace right perihepatic fluid. Small cyst again noted in the left hepatic lobe. Gallbladder and biliary system: Patient is status post percutaneous cholecystostomy. Pigtail portion of the catheter appears coiled within the gallbladder lumen. Proximal side marker appears to project at the edge of the gallbladder lumen. Mild intrahepatic ductal dilatation, more apparent in the left hepatic lobe. Mild common bile duct dilatation as well. No sizable, radiopaque cholelithiasis. Pancreas: Negative. Spleen: Lateral perisplenic fluid collection is again noted. Adrenal Glands: Negative. Kidneys and collecting system: No hydroureteronephrosis. Retroperitoneum: No evidence of abdominal aortic aneurysm. Aortoiliac atherosclerotic calcifications . IVC filter is again noted. Lymph nodes: No discretely enlarged lymph nodes identified. Bowel: No evidence of bowel obstruction. No free intraperitoneal air or fluid identified. Moderate vo lume stool seen throughout the colon and rectum may indicate constipation. Pelvis: No sizable bladder calculus. Osseous structures: No destructive osseous lesions identified. Degenerative changes at L5-S1. IMPRESSION: Status post percutaneous cholecystostomy as above. Trace right perihepatic fluid may reflect residual from initial catheter placement. Acute biliary leak is felt to be less likely but can not be entirel y excluded. Fluoroscopic drain evaluation may be obtained to confirm positioning. Interim ultrasound may also be obtained to evaluate positioning. Other relatively unchanged findings as above.
[2024-05-17] VITALS (45 sets, daily range): BP systolic 87–179; BP diastolic 42–116; PULSE 72–110; RESP 12–28; TEMP 98.7–99.5; O2SAT 90–99
[2024-05-17] MEDS ORDERED: ACETAMINOPHEN 325 MG TAB PO PRN (01:30)
[2024-05-17] MEDS ORDERED: NITROGLYCERIN 0.4 MG SL TAB SL PRN (01:30)
[2024-05-17] MEDS ORDERED: MORPHINE SULFATE INJ 2 MG/ml SYRG IV PRN (01:30)
[2024-05-17] MEDS ORDERED: ONDANSETRON HCL 4 MG/2 ML VIAL IV PRN ×2 (01:30→13:45)
[2024-05-17] MEDS: D5W/SOD CHL 0.45% 1,000 ML IV ONE (01:30)
--- NOTE | 2024-05-17 02:02 | DVHHPRES ---
History of Present Illness Resident Creating Document: JESSICA COLLINS RESIDENT Reason for Visit: Irritable abdominal pain History of Present Illness 69 year old male past medical history of HTN, CHF, COPD presents to the ED with a chief complaint of cholecystostomy tube malfunction onset 3 days back, wo rsening today with severe abdominal pain. Patient states he had tube placed a few days ago, when he was walking by a door, tube got stuck on the door knob and pulled tube. Patient was found to have cholecystitis with General surgery being consulted. Given the risk factors found by both Pulmonary and Cardiology consultation, decision was made to have cholecystostomy tube placement. Denies chest pain, dizziness, nausea, vomiting, diarrhea, dizziness, blurry vision. No other symptoms or modifying factors present at this time. Home medications: Atorvastatin 40 mg hs, furosemide 20 mg q.d., Protonix 40 mg daily Past Medical History Past medical history: Heart failure with preserved ejection fraction, COPD ,GERD, back pain, h/o DVT (was previously on Eliquis but IVC filter placed in February 2024) Past Surgical History Past surgical history: Appendectomy, IVC filter placement, Recent history of cholecystostomy placement. Past Social History Social history: Smokes 3 cigarettes per day currently, denies drinking alcohol and drug use Review of Systems Review of Systems CONSTITUTIONAL: Denies weight loss, fever and chills. HEENT: Denies changes in vision and hearing. RESPIRATORY: Denies SOB and cough. CV: Denies palpitations and chest pain. GI: reports: abdominal pain (s/p tube malfunction ), Denies nausea, vomiting and diarrhea. : Denies dysuria and urinary frequency. MSK: Denies myalgia and joint pain. SKIN: Denies rash and pruritus. NEUROLOGICAL: Denies headache Allergies: Coded Allergies: NO KNOWN ALLERGIES (Unverified , 02/29/24) Medications Current Medications Medications Dose Ordered Sig/Jania Route Start Time Stop Time Status Last Admin Dose Admin Sodium Chloride 10 ml Q8HR IV 05/17/24 06:00 Ondansetron HCl 4 mg Q4HP PRN IV 05/17/24 01:30 Acetaminophen 650 mg Q6HP PRN PO 05/17/24 01:30 Morphine Sulfate 2 mg Q4HPRN PRN IV 05/17/24 01:30 Nitroglycerin 0.4 mg Q5MINP PRN SL 05/17/24 01:30 Morphine Sulfate 2 mg Q30M PRN IV 05/17/24 01:30 Ceftriaxone Sodium 50 ml @ 100 mls/hr DAILY IV 05/18/24 10:00 Metronidazole 100 ml @ 100 mls/hr Q8HR IV 05/17/24 06:00 Furosemide 20 mg DAILY IV 05/17/24 10:00 Exam Vital Signs Vital Signs Date Time Temp Pulse Resp B/P (MAP) Pulse Ox O2 Delivery O2 Flow Rate FiO2 05/17/24 00:16 Room Air* 0 21 05/17/24 00:05 91 18 130/62 (84) 94 05/16/24 18:49 98.7 98.7 Exam GENERAL: Moderate Distress due to pain HEENT: EOMI, Moist mucous membranes. No scleral icterus. No cervical lymphadenopathy. LUNGS: Clear to auscultation bilaterally. No accessory muscle use. CARDIOVASCULAR: Regular rate and rhythm. No murmur. No JVD. ABDOMEN: Lvflpuxq-ke-fuboeg tenderness to palpation throughout the cholecystostomy site. No signs of infection. No drainage noted. Abdomen was mildly rigid. EXTREMITIES: Bilateral pitting edema + SKIN: No rashes or lesions. Warm. NEUROLOGIC: Alert and oriented X3 Labs/Xrays Labs Test 05/16/24 18:29 Range/Units White Blood Count 12.2 H 4.4-10.8 10^3/uL Red Blood Count 5.15 4.5-5.90 10^6/uL Hemoglobin 16.1 13.5-17.5 g/dL Hematocrit 47.2 41.0-53.0 % Mean Corpuscular Volume 91.7 80.0-100.0 fL Mean Corpuscular Hemoglobin 31.3 28.0-32.0 pg Mean Corpuscular Hemoglobin Concent 34.1 32.0-36.0 g/dL Red Cell Distribution Width 13.9 11.8-14.3 % Platelet Count 238 140-450 10^3/uL Mean Platelet Volume 8.2 6.9-10.8 fL Neutrophils (%) (Auto) 85.8 H 37.0-80.0 % Lymphocytes (%) (Auto) 4.8 L 10.0-50.0 % Monocytes (%) (Auto) 7.6 0.0-12.0 % Eosinophils (%) (Auto) 1.4 0.0-7.0 % Basophils (%) (Auto) 0.4 0.0-2.0 % Neutrophils # (Auto) 10.5 H 1.6-8.6 10 ^3/uL Lymphocytes # (Auto) 0.6 0.4-5.4 10 ^3/uL Monocytes # (Auto) 0.9 0-1.3 10 ^3/uL Eosinophils # (Auto) 0.2 0-0.8 10 ^3/uL Basophils # (Auto) 0 0-0.2 10 ^3/uL Nucleated Red Blood Cells 0.0 % Sodium Level 141 136-145 mmol/L Potassium Level 4.0 3.5-5.1 mmol/L Chloride Level 108 H 98-107 mmol/L Carbon Dioxide Level 27 20-31 mmol/L Anion Gap 6 5-15 Blood Urea Nitrogen 13 9-23 mg/dL Creatinine 0.94 0.700-1.30 mg/dL Glomerular Filtration Rate Calc 88 >90 mL/min BUN/Creatinine Ratio 13.8 10.0-20.0 Serum Glucose 109 H 74-106 mg/dL Lactic Acid Level 1.5 0.4-2.0 mmol/L Calcium Level 9.7 8.7-10.4 mg/dL Assessment/Plan Assessment/Plan # possible sepsis due to cholecystitis # Intractable abdominal pain due to acute cholecystitis, S/P cholecystostomy tube placement # cholecystostomy tube function due to mechanical injury - surgical consultation - Start IV Rocephin and IV Flagyl - NPO for now - pain management # ?Acute exacerbation of heart failure with a preserved ejection fraction - positive bilateral pedal edema - continue Lasix IV 20 mg daily # COPD, not exacerbation - breathing treatment as needed - monitor oxygen saturation # H/o DVT - S/P IVC filter placed in February, # Tobacco abuse - patient reports he is currently smoking three cigarettes per day reduced from two packs per day previously - counseled patient is to quit smoking for more than 10 minutes Goal of care discussed with patient for 36 minutes: Full code Plan discussed with Dr. Hebert Plan discussed with: Patient My Orders Orders - JESSICA COLLINS RESIDENT Procedure Category Date Status Time Admit ADMIT 05/17/24 Transmitted 01:16 Allergies ARIANA 05/17/24 In Process 01:16 Code Status CODE 05/17/24 Transmitted 01:16 Sodium Chloride Lock PHA 05/17/24 In Process (Saline Lock Ns) 06:00 Ondansetron Hcl PHA 05/17/24 In Process (Zofran) 01:30 Complete Blood Count LAB 05/18/24 Verified 04:00 Comprehensive LAB 05/18/24 Verified Metabolic Panel 04:00 Npo (Nothing By DIET 05/17/24 Transmitted Mouth) Diet Breakfast Acetaminophen Tablet PHA 05/17/24 In Process (Tylenol Tablet) 01:30 Morphine Sulfate PHA 05/17/24 In Process Injection 01:30 Nitroglycerin PHA 05/17/24 In Process Sublingual (Ntrostat 01:30 Morphine Sulfate PHA 05/17/24 In Process Injection 01:30 Notify Of Changes ARIANA 05/17/24 In Process From Base 01:16 Court Orderly For ARIANA 05/17/24 In Process 24 Hours 01:16 Rhythm Strips Once ARIANA 05/17/24 In Process Every Shift 01:16 Ceftriaxone 1gm/50ml PHA 05/17/24 In Process D5w (Rocephin) 01:30 Metronidazole PHA 05/17/24 In Process 500mg/100ml (Flagyl 01:30 Metronidazole PHA 05/17/24 In Process 500mg/100ml (Flagyl 06:00 * Surgical Consult CONS 05/17/24 Transmitted Furosemide Injection PHA 05/17/24 In Process (Lasix Injection) 10:00 D5w/Sod Chl 0.45% PHA 05/17/24 In Process (D5w 1/2ns) 01:30 Ceftriaxone 1gm/50ml PHA 05/18/24 In Process D5w (Rocephin) 10:00 Date of Service: May 16, 2024 Billing Provider: MARYANN LO MD Common Visit Codes: [id number] INP/OBS CARE (HIGH) JESSICA COLLINS RESIDENT May 17, 2024 02:02 MARYANN LO MD May 21, 2024 16:04
[2024-05-17] MEDS: metroNIDAZOLE 500MG/100ML 100 ML IV ONE (02:17)
[2024-05-17] MEDS: cefTRIAXone 1GM/50ML D5W 50 ML IV ONE (02:30)
[2024-05-17] MEDS: SODIUM CHLOR 0.9% PF (SALINE LOCK) 10ML VIAL/SYR IV SCH (05:45)
[2024-05-17] MEDS: metroNIDAZOLE 500MG/100ML 100 ML IV SCH ×2 (05:45→14:33)
[2024-05-17] MEDS: MORPHINE SULFATE INJ 2 MG/ml SYRG IV PRN (07:54)
[2024-05-17 07:56] LABS: Basophils # (auto) 0.1 10 ^3/uL (0-0.2); Basophils % (auto) 0.4 % (0.0-2.0); Eosinophils # (auto) 0.1 10 ^3/uL (0-0.8); Eosinophils % (auto) 0.4 % (0.0-7.0); Hematocrit 41.7 % (41.0-53.0); Lymphocytes # (auto) 1.3 10 ^3/uL (0.4-5.4); Lymphocytes % (auto) 9.7 % (10.0-50.0); Mean Corpuscular Hemoglobin 30.8 pg (28.0-32.0); Mean Corpuscular Hgb Conc. 33.7 g/dL (32.0-36.0); Mean Corpuscular Volume 91.5 fL (80.0-100.0); Monocytes % (auto) 7.6 % (0.0-12.0); Neutrophils # (auto) 10.7 10 ^3/uL (1.6-8.6); Neutrophils % (auto) 81.9 % (37.0-80.0); Platelet Count (auto) 217 10^3/uL (140-450); Red Blood Cells 4.55 10^6/uL (4.5-5.90); Red Cell Distribution Width 13.8 % (11.8-14.3); White Blood Cell 13.1 10^3/uL (4.4-10.8)
[2024-05-17 08:06] LABS: INR 1.03 (0.9-1.15); Partial Thromboplastin Time 30.1 SEC (24.5-34.5); Prothrombin Time 10.9 sec (9.3-11.8)
[2024-05-17 08:29] LABS: Alanine Aminotransferase 10 U/L (7-40); Anion Gap 7 (5-15); BUN/Creatinine Ratio 15.4 (10.0-20.0); Blood Urea Nitrogen 14 mg/dL (9-23); Carbon Dioxide 26 mmol/L (20-31); Chloride 107 mmol/L (98-107); Potassium 3.9 mmol/L (3.5-5.1); Sodium 140 mmol/L (136-145)
[2024-05-17 08:30] LABS: Alkaline Phosphatase 125 U/L (46-116); Aspartate Aminotransferase < 8 U/L (13-40); Bilirubin, Direct 0.7 mg/dL (<0.3); Bilirubin, Total 1.4 mg/dL (0.2-1.0); Glucose 110 mg/dL (74-106); Total Protein 5.5 g/dL (5.7-8.2)
[2024-05-17] MEDS: FUROSEMIDE 20 MG/2 ML VIAL IV SCH (10:31)
[2024-05-17] MEDS: HYDROMORPHONE HCL 1 MG/ML INJ IV ONE ×2 (10:54→13:45)
--- NOTE | 2024-05-17 11:07 | DVHINCON2 ---
Date of service: May 17, 2024 Family History: Cardiovascular disease G8 MOTHER G8 FATHER Diabetes mellitus G8 MOTHER Allergies: Coded Allergies: NO KNOWN ALLERGIES (Unverified , 02/29/24) Home Meds Active Scripts Respiratory Therapy Supplies (Nebulizer Kit/Tubing/Mout) Kit, APPLIC XX BID PRN, #1 For nebulization Prov:[facility] 03/19/24 Ipratropium Pinch (Ipratropium Pinch) 0.02 % Adriana, 0.5 % HHN BID for 30 Days, #120 ML Prov:[facility] 03/19/24 Albuterol Sulfate (Ventolin) 2.5 Mg/0.5 Ml Nb, 2.5 MG NEB Q4HWA for 30 Days, #10 INH Prov:[facility] 03/19/24 Prednisone (Prednisone) 20 Mg Tab, 20 MG PO DAILY for 3 Days, #3 MG Prov:[facility] 03/18/24 Nicotine (Nicotine) 14 Mg/24 Hr Dis, 1 PATCH TD DAILY for 30 Days, #30 DIS Prov:[facility] 03/18/24 Multiple Vitamin (Mvi Tab) 1 Tab Tb, 1 TAB PO DAILY for 30 Days, #30 TAB Prov:[facility] 03/18/24 Doxycycline Monohydrate (Doxycycline Monohydrate) 100 Mg Tab, 100 MG PO Q12HR for 5 Days, #10 TAB Prov:[facility] 03/18/24 Dextromethorphan-Guaifenesin (Robitussin-Dm) 10 Ml Sr, 10 ML PO Q6HPRN PRN for 30 Days, #120 SYP Prov:[facility] 03/18/24 Ascorbic Acid (VITAMIN C TABLET) 500 Mg Tb, 500 MG PO BID for 30 Days, #60 TAB Prov:[facility] 03/18/24 Acetaminophen (Acetaminophen) 325 Mg Tab, 650 MG PO Q6HP PRN for 10 Days, #80 TAB Prov:[facility] 03/18/24 Reported Medications Thiamine Hcl (VITAMIN B-1) 100 Mg Tb, 1 TAB PO DAILY 03/12/24 Aripiprazole (Aripiprazole) 5 Mg Tab, 1 TAB PO DAILY for 30 Days, #30 03/12/24 Atorvastatin Calcium (ATORVASTATIN CALCIUM) 40 Mg Tab, 40 MG PO DAILY for 30 Days, #30 03/12/24 Pantoprazole Sodium Sesquihydr (Pantoprazole Sodium) 40 Mg Tab, 1 TAB PO DAILY for 30 Days, #30 03/12/24 Furosemide (Furosemide) 20 Mg Tab, 1 TAB PO DAILY 03/12/24 Current Medications Current Medications Medications (Trade) Dose Ordered Sig/Jania Route PRN Reason Start Time Stop Time Status Last Admin Sodium Chloride (Saline Lock Ns) 10 ml Q8HR IV 05/17/24 06:00 05/17/24 05:45 Ondansetron HCl (Zofran) 4 mg Q4HP PRN IV NAUSEA / VOMITING 05/17/24 01:30 Acetaminophen (Tylenol Tablet) 650 mg Q6HP PRN PO PAIN SCALE 1-3 OR TEMP>100.4 05/17/24 01:30 Morphine Sulfate 2 mg Q4HPRN PRN IV SEVERE PAIN (7-10 PAIN SCALE) 05/17/24 01:30 05/17/24 07:54 Nitroglycerin (Ntrostat Sublingual) 0.4 mg Q5MINP PRN SL FOR CHEST PAIN 05/17/24 01:30 Morphine Sulfate 2 mg Q30M PRN IV FOR CHEST PAIN 05/17/24 01:30 Ceftriaxone Sodium 50 ml @ 100 mls/hr DAILY IV 05/18/24 10:00 Metronidazole 100 ml @ 100 mls/hr Q8HR IV 05/17/24 06:00 05/17/24 05:45 Furosemide (Lasix Injection) 20 mg DAILY IV 05/17/24 10:00 05/17/24 10:31 Vital Signs Vital Signs Date Time Temp Pulse Resp B/P (MAP) Pulse Ox O2 Delivery O2 Flow Rate FiO2 05/17/24 10:54 88 22 136/38 05/17/24 09:00 98.2 94 98.2 05/17/24 07:41 Nasal Cannula* 3 32 Labs/Diagnostic Data Labs Test 05/17/24 07:37 05/16/24 18:29 Range/Units White Blood Count 13.1 H 4.4-10.8 10^3/uL Red Blood Count 4.55 4.5-5.90 10^6/uL Hemoglobin 14.0 13.5-17.5 g/dL Hematocrit 41.7 # 41.0-53.0 % Mean Corpuscular Volume 91.5 80.0-100.0 fL Mean Corpuscular Hemoglobin 30.8 28.0-32.0 pg Mean Corpuscular Hemoglobin Concent 33.7 32.0-36.0 g/dL Red Cell Distribution Width 13.8 11.8-14.3 % Platelet Count 217 140-450 10^3/uL Mean Platelet Volume 8.1 6.9-10.8 fL Neutrophils (%) (Auto) 81.9 H 37.0-80.0 % Lymphocytes (%) (Auto) 9.7 L 10.0-50.0 % Monocytes (%) (Auto) 7.6 0.0-12.0 % Eosinophils (%) (Auto) 0.4 0.0-7.0 % Basophils (%) (Auto) 0.4 0.0-2.0 % Neutrophils # (Auto) 10.7 H 1.6-8.6 10 ^3/uL Lymphocytes # (Auto) 1.3 0.4-5.4 10 ^3/uL Monocytes # (Auto) 1.0 0-1.3 10 ^3/uL Eosinophils # (Auto) 0.1 0-0.8 10 ^3/uL Basophils # (Auto) 0.1 0-0.2 10 ^3/uL Nucleated Red Blood Cells 0.0 % Prothrombin Time 10.9 9.3-11.8 sec Prothrombin Time INR 1.03 0.9-1.15 Activated Partial Thromboplast Time 30.1 24.5-34.5 SEC Sodium Level 140 136-145 mmol/L Potassium Level 3.9 3.5-5.1 mmol/L Chloride Level 107 98-107 mmol/L Carbon Dioxide Level 26 20-31 mmol/L Anion Gap 7 5-15 Blood Urea Nitrogen 14 9-23 mg/dL Creatinine 0.91 0.700-1.30 mg/dL Glomerular Filtration Rate Calc 91 >90 mL/min BUN/Creatinine Ratio 15.4 10.0-20.0 Serum Glucose 110 H 74-106 mg/dL Calcium Level 9.0 8.7-10.4 mg/dL Total Bilirubin 1.4 H 0.2-1.0 mg/dL Direct Bilirubin 0.7 H <0.3 mg/dL Aspartate Amino Transferase (AST) < 8 L 13-40 U/L Alanine Aminotransferase (ALT) 10 7-40 U/L Alkaline Phosphatase 125 H 46-116 U/L B-Type Natriuretic Peptide 37.16 0-100 pg/mL Total Protein 5.5 L 5.7-8.2 g/dL Albumin 4.0 3.2-4.8 g/dL Lactic Acid Level 1.5 0.4-2.0 mmol/L Assessment 69 YEAR OLD MALE WITH SEVERE COPD(CONTINUES TO SMOKE), WHO WAS TOO ILL TO [place] ERGO CHOLECYSTECTOMY FOR TREATMENT OF CHOLECYSTITIS IN FEBRUARY, HAD A CHOLECYSTOSTOMY TUBE PLACE AND DISCHARGED YESTERDAY CAME TO THE EMERGENCY ROOM BECAUSE"HE GOT THE TUBE CAUGHT ON A DOOR AND PULLED IT", NOW HAS A RIGID,BOARD LIKE ABDOMEN WITH REBOUND TENDERNESS AND MODERATE DISTENSION. BILIRUBIN SLIGHTLY ELEVATED IS ALK PHOSPHATASE. EXPLAINED TO PATIENT HE NEEDS AN OPERATION FOLLOWING WHICH HE WILL HAVE TO REMAIN INTUBATED AND ON VENTILATOR, PATIENT HAS BEEN NPO, Plan discussed with: Patient, Other SIDDHARTHA BROWN MD May 17, 2024 11:07
[2024-05-17] MEDS: ceFAZolin 1GM/50ML 100 ML IV ONE (11:42)
[2024-05-17] MEDS ORDERED: fentaNYL CITRATE 100 MCG/2 ML VL ONE ×2 (11:58→12:55)
[2024-05-17] MEDS ORDERED: KETAMINE 50mg/ML 1ml syringe ONE (11:58)
[2024-05-17] MEDS ORDERED: MIDAZOLAM HCL 2MG/2ML 2ml VIAL (1mg/ml) ONE (11:58)
[2024-05-17] MEDS ORDERED: DEXT1SYP (12:05)
[2024-05-17] MEDS ORDERED: ALBU0.084 (12:05)
[2024-05-17] MEDS ORDERED: ALBU108A5 (12:05)
--- NOTE | 2024-05-17 12:13 | DVH ---
EXAM: XR Chest, 1 View CLINICAL INDICATION: PRE PROCEDURE TECHNIQUE: Frontal view of the chest. COMPARISON: XY CHEST PORTABLE on DOS: 04/15/24, XY CHEST PORTABLE on DOS: 03/12/24, XY CHEST PORTAB LE on DOS: 02/29/24 FINDINGS: LUNGS AND PLEURAL SPACES: Pulmonary venous congestion. No consolidation. No pneumothorax. HEART: Unremarkable. No cardiomegaly. MEDIASTINUM: Unremarkable. Normal mediastinal contour. BONES/JOINTS: Unremarkable. No acute fracture. OTHER FINDINGS: . . IMPRESSION: Pulmonary venous congestion.
[2024-05-17] MEDS ORDERED: ROCURONIUM 10MG/ML 10ML VIAL IV ONE (12:54)
[2024-05-17] MEDS ORDERED: ETOMIDATE (2MG/ML) 20ML VIAL IV ONE (12:54)
[2024-05-17] MEDS ORDERED: PROPOFOL 10 MG/ML 20 ML IV ONE (13:41)
[2024-05-17] MEDS ORDERED: ceFAZolin 2 GM/D5W50ml 50 ML IV SCH (14:00)
[2024-05-17] MEDS: MIDAZOLAM DRIP 50 mg/50mL 50 ML IV SCH (14:07)
[2024-05-17] MEDS: BUPIVACAINE 0.5% P/F INJ 10 ML VIAL ONE (14:08)
[2024-05-17] MEDS: D5W/SOD CHL 0.45%/KCL 20MEQ 1,000 ML IV SCH (14:08)
[2024-05-17] MEDS ORDERED: HYDROmorphone HCL 2 MG/ML VL/or syr IV PRN ×2 (14:15)
[2024-05-17] MEDS ORDERED: ePHEDrine SULFATE 50 MG/ML AMP IV PRN (14:15)
--- NOTE | 2024-05-17 14:20 | DVHOP ---
DATE OF SURGERY: 05/17/2024 PREOPERATIVE DIAGNOSIS: Peritonitis. POSTOPERATIVE DIAGNOSES: Peritonitis, cholelithiasis, cholecystitis, peritoneal contamination. SURGEON: James Barnes MD TURPENTINE FARMER: Robert Garvey. ANESTHESIA: General endotracheal, Mr. Robison. PROCEDURES: Laparoscopy, laparoscopic cholecystectomy, peritoneal lavage, insertion of drain, removal of dislodged, cholecystostomy. PREOPERATIVE INDICATIONS: The patient is a 69-year-old male came to the emergency room, having caught his cholecystostomy tube on a door knob and pulled it, came to the emergency room and overnight developed peritonitis. On my examination, he had a board-like rigid abdomen and was taken to the operating room for laparoscopy, possible laparotomy. DESCRIPTION OF PROCEDURE: Under general endotracheal anesthesia, with the patient's skin prepped and draped, a supraumbilical incision was made and Veress needle inserted by the hanging drop technique in order to establish pneumoperitoneum to 15 mmHg pressure by insufflation with carbon dioxide. With the abdomen fully distended, the needle was removed and replaced with a 5 mm trocar port through which a 0-degree viewing laparoscope was inserted and under direct vision, additional 5 and 10 mm ports inserted through the abdominal wall in the right anterior axillary line at the level of the umbilicus and subxiphoid midline skin respectively. Laparoscopy revealed peritoneal infection evidenced by fibrinous exudates and purulent material located surrounding the liver. There was approximately 500 mL of contaminated bile surrounding the right lobe of the liver with fibrinous exudate. The patient's cholecystostomy was dislodged and was superior to the right lobe of the liver. The gallbladder was markedly elongated and inflamed affected by chronic and acute cholecystitis. The anatomy was very distorted secondary to the inflammation and peritonitis. However, we were able to place gallbladder on tension cephalad with great deal of difficulty due to inflamed tissue and great deal of adipose tissue. We were able to identify the cystic duct and cystic artery, which were exceedingly short. The infundibular portion of the gallbladder had palpable stones impacted within it. The gallbladder was placed on tension. The cystic duct was circumferentially dissected and skeletonized as well as the cystic artery. These two structures were then divided, close to the gallbladder between metallic clips and the gallbladder was resected from its liver bed. During the procedure, numerous stones became dislodged from the gallbladder and we retrieved to the best of my ability. The right upper quadrant was then profusely irrigated, irrigant was aspirated. Hemostasis was meticulously assured, found to be complete. At the termination of procedure, there was no evidence of bleeding from either the cholecystectomy site or from the port sites. A 10 mm Marcelino-Burt drain was placed underneath the right lobe of the liver to the vicinity of the cholecystectomy site and exteriorized through the 5 mm port site on the right flank, secured with a 2-0 nylon suture. Instrumentation was then withdrawn. Pneumoperitoneum was evacuated. Fascial defect closed using 0 Vicryl. Wounds approximated using Monocryl sutures, Dermabond glue and Steri-Strips. The patient remained hemodynamically stable throughout the procedure, left the operating room following an accurate needle and sponge count. No family members were in the waiting room. No family members phone numbers were given. MD IMCHAEL Hills/PATRICIA TID: [id number] RECEIPT: [id number]
[2024-05-17] MEDS: NOREPINEPHRINE 8 MG/250ML KIT 250 ML IV ONE (14:26)
[2024-05-17] MEDS: SUCCINYLCHOLINE CHLORIDE 20 MG/ML 10ML VIAL IV ONE (14:26)
[2024-05-17] MEDS: LIDOCAINE W/ EPINEPHRINE 1% 20ML VIAL ONE (14:29)
[2024-05-17] MEDS: HYDROmorphone HCL 2 MG/ML VL/or syr IV PRN (14:42)
--- NOTE | 2024-05-17 14:51 | DVH ---
CLINICAL INFORMATION: 69 years old, Male; status post intubation. TECHNIQUE: Single AP portable chest radiograph was obtained. COMPARISON: XY CHEST PORTABLE on DOS: 05/17/24, XY CHEST PORTABLE on DOS: 04/15/24, XY CHEST PORTABLE o n DOS: 03/12/24 FINDINGS: Distal tip of the endotracheal tube is approximately 8.2 cm above the level of the munir. Enteric tu be reaches the stomach, with the tip in the proximal stomach in the proximal fenestration at the leve l of the distal esophagus, approximately 4.5 cm proximal to the level of the gastroesophageal junctio n. No focal consolidation, pneumothorax, or pleural effusion. IMPRESSION: 1. Distal tip of the endotracheal tube is approximately 8.2 cm above the level of the munir. Advance ment by 4 cm could be considered to optimize positioning. 2. Enteric tube reaches the proximal stomach, although the proximal fenestration of the tube is at th e level of the distal esophagus. Advancement by approximately 5 cm could be considered to optimize p ositioning
[2024-05-17 15:51] LABS: Base Excess -7.9 mmol/L (-2.0-3.0)
--- NOTE | 2024-05-17 16:41 | DVH ---
CHEST RADIOGRAPH Indication: CONFIRM ET PLACEMENT Technique: Single frontal view of the chest was obtained COMPARISON: XY CHEST PORTABLE on DOS: 05/17/24, XY CHEST PORTABLE on DOS: 05/17/24, XY CHEST PORTABLE on DOS: 04/15/24, XY CHEST PORTABLE on DOS: 03/12/24, XY CHEST PORTABLE on DOS: 02/29/24 FINDINGS: Lines and Tubes: Endotracheal tube in satisfactory position. Enteric catheter side port at the GE junction. Lungs: Congestion Pleura: No effusion. No pneumothorax. Cardiomediastinal contours: Unremarkable Bones: Unremarkable IMPRESSION: Recommend advancement of enteric catheter by 3 cm.
--- NOTE | 2024-05-17 18:21 | DVHPNRES ---
Progress Note Date Seen: May 17, 2024 Resident Creating Document: MIGUEL MOSCOSO RESIDENT Has the PT tested + for MRSA If YES, has PT been informed?: No Medical Necessity Reason Pt with a Central, PICC or Fol: No Subjective Review of Systems This is a 69 year old male past medical history of HTN, CHF, COPD who presented to the ED with chief complaint of cholecystostomy tube dislodgement associated with severe abdominal pain. The patient stated that three days ago the cholecystostomy tube got stuck with a doorknob at the house and unintentionally pull the tube and slightly dislodged causing a lot of pain and inflammation at that time. Two days later the patient started to experiencing severe abdominal pain in the right upper quadrant and epigastric region. Apparently previously the patient was found to have cholecystitis but at that time due to severe comorbidities colostomy tube was placed instead of surgical cholecystectomy. Upon my examination, the patient was on severe excruciating pain in the right upper quadrant and epigastric region extending to the periumbilical region. The patient was hairm hard abdomen most likely consistent with acute abdomen. Surgery was consulted for possible laparoscopy due to suspection of peritonitis. The patient was admitted for further assessment and management per surgery. Patient seen and examined at bedside. The patient was experiencing excruciating right upper quadrant and epigastric abdominal pain that was extending to the periumbilical region. Upon my examination the abdomen was firm, hard and tender most likely consistent with acute abdomen. Surgery was consulted which took the patient to the OR for laparoscopic cholecystectomy with peritoneal lavage, insertion of a CORDELIA drain at the level of the liver where the gallbladder was located. Removal of cholecystostomy tube was performed as well. The patient was started on IV cefazolin and metronidazole. The patient remains intubated on the following parameters: FIO2:30% RR:18 TV:450 SAT:96%. We will f/u with abg. We will continue current medical management. ROS unable to obtain due to patient current status intubated. Objective vital signs Vital Sign Date Time Temp Pulse Resp B/P (MAP) Pulse Ox O2 Delivery O2 Flow Rate FiO2 05/17/24 17:06 98 18 119/58 (78) 96 30 05/17/24 13:45 97.7 97.7 05/17/24 07:41 Nasal Cannula* 3 Total Intake and Output 1/05/16/24 05/17/24 15:00 23:00 07:00 Intake Total 625 ml Balance 625 ml medications Current Medications Medications Dose Ordered Sig/Jania Route Start Time Stop Time Status Last Admin Dose Admin Sodium Chloride 10 ml Q8HR IV 05/17/24 06:00 05/17/24 05:45 10 ML Acetaminophen 650 mg Q6HP PRN PO 05/17/24 01:30 Nitroglycerin 0.4 mg Q5MINP PRN SL 05/17/24 01:30 Morphine Sulfate 2 mg Q30M PRN IV 05/17/24 01:30 Furosemide 20 mg DAILY IV 05/17/24 10:00 05/17/24 10:31 20 MG Midazolam HCl 50 ml @ 1 mls/hr Q24H IV 05/17/24 13:45 05/17/24 14:07 1 MLS/HR Potassium Chloride/Dextrose/ Sod Cl 1,000 ml @ 120 mls/hr Q8H20M IV 05/17/24 13:45 05/17/24 14:08 120 MLS/HR Cefazolin Sodium/ Dextrose 50 ml @ 50 mls/hr Q8HR IV 05/17/24 14:00 Metronidazole 100 ml @ 100 mls/hr Q8HR IV 05/17/24 14:00 Morphine Sulfate 2 mg Q4HPRN PRN IV 05/17/24 13:45 Ondansetron HCl 4 mg Q4HPRN PRN IV 05/17/24 13:45 Pantoprazole Sodium 40 mg DAILY IV 05/18/24 10:00 Examination Physical Examination General: Patient is sedated, currently intubated: VT 450ml, FIO2 30%, RR18, sat 96%. HEENT: Normocephalic, atraumatic, moist mucous membranes Respiratory/pulmonary: Clear lungs bilaterally, no associated crackles or wheezes. Cardiovascular: Normal heart sounds S1 and S2 with no associated murmurs Abdomen: Abdomen nondistended, there is abdominal binder with CORDELIA drain on place. Extremities: There is no peripheral edema present at the lower extremities. Peripheral Pulses: 3+ Radial (R). 3+ Radial (L). 3+ Dorsalis pedis (R). 3+ Dorsalis pedis(L) Skin: No rashes or pruritus, there is no sacral edema present at this time. Neurological: RASS -3 laboratory and microbiology Laboratory Tests 2/1/25 07:37 Test 05/17/24 07:37 Range/Units Serum Glucose 110 H 74-106 mg/dL Problem List/Assessment/Plan Problem List/Assessment/Plan Assessment/Plan Acute abdominal pain due to peritonitis due to complicated cholecystitis with dislodged cholecystostomy tube Acute abdomen Peritonitis Sepsis due to above S/P Laparoscopic cholecystectomy with peritoneal lavage -initially patient reported cholecystostomy tube dislodgement -initial WBC was 13.1 -patient had firm and hard abdomen to palpation -CT scan of the abdomen showed trace right perihepatic fluid which may reflect residual from initial catheter placement. Acute biliary leak is less likely but can not be entirely excluded. -surgery was consulted which performed laparoscopic cholecystectomy with peritoneal lavage -CORDELIA drain was placed per surgeon -patient is currently intubated on the following mechanical ventilatory parameters: Tidal volume 450, FiO2 30%, respiratory rate 18, saturating 96% -follow-up ABG Acute on chronic heart failure with preserved ejection fraction (HFpEF 50%) -last echocardiogram performed of 04/08 showed an LVEF of 50% -furosemide 20 mg IV daily -monitor strict in's and out COPD, not exacerbation -currently intubated post surgery on mechanical ventilatory parameters as described above -monitor saturation History of DVT -status post IVC filter placed on February of 2024 Tobacco abuse -we will consult the patient wants the patient is more stable Goals of care discussed with the patient at bedside for >23min, FULL CODE Plan discussed with Dr. Yusuf Plan discussed with: Patient, Other My Orders My Orders Orders - MIGUEL MOSCOSO Procedure Category Date Status Time *Consult CONS 05/17/24 Transmitted / 13:33 Date of Service: May 17, 2024 Billing Provider: NICOLAS YUSUF MD Common Visit Codes: [id number] INP/OBS CARE(HIGH) MIGUEL MOSCOSO RESIDENT May 17, 2024 18:21 NICOLAS YUSUF MD Jun 04, 2024 11:51
[2024-05-17 18:57] LABS: Base Excess -0.7 mmol/L (-2.0-3.0)
[2024-05-17] MEDS: ceFAZolin 2 GM/D5W50ml 50 ML IV SCH (19:48)
[2024-05-17] MEDS: fentaNYL Drip 2500mCg/250mlNS 250 ML IV SCH (20:08)
[2024-05-17] MEDS: fentaNYL Drip 2500mCg/250mlNS 250 ML IV ONE (20:16)
--- NOTE | 2024-05-17 23:21 | DVHINCON2 ---
Date of service: May 17, [address] Barnes Reason for Consultation Acute hypoxic respiratory failure requiring mechanical ventilator History of Present Illness 69 year old man with past medical history of HTN, CHF, COPD presented to the ED on 05/16/24 with a chief complaint of cholecystostomy tube malfunction onset 3 days back, worsening on day of presentation with severe abdominal pain. Patient had tube placed a few days prior; when he was walking by a door, tube got stuck on the door knob and got pulled. Patient was found to have cholecystitis; General surgery was consulted and pt underwent cholecystostomy tube placement. Patient was admitted for further care and pulmonary consultation is requested for evaluation and management of acute hypoxic respiratory failure requiring mechanical vent. Review of Systems: 14-point review of systems negative unless otherwise noted above. Past Medical History: Heart failure with preserved ejection fraction, COPD ,GERD, back pain, h/o DVT (was previously on Eliquis but IVC filter placed in February 2024) Past Surgical History: Appendectomy, IVC filter placement, Recent history of cholecystostomy placement. Medications: Reviewed. Allergies: No known drug allergies. Family History: DM, heart disease Social History: Smoker. Smokes 3 cigarettes per day. No alcohol or illicit drug use. Family History: Cardiovascular disease G8 MOTHER G8 FATHER Diabetes mellitus G8 MOTHER Allergies: Coded Allergies: NO KNOWN ALLERGIES (Unverified , 02/29/24) Home Meds Active Scripts Respiratory Therapy Supplies (Nebulizer Kit/Tubing/Mout) Kit, APPLIC XX BID PRN, #1 For nebulization Prov:LIBORIO TRAN 03/19/24 Ipratropium [place] (Ipratropium [place]) 0.02 % Adriana, 0.5 % HHN BID for 30 Days, #120 ML Prov:LIBORIO TRAN 03/19/24 Albuterol Sulfate (Ventolin) 2.5 Mg/0.5 Ml Nb, 2.5 MG NEB Q4HWA for 30 Days, #10 INH Prov:LIBORIO TRAN 03/19/24 Prednisone (Prednisone) 20 Mg Tab, 20 MG PO DAILY for 3 Days, #3 MG Prov:LIBORIO TRAN 03/18/24 Nicotine (Nicotine) 14 Mg/24 Hr Dis, 1 PATCH TD DAILY for 30 Days, #30 DIS Prov:LIBORIO TRAN 03/18/24 Multiple Vitamin (Mvi Tab) 1 Tab Tb, 1 TAB PO DAILY for 30 Days, #30 TAB Prov:LIBORIO TRAN [facility] 03/18/24 Doxycycline Monohydrate (Doxycycline Monohydrate) 100 Mg Tab, 100 MG PO Q12HR for 5 Days, #10 TAB Prov:LIBORIO TRAN [facility] 03/18/24 Dextromethorphan-Guaifenesin (Robitussin-Dm) 10 Ml Sr, 10 ML PO Q6HPRN PRN for 30 Days, #120 SYP Prov:LIBORIO TRAN [facility] 03/18/24 Ascorbic Acid (VITAMIN C TABLET) 500 Mg Tb, 500 MG PO BID for 30 Days, #60 TAB Prov:CHEL[facility]AL[facility]ORIO [facility] 03/18/24 Acetaminophen (Acetaminophen) 325 Mg Tab, 650 MG PO Q6HP PRN for 10 Days, #80 TAB Prov:[facility] 03/18/24 Reported Medications Dextromethorphan-Guaifenesin (Chest Congestion Relief D 10-100 mg/5Ml) 1 Syp Syp 05/17/24 Albuterol Sulfate (Albuterol Sulfate) 0.083 % Neb 05/17/24 Albuterol Sulfate (Albuterol Sulfate Hfa) 108 Mcg/Act Aer 05/17/24 Thiamine Hcl (VITAMIN B-1) 100 Mg Tb, 1 TAB PO DAILY 03/12/24 Aripiprazole (Aripiprazole) 5 Mg Tab, 1 TAB PO DAILY for 30 Days, #30 03/12/24 Atorvastatin Calcium (ATORVASTATIN CALCIUM) 40 Mg Tab, 40 MG PO DAILY for 30 Days, #30 03/12/24 Pantoprazole Sodium Sesquihydr (Pantoprazole Sodium) 40 Mg Tab, 1 TAB PO DAILY for 30 Days, #30 03/12/24 Furosemide (Furosemide) 20 Mg Tab, 1 TAB PO DAILY 03/12/24 Current Medications Current Medications Medications (Trade) Dose Ordered Sig/Jania Route PRN Reason Start Time Stop Time Status Last Admin Sodium Chloride (Saline Lock Ns) 10 ml Q8HR IV 05/17/24 06:00 05/17/24 22:28 Ondansetron HCl (Zofran) 4 mg Q4HP PRN IV NAUSEA / VOMITING 05/17/24 01:30 05/17/24 13:52 DC Acetaminophen (Tylenol Tablet) 650 mg Q6HP PRN PO PAIN SCALE 1-3 OR TEMP>100.4 05/17/24 01:30 Morphine Sulfate 2 mg Q4HPRN PRN IV SEVERE PAIN (7-10 PAIN SCALE) 05/17/24 01:30 05/17/24 13:52 DC 05/17/24 07:54 Nitroglycerin (Ntrostat Sublingual) 0.4 mg Q5MINP PRN SL FOR CHEST PAIN 05/17/24 01:30 Morphine Sulfate 2 mg Q30M PRN IV FOR CHEST PAIN 05/17/24 01:30 Ceftriaxone Sodium 50 ml @ 100 mls/hr DAILY IV 05/18/24 10:00 05/17/24 13:55 DC Metronidazole 100 ml @ 100 mls/hr Q8HR IV 05/17/24 06:00 05/17/24 13:52 DC 05/17/24 05:45 Furosemide (Lasix Injection) 20 mg DAILY IV 05/17/24 10:00 05/17/24 10:31 Midazolam HCl 50 ml @ 1 mls/hr Q24H IV 05/17/24 13:45 05/17/24 14:07 Potassium Chloride/Dextrose/ Sod Cl 1,000 ml @ 120 mls/hr Q8H20M IV 05/17/24 13:45 05/17/24 22:28 Cefazolin Sodium/ Dextrose 50 ml @ 50 mls/hr Q8HR IV 05/17/24 14:00 05/17/24 18:29 DC Metronidazole 100 ml @ 100 mls/hr Q8HR IV 05/17/24 14:00 05/17/24 22:26 Morphine Sulfate 2 mg Q4HPRN PRN IV SEVERE PAIN (7-10 PAIN SCALE) 05/17/24 13:45 Ondansetron HCl (Zofran) 4 mg Q4HPRN PRN IV NAUSEA / VOMITING 05/17/24 13:45 Pantoprazole Sodium (Protonix) 40 mg DAILY IV 05/18/24 10:00 Ephedrine Sulfate (ePHEDrine SULFATE) 10 mg Q10M PRN IV SBP LESS THAN 90 05/17/24 14:15 05/17/24 14:56 DC Hydromorphone HCl (Dilaudid Injection) 0.5 mg Q2HP PRN IV SEVERE PAIN (7-10 PAIN SCALE) 05/17/24 14:15 05/17/24 14:21 DC Hydromorphone HCl (Dilaudid Injection) 0.5 mg Q10M PRN IV SEVERE PAIN (7-10 PAIN SCALE) 05/17/24 14:15 05/17/24 14:56 DC 05/17/24 15:12 Hydromorphone HCl (Dilaudid Injection) 0.25 mg Q10M PRN IV MODERATE PAIN (4-6 PAIN SCALE) 05/17/24 14:15 05/17/24 14:54 DC Cefazolin Sodium/ Dextrose 50 ml @ 50 mls/hr Q8HR IV 05/17/24 18:30 05/17/24 22:00 Fentanyl Citrate 250 ml @ 2.5 mls/hr Q24H IV 05/17/24 20:00 05/17/24 20:08 Vital Signs Vital Signs Date Time Temp Pulse Resp B/P (MAP) Pulse Ox O2 Delivery O2 Flow Rate FiO2 05/17/24 22:20 86 20 111/79 (90) 95 30 05/17/24 19:01 Mechanical Ventilator+ 05/17/24 17:01 98.7 98.7 05/17/24 07:41 3 Physical Exam Gen.: Patient lying in bed in medical ICU. Sedated, intubated on mechanical ventilator. Head: Normocephalic, atraumatic. Eyes: PERRLA. Ears: Normal external anatomy. Throat: Endotracheal tube and orogastric tube in place. Neck: Supple, trachea midline. Chest: Transmitted breath sounds bilaterally. Decreased air entry bilaterally. No wheezing. Bibasilar crackles. Cardiovascular: Positive S1, positive S2. Regular rate and rhythm. Abdomen: Positive bowel sounds in all 4 quadrants. Soft, nontender, nondistended. : Adams in place. Normal external genitalia. Rectal: Deferred. Skin: Warm, dry. Intact. Extremities: 2+ radial pulses bilaterally. No lower extremity edema. Neuro: Sedated. Labs/Diagnostic Data Labs Test 05/17/24 18:50 05/17/24 15:40 05/17/24 07:37 05/16/24 18:29 Range/Units Blood Gas Specimen Type Arterial Blood Gas Sample Site Arterial line Blood Gas Patient Temperature 37.0 Arterial Blood Date Drawn [id number] Arterial Blood pH 7.384 7.350-7.450 Arterial Blood Partial Pressure CO2 41.8 35.0-48.0 mmHg Arterial Blood Partial Pressure O2 72.1 L 83.0-108.0 mmHg Arterial Blood HCO3 24.4 21.0-28.0 mmol/L Arterial Blood Oxygen Saturation 94.9 94.0-98.0 % Arterial Blood Base Excess -0.7 -2.0-3.0 mmol/L Arterial Blood Oxyhemoglobin 92.1 L 94.0-98.0 % Arterial Blood Carboxyhemoglobin 2.6 H 0.5-1.5 % Arterial Blood Methemoglobin 0.3 0.0-1.5 % Jonnie Test N/a Blood Gas Total Hemoglobin 15.10 13.5-17.5 g/dL Blood Gas Set Respiration Rate 18.0 Blood Gas Modality Vent - ac FiO2 % 30.0 Blood Gas Tidal Volume 550.0 Blood Gas PEEP or CPAP 5.0 Blood Gas Critical Value Read Back Yes Blood Gas Notified Whom kiersten Barnes md Blood Gas Notified Time [id number] Blood Gas Notified By P[employer] Machine Operator artem rivera White Blood Count 13.1 H 4.4-10.8 10^3/uL Red Blood Count 4.55 4.5-5.90 10^6/uL Hemoglobin 14.0 13.5-17.5 g/dL Hematocrit 41.7 # 41.0-53.0 % Mean Corpuscular Volume 91.5 80.0-100.0 fL Mean Corpuscular Hemoglobin 30.8 28.0-32.0 pg Mean Corpuscular Hemoglobin Concent 33.7 32.0-36.0 g/dL Red Cell Distribution Width 13.8 11.8-14.3 % Platelet Count 217 140-450 10^3/uL Mean Platelet Volume 8.1 6.9-10.8 fL Neutrophils (%) (Auto) 81.9 H 37.0-80.0 % Lymphocytes (%) (Auto) 9.7 L 10.0-50.0 % Monocytes (%) (Auto) 7.6 0.0-12.0 % Eosinophils (%) (Auto) 0.4 0.0-7.0 % Basophils (%) (Auto) 0.4 0.0-2.0 % Neutrophils # (Auto) 10.7 H 1.6-8.6 10 ^3/uL Lymphocytes # (Auto) 1.3 0.4-5.4 10 ^3/uL Monocytes # (Auto) 1.0 0-1.3 10 ^3/uL Eosinophils # (Auto) 0.1 0-0.8 10 ^3/uL Basophils # (Auto) 0.1 0-0.2 10 ^3/uL Nucleated Red Blood Cells 0.0 % Prothrombin Time 10.9 9.3-11.8 sec Prothrombin Time INR 1.03 0.9-1.15 Activated Partial Thromboplast Time 30.1 24.5-34.5 SEC Sodium Level 140 136-145 mmol/L Potassium Level 3.9 3.5-5.1 mmol/L Chloride Level 107 98-107 mmol/L Carbon Dioxide Level 26 20-31 mmol/L Anion Gap 7 5-15 Blood Urea Nitrogen 14 9-23 mg/dL Creatinine 0.91 0.700-1.30 mg/dL Glomerular Filtration Rate Calc 91 >90 mL/min BUN/Creatinine Ratio 15.4 10.0-20.0 Serum Glucose 110 H 74-106 mg/dL Calcium Level 9.0 8.7-10.4 mg/dL Total Bilirubin 1.4 H 0.2-1.0 mg/dL Direct Bilirubin 0.7 H <0.3 mg/dL Aspartate Amino Transferase (AST) < 8 L 13-40 U/L Alanine Aminotransferase (ALT) 10 7-40 U/L Alkaline Phosphatase 125 H 46-116 U/L B-Type Natriuretic Peptide 37.16 0-100 pg/mL Total Protein 5.5 L 5.7-8.2 g/dL Albumin 4.0 3.2-4.8 g/dL Lactic Acid Level 1.5 0.4-2.0 mmol/L Assessment Impression: Acute hypoxic respiratory failure On mechanical ventilator S/p laparoscopic cholecystectomy Sepsis Peritonitis Nicotine dependence Plan: s/p intubation on mechanical ventilator. On AC mode; RR 12 -->18, VT 550, PEEP 5, FIO2 30% Titrate FIO2 to keep O2 saturation above 90%. VAP bundle. Daily ABG and CXR while intubated Sedate for ventilator synchrony -on Versed 4 mg IV fluids at 120 ml/hr. Continue antibiotics. NGT - GI hemorrhage Monitor hemoglobin Surgery recs appreciated. Obtain CXR/ABG in the AM. Start pressors if necessary to maintain a mean arterial blood pressure greater than 65 mmHg. Monitor renal function Monitor electrolytes. Supplement as necessary. Monitor ins and outs. Maintain euvolemia. GI prophylaxis. DVT prophylaxis. Prognosis: Poor given patient's multiple co-morbidities. Condition: Critical Rest of plan per hospitalist and other consultants. A total of 35 minutes of critical care time was spent reviewing the patient r ecord, examining the patient, making a diagnostic and therapeutic plan, discussing this plan with the medical personnel, following up on diagnostic studies and following the patient for clinical stability excluding any and all procedures. At least 50% of this time was spent in direct, [id number] contact. Thank you Dr. Barnes for allowing me to participate in this patient's care. Further recommendations will depend on the patient's clinical course. Please do not hesitate to contact me if you have any questions or concerns. This medical document was created using an electronic medical record system with [employer] computerized dictation system. Although these documentations are being carefully reviewed, there may still be some phonetic and typographical changes. The errors are purely typographical, due to imperfection on the software program, and do not reflect any compromise in the patient's medical care. Plan discussed with: Other (FARHEEN Gutierrez/MD Barnes) MARK ULRICH MD May 17, 2024 23:21
[2024-05-18] VITALS (100 sets, daily range): BP systolic 89–163; BP diastolic 46–94; PULSE 60–98; RESP 15–27; TEMP 98.2–99.2; O2SAT 90–100
[2024-05-18 03:48] LABS: Basophils # (auto) 0 10 ^3/uL (0-0.2); Basophils % (auto) 0.1 % (0.0-2.0); Eosinophils # (auto) 0 10 ^3/uL (0-0.8); Eosinophils % (auto) 0.1 % (0.0-7.0); Hematocrit 41.6 % (41.0-53.0); Lymphocytes # (auto) 0.6 10 ^3/uL (0.4-5.4); Lymphocytes % (auto) 4.2 % (10.0-50.0); Mean Corpuscular Hemoglobin 31.1 pg (28.0-32.0); Mean Corpuscular Hgb Conc. 33.6 g/dL (32.0-36.0); Mean Corpuscular Volume 92.5 fL (80.0-100.0); Monocytes # (auto) 0.7 10 ^3/uL (0-1.3); Monocytes % (auto) 4.7 % (0.0-12.0); Neutrophils # (auto) 13.8 10 ^3/uL (1.6-8.6); Neutrophils % (auto) 90.9 % (37.0-80.0); Platelet Count (auto) 189 10^3/uL (140-450); Red Blood Cells 4.49 10^6/uL (4.5-5.90); White Blood Cell 15.2 10^3/uL (4.4-10.8)
[2024-05-18 03:59] LABS: Alanine Aminotransferase 23 U/L (7-40); Albumin 3.5 g/dL (3.2-4.8); Alkaline Phosphatase 110 U/L (46-116); Anion Gap 7 (5-15); Aspartate Aminotransferase 22 U/L (13-40); BUN/Creatinine Ratio 13.9 (10.0-20.0); Bilirubin, Total 0.8 mg/dL (0.2-1.0); Blood Urea Nitrogen 10 mg/dL (9-23); Calcium 9.1 mg/dL (8.7-10.4); Carbon Dioxide 26 mmol/L (20-31); Chloride 104 mmol/L (98-107); Magnesium 1.7 mg/dL (1.6-2.6); Potassium 4.2 mmol/L (3.5-5.1); Sodium 137 mmol/L (136-145)
[2024-05-18 04:22] LABS: Glucose 153 mg/dL (74-106); Total Protein 5.3 g/dL (5.7-8.2)
--- NOTE | 2024-05-18 05:42 | DVH ---
EXAM: XY CHEST XRAY 1 VIEW HISTORY: reevaluate tube position and lung parenchyma COMPARISON: XY CHEST PORTABLE on DOS: 05/17/24, XY CHEST PORTABLE on DOS: 05/17/24, XY CHEST PORTABLE on DOS: 05/17/24, XY CHEST PORTABLE on DOS: 04/15/24, XY CHEST PORTABLE on DOS: 03/12/24 TECHNIQUE: Portable AP view of the chest was performed. FINDINGS: Endotracheal tube is re-identified with its tip about 3.3 cm above the munir. OG tube is re-identifi ed. The lung apices are not fully imaged here. There is interstitial prominence, greater centrally. N o pneumothorax or new infiltrates. The heart is not enlarged. IMPRESSION: 1. Mechanical ventilation with tubes and lines as above. 2. Central interstitial prominence may be due to reactive airways disease or mild CHF.
[2024-05-18 07:31] LABS: Base Excess -1.7 mmol/L (-2.0-3.0)
[2024-05-18] MEDS ORDERED: cefTRIAXone 1GM/50ML D5W 50 ML IV SCH (10:00)
[2024-05-18] MEDS: PANTOPRAZOLE 40 MG/10 ML VIAL INJ IV SCH (10:11)
--- NOTE | 2024-05-18 11:39 | DVHPN2 ---
Progress Note Date Seen: May 18, 2024 Has the PT tested + for MRSA If YES, has PT been informed?: No Medical Necessity Reason Pt with a Central, PICC or Fol: No Objective vital signs Vital Sign Date Time Temp Pulse Resp B/P (MAP) Pulse Ox O2 Delivery O2 Flow Rate FiO2 05/18/24 10:12 104/69 05/18/24 09:33 73 18 96 30 05/18/24 08:00 Mechanical Ventilator+ 05/18/24 04:00 98.2 98.2 05/17/24 07:41 3 Total Intake and Output 05/17/24 05/17/24 05/18/24 15:00 23:00 07:00 Intake Total 375 ml 1323.5 ml 1264 ml Output Total 0 ml 280 ml 1030 ml Balance 375 ml 1043.5 ml 234 ml medications Current Medications Medications Dose Ordered Sig/Jania Route Start Time Stop Time Status Last Admin Dose Admin Sodium Chloride 10 ml Q8HR IV 05/17/24 06:00 05/18/24 06:12 10 ML Acetaminophen 650 mg Q6HP PRN PO 05/17/24 01:30 Nitroglycerin 0.4 mg Q5MINP PRN SL 05/17/24 01:30 Morphine Sulfate 2 mg Q30M PRN IV 05/17/24 01:30 Furosemide 20 mg DAILY IV 05/17/24 10:00 05/18/24 10:11 20 MG Midazolam HCl 50 ml @ 1 mls/hr Q24H IV 05/17/24 13:45 05/18/24 10:12 8 MLS/HR Potassium Chloride/Dextrose/ Sod Cl 1,000 ml @ 120 mls/hr Q8H20M IV 05/17/24 13:45 05/17/24 22:28 120 MLS/HR Metronidazole 100 ml @ 100 mls/hr Q8HR IV 05/17/24 14:00 05/18/24 05:50 100 MLS/HR Morphine Sulfate 2 mg Q4HPRN PRN IV 05/17/24 13:45 Ondansetron HCl 4 mg Q4HPRN PRN IV 05/17/24 13:45 Pantoprazole Sodium 40 mg DAILY IV 05/18/24 10:00 05/18/24 10:11 40 MG Cefazolin Sodium/ Dextrose 50 ml @ 50 mls/hr Q8HR IV 05/17/24 18:30 05/18/24 05:50 50 MLS/HR Fentanyl Citrate 250 ml @ 2.5 mls/hr Q24H IV 05/17/24 20:00 05/17/24 20:08 2.5 MLS/HR laboratory and microbiology Laboratory Tests 05/18/24 03:16 Test 05/18/24 03:16 Range/Units Serum Glucose 153 H 74-106 mg/dL Problem List/Assessment/Plan Problem List/Assessment/Plan 05/18/24 remains sedated and intubated on ventilator, no need for BP support, good urine output, labs ok, abdomen soft and non distended, wounds clean and well approximated, CORDELIA drainage moderate volume, bile stained Plan discussed with: SIDDHARTHA Enamorado MD May 18, 2024 11:39
--- NOTE | 2024-05-18 14:48 | DVHPNRES ---
Progress Note Date Seen: May 18, 2024 Resident Creating Document: GARCÍA ASCENCIO RESIDENT Has the PT tested + for MRSA If YES, has PT been informed?: No Medical Necessity Reason Pt with a Central, PICC or Fol: No Subjective Review of Systems This is a 69 year old male past medical history of HTN, CHF, COPD who presented to the ED with chief complaint of cholecystostomy tube dislodgement associated with severe abdominal pain. The patient stated that three days ago the cholecystostomy tube got stuck with a doorknob at the house and unintentionally pull the tube and slightly dislodged causing a lot of pain and inflammation at that time. Two days later the patient started to experiencing severe abdominal pain in the right upper quadrant and epigastric region. Apparently previously the patient was found to have cholecystitis but at that time due to severe co- morbidities colostomy tube was placed instead of surgical cholecystectomy. Upon my examination, the patient was on severe excruciating pain in the right upper quadrant and epigastric region extending to the periumbilical region. The patient was hard abdomen most likely consistent with acute abdomen. Patient was examined seen and examined on the bedside. The patient underwent laparoscopic cholecystectomy with peritoneal lavage yesterday and today S/P laparoscopic cholecystectomy day 1. The patient remains intubated on the following parameters: FIO2:30% RR:18 TV: 530 SAT:96%. Last 12 hours CORDELIA collection 380 mL. Surgery evaluated the patient today and recommended continue current management and continue sedation for today as well. ROS unable to obtain due to patient current status intubated. Objective vital signs Vital Sign Date Time Temp Pulse Resp B/P (MAP) Pulse Ox O2 Delivery O2 Flow Rate FiO2 05/18/24 13:39 76 18 121/59 (79) 95 30 05/18/24 10:00 Mechanical Ventilator+ 05/18/24 04:00 98.2 98.2 05/17/24 07:41 3 Total Intake and Output 05/17/24 05/17/24 05/18/24 15:00 23:00 07:00 Intake Total 375 ml 1323.5 ml 1282 ml Output Total 0 ml 280 ml 1030 ml Balance 375 ml 1043.5 ml 252 ml medications Current Medications Medications Dose Ordered Sig/Jania Route Start Time Stop Time Status Last Admin Dose Admin Sodium Chloride 10 ml Q8HR IV 05/17/24 06:00 05/18/24 14:00 10 ML Acetaminophen 650 mg Q6HP PRN PO 05/17/24 01:30 Nitroglycerin 0.4 mg Q5MINP PRN SL 05/17/24 01:30 Morphine Sulfate 2 mg Q30M PRN IV 05/17/24 01:30 Furosemide 20 mg DAILY IV 05/17/24 10:00 05/18/24 10:11 20 MG Midazolam HCl 50 ml @ 1 mls/hr Q24H IV 05/17/24 13:45 05/18/24 10:12 8 MLS/HR Potassium Chloride/Dextrose/ Sod Cl 1,000 ml @ 120 mls/hr Q8H20M IV 05/17/24 13:45 05/17/24 22:28 120 MLS/HR Metronidazole 100 ml @ 100 mls/hr Q8HR IV 05/17/24 14:00 05/18/24 05:50 100 MLS/HR Morphine Sulfate 2 mg Q4HPRN PRN IV 05/17/24 13:45 Ondansetron HCl 4 mg Q4HPRN PRN IV 05/17/24 13:45 Pantoprazole Sodium 40 mg DAILY IV 05/18/24 10:00 05/18/24 10:11 40 MG Cefazolin Sodium/ Dextrose 50 ml @ 50 mls/hr Q8HR IV 05/17/24 18:30 05/18/24 05:50 50 MLS/HR Fentanyl Citrate 250 ml @ 2.5 mls/hr Q24H IV 05/17/24 20:00 05/17/24 20:08 2.5 MLS/HR Examination Physical examination: General Appearance: Patient is sedated, currently intubated: VT 530ml, FIO2 30%, RR18, sat 96%. HEENT: Atraumatic, PERRLA, EOMI, Mucous membrane moist/pink Respiratory: Clear to auscultation, Normal air movement Cardiovascular: Regular rate, Normal S1, Normal S2, No murmurs, no chest wall tenderness Abdominal: Abdomen soft and non distended, wounds clean and well approximated, Normal bowel sounds, Soft, No hepatospenomegaly, No masses Extremities: No clubbing, No cyanosis, No edema, Normal pulses, No tenderness/swelling Skin: No rashes, No breakdown, No significant lesion Neuro: RASS-3 laboratory and microbiology Laboratory Tests 2/2/25 03:16 Test 05/18/24 03:16 Range/Units Serum Glucose 153 H 74-106 mg/dL Microbiology Date/Time Source Procedure Growth Status 05/17/24 14:25 Sputum Expectorated Sputum Gram Stain Pending Resulted 05/17/24 14:25 Sputum Expectorated Sputum Respiratory Culture - Preliminary Resulted 05/17/24 13:14 Peritoneal Fluid Gram Stain Pending Resulted 05/17/24 13:14 Peritoneal Fluid Anaerobic Culture - Preliminary Resulted 05/17/24 13:14 Peritoneal Fluid Aerobic Culture - Preliminary Resulted Labs and/or images reviewed: Labs reviewed by me, Image(s) reviewed by me Problem List/Assessment/Plan Problem List/Assessment/Plan Assessment/Plan Acute abdominal pain due to peritonitis due to complicated cholecystitis with dislodged cholecystostomy tube Acute abdomen Peritonitis Sepsis due to above S/P Laparoscopic cholecystectomy with peritoneal lavage -initially patient reported cholecystostomy tube dislodgement and sign of peritonitis - WbC count trend 12.2>13.1>15.2 -CT scan of the abdomen showed trace right perihepatic fluid which may reflect residual from initial catheter placement. Acute biliary leak is less likely but can not be entirely excluded. - Day 1 of laparoscopic cholecystectomy with peritoneal lavage and CORDELIA drain collection in 12 hr is 380 ml -patient is currently intubated on the following mechanical ventilatory parameters: Tidal volume 530, FiO2 30%, respiratory rate 18, saturating 96% - Surgery evaluated the patient today and recommended continue current management and continue sedation for today as well. -follow-up ABG Acute on chronic heart failure with preserved ejection fraction (HFpEF 50%) -last echocardiogram performed of 04/08 showed an LVEF of 50% -furosemide 20 mg IV daily -monitor strict I&O COPD, not exacerbation -currently intubated post surgery on mechanical ventilatory parameters as described above -monitor saturation History of DVT -status post IVC filter placed on February of 2024 Tobacco abuse -we will consult the patient wants the patient is more stable Code status - Full code Plan discussed with Dr. Yusuf Plan discussed with: Patient, Other Dietary Evaluation Review Comments: 1. Consider advancing to cardiac diet when medically appropriate 2. Consider Jevity 1.5 TF @45ml/hr providing 1620kcal, 69g pro, 821ml FW/TPN if NPO >7 days Expected Outcomes/Goals: 1. Pt will meet >75% estimated needs within 2-3 days Date of Service: May 18, 2024 Billing Provider: NICOLAS YUSUF MD Common Visit Codes: [id number] INP/OBS CARE(HIGH) FRANCES ASCENCIOHIRA RESIDENT May 18, 2024 14:48 NICOLAS YUSUF MD Jun 04, 2024 11:56
--- NOTE | 2024-05-18 22:51 | DVHPN2 ---
Progress Note - Dictate Date Seen: May 18, 2024 Has the PT tested + for MRSA If YES, has PT been informed?: No Medical Necessity Reason Pt with a Central, PICC or Fol: Yes The following are medically ne: Serna Catheter Reason for serna catheter: Strict I&O Subjective Patient seen and examined at bedside. Sedated, intubated on mechanical ventilator. Overnight events reviewed. vital signs Vital Sign Date Time Temp Pulse Resp B/P (MAP) Pulse Ox O2 Delivery O2 Flow Rate FiO2 05/18/24 22:30 61 18 108/58 (75) 94 05/18/24 22:00 30 05/18/24 22:00 Mechanical Ventilator+ 05/18/24 20:00 99.2 99.2 05/17/24 07:41 3 Total Intake and Output 05/17/24 05/17/24 05/18/24 15:00 23:00 07:00 Intake Total 375 ml 1323.5 ml 1282 ml Output Total 0 ml 280 ml 1030 ml Balance 375 ml 1043.5 ml 252 ml medications Current Medications Medications Dose Ordered Sig/Jania Route Start Time Stop Time Status Last Admin Dose Admin Sodium Chloride 10 ml Q8HR IV 05/17/24 06:00 05/18/24 21:48 10 ML Acetaminophen 650 mg Q6HP PRN PO 05/17/24 01:30 Nitroglycerin 0.4 mg Q5MINP PRN SL 05/17/24 01:30 Morphine Sulfate 2 mg Q30M PRN IV 05/17/24 01:30 Furosemide 20 mg DAILY IV 05/17/24 10:00 05/18/24 10:11 20 MG Midazolam HCl 50 ml @ 1 mls/hr Q24H IV 05/17/24 13:45 05/18/24 17:09 8 MLS/HR Potassium Chloride/Dextrose/ Sod Cl 1,000 ml @ 120 mls/hr Q8H20M IV 05/17/24 13:45 05/18/24 21:48 120 MLS/HR Metronidazole 100 ml @ 100 mls/hr Q8HR IV 05/17/24 14:00 05/18/24 14:00 100 MLS/HR Morphine Sulfate 2 mg Q4HPRN PRN IV 05/17/24 13:45 Ondansetron HCl 4 mg Q4HPRN PRN IV 05/17/24 13:45 Pantoprazole Sodium 40 mg DAILY IV 05/18/24 10:00 05/18/24 10:11 40 MG Cefazolin Sodium/ Dextrose 50 ml @ 50 mls/hr Q8HR IV 05/17/24 18:30 05/18/24 21:49 50 MLS/HR Fentanyl Citrate 250 ml @ 2.5 mls/hr Q24H IV 05/17/24 20:00 05/18/24 17:15 10 MLS/HR objective Gen.: Patient lying in bed in medical ICU. Sedated, intubated on mechanical ventilator. Head: Normocephalic, atraumatic. Eyes: PERRLA. Ears: Normal external anatomy. Throat: Endotracheal tube and orogastric tube in place. Neck: Supple, trachea midline. Chest: Transmitted breath sounds bilaterally. Decreased air entry bilaterally. No wheezing. Bibasilar crackles. Cardiovascular: Positive S1, positive S2. Regular rate and rhythm. Abdomen: Positive bowel sounds in all 4 quadrants. Soft, nontender, nondistended. : Serna in place. Normal external genitalia. Rectal: Deferred. Skin: Warm, dry. Intact. Extremities: 2+ radial pulses bilaterally. No lower extremity edema. Neuro: Sedated. laboratory and microbiology Laboratory Tests 05/18/24 03:16 Test 05/18/24 03:16 Range/Units Serum Glucose 153 H 74-106 mg/dL Assessment/Plan Impression: Acute hypoxic respiratory failure On mechanical ventilator S/p laparoscopic cholecystectomy Sepsis Peritonitis Nicotine dependence Events: Remains on vent support On AC mode; RR 18, VT 550, PEEP 5, FIO2 30% Sedated on Versed, Fentanyl ABG reviewed, notable for acidemia. CXR demonstrates interstitial prominence, greater centrally. No pneumothorax or new infiltrates. Devices in place. Continue antibiotics NGT shows coffee-ground material - on LIS. Monitor hemoglobin Will do CPAP once OK with Surgery Surgery recs appreciated Labs and imaging reviewed. Rest of plan as noted below. Plan: s/p intubation on mechanical ventilator. On AC mode; RR 18, VT 550, PEEP 5, FIO2 30% Titrate FIO2 to keep O2 saturation above 90%. VAP bundle. Daily ABG and CXR while intubated Sedate for ventilator synchrony IV fluids at 120 ml/hr. Continue antibiotics. NGT - GI hemorrhage Monitor hemoglobin Surgery recs appreciated. Start pressors if necessary to maintain a mean arterial blood pressure greater than 65 mmHg. Monitor renal function Monitor electrolytes. Supplement as necessary. Monitor ins and outs. Maintain euvolemia. GI prophylaxis. DVT prophylaxis. Prognosis: Poor given patient's multiple co-morbidities. Condition: Critical Rest of plan per hospitalist and other consultants. A total of 35 minutes of critical care time was spent reviewing the patient record, examining the patient, making a diagnostic and therapeutic plan, discussing this plan with the medical personnel, following up on diagnostic studies and following the patient for clinical stability excluding any and all procedures. At least 50% of this time was spent in direct, [id number] contact. Thank you Dr. Barnes for allowing me to participate in this patient's care. Further recommendations will depend on the patient's clinical course. Please do not hesitate to contact me if you have any questions or concerns. This medical document was created using an electronic medical record system with [employer] dictation system. Although these documentations are being carefully reviewed, there may still be some phonetic and typographical changes. The errors are purely typographical, due to imperfection on the software program, and do not reflect any compromise in the patient's medical care. Dietary Evaluation Review Comments: 1. Consider advancing to cardiac diet when medically appropriate 2. Consider Jevity 1.5 TF @45ml/hr providing 1620kcal, 69g pro, 821ml FW/TPN if NPO >7 days Expected Outcomes/Goals: 1. Pt will meet >75% estimated needs within 2-3 days Plan discussed with: Other (FARHEEN Armijo) Critical Care Time(min): 35 MARK ULRICH MD May 18, 2024 22:51
[2024-05-19] VITALS (107 sets, daily range): BP systolic 89–133; BP diastolic 49–73; PULSE 55–72; RESP 13–19; TEMP 98.2–99.5; O2SAT 91–100
[2024-05-19 04:15] LABS: Basophils # (auto) 0 10 ^3/uL (0-0.2); Basophils % (auto) 0.5 % (0.0-2.0); Eosinophils # (auto) 0.3 10 ^3/uL (0-0.8); Eosinophils % (auto) 2.8 % (0.0-7.0); Hematocrit 38.9 % (41.0-53.0); Hemoglobin 13.1 g/dL (13.5-17.5); Lymphocytes % (auto) 11.1 % (10.0-50.0); Mean Corpuscular Hemoglobin 31.3 pg (28.0-32.0); Mean Corpuscular Hgb Conc. 33.7 g/dL (32.0-36.0); Mean Corpuscular Volume 92.8 fL (80.0-100.0); Monocytes # (auto) 0.7 10 ^3/uL (0-1.3); Monocytes % (auto) 8.3 % (0.0-12.0); Neutrophils # (auto) 6.9 10 ^3/uL (1.6-8.6); Neutrophils % (auto) 77.3 % (37.0-80.0); Platelet Count (auto) 179 10^3/uL (140-450); Red Blood Cells 4.19 10^6/uL (4.5-5.90)
[2024-05-19 04:33] LABS: Alanine Aminotransferase 17 U/L (7-40); Albumin 3.2 g/dL (3.2-4.8); Alkaline Phosphatase 94 U/L (46-116); Anion Gap 4 (5-15); Aspartate Aminotransferase 14 U/L (13-40); BUN/Creatinine Ratio 17.8 (10.0-20.0); Bilirubin, Total 0.5 mg/dL (0.2-1.0); Blood Urea Nitrogen 13 mg/dL (9-23); Calcium 8.8 mg/dL (8.7-10.4); Carbon Dioxide 29 mmol/L (20-31); Chloride 105 mmol/L (98-107); Potassium 4.2 mmol/L (3.5-5.1); Sodium 138 mmol/L (136-145)
[2024-05-19 04:43] LABS: Glucose 116 mg/dL (74-106); Total Protein 4.8 g/dL (5.7-8.2)
--- NOTE | 2024-05-19 08:47 | DVHPN2 ---
Progress Note Date Seen: May 19, 2024 Has the PT tested + for MRSA If YES, has PT been informed?: No Medical Necessity Reason Pt with a Central, PICC or Fol: Yes The following are medically ne: Serna Catheter Reason for serna catheter: Strict I&O Objective vital signs Vital Sign Date Time Temp Pulse Resp B/P (MAP) Pulse Ox O2 Delivery O2 Flow Rate FiO2 05/19/24 08:08 59 18 110/61 (77) 97 30 05/19/24 06:00 Mechanical Ventilator+ 05/19/24 04:00 98.2 98.2 05/17/24 07:41 3 Total Intake and Output 05/18/24 05/18/24 05/19/24 15:00 23:00 07:00 Intake Total 136 ml 424 ml 1113 ml Output Total 775 ml 420 ml Balance 136 ml -351 ml 693 ml medications Current Medications Medications Dose Ordered Sig/Jania Route Start Time Stop Time Status Last Admin Dose Admin Sodium Chloride 10 ml Q8HR IV 05/17/24 06:00 05/19/24 05:27 10 ML Acetaminophen 650 mg Q6HP PRN PO 05/17/24 01:30 Nitroglycerin 0.4 mg Q5MINP PRN SL 05/17/24 01:30 Morphine Sulfate 2 mg Q30M PRN IV 05/17/24 01:30 Furosemide 20 mg DAILY IV 05/17/24 10:00 05/18/24 10:11 20 MG Midazolam HCl 50 ml @ 1 mls/hr Q24H IV 05/17/24 13:45 05/19/24 06:53 6 MLS/HR Potassium Chloride/Dextrose/ Sod Cl 1,000 ml @ 120 mls/hr Q8H20M IV 05/17/24 13:45 05/19/24 06:35 120 MLS/HR Metronidazole 100 ml @ 100 mls/hr Q8HR IV 05/17/24 14:00 05/19/24 05:26 100 MLS/HR Morphine Sulfate 2 mg Q4HPRN PRN IV 05/17/24 13:45 Ondansetron HCl 4 mg Q4HPRN PRN IV 05/17/24 13:45 Pantoprazole Sodium 40 mg DAILY IV 05/18/24 10:00 05/18/24 10:11 40 MG Cefazolin Sodium/ Dextrose 50 ml @ 50 mls/hr Q8HR IV 05/17/24 18:30 05/19/24 05:27 50 MLS/HR Fentanyl Citrate 250 ml @ 2.5 mls/hr Q24H IV 05/17/24 20:00 05/18/24 17:15 10 MLS/HR Examination: GENERAL:Abnormal (intubated ) laboratory and microbiology Laboratory Tests 05/19/24 03:45 Test 05/19/24 03:45 Range/Units Serum Glucose 116 H 74-106 mg/dL Problem List/Assessment/Plan Problem List/Assessment/Plan 05/19/24 notes , labs reviewed, patient intubated, abdomen soft, non distended, wounds clean dry an intact, minimal fluid in CORDELIA drain , discussed with Dr. Barnes ok to CPAP Plan discussed with: Patient Dietary Evaluation Review Comments: 1. Consider advancing to cardiac diet when medically appropriate 2. Consider Jevity 1.5 TF @45ml/hr providing 1620kcal, 69g pro, 821ml FW/TPN if NPO >7 days Expected Outcomes/Goals: 1. Pt will meet >75% estimated needs within 2-3 days DAVIS VERNON NP May 19, 2024 08:47
[2024-05-19] MEDS: VASOPRESSIN 20 UNIT/ML ONE (09:46)
[2024-05-19 11:51] LABS: Base Excess 1.2 mmol/L (-2.0-3.0)
--- NOTE | 2024-05-19 12:46 | DVH ---
EXAM: XY CHEST XRAY 1 VIEW Indication: pain Technique: Single frontal view of the chest was obtained Comparison: XY CHEST XRAY 1 VIEW on DOS: 05/18/24, XY CHEST PORTABLE on DOS: 05/17/24, XY CHEST PORTABLE on DOS: 05/17/24, XY CHEST PORTABLE on DOS: 05/17/24, XY CHEST PORTABLE on DOS: 04/15/24 FINDINGS: Lines and Tubes: Endotracheal tube projects 7.9 cm above the level of the munir. Enteric tube tip pr ojects over the expected region of the proximal stomach and sideport near the gastroesophageal juncti on. Lungs: Mild pulmonary vascular congestion. Pleura: No effusion. No pneumothorax. Cardiomediastinal contours: Unremarkable Bones: No acute osseous abnormality. IMPRESSION: Mild pulmonary vascular congestion. Enteric tube tip projects over the expected region of the proxima l stomach and sideport near the gastroesophageal junction. Recommend advancement.
--- NOTE | 2024-05-19 14:37 | DVHPNRES ---
Progress Note Date Seen: May 19, 2024 Resident Creating Document: MIGUEL MOSCOSO RESIDENT Has the PT tested + for MRSA If YES, has PT been informed?: No Medical Necessity Reason Pt with a Central, PICC or Fol: Yes The following are medically ne: Serna Catheter Reason for serna catheter: Strict I&O Subjective Review of Systems This is a 69 year old male past medical history of HTN, CHF, COPD who presented to the ED with chief complaint of cholecystostomy tube dislodgement associated with severe abdominal pain. The patient stated that three days ago the cholecystostomy tube got stuck with a doorknob at the house and unintentionally pull the tube and slightly dislodged causing a lot of pain and inflammation at that time. Two days later the patient started to experiencing severe abdominal pain in the right upper quadrant and epigastric region. Apparently previously the patient was found to have cholecystitis but at that time due to severe comorbidities colostomy tube was placed instead of surgical cholecystectomy. Upon my examination, the patient was on severe excruciating pain in the right upper quadrant and epigastric region extending to the periumbilical region. The patient was hairm hard abdomen most likely consistent with acute abdomen. Surgery was consulted for possible laparoscopy due to suspection of peritonitis. The patient was experiencing excruciating right upper quadrant and epigastric abdominal pain that was extending to the periumbilical region. Upon my examination the abdomen was firm, hard and tender most likely consistent with acute abdomen. Surgery was consulted which took the patient to the OR for laparoscopic cholecystectomy with peritoneal lavage, insertion of a CORDELIA drain at the level of the liver where the gallbladder was located. Removal of cholecystostomy tube was performed as well. The patient was intubated for surgery and remained intubated after procedure. Patient seen and examined at bedside. The patient is currently on mechanical ventilator on the following parameters: TV 550, RR 18, PEEP 5, FiO2 30%, saturating 95%. We turned it off midazolam at this time and started titrating down fentanyl as a sedation vacation to perform CPAP trial. We will wait to see if the patient responds after sedation is off, we will re-evaluate CPAP trial results and depending and current values we will determine the possibility of extubation. The patient is currently on IV cefazolin and IV metronidazole. CORDELIA drainage is draining approximately 160 mL in the last 12 hours. We will continue current medical management. ROS unable to obtain due to patient current status intubated. Objective vital signs Vital Sign Date Time Temp Pulse Resp B/P (MAP) Pulse Ox O2 Delivery O2 Flow Rate FiO2 05/19/24 14:25 70 18 121/59 (79) 94 30 05/19/24 14:00 Mechanical Ventilator+ 05/19/24 12:01 98.7 98.7 05/17/24 07:41 3 Total Intake and Output 05/18/24 05/18/24 05/19/24 15:00 23:00 07:00 Intake Total 136 ml 424 ml 1248 ml Output Total 775 ml 420 ml Balance 136 ml -351 ml 828 ml medications Current Medications Medications Dose Ordered Sig/Jania Route Start Time Stop Time Status Last Admin Dose Admin Sodium Chloride 10 ml Q8HR IV 05/17/24 06:00 05/19/24 13:50 10 ML Acetaminophen 650 mg Q6HP PRN PO 05/17/24 01:30 Nitroglycerin 0.4 mg Q5MINP PRN SL 05/17/24 01:30 Morphine Sulfate 2 mg Q30M PRN IV 05/17/24 01:30 Furosemide 20 mg DAILY IV 05/17/24 10:00 05/19/24 10:30 20 MG Midazolam HCl 50 ml @ 1 mls/hr Q24H IV 05/17/24 13:45 05/19/24 06:53 6 MLS/HR Potassium Chloride/Dextrose/ Sod Cl 1,000 ml @ 120 mls/hr Q8H20M IV 05/17/24 13:45 05/19/24 06:35 120 MLS/HR Metronidazole 100 ml @ 100 mls/hr Q8HR IV 05/17/24 14:00 05/19/24 13:50 100 MLS/HR Morphine Sulfate 2 mg Q4HPRN PRN IV 05/17/24 13:45 Ondansetron HCl 4 mg Q4HPRN PRN IV 05/17/24 13:45 Pantoprazole Sodium 40 mg DAILY IV 05/18/24 10:00 05/19/24 10:30 40 MG Cefazolin Sodium/ Dextrose 50 ml @ 50 mls/hr Q8HR IV 05/17/24 18:30 05/19/24 13:50 50 MLS/HR Fentanyl Citrate 250 ml @ 2.5 mls/hr Q24H IV 05/17/24 20:00 05/18/24 17:15 10 MLS/HR Examination Physical Examination General: Patient recently OFF sedation, currently intubated: VT 550ml, FIO2 30%, RR18, sat 96%. HEENT: Normocephalic, atraumatic, moist mucous membranes Respiratory/pulmonary: Clear lungs bilaterally, no associated crackles or wheezes. Cardiovascular: Normal heart sounds S1 and S2 with no associated murmurs Abdomen: Abdomen nondistended, there is abdominal binder, wound looks dry and clean with CORDELIA drain on place, draining aprox 160ml in the last 12 hrs. Extremities: There is no peripheral edema present at the lower extremities. Peripheral Pulses: 3+ Radial (R). 3+ Radial (L). 3+ Dorsalis pedis (R). 3+ Dorsalis pedis(L) Skin: No rashes or pruritus, there is no sacral edema present at this time. Neurological: RASS -2 (Recently OFF sedation, on sedation vacation). laboratory and microbiology Laboratory Tests 05/19/24 03:45 Test 05/19/24 03:45 Range/Units Serum Glucose 116 H 74-106 mg/dL Microbiology Date/Time Source Procedure Growth Status 05/17/24 14:25 Sputum Expectorated Sputum Gram Stain - Final Resulted 05/17/24 14:25 Sputum Expectorated Sputum Respiratory Culture - Preliminary Resulted 05/17/24 13:14 Peritoneal Fluid Gram Stain - Final Resulted 05/17/24 13:14 Peritoneal Fluid Anaerobic Culture - Preliminary Resulted 05/17/24 13:14 Aerobic Culture - Preliminary Klebsiella pneumoniae Resulted Problem List/Assessment/Plan Problem List/Assessment/Plan Assessment/Plan Acute abdominal pain due to peritonitis due to complicated cholecystitis with dislodged cholecystostomy tube Acute abdomen Peritonitis Sepsis due to above S/P Laparoscopic cholecystectomy with peritoneal lavage -initially patient reported cholecystostomy tube dislodgement -initial WBC was 13.1 -patient had firm and hard abdomen to palpation -CT scan of the abdomen showed trace right perihepatic fluid which may reflect residual from initial catheter placement. Acute biliary leak is less likely but can not be entirely excluded. -surgery was consulted which performed laparoscopic cholecystectomy with peritoneal lavage -CORDELIA drain was placed per surgeon -patient is currently intubated on the following mechanical ventilatory parameters: Tidal volume 450, FiO2 30%, respiratory rate 18, saturating 96% -follow-up ABG -CPAP trial today, turned OFF midazolam, Titrate down Fent. -Poss. extubation today depending on CPAP trial -Continue IV cefazolin -Continue IV metronidazole Acute on chronic heart failure with preserved ejection fraction (HFpEF 50%) -last echocardiogram performed of 04/08 showed an LVEF of 50% -furosemide 20 mg IV daily -monitor strict in's and out COPD, not exacerbation -currently intubated post surgery on mechanical ventilatory parameters as described above -monitor saturation History of DVT -status post IVC filter placed on February of 2024 Tobacco abuse -we will consult the patient wants the patient is more stable Goals of care discussed with the patient at bedside for >23min, FULL CODE Plan discussed with Dr. Hebert Plan discussed with: Other My Orders My Orders Orders - MIGUEL MOSCOSO Procedure Category Date Status Time Chest Xray 1 View XY 05/19/24 Resulted 10:51 Cpap Trial For Am ORDERS 05/19/24 Transmitted 14:21 Dietary Evaluation Review Comments: 1. Consider advancing to cardiac diet when medically appropriate 2. Consider Jevity 1.5 TF @45ml/hr providing 1620kcal, 69g pro, 821ml FW/TPN if NPO >7 days Expected Outcomes/Goals: 1. Pt will meet >75% estimated needs within 2-3 days Date of Service: May 19, 2024 Billing Provider: MARYANN OL MD Common Visit Codes: 42728-[id number] CARE-EACH +30MIN MIGUEL MOSCOSO May 19, 2024 14:37 MARYANN LO MD May 21, 2024 00:22
--- NOTE | 2024-05-19 22:19 | DVHPN2 ---
Progress Note - Dictate Date Seen: May 19, 2024 Has the PT tested + for MRSA If YES, has PT been informed?: No Medical Necessity Reason Pt with a Central, PICC or Fol: Yes The following are medically ne: Serna Catheter Reason for serna catheter: Strict I&O Subjective Patient seen and examined at bedside. Intubated on mechanical ventilator. Overnight events reviewed. vital signs Vital Sign Date Time Temp Pulse Resp B/P (MAP) Pulse Ox O2 Delivery O2 Flow Rate FiO2 05/19/24 21:37 100/50 05/19/24 21:15 62 18 97 05/19/24 20:00 30 05/19/24 20:00 98.7 98.7 05/19/24 20:00 Mechanical Ventilator+ 05/17/24 07:41 3 Total Intake and Output 05/18/24 05/18/24 05/19/24 15:00 23:00 07:00 Intake Total 136 ml 424 ml 1248 ml Output Total 775 ml 420 ml Balance 136 ml -351 ml 828 ml medications Current Medications Medications Dose Ordered Sig/Jania Route Start Time Stop Time Status Last Admin Dose Admin Sodium Chloride 10 ml Q8HR IV 05/17/24 06:00 05/19/24 13:50 10 ML Acetaminophen 650 mg Q6HP PRN PO 05/17/24 01:30 Nitroglycerin 0.4 mg Q5MINP PRN SL 05/17/24 01:30 Morphine Sulfate 2 mg Q30M PRN IV 05/17/24 01:30 Furosemide 20 mg DAILY IV 05/17/24 10:00 05/19/24 10:30 20 MG Midazolam HCl 50 ml @ 1 mls/hr Q24H IV 05/17/24 13:45 05/19/24 06:53 6 MLS/HR Potassium Chloride/Dextrose/ Sod Cl 1,000 ml @ 120 mls/hr Q8H20M IV 05/17/24 13:45 05/19/24 14:51 120 MLS/HR Metronidazole 100 ml @ 100 mls/hr Q8HR IV 05/17/24 14:00 05/19/24 21:32 100 MLS/HR Morphine Sulfate 2 mg Q4HPRN PRN IV 05/17/24 13:45 Ondansetron HCl 4 mg Q4HPRN PRN IV 05/17/24 13:45 Pantoprazole Sodium 40 mg DAILY IV 05/18/24 10:00 05/19/24 10:30 40 MG Cefazolin Sodium/ Dextrose 50 ml @ 50 mls/hr Q8HR IV 05/17/24 18:30 05/19/24 21:32 50 MLS/HR Fentanyl Citrate 250 ml @ 2.5 mls/hr Q24H IV 05/17/24 20:00 05/19/24 21:37 5 MLS/HR objective Gen.: Patient lying in bed in medical ICU. Intubated on mechanical ventilator. Head: Normocephalic, atraumatic. Eyes: PERRLA. Ears: Normal external anatomy. Throat: Endotracheal tube and orogastric tube in place. Neck: Supple, trachea midline. Chest: Transmitted breath sounds bilaterally. Decreased air entry bilaterally. No wheezing. Bibasilar crackles. Cardiovascular: Positive S1, positive S2. Regular rate and rhythm. Abdomen: Positive bowel sounds in all 4 quadrants. Soft, nontender, nondistended. : Serna in place. Normal external genitalia. Rectal: Deferred. Skin: Warm, dry. Intact. Extremities: 2+ radial pulses bilaterally. No lower extremity edema. Neuro: Off sedation. laboratory and microbiology Laboratory Tests 05/19/24 03:45 Test 05/19/24 03:45 Range/Units Serum Glucose 116 H 74-106 mg/dL Assessment/Plan Impression: Acute hypoxic respiratory failure On mechanical ventilator S/p laparoscopic cholecystectomy Sepsis Peritonitis Nicotine dependence Events: Remains on vent support On AC mode; RR 18, VT 550, PEEP 5, FIO2 30% Off Versed Fentanyl drip for analgesia ABG reviewed, compensated CXR demonstrates mild pulmonary vascular congestion. Devices in place. Continue antibiotics NGT shows coffee-ground material - on LIS. Monitor hemoglobin Awaiting for mentation to improve Will do CPAP once OK with Surgery Surgery recs appreciated Labs and imaging reviewed. Rest of plan as noted below. Plan: s/p intubation on mechanical ventilator. On AC mode; RR 18, VT 550, PEEP 5, FIO2 30% Titrate FIO2 to keep O2 saturation above 90%. VAP bundle. Daily ABG and CXR while intubated Sedate for ventilator synchrony Continue antibiotics. NGT - GI hemorrhage Monitor hemoglobin Surgery recs appreciated. Start pressors if necessary to maintain a mean arterial blood pressure greater than 65 mmHg. Monitor renal function Monitor electrolytes. Supplement as necessary. Monitor ins and outs. Maintain euvolemia. GI prophylaxis. DVT prophylaxis. Prognosis: Poor given patient's multiple co-morbidities. Condition: Critical Rest of plan per hospitalist and other consultants. A total of 35 minutes of critical care time was spent reviewing the patient record, examining the patient, making a diagnostic and therapeutic plan, discussing this plan with the medical personnel, following up on diagnostic studies and following the patient for clinical stability excluding any and all procedures. At least 50% of this time was spent in direct, [id number] contact. Thank you Dr. Barnes for allowing me to participate in this patient's care. Further recommendations will depend on the patient's clinical course. Please do not hesitate to contact me if you have any questions or concerns. This medical document was created using an electronic medical record system with [employer] dictation system. Although these documentations are being carefully reviewed, there may still be some phonetic and typographical changes. The errors are purely typographical, due to imperfection on the software program, and do not reflect any compromise in the patient's medical care. Dietary Evaluation Review Comments: 1. Consider advancing to cardiac diet when medically appropriate 2. Consider Jevity 1.5 TF @45ml/hr providing 1620kcal, 69g pro, 821ml FW/TPN if NPO >7 days Expected Outcomes/Goals: 1. Pt will meet >75% estimated needs within 2-3 days Plan discussed with: Other (FARHEEN Brennan) Critical Care Time(min): 35 MARK ULRICH MD May 19, 2024 22:19
[2024-05-20] VITALS (104 sets, daily range): BP systolic 94–166; BP diastolic 36–86; PULSE 51–103; RESP 13–33; TEMP 98.2–99.1; O2SAT 93–100
[2024-05-20 04:03] LABS: Basophils # (auto) 0 10 ^3/uL (0-0.2); Basophils % (auto) 0.3 % (0.0-2.0); Eosinophils # (auto) 0.2 10 ^3/uL (0-0.8); Eosinophils % (auto) 1.4 % (0.0-7.0); Hematocrit 43.3 % (41.0-53.0); Hemoglobin 14.8 g/dL (13.5-17.5); Lymphocytes # (auto) 1.3 10 ^3/uL (0.4-5.4); Lymphocytes % (auto) 11.2 % (10.0-50.0); Mean Corpuscular Hemoglobin 31.6 pg (28.0-32.0); Mean Corpuscular Hgb Conc. 34.1 g/dL (32.0-36.0); Mean Corpuscular Volume 92.8 fL (80.0-100.0); Monocytes # (auto) 1.1 10 ^3/uL (0-1.3); Monocytes % (auto) 9.8 % (0.0-12.0); Neutrophils # (auto) 8.9 10 ^3/uL (1.6-8.6); Neutrophils % (auto) 77.3 % (37.0-80.0); Nucleated Red Blood Cells % 0.1 %; Platelet Count (auto) 168 10^3/uL (140-450); Red Blood Cells 4.67 10^6/uL (4.5-5.90); White Blood Cell 11.6 10^3/uL (4.4-10.8)
--- NOTE | 2024-05-20 05:47 | DVH ---
EXAM: XR Cervical Spine, 6 or More Views CLINICAL INDICATION: PROTOCOL TECHNIQUE: Frontal, lateral, oblique and flexion/extension views of the cervical spine. COMPARISON: XY CHEST XRAY 1 VIEW on DOS: 05/19/24, XY CHEST XRAY 1 VIEW on DOS: 05/18/24, XY CHEST PORT ABLE on DOS: 05/17/24, XY CHEST PORTABLE on DOS: 05/17/24, XY CHEST PORTABLE on DOS: 05/17/24 FINDINGS: VERTEBRAE: Unremarkable. No acute fracture. Normal alignment. No instability. DISC SPACES: No acute findings. No significant narrowing. SOFT TISSUES: Unremarkable. LUNG APICES: Pulmonary congestion. TUBES, LINES AND DEVICES: Stable tubes and lines. OTHER FINDINGS: . . IMPRESSION: No significant change from the prior exam.
[2024-05-20 07:17] LABS: Anion Gap 7 (5-15)
[2024-05-20 07:44] LABS: Albumin 3.1 g/dL (3.2-4.8); Alkaline Phosphatase 87 U/L (46-116); Aspartate Aminotransferase 13 U/L (13-40); Bilirubin, Total 0.5 mg/dL (0.2-1.0); Calcium 8.8 mg/dL (8.7-10.4); Carbon Dioxide 27 mmol/L (20-31); Chloride 104 mmol/L (98-107); Glucose 125 mg/dL (74-106); Magnesium 1.7 mg/dL (1.6-2.6); Sodium 138 mmol/L (136-145); Total Protein 4.7 g/dL (5.7-8.2)
[2024-05-20 07:46] LABS: Alanine Aminotransferase 12 U/L (7-40); BUN/Creatinine Ratio 13.3 (10.0-20.0); Blood Urea Nitrogen 8 mg/dL (9-23); Potassium 4.4 mmol/L (3.5-5.1)
[2024-05-20 08:58] LABS: Base Excess 2.7 mmol/L (-2.0-3.0)
[2024-05-20] MEDS ORDERED: CLINIMIX PER PHARMACY 0 ML IV SCH (10:15)
[2024-05-20 11:33] LABS: Base Excess 3.8 mmol/L (-2.0-3.0)
[2024-05-20] MEDS ORDERED: DEXTROSE (50%) 50ML SYRG IV SCH (11:45)
--- NOTE | 2024-05-20 12:22 | DVHPN2 ---
Progress Note Date Seen: May 20, 2024 Has the PT tested + for MRSA If YES, has PT been informed?: No Medical Necessity Reason Pt with a Central, PICC or Fol: Yes The following are medically ne: Serna Catheter Reason for serna catheter: Strict I&O Objective vital signs Vital Sign Date Time Temp Pulse Resp B/P (MAP) Pulse Ox O2 Delivery O2 Flow Rate FiO2 05/20/24 12:00 30 05/20/24 12:00 98.9 83 22 135/66 (89) 97 98.9 05/20/24 10:00 Mechanical Ventilator+ Total Intake and Output 05/19/24 05/19/24 05/20/24 15:00 23:00 07:00 Intake Total 1732.5 ml 1150 ml 1150.0 ml Output Total 960 ml 720 ml Balance 1732.5 ml 190 ml 430.0 ml medications Current Medications Medications Dose Ordered Sig/Jania Route Start Time Stop Time Status Last Admin Dose Admin Sodium Chloride 10 ml Q8HR IV 05/17/24 06:00 05/20/24 05:43 10 ML Acetaminophen 650 mg Q6HP PRN PO 05/17/24 01:30 Nitroglycerin 0.4 mg Q5MINP PRN SL 05/17/24 01:30 Morphine Sulfate 2 mg Q30M PRN IV 05/17/24 01:30 Furosemide 20 mg DAILY IV 05/17/24 10:00 05/20/24 09:05 20 MG Midazolam HCl 50 ml @ 1 mls/hr Q24H IV 05/17/24 13:45 05/19/24 06:53 6 MLS/HR Potassium Chloride/Dextrose/ Sod Cl 1,000 ml @ 120 mls/hr Q8H20M IV 05/17/24 13:45 05/20/24 07:05 120 MLS/HR Metronidazole 100 ml @ 100 mls/hr Q8HR IV 05/17/24 14:00 05/20/24 05:43 100 MLS/HR Morphine Sulfate 2 mg Q4HPRN PRN IV 05/17/24 13:45 Ondansetron HCl 4 mg Q4HPRN PRN IV 05/17/24 13:45 Pantoprazole Sodium 40 mg DAILY IV 05/18/24 10:00 05/20/24 09:04 40 MG Cefazolin Sodium/ Dextrose 50 ml @ 50 mls/hr Q8HR IV 05/17/24 18:30 05/20/24 05:43 50 MLS/HR Fentanyl Citrate 250 ml @ 2.5 mls/hr Q24H IV 05/17/24 20:00 05/19/24 21:37 5 MLS/HR Amino Acids 0 ml @ 0 mls/hr PER PHARMACY IV 05/20/24 10:15 Diagnostic Test (Pha) 1 strip Q6HR 05/20/24 12:00 Insulin Human Regular FOLLOW SLIDING SCALE Q6HR SC 05/20/24 12:00 Dextrose 50 ml UD IV 05/20/24 11:45 Amino Acids/ Electrolytes/ Dextrose 1,000 ml @ 41 mls/hr DAILY@2200 IV 05/20/24 22:00 laboratory and microbiology Laboratory Tests 05/20/24 06:23 05/20/24 03:11 Test 05/20/24 06:23 Range/Units Serum Glucose 125 H 74-106 mg/dL Problem List/Assessment/Plan Problem List/Assessment/Plan 05/18/24 remains sedated and intubated on ventilator, no need for BP support, good urine output, labs ok, abdomen soft and non distended, wounds clean and well approximated, CORDELIA drainage moderate volume, bile stained 05/20/24 HEMODYNAMICALLY STABLE, REMAINS INTUBATED, DRAINAGE MINIMAL NON BILIOUS Plan discussed with: Other Dietary Evaluation Review Comments: 1. Consider advancing to cardiac diet when medically appropriate 2. Consider Jevity 1.5 TF @45ml/hr providing 1620kcal, 69g pro, 821ml FW/TPN if NPO >7 days Expected Outcomes/Goals: 1. Pt will meet >75% estimated needs within 2-3 days SIDDHARTHA BROWN MD May 20, 2024 12:22
[2024-05-20] MEDS: ACCU-CHEK COMFORT CURVE STRIP VI SCH (13:25)
[2024-05-20] MEDS: InsuLIN REG 1unit/0.01ml Soln (100units/ml) SC SCH (13:25)
--- NOTE | 2024-05-20 15:21 | DVHPNRES ---
Progress Note Date Seen: May 20, 2024 Resident Creating Document: MIGUEL MOSCOSO RESIDENT Has the PT tested + for MRSA If YES, has PT been informed?: No Medical Necessity Reason Pt with a Central, PICC or Fol: Yes The following are medically ne: Serna Catheter Reason for serna catheter: Strict I&O Subjective Review of Systems This is a 69 year old male past medical history of HTN, CHF, COPD who presented to the ED with chief complaint of cholecystostomy tube dislodgement associated with severe abdominal pain. The patient stated that three days ago the cholecystostomy tube got stuck with a doorknob at the house and unintentionally pull the tube and slightly dislodged causing a lot of pain and inflammation at that time. Two days later the patient started to experiencing severe abdominal pain in the right upper quadrant and epigastric region. Apparently previously the patient was found to have cholecystitis but at that time due to severe comorbidities colostomy tube was placed instead of surgical cholecystectomy. Upon my examination, the patient was on severe excruciating pain in the right upper quadrant and epigastric region extending to the periumbilical region. The patient was hairm hard abdomen most likely consistent with acute abdomen. Surgery was consulted for possible laparoscopy due to suspection of peritonitis. The patient was experiencing excruciating right upper quadrant and epigastric abdominal pain that was extending to the periumbilical region. Upon my examination the abdomen was firm, hard and tender most likely consistent with acute abdomen. Surgery was consulted which took the patient to the OR for laparoscopic cholecystectomy with peritoneal lavage, insertion of a CORDELIA drain at the level of the liver where the gallbladder was located. Removal of cholecystostomy tube was performed as well. The patient was intubated for surgery and remained intubated after procedure. Patient seen and examined at bedside. The patient still on minimal ventilatory settings: TV 550, RR 18, PEEP 5, FiO2 30%, saturating 95%. Tried sedation vacation this morning, patient was off sedation and off analgesia for more than 4 hours. CPAP trial was performed but patient was not following commands actively. Patient was placed back on fentanyl low-dose, we gave order to use Precedex if needed overnight. CORDELIA drain is currently draining 130 cc in the past 12 hours. The patient also developed bilateral upper extremity swelling that is worse in the left upper extremity, reason why we ordered bilateral upper venous ultrasound to rule out DVT. Patient was started on prophylactic Lovenox at this time. We will try CPAP trial tomorrow a.m. once again. ROS unable to obtain due to patient's current status intubated. Objective vital signs Vital Sign Date Time Temp Pulse Resp B/P (MAP) Pulse Ox O2 Delivery O2 Flow Rate FiO2 05/20/24 14:33 87 26 152/74 (100) 94 30 05/20/24 12:00 98.9 98.9 05/20/24 10:00 Mechanical Ventilator+ Total Intake and Output 05/19/24 05/19/24 05/20/24 15:00 23:00 07:00 Intake Total 1732.5 ml 1150 ml 1150.0 ml Output Total 960 ml 720 ml Balance 1732.5 ml 190 ml 430.0 ml medications Current Medications Medications Dose Ordered Sig/Jania Route Start Time Stop Time Status Last Admin Dose Admin Sodium Chloride 10 ml Q8HR IV 05/17/24 06:00 05/20/24 14:15 10 ML Acetaminophen 650 mg Q6HP PRN PO 05/17/24 01:30 Nitroglycerin 0.4 mg Q5MINP PRN SL 05/17/24 01:30 Morphine Sulfate 2 mg Q30M PRN IV 05/17/24 01:30 Furosemide 20 mg DAILY IV 05/17/24 10:00 05/20/24 09:05 20 MG Midazolam HCl 50 ml @ 1 mls/hr Q24H IV 05/17/24 13:45 05/19/24 06:53 6 MLS/HR Potassium Chloride/Dextrose/ Sod Cl 1,000 ml @ 120 mls/hr Q8H20M IV 05/17/24 13:45 05/20/24 07:05 120 MLS/HR Metronidazole 100 ml @ 100 mls/hr Q8HR IV 05/17/24 14:00 05/20/24 14:31 100 MLS/HR Morphine Sulfate 2 mg Q4HPRN PRN IV 05/17/24 13:45 Ondansetron HCl 4 mg Q4HPRN PRN IV 05/17/24 13:45 Pantoprazole Sodium 40 mg DAILY IV 05/18/24 10:00 05/20/24 09:04 40 MG Cefazolin Sodium/ Dextrose 50 ml @ 50 mls/hr Q8HR IV 05/17/24 18:30 05/20/24 05:43 50 MLS/HR Fentanyl Citrate 250 ml @ 2.5 mls/hr Q24H IV 05/17/24 20:00 05/19/24 21:37 5 MLS/HR Amino Acids 0 ml @ 0 mls/hr PER PHARMACY IV 05/20/24 10:15 Diagnostic Test (Pha) 1 strip Q6HR 05/20/24 12:00 05/20/24 13:25 1 STRIP Insulin Human Regular FOLLOW SLIDING SCALE Q6HR SC 05/20/24 12:00 Dextrose 50 ml UD IV 05/20/24 11:45 Amino Acids/ Electrolytes/ Dextrose 1,000 ml @ 41 mls/hr DAILY@2200 IV 05/20/24 22:00 Dexmedetomidine HCl 400 mcg/ Dextrose 100 ml @ 4.285 mls/ hr [id number] IV 05/20/24 12:30 05/20/24 14:22 4.285 MLS/HR Enoxaparin Sodium 40 mg DAILY SC 05/21/24 10:00 Examination Physical Examination General: Patient on Fent low dose. currently intubated: VT 550ml, FIO2 30%, RR18, sat 96%. HEENT: Normocephalic, atraumatic, moist mucous membranes Respiratory/pulmonary: Clear lungs bilaterally, no associated crackles or wheezes. Cardiovascular: Normal heart sounds S1 and S2 with no associated murmurs Abdomen: Abdomen nondistended, there is abdominal binder, wound looks dry and clean with CORDELIA drain on place, draining aprox 130ml in the last 12 hrs. Extremities: There is no peripheral edema present at the lower extremities. Peripheral Pulses: 3+ Radial (R). 3+ Radial (L). 3+ Dorsalis pedis (R). 3+ Dorsalis pedis(L) Skin: No rashes or pruritus, there is no sacral edema present at this time. Neurological: RASS -2 laboratory and microbiology Laboratory Tests 05/20/24 06:23 05/20/24 03:11 Test 05/20/24 06:23 Range/Units Serum Glucose 125 H 74-106 mg/dL Microbiology Date/Time Source Procedure Growth Status 05/17/24 17:53 Nose MRSA Screen - Final Complete 05/17/24 14:25 Sputum Expectorated Sputum Gram Stain - Final Complete 05/17/24 14:25 Sputum Expectorated Sputum Respiratory Culture - Final Complete 05/17/24 13:14 Peritoneal Fluid Gram Stain - Final Resulted 05/17/24 13:14 Peritoneal Fluid Anaerobic Culture - Preliminary Resulted 05/17/24 13:14 Aerobic Culture - Final Klebsiella pneumoniae Resulted Problem List/Assessment/Plan Problem List/Assessment/Plan Assessment/Plan Acute abdominal pain due to peritonitis due to complicated cholecystitis with dislodged cholecystostomy tube Acute abdomen Peritonitis Sepsis due to above S/P Laparoscopic cholecystectomy with peritoneal lavage -initially patient reported cholecystostomy tube dislodgement -initial WBC was 13.1 -patient had firm and hard abdomen to palpation -CT scan of the abdomen showed trace right perihepatic fluid which may reflect residual from initial catheter placement. Acute biliary leak is less likely but can not be entirely excluded. -surgery was consulted which performed laparoscopic cholecystectomy with peritoneal lavage -CORDELIA drain was placed per surgeon -patient is currently intubated on the following mechanical ventilatory parameters: Tidal volume 550, FiO2 30%, respiratory rate 18, saturating 96% -follow-up ABG -CORDELIA drain is draining approximately 130 cc in the last 12 hours -patient failed CPAP trial, was not able to fully awake and follow commands. -we will try CPAP trial tomorrow once again -Continue IV cefazolin -Continue IV metronidazole Acute on chronic heart failure with preserved ejection fraction (HFpEF 50%) -last echocardiogram performed of 04/08 showed an LVEF of 50% -furosemide 20 mg IV daily -monitor strict in's and out COPD, not exacerbation -currently intubated post surgery on mechanical ventilatory parameters as described above -monitor saturation History of DVT -status post IVC filter placed on February of 2024 Tobacco abuse -we will consult the patient wants the patient is more stable Nutrition -start Clinimix Goals of care discussed with the patient at bedside for >23min, FULL CODE Plan discussed with Dr. Hebert Plan discussed with: Other My Orders My Orders Orders - MIGUEL MOSCOSO Procedure Category Date Status Time Cpap Trial For Am ORDERS 05/20/24 Transmitted 06:36 Abg W/ Co-Ox RT 05/20/24 Logged 08:35 Clinimix Per Pharmacy PHA 05/20/24 In Process 10:15 Abg W/ Co-Ox RT 05/20/24 Logged 11:20 Glucose Blood PHA 05/20/24 In Process (Accu-Chek Comfort 12:00 Insulin R (Human) PHA 05/20/24 In Process (Insulin R) 12:00 Dextrose 50% Syringe PHA 05/20/24 In Process 11:45 Comprehensive LAB 05/21/24 Verified Metabolic Panel 04:00 Magnesium LAB 05/21/24 Verified 04:00 Phosphorus LAB 05/21/24 Verified 04:00 Clinimix Per Pharmacy ARIANA 05/20/24 In Process 22:00 Amino Acid Infusion PHA 05/20/24 In Process In D10w (Clinimix 4. 22:00 Sodium Phosphates PHA 05/20/24 In Process 12:30 Cpap Trial For Am ORDERS 05/21/24 Transmitted 07:00 D5w 5% (Dextrose 5%) PHA 05/20/24 In Process W/Dexmedetomidine 12:30 Insert Midline ORDERS 05/20/24 Transmitted 13:20 Enoxaparin Sodium PHA 05/21/24 In Process (Lovenox) 10:00 Bi Lat Upper Dvt US 05/20/24 Taken 13:48 Dietary Evaluation Review Comments: 1. Consider advancing to cardiac diet when medically appropriate 2. Consider Jevity 1.5 TF @45ml/hr providing 1620kcal, 69g pro, 821ml FW/TPN if NPO >7 days Expected Outcomes/Goals: 1. Pt will meet >75% estimated needs within 2-3 days Date of Service: May 20, 2024 Billing Provider: MARYANN LO MD Common Visit Codes: 13199-SCJDGMGG CARE-EACH +30MIN MIGUEL MOSCOSO RESIDENT May 20, 2024 15:21 MARYANN LO MD May 21, 2024 00:35
--- NOTE | 2024-05-20 15:42 | DVH ---
BILATERAL UPPER EXTREMITY VENOUS DOPPLER CLINICAL HISTORY: left and right arm swelling TECHNIQUE: [Technique] Upper extremity venous Doppler study was performed. Comparison: US BILAT LOWER DVT on DOS: 03/13/24 FINDINGS: There is deep venous thrombus seen in the distal right subclavian, proximal right axillary and right cephalic veins. The mid and distal right axillary vein are not adequately visualized secondary to PIC C line. The left cephalic vein is noncompressible likely secondary to chronic thrombus. The left internal jug ular, subclavian, axillary, brachial, basilic, radial and ulnar veins appear patent with normal augme ntation, phasicity, compressibility and color-flow. IMPRESSION: 1. There is thrombus seen in the distal right subclavian, proximal right axillary and right cephalic veins. 2. The left cephalic vein is noncompressible likely secondary to chronic thrombus. HS:Y
[2024-05-20] MEDS: ENOXAPARIN SOD 40 MG/0.4 ML SYRINGE SC ONE (15:49)
[2024-05-20] MEDS: SODIUM PHOSPHATES 20 MEQ in SODIUM CHL 0.9% 100 ML IV ONE (17:04)
[2024-05-20 17:37] LABS: Basophils # (auto) 0 10 ^3/uL (0-0.2); Basophils % (auto) 0.4 % (0.0-2.0); Eosinophils # (auto) 0.3 10 ^3/uL (0-0.8); Eosinophils % (auto) 3.1 % (0.0-7.0); Hematocrit 42.9 % (41.0-53.0); Hemoglobin 14.3 g/dL (13.5-17.5); Lymphocytes # (auto) 0.7 10 ^3/uL (0.4-5.4); Lymphocytes % (auto) 8.5 % (10.0-50.0); Mean Corpuscular Hemoglobin 31.1 pg (28.0-32.0); Mean Corpuscular Hgb Conc. 33.5 g/dL (32.0-36.0); Mean Corpuscular Volume 92.8 fL (80.0-100.0); Monocytes # (auto) 0.7 10 ^3/uL (0-1.3); Monocytes % (auto) 8.4 % (0.0-12.0); Neutrophils # (auto) 6.7 10 ^3/uL (1.6-8.6); Neutrophils % (auto) 79.6 % (37.0-80.0); Nucleated Red Blood Cells % 0.1 %; Platelet Count (auto) 194 10^3/uL (140-450); Red Blood Cells 4.62 10^6/uL (4.5-5.90); Red Cell Distribution Width 13.4 % (11.8-14.3); White Blood Cell 8.4 10^3/uL (4.4-10.8)
[2024-05-20 18:04] LABS: INR 1.05 (0.9-1.15); Partial Thromboplastin Time 31.9 SEC (24.5-34.5); Prothrombin Time 11.1 sec (9.3-11.8)
[2024-05-20] MEDS: AMINO ACID INFUSION IN D10W 1,000 ML IV SCH (22:00)
--- NOTE | 2024-05-20 23:07 | DVHPN2 ---
Progress Note - Dictate Date Seen: May 20, 2024 Has the PT tested + for MRSA If YES, has PT been informed?: No Medical Necessity Reason Pt with a Central, PICC or Fol: Yes The following are medically ne: Serna Catheter Reason for serna catheter: Strict I&O Subjective Patient seen and examined at bedside. Intubated on mechanical ventilator. Overnight events reviewed. vital signs Vital Sign Date Time Temp Pulse Resp B/P (MAP) Pulse Ox O2 Delivery O2 Flow Rate FiO2 05/20/24 22:00 52 05/20/24 22:00 18 94 Mechanical Ventilator+ 30 30 05/20/24 21:50 107/51 (69) 05/20/24 16:30 99.1 99.1 Total Intake and Output 05/19/24 05/19/24 05/20/24 15:00 23:00 07:00 Intake Total 1732.5 ml 1150 ml 1150.0 ml Output Total 960 ml 720 ml Balance 1732.5 ml 190 ml 430.0 ml medications Current Medications Medications Dose Ordered Sig/Jania Route Start Time Stop Time Status Last Admin Dose Admin Sodium Chloride 10 ml Q8HR IV 05/17/24 06:00 05/20/24 22:00 10 ML Acetaminophen 650 mg Q6HP PRN PO 05/17/24 01:30 Nitroglycerin 0.4 mg Q5MINP PRN SL 05/17/24 01:30 Morphine Sulfate 2 mg Q30M PRN IV 05/17/24 01:30 Furosemide 20 mg DAILY IV 05/17/24 10:00 05/20/24 09:05 20 MG Midazolam HCl 50 ml @ 1 mls/hr Q24H IV 05/17/24 13:45 05/19/24 06:53 6 MLS/HR Potassium Chloride/Dextrose/ Sod Cl 1,000 ml @ 120 mls/hr Q8H20M IV 05/17/24 13:45 05/20/24 15:57 120 MLS/HR Metronidazole 100 ml @ 100 mls/hr Q8HR IV 05/17/24 14:00 05/20/24 22:50 100 MLS/HR Morphine Sulfate 2 mg Q4HPRN PRN IV 05/17/24 13:45 Ondansetron HCl 4 mg Q4HPRN PRN IV 05/17/24 13:45 Pantoprazole Sodium 40 mg DAILY IV 05/18/24 10:00 05/20/24 09:04 40 MG Cefazolin Sodium/ Dextrose 50 ml @ 50 mls/hr Q8HR IV 05/17/24 18:30 05/20/24 21:19 50 MLS/HR Fentanyl Citrate 250 ml @ 2.5 mls/hr Q24H IV 05/17/24 20:00 05/19/24 21:37 5 MLS/HR Amino Acids 0 ml @ 0 mls/hr PER PHARMACY IV 05/20/24 10:15 Diagnostic Test (Pha) 1 strip Q6HR 05/20/24 12:00 05/20/24 17:44 1 STRIP Insulin Human Regular FOLLOW SLIDING SCALE Q6HR SC 05/20/24 12:00 Dextrose 50 ml UD IV 05/20/24 11:45 Amino Acids/ Electrolytes/ Dextrose 1,000 ml @ 41 mls/hr DAILY@2200 IV 05/20/24 22:00 Dexmedetomidine HCl 400 mcg/ Dextrose 100 ml @ 4.285 mls/ hr [id number] IV 05/20/24 12:30 05/20/24 14:22 4.285 MLS/HR Heparin Sodium/ Dextrose 250 ml @ 15 mls/hr [id number] IV 05/21/24 02:00 objective Gen.: Patient lying in bed in medical ICU. Intubated on mechanical ventilator. Head: Normocephalic, atraumatic. Eyes: PERRLA. Ears: Normal external anatomy. Throat: Endotracheal tube and orogastric tube in place. Neck: Supple, trachea midline. Chest: Transmitted breath sounds bilaterally. Decreased air entry bilaterally. No wheezing. Bibasilar crackles. Cardiovascular: Positive S1, positive S2. Regular rate and rhythm. Abdomen: Positive bowel sounds in all 4 quadrants. Soft, nontender, nondistended. : Serna in place. Normal external genitalia. Rectal: Deferred. Skin: Warm, dry. Intact. Extremities: 2+ radial pulses bilaterally. No lower extremity edema. Neuro: Off sedation. laboratory and microbiology Laboratory Tests 05/20/24 17:20 05/20/24 06:23 Test 05/20/24 06:23 Range/Units Serum Glucose 125 H 74-106 mg/dL Assessment/Plan Impression: Acute hypoxic respiratory failure On mechanical ventilator S/p laparoscopic cholecystectomy Sepsis Peritonitis Nicotine dependence Events: Remains on vent support On AC mode; RR 18, VT 550, PEEP 5, FIO2 30% Off sedation On Precedex drip Fentanyl drip for analgesia Bilateral upper extremity venous Doppler reviewed; demonstrates thrombus seen in the distal right subclavian, proximal right axillary and right cephalic veins. The left cephalic vein is noncompressible, likely secondary to chronic thrombus. CXR demonstrates pulmonary vascular congestion. Devices in place. Continue antibiotics Monitor hemoglobin Surgery recs appreciated Patient failed CPAP - fever, tachycardia, tachypnea. Will attempt in AM. Labs and imaging reviewed. Rest of plan as noted below. Plan: s/p intubation on mechanical ventilator. On AC mode; RR 18, VT 550, PEEP 5, FIO2 30% Titrate FIO2 to keep O2 saturation above 90%. VAP bundle. Daily ABG and CXR while intubated Off sedation Continue antibiotics. NGT - GI hemorrhage Monitor hemoglobin Surgery recs appreciated. Start pressors if necessary to maintain a mean arterial blood pressure greater than 65 mmHg. Monitor renal function Monitor electrolytes. Supplement as necessary. Monitor ins and outs. Maintain euvolemia. GI prophylaxis. DVT prophylaxis. Prognosis: Poor given patient's multiple co-morbidities. Condition: Critical Rest of plan per hospitalist and other consultants. A total of 35 minutes of critical care time was spent reviewing the patient record, examining the patient, making a diagnostic and therapeutic plan, discussing this plan with the medical personnel, following up on diagnostic studies and following the patient for clinical stability excluding any and all procedures. At least 50% of this time was spent in direct, [id number] contact. Thank you Dr. Barnes for allowing me to participate in this patient's care. Further recommendations will depend on the patient's clinical course. Please do not hesitate to contact me if you have any questions or concerns. This medical document was created using an electronic medical record system with [employer] dictation system. Although these documentations are being carefully reviewed, there may still be some phonetic and typographical changes. The errors are purely typographical, due to imperfection on the software program, and do not reflect any compromise in the patient's medical care. Dietary Evaluation Review Comments: 1. Consider advancing to cardiac diet when medically appropriate 2. Consider Jevity 1.5 TF @45ml/hr providing 1620kcal, 69g pro, 821ml FW/TPN if NPO >7 days Expected Outcomes/Goals: 1. Pt will meet >75% estimated needs within 2-3 days Plan discussed with: Other (FARHEEN Leo) Critical Care Time(min): 35 MARK ULRICH MD May 20, 2024 23:06
[2024-05-21] VITALS (103 sets, daily range): BP systolic 111–189; BP diastolic 37–84; PULSE 46–117; RESP 12–37; TEMP 98.2–99.8; O2SAT 90–99
[2024-05-21] MEDS: HEPARIN DRIP/D5W 100UNITS/ML 250 ML IV SCH ×3 (02:30→18:00)
[2024-05-21] MEDS: HEPARIN SODIUM (PORCINE) 5000 UNITS/ML 1ML VIAL IV ONE ×2 (02:33→18:02)
[2024-05-21 03:51] LABS: Basophils # (auto) 0 10 ^3/uL (0-0.2); Basophils % (auto) 0.5 % (0.0-2.0); Eosinophils # (auto) 0.3 10 ^3/uL (0-0.8); Eosinophils % (auto) 4.3 % (0.0-7.0); Hematocrit 40.8 % (41.0-53.0); Hemoglobin 14.1 g/dL (13.5-17.5); Lymphocytes # (auto) 1.1 10 ^3/uL (0.4-5.4); Lymphocytes % (auto) 17.2 % (10.0-50.0); Mean Corpuscular Hemoglobin 31.6 pg (28.0-32.0); Mean Corpuscular Hgb Conc. 34.6 g/dL (32.0-36.0); Mean Corpuscular Volume 91.3 fL (80.0-100.0); Monocytes # (auto) 0.6 10 ^3/uL (0-1.3); Monocytes % (auto) 8.9 % (0.0-12.0); Neutrophils # (auto) 4.5 10 ^3/uL (1.6-8.6); Neutrophils % (auto) 69.1 % (37.0-80.0); Nucleated Red Blood Cells % 0.1 %; Platelet Count (auto) 186 10^3/uL (140-450); Red Blood Cells 4.47 10^6/uL (4.5-5.90); Red Cell Distribution Width 13.5 % (11.8-14.3); White Blood Cell 6.5 10^3/uL (4.4-10.8)
[2024-05-21 04:09] LABS: Alanine Aminotransferase 10 U/L (7-40); Albumin 3.3 g/dL (3.2-4.8); Alkaline Phosphatase 92 U/L (46-116); Anion Gap 8 (5-15); BUN/Creatinine Ratio 14.8 (10.0-20.0); Bilirubin, Total 0.5 mg/dL (0.2-1.0); Blood Urea Nitrogen 9 mg/dL (9-23); Carbon Dioxide 26 mmol/L (20-31); Chloride 104 mmol/L (98-107); Magnesium 1.7 mg/dL (1.6-2.6); Phosphorus 3.5 mg/dL (2.4-5.1); Potassium 4.4 mmol/L (3.5-5.1); Sodium 138 mmol/L (136-145)
[2024-05-21 04:38] LABS: Aspartate Aminotransferase 10 U/L (13-40); Glucose 130 mg/dL (74-106)
[2024-05-21 04:39] LABS: Total Protein 5.1 g/dL (5.7-8.2)
--- NOTE | 2024-05-21 05:13 | DVH ---
CHEST RADIOGRAPH Indication: reevaluate parenchyma and tube positioning Technique: Single frontal view of the chest was obtained COMPARISON: XY CHEST PORTABLE on DOS: 05/20/24, XY CHEST XRAY 1 VIEW on DOS: 05/19/24, XY CHEST XRAY 1 EW on DOS: 05/18/24, XY CHEST PORTABLE on DOS: 05/17/24, XY CHEST PORTABLE on DOS: 05/17/24 FINDINGS: Lines and Tubes: Endotracheal tube and enteric catheter in satisfactory position. Lungs: Patchy bilateral airspace disease. Pleura: No effusion. No pneumothorax. Cardiomediastinal contours: Unremarkable Bones: Unremarkable IMPRESSION: Lines and tubes in satisfactory position. No significant interval change. .
[2024-05-21 07:57] LABS: Base Excess 0.6 mmol/L (-2.0-3.0)
[2024-05-21 08:50] LABS: INR 1.03 (0.9-1.15); Partial Thromboplastin Time 44.6 SEC (24.5-34.5); Prothrombin Time 10.9 sec (9.3-11.8)
[2024-05-21] MEDS ORDERED: ENOXAPARIN SOD 40 MG/0.4 ML SYRINGE SC SCH (10:00)
[2024-05-21 11:02] LABS: Base Excess 2.9 mmol/L (-2.0-3.0)
--- NOTE | 2024-05-21 11:23 | DVHPNRES ---
Progress Note Date Seen: May 21, 2024 Resident Creating Document: MIGUEL MOSCOSO RESIDENT Has the PT tested + for MRSA If YES, has PT been informed?: No Medical Necessity Reason Pt with a Central, PICC or Fol: Yes The following are medically ne: Serna Catheter Reason for serna catheter: Strict I&O Subjective Review of Systems This is a 69 year old male past medical history of HTN, CHF, COPD who presented to the ED with chief complaint of cholecystostomy tube dislodgement associated with severe abdominal pain. The patient stated that three days ago the cholecystostomy tube got stuck with a doorknob at the house and unintentionally pull the tube and slightly dislodged causing a lot of pain and inflammation at that time. Two days later the patient started to experiencing severe abdominal pain in the right upper quadrant and epigastric region. Apparently previously the patient was found to have cholecystitis but at that time due to severe comorbidities colostomy tube was placed instead of surgical cholecystectomy. Upon my examination, the patient was on severe excruciating pain in the right upper quadrant and epigastric region extending to the periumbilical region. The patient was hairm hard abdomen most likely consistent with acute abdomen. Surgery was consulted for possible laparoscopy due to suspection of peritonitis. The patient was experiencing excruciating right upper quadrant and epigastric abdominal pain that was extending to the periumbilical region. Upon my examination the abdomen was firm, hard and tender most likely consistent with acute abdomen. Surgery was consulted which took the patient to the OR for laparoscopic cholecystectomy with peritoneal lavage, insertion of a CORDELIA drain at the level of the liver where the gallbladder was located. Removal of cholecystostomy tube was performed as well. The patient was intubated for surgery and remained intubated after procedure. Patient seen and examined at bedside. Patient was initially intubated this morning minimal ventilatory settings. Patient was off sedation and off analgesia, we perform CPAP trial which patient tolerated without complications. RT came at bedside and gave the following parameters: NIF -40, RSBI 26, VC 1525, audible leak. Based on these parameters and current ABG we proceed and extubated the patient. Patient is just recently extubated at this time. We will continue heparin drip for proximal right upper arm DVT and we will continue IV cefazolin and metronidazole. We will start IV Clinimix until surgery assessed the patient and determine the possibility of starting diet. ROS unable to obtain patient just recently extubated. Objective vital signs Vital Sign Date Time Temp Pulse Resp B/P (MAP) Pulse Ox O2 Delivery O2 Flow Rate FiO2 05/21/24 11:00 73 24 159/55 (89) 95 05/21/24 10:00 30 05/21/24 10:00 Mechanical Ventilator+ 05/21/24 08:00 99.3 99.3 Total Intake and Output 05/20/24 05/20/24 05/21/24 15:00 23:00 07:00 Intake Total 979.285 ml 1316.606 ml 1374.353 ml Output Total 2510 ml 445 ml Balance 979.285 ml -1193.394 ml 929.353 ml medications Current Medications Medications Dose Ordered Sig/Jania Route Start Time Stop Time Status Last Admin Dose Admin Sodium Chloride 10 ml Q8HR IV 05/17/24 06:00 05/21/24 06:30 10 ML Acetaminophen 650 mg Q6HP PRN PO 05/17/24 01:30 Nitroglycerin 0.4 mg Q5MINP PRN SL 05/17/24 01:30 Morphine Sulfate 2 mg Q30M PRN IV 05/17/24 01:30 Furosemide 20 mg DAILY IV 05/17/24 10:00 05/21/24 09:14 20 MG Midazolam HCl 50 ml @ 1 mls/hr Q24H IV 05/17/24 13:45 05/19/24 06:53 6 MLS/HR Potassium Chloride/Dextrose/ Sod Cl 1,000 ml @ 120 mls/hr Q8H20M IV 05/17/24 13:45 05/21/24 00:21 120 MLS/HR Metronidazole 100 ml @ 100 mls/hr Q8HR IV 05/17/24 14:00 05/21/24 06:33 100 MLS/HR Morphine Sulfate 2 mg Q4HPRN PRN IV 05/17/24 13:45 Ondansetron HCl 4 mg Q4HPRN PRN IV 05/17/24 13:45 Pantoprazole Sodium 40 mg DAILY IV 05/18/24 10:00 05/21/24 09:14 40 MG Cefazolin Sodium/ Dextrose 50 ml @ 50 mls/hr Q8HR IV 05/17/24 18:30 05/21/24 08:13 50 MLS/HR Fentanyl Citrate 250 ml @ 2.5 mls/hr Q24H IV 05/17/24 20:00 05/21/24 00:14 17.5 MLS/HR Amino Acids 0 ml @ 0 mls/hr PER PHARMACY IV 05/20/24 10:15 Diagnostic Test (Pha) 1 strip Q6HR 05/20/24 12:00 05/21/24 06:32 1 STRIP Insulin Human Regular FOLLOW SLIDING SCALE Q6HR SC 05/20/24 12:00 Dextrose 50 ml UD IV 05/20/24 11:45 Amino Acids/ Electrolytes/ Dextrose 1,000 ml @ 41 mls/hr DAILY@2200 IV 05/20/24 22:00 Dexmedetomidine HCl 400 mcg/ Dextrose 100 ml @ 4.285 mls/ hr [id number] IV 05/20/24 12:30 05/21/24 08:15 4.285 MLS/HR Heparin Sodium/ Dextrose 250 ml @ 17 mls/hr [id number] IV 05/21/24 09:30 Examination Physical Examination General: Patient alert and oriented in person, place and time. Patient following commands. HEENT: Normocephalic, atraumatic, moist mucous membranes Respiratory/pulmonary: There are mild coarse sounds at this time. patient recently extubated. Cardiovascular: Normal heart sounds S1 and S2 with no associated murmurs Abdomen: Abdomen nondistended, there is an abdominal binder, CORDELIA drainage is draining approximately 195 cc in the past 24 hours. Surgical incisions looks dry and clean. No signs of erythema or infection at this time. Extremities: There is no peripheral edema present at the lower extremities. Peripheral Pulses: 3+ Radial (R). 3+ Radial (L). 3+ Dorsalis pedis (R). 3+ Dorsalis pedis(L) Skin: No rashes or pruritus, there is no sacral edema present at this time. Neurological: Intact cranial nerves with no focal neurologic deficits laboratory and microbiology Laboratory Tests 05/21/24 03:12 Test 05/21/24 03:12 Range/Units Serum Glucose 130 H 74-106 mg/dL Microbiology Date/Time Source Procedure Growth Status 05/17/24 17:53 Nose MRSA Screen - Final Complete 05/17/24 14:25 Sputum Expectorated Sputum Gram Stain - Final Complete 05/17/24 14:25 Sputum Expectorated Sputum Respiratory Culture - Final Complete 05/17/24 13:14 Peritoneal Fluid Gram Stain - Final Resulted 05/17/24 13:14 Peritoneal Fluid Anaerobic Culture - Preliminary Resulted 05/17/24 13:14 Aerobic Culture - Final Klebsiella pneumoniae Resulted Problem List/Assessment/Plan Problem List/Assessment/Plan Assessment/Plan Acute abdominal pain due to peritonitis due to complicated cholecystitis with dislodged cholecystostomy tube Acute abdomen Peritonitis Sepsis due to above S/P Laparoscopic cholecystectomy with peritoneal lavage day 4 -initially patient reported cholecystostomy tube dislodgement -initial WBC was 13.1 -patient had firm and hard abdomen to palpation -CT scan of the abdomen showed trace right perihepatic fluid which may reflect residual from initial catheter placement. Acute biliary leak is less likely but can not be entirely excluded. -surgery was consulted which performed laparoscopic cholecystectomy with peritoneal lavage -CORDELIA drain was placed per surgeon -patient was recently extubated. ( NIF -40, RSBI 26, VC 1525, audible leak) -follow-up ABG -CORDELIA drain is draining approximately 190 cc in the last 12 hours -Continue IV cefazolin -Continue IV metronidazole -start IV Clinimix and follow-up surgical recommendations regarding diet. Acute on chronic heart failure with preserved ejection fraction (HFpEF 50%) -last echocardiogram performed of 04/08 showed an LVEF of 50% -furosemide 20 mg IV daily -monitor strict in's and out COPD, not exacerbation -currently intubated post surgery on mechanical ventilatory parameters as described above -monitor saturation History of DVT -status post IVC filter placed on February of 2024 Tobacco abuse -we will consult the patient wants the patient is more stable Nutrition -start Clinimix Goals of care discussed with the patient at bedside for >23min, FULL CODE Plan discussed with Dr. Hebert Plan discussed with: Patient My Orders My Orders Orders - MIGUEL MOSCOSO RESIDENT Procedure Category Date Status Time Abg W/ Co-Ox RT 05/20/24 Logged 11:20 Glucose Blood PHA 05/20/24 In Process (Accu-Chek Comfort 12:00 Insulin R (Human) PHA 05/20/24 In Process (Insulin R) 12:00 Dextrose 50% Syringe PHA 05/20/24 In Process 11:45 Clinimix Per Pharmacy [facility] 05/20/24 In Process 22:00 Amino Acid Infusion PHA 05/20/24 In Process In D10w (Clinimix 4. 22:00 Cpap Trial For Am ORDERS 05/21/24 Transmitted 07:00 D5w 5% (Dextrose 5%) PHA 05/20/24 In Process W/Dexmedetomidine 12:30 Insert Midline ORDERS 05/20/24 Transmitted 13:20 Bi Lat Upper Dvt US 05/20/24 Resulted 13:48 Chest Xray 1 View XY 05/21/24 Resulted 04:00 Abg W/ Co-Ox RT 05/21/24 Logged 04:00 Platelet Monitoring [facility] 05/20/24 In Process 16:40 Vte Protocol Initiated [facility] 05/20/24 In Process 16:40 Heparin Per [facility] 05/20/24 In Process Standardized Proce 16:40 Discontinue All Im [facility] 05/20/24 In Process Injections 16:40 Heparin Per Pharmacy [facility] 05/20/24 In Process Protocol 17:09 Heparin Drip/D5w PHA 05/21/24 In Process 100units/Ml 09:30 PTPTT LAB 05/21/24 Logged 15:30 Extubate [facility] 05/21/24 In Process 10:46 Abg W/ Co-Ox RT 05/21/24 Logged 10:45 Dietary Evaluation Review Comments: 1. Consider advancing to cardiac diet when medically appropriate 2. Consider Jevity 1.5 TF @45ml/hr providing 1620kcal, 69g pro, 821ml FW/TPN if NPO >7 days Expected Outcomes/Goals: 1. Pt will meet >75% estimated needs within 2-3 days Date of Service: May 21, 2024 Billing Provider: MARYANN LO MD Common Visit Codes: [id number] INP/OBS CARE(HIGH) MIGUEL MOSCOSO RESIDENT May 21, 2024 11:23 MARYANN LO MD May 21, 2024 16:08
[2024-05-21 17:30] LABS: INR 1.08 (0.9-1.15); Partial Thromboplastin Time 32.4 SEC (24.5-34.5); Prothrombin Time 11.4 sec (9.3-11.8)
[2024-05-21] MEDS: MORPHINE SULFATE INJ 2 MG/ml SYRG IV PRN (20:18)
--- NOTE | 2024-05-21 23:22 | DVHPN2 ---
Progress Note - Dictate Date Seen: May 21, 2024 Has the PT tested + for MRSA If YES, has PT been informed?: No Medical Necessity Reason Pt with a Central, PICC or Fol: Yes The following are medically ne: Serna Catheter Reason for serna catheter: Strict I&O Subjective Patient seen and examined at bedside. S/p extubation, on supplemental oxygen Overnight events reviewed. vital signs Vital Sign Date Time Temp Pulse Resp B/P (MAP) Pulse Ox O2 Delivery O2 Flow Rate FiO2 05/21/24 22:45 71 20 155/55 (88) 94 05/21/24 22:00 Nasal Cannula* 3 32 05/21/24 20:00 98.2 98.2 Total Intake and Output 05/20/24 05/20/24 05/21/24 15:00 23:00 07:00 Intake Total 979.285 ml 1316.606 ml 1374.353 ml Output Total 2510 ml 445 ml Balance 979.285 ml -1193.394 ml 929.353 ml medications Current Medications Medications Dose Ordered Sig/Jania Route Start Time Stop Time Status Last Admin Dose Admin Sodium Chloride 10 ml Q8HR IV 05/17/24 06:00 05/21/24 21:50 10 ML Acetaminophen 650 mg Q6HP PRN PO 05/17/24 01:30 Nitroglycerin 0.4 mg Q5MINP PRN SL 05/17/24 01:30 Morphine Sulfate 2 mg Q30M PRN IV 05/17/24 01:30 Furosemide 20 mg DAILY IV 05/17/24 10:00 05/21/24 09:14 20 MG Midazolam HCl 50 ml @ 1 mls/hr Q24H IV 05/17/24 13:45 05/19/24 06:53 6 MLS/HR Metronidazole 100 ml @ 100 mls/hr Q8HR IV 05/17/24 14:00 05/21/24 21:49 100 MLS/HR Morphine Sulfate 2 mg Q4HPRN PRN IV 05/17/24 13:45 05/21/24 20:18 2 MG Ondansetron HCl 4 mg Q4HPRN PRN IV 05/17/24 13:45 Pantoprazole Sodium 40 mg DAILY IV 05/18/24 10:00 05/21/24 09:14 40 MG Cefazolin Sodium/ Dextrose 50 ml @ 50 mls/hr Q8HR IV 05/17/24 18:30 05/21/24 22:00 50 MLS/HR Fentanyl Citrate 250 ml @ 2.5 mls/hr Q24H IV 05/17/24 20:00 05/21/24 00:14 17.5 MLS/HR Amino Acids 0 ml @ 0 mls/hr PER PHARMACY IV 05/20/24 10:15 Diagnostic Test (Pha) 1 strip Q6HR 05/20/24 12:00 05/21/24 17:19 1 STRIP Insulin Human Regular FOLLOW SLIDING SCALE Q6HR SC 05/20/24 12:00 05/21/24 17:19 2 UNITS Dextrose 50 ml UD IV 05/20/24 11:45 Amino Acids/ Electrolytes/ Dextrose 1,000 ml @ 41 mls/hr DAILY@2200 IV 05/20/24 22:00 05/21/24 21:51 41 MLS/HR Dexmedetomidine HCl 400 mcg/ Dextrose 100 ml @ 4.285 mls/ hr [id number] IV 05/20/24 12:30 05/21/24 08:15 4.285 MLS/HR Heparin Sodium/ Dextrose 250 ml @ 20 mls/hr [id number] IV 05/21/24 18:00 05/21/24 18:38 20 MLS/HR objective Gen.: Patient lying in bed in no apparent distress. On supplemental oxygen. Head: Normocephalic, atraumatic. Eyes: EOMI/PERRLA. Ears: Normal hearing. Normal anatomy. Neck/trachea: Trachea midline, supple. Nose: Normal external anatomy. Mouth: Moist mucous membranes. Chest: Decreased air entry bilaterally. No wheezing or rhonchi. Cardiovascular: Positive S1, positive S2. Regular rate and rhythm. Abdomen: Positive bowel sounds in all 4 quadrants. Soft, non-tender, non- distended. : Deferred. Rectal: Deferred. Skin: Warm, dry. Intact. Extremities: 2+ radial pulses bilaterally. No lower extremity edema. Neuro: Awake, alert, oriented x3. No gross motor or sensory deficits. Cranial nerves II through XII intact. Gait not assessed. laboratory and microbiology Laboratory Tests 05/21/24 03:12 Test 05/21/24 03:12 Range/Units Serum Glucose 130 H 74-106 mg/dL Assessment/Plan Impression: Acute hypoxic respiratory failure On mechanical ventilator S/p laparoscopic cholecystectomy Sepsis Peritonitis Nicotine dependence Events: Patient tolerated CPAP, was extubated uneventfully today at 11:15 AM Placed on 8 L, FiO2 35% cool mist mask. CXR demonstrates patchy bilateral airspace disease. No effusion or pneumothorax. On heparin drip Continue antibiotics Pain control Avoid oversedation Abdominal binder. NGT Surgery recs appreciated. Monitor hemoglobin Surgery recs appreciated Clinimix for nutritional support Labs and imaging reviewed. Rest of plan as noted below. Plan: s/p extubation Supplemental oxygen Titrate to keep O2 sats above 90%. Continue antibiotics. NGT - GI hemorrhage Monitor hemoglobin Surgery recs appreciated. Start pressors if necessary to maintain a mean arterial blood pressure greater than 65 mmHg. Monitor renal function Monitor electrolytes. Supplement as necessary. Monitor ins and outs. Maintain euvolemia. GI prophylaxis. DVT prophylaxis. Prognosis: Poor given patient's multiple co-morbidities. Condition: Critical Rest of plan per hospitalist and other consultants. A total of 35 minutes of critical care time was spent reviewing the patient record, examining the patient, making a diagnostic and therapeutic plan, discussing this plan with the medical personnel, following up on diagnostic studies and following the patient for clinical stability excluding any and all procedures. At least 50% of this time was spent in direct, [id number] contact. Thank you Dr. Barnes for allowing me to participate in this patient's care. Further recommendations will depend on the patient's clinical course. Please do not hesitate to contact me if you have any questions or concerns. This medical document was created using an electronic medical record system with [employer] dictation system. Although these documentations are being carefully reviewed, there may still be some phonetic and typographical changes. The errors are purely typographical, due to imperfection on the software program, and do not reflect any compromise in the patient's medical care. Dietary Evaluation Review Comments: 1. Consider advancing to cardiac diet when medically appropriate 2. Consider Jevity 1.5 TF @45ml/hr providing 1620kcal, 69g pro, 821ml FW/TPN if NPO >7 days Expected Outcomes/Goals: 1. Pt will meet >75% estimated needs within 2-3 days Plan discussed with: Other (FARHEEN Ramirez) Critical Care Time(min): 35 MARK ULRICH MD May 21, 2024 23:22
[2024-05-22] VITALS (68 sets, daily range): BP systolic 116–170; BP diastolic 50–90; PULSE 63–96; RESP 13–33; TEMP 98–98.7; O2SAT 87–97
[2024-05-22 01:05] LABS: INR 1.15 (0.9-1.15)
[2024-05-22 01:14] LABS: Partial Thromboplastin Time 85.1 SEC (24.5-34.5)
[2024-05-22] MEDS: HEPARIN DRIP/D5W 100UNITS/ML 250 ML IV SCH ×3 (02:03→16:03)
[2024-05-22 04:07] LABS: Basophils # (auto) 0 10 ^3/uL (0-0.2); Basophils % (auto) 0.4 % (0.0-2.0); Eosinophils # (auto) 0.2 10 ^3/uL (0-0.8); Eosinophils % (auto) 2.4 % (0.0-7.0); Hematocrit 39.6 % (41.0-53.0); Hemoglobin 13.6 g/dL (13.5-17.5); Lymphocytes # (auto) 1.1 10 ^3/uL (0.4-5.4); Lymphocytes % (auto) 13.8 % (10.0-50.0); Mean Corpuscular Hemoglobin 30.9 pg (28.0-32.0); Mean Corpuscular Hgb Conc. 34.4 g/dL (32.0-36.0); Mean Corpuscular Volume 89.7 fL (80.0-100.0); Monocytes # (auto) 0.8 10 ^3/uL (0-1.3); Monocytes % (auto) 10.1 % (0.0-12.0); Neutrophils # (auto) 5.7 10 ^3/uL (1.6-8.6); Neutrophils % (auto) 73.3 % (37.0-80.0); Platelet Count (auto) 213 10^3/uL (140-450); Red Blood Cells 4.41 10^6/uL (4.5-5.90); Red Cell Distribution Width 12.9 % (11.8-14.3); White Blood Cell 7.8 10^3/uL (4.4-10.8)
[2024-05-22 04:25] LABS: Albumin 3.5 g/dL (3.2-4.8); Alkaline Phosphatase 90 U/L (46-116); Anion Gap 8 (5-15); BUN/Creatinine Ratio 11.8 (10.0-20.0); Carbon Dioxide 28 mmol/L (20-31); Chloride 105 mmol/L (98-107); Magnesium 1.7 mg/dL (1.6-2.6); Potassium 3.6 mmol/L (3.5-5.1); Sodium 141 mmol/L (136-145)
[2024-05-22 04:26] LABS: Bilirubin, Total 0.5 mg/dL (0.2-1.0)
[2024-05-22 04:40] LABS: Alanine Aminotransferase < 9 U/L (7-40); Aspartate Aminotransferase 11 U/L (13-40); Blood Urea Nitrogen 8 mg/dL (9-23); Glucose 124 mg/dL (74-106); Total Protein 5.1 g/dL (5.7-8.2)
[2024-05-22 09:38] LABS: INR 1.15 (0.9-1.15); Partial Thromboplastin Time 56.1 SEC (24.5-34.5)
--- NOTE | 2024-05-22 10:25 | DVHPNRES ---
Progress Note Date Seen: May 22, 2024 Resident Creating Document: MIGUEL MOSCOSO RESIDENT Has the PT tested + for MRSA If YES, has PT been informed?: No Medical Necessity Reason Pt with a Central, PICC or Fol: Yes The following are medically ne: Serna Catheter Reason for serna catheter: Strict I&O Subjective Review of Systems This is a 69 year old male past medical history of HTN, CHF, COPD who presented to the ED with chief complaint of cholecystostomy tube dislodgement associated with severe abdominal pain. The patient stated that three days ago the cholecystostomy tube got stuck with a doorknob at the house and unintentionally pull the tube and slightly dislodged causing a lot of pain and inflammation at that time. Two days later the patient started to experiencing severe abdominal pain in the right upper quadrant and epigastric region. Apparently previously the patient was found to have cholecystitis but at that time due to severe comorbidities colostomy tube was placed instead of surgical cholecystectomy. Upon my examination, the patient was on severe excruciating pain in the right upper quadrant and epigastric region extending to the periumbilical region. The patient was hairm hard abdomen most likely consistent with acute abdomen. Surgery was consulted for possible laparoscopy due to suspection of peritonitis. The patient was experiencing excruciating right upper quadrant and epigastric abdominal pain that was extending to the periumbilical region. Upon my examination the abdomen was firm, hard and tender most likely consistent with acute abdomen. Surgery was consulted which took the patient to the OR for laparoscopic cholecystectomy with peritoneal lavage, insertion of a CORDELIA drain at the level of the liver where the gallbladder was located. Removal of cholecystostomy tube was performed as well. The patient was intubated for surgery and remained intubated after procedure. Patient seen and examined at bedside. The patient was extubated successfully yesterday on 05/21/2024. The patient is currently on 3 L of oxygen through nasal cannula saturating 95%. We will downgrade the patient to telemetry since the patient is not requiring any vasoactive/hemodynamic drugs or any other critical care. We will continue heparin drip, IV cefazolin and metronidazole. Diet lentz we will continue Clinimix at this time and waiting for surgical recommendation. Upon my examination, the patient is reporting severe abdominal tenderness in the periumbilical region, incision was examined which looks dry and clean at this point. CORDELIA drainage is draining approximately 60 cc in the last 12 hours. Patient is currently hemodynamically stable at this time. We will continue current care. ROS Constitutional: Denies weight loss, fever and chills. HEENT: Denies changes in vision and hearing. Respiratory: Denies shortness of breath and cough Cardiovascular: Denies chest discomfort or palpitations GI: Reports moderate to severe abdominal tenderness to palpation at the periumbilical region. Denies vomiting/nausea or diarrhea. : Denies dysuria and urinary frequency. Musculoskeletal: Denies myalgias and joint pain Skin: Denies rash and pruritus. Neurological: Denies dizziness, headache, vision or hearing problems Objective vital signs Vital Sign Date Time Temp Pulse Resp B/P (MAP) Pulse Ox O2 Delivery O2 Flow Rate FiO2 05/22/24 06:45 73 24 153/73 05/22/24 06:45 94 05/22/24 06:00 Nasal Cannula* 3 32 05/22/24 04:00 98.0 98.0 Total Intake and Output 05/21/24 05/21/24 05/22/24 15:00 23:00 07:00 Intake Total 514.928 ml 612 ml 2399 ml Output Total 2145 ml 2235 ml Balance 514.928 ml -1533 ml 164 ml medications Current Medications Medications Dose Ordered Sig/Jania Route Start Time Stop Time Status Last Admin Dose Admin Sodium Chloride 10 ml Q8HR IV 05/17/24 06:00 05/22/24 05:20 10 ML Acetaminophen 650 mg Q6HP PRN PO 05/17/24 01:30 Nitroglycerin 0.4 mg Q5MINP PRN SL 05/17/24 01:30 Morphine Sulfate 2 mg Q30M PRN IV 05/17/24 01:30 Furosemide 20 mg DAILY IV 05/17/24 10:00 05/21/24 09:14 20 MG Metronidazole 100 ml @ 100 mls/hr Q8HR IV 05/17/24 14:00 05/22/24 05:20 100 MLS/HR Morphine Sulfate 2 mg Q4HPRN PRN IV 05/17/24 13:45 05/22/24 06:15 2 MG Ondansetron HCl 4 mg Q4HPRN PRN IV 05/17/24 13:45 Pantoprazole Sodium 40 mg DAILY IV 05/18/24 10:00 05/21/24 09:14 40 MG Cefazolin Sodium/ Dextrose 50 ml @ 50 mls/hr Q8HR IV 05/17/24 18:30 05/22/24 06:14 50 MLS/HR Amino Acids 0 ml @ 0 mls/hr PER PHARMACY IV 05/20/24 10:15 Diagnostic Test (Pha) 1 strip Q6HR 05/20/24 12:00 05/22/24 06:24 1 STRIP Insulin Human Regular FOLLOW SLIDING SCALE Q6HR SC 05/20/24 12:00 05/21/24 17:19 2 UNITS Dextrose 50 ml UD IV 05/20/24 11:45 Amino Acids/ Electrolytes/ Dextrose 1,000 ml @ 41 mls/hr DAILY@2200 IV 05/20/24 22:00 05/21/24 21:51 41 MLS/HR Heparin Sodium/ Dextrose 250 ml @ 18 mls/hr [id number] IV 05/22/24 10:15 Examination Physical Examination General: Patient alert and oriented in person, place and time. Patient following commands. HEENT: Normocephalic, atraumatic, moist mucous membranes Respiratory/pulmonary: There are mild coarse sounds at this time. patient extubated on 3 L of O2 through nasal cannula Cardiovascular: Normal heart sounds S1 and S2 with no associated murmurs Abdomen: Abdomen nondistended, Abd is tender to palpation 8/10 on pain scale at periumbilal region.There is an abdominal binder, CORDELIA drainage is draining approximately 60 cc in the past 12 hours. Surgical incisions looks dry and clean. No signs of erythema or infection at this time. Extremities: There is no peripheral edema present at the lower extremities. Peripheral Pulses: 3+ Radial (R). 3+ Radial (L). 3+ Dorsalis pedis (R). 3+ Dorsalis pedis(L) Skin: No rashes or pruritus, there is no sacral edema present at this time. Neurological: Intact cranial nerves with no focal neurologic deficits laboratory and microbiology Laboratory Tests 05/22/24 03:09 Test 05/22/24 03:09 Range/Units Serum Glucose 124 H 74-106 mg/dL Microbiology Date/Time Source Procedure Growth Status 05/17/24 17:53 Nose MRSA Screen - Final Complete 05/17/24 14:25 Sputum Expectorated Sputum Gram Stain - Final Complete 05/17/24 14:25 Sputum Expectorated Sputum Respiratory Culture - Final Complete 05/17/24 13:14 Peritoneal Fluid Gram Stain - Final Resulted 05/17/24 13:14 Peritoneal Fluid Anaerobic Culture - Preliminary Resulted 05/17/24 13:14 Aerobic Culture - Final Klebsiella pneumoniae Resulted Problem List/Assessment/Plan Problem List/Assessment/Plan Assessment/Plan Acute abdominal pain due to peritonitis due to complicated cholecystitis with dislodged cholecystostomy tube Acute abdomen Peritonitis Sepsis due to above S/P Laparoscopic cholecystectomy with peritoneal lavage day 5 -initially patient reported cholecystostomy tube dislodgement -initial WBC was 13.1 -patient had firm and hard abdomen to palpation -CT scan of the abdomen showed trace right perihepatic fluid which may reflect residual from initial catheter placement. Acute biliary leak is less likely but can not be entirely excluded. -surgery was consulted which performed laparoscopic cholecystectomy with peritoneal lavage -CORDELIA drain was placed per surgeon -patient was extubated on 05/21/24. ( NIF -40, RSBI 26, VC 1525, audible leak) -Currently on 3L of O2 through nasal cannula -follow-up ABG -CORDELIA drain is draining approximately 60 cc in the last 12 hours -Continue IV cefazolin -Continue IV metronidazole -Continue IV Clinimix and follow-up surgical recommendations regarding diet. Acute on chronic heart failure with preserved ejection fraction (HFpEF 50%) -last echocardiogram performed of 04/08 showed an LVEF of 50% -furosemide 20 mg IV daily -monitor strict in's and out Right upper extremity acute DVT -Bilat upper ext venous doppler showed a thrombus seen in the distal right subclavian, proximal right axillary and right cephalic veins. The left cephalic vein is noncompressible likely secondary to chronic thrombus. -On Hep drip COPD, not exacerbation -currently intubated post surgery on mechanical ventilatory parameters as described above -monitor saturation History of DVT -status post IVC filter placed on February of 2024 Tobacco abuse -we will consult the patient wants the patient is more stable Nutrition -Continue Clinimix ACP, discussed with the patient at bedside for 20min. Will downgrade to telemetry Goals of care discussed with the patient at bedside for >23min, FULL CODE Plan discussed with Dr. Hebert Plan discussed with: Patient My Orders My Orders Orders - MIGUEL MOSCOSO Procedure Category Date Status Time Extubate ARIANA 2/5/25 In Process 10:46 Abg W/ Co-Ox RT 05/21/24 Logged 10:45 Clinimix Per Pharmacy ARIANA 05/21/24 In Process 22:00 PTPTT LAB 05/22/24 Logged 14:45 Heparin Drip/D5w PHA 05/22/24 In Process 100units/Ml 10:15 Dietary Evaluation Review Comments: 1. Consider advancing to cardiac diet when medically appropriate 2. Consider Jevity 1.5 TF @45ml/hr providing 1620kcal, 69g pro, 821ml FW/TPN if NPO >7 days Expected Outcomes/Goals: 1. Pt will meet >75% estimated needs within 2-3 days Date of Service: May 22, 2024 Billing Provider: MARYANN LO MD Common Visit Codes: 26900-[id number] INP/OBS CARE(HIGH) MIGUEL MOSCOSO RESIDENT May 22, 2024 10:25 MARYANN LO MD May 27, 2024 09:43
--- NOTE | 2024-05-22 11:03 | DVHPN2 ---
Progress Note Date Seen: May 22, 2024 Has the PT tested + for MRSA If YES, has PT been informed?: No Medical Necessity Reason Pt with a Central, PICC or Fol: Yes The following are medically ne: Serna Catheter Reason for serna catheter: Strict I&O Objective vital signs Vital Sign Date Time Temp Pulse Resp B/P (MAP) Pulse Ox O2 Delivery O2 Flow Rate FiO2 05/22/24 10:28 140/66 05/22/24 06:45 73 24 05/22/24 06:45 94 05/22/24 06:00 Nasal Cannula* 3 32 05/22/24 04:00 98.0 98.0 Total Intake and Output 05/21/24 05/21/24 05/22/24 15:00 23:00 07:00 Intake Total 514.928 ml 612 ml 2399 ml Output Total 2145 ml 2235 ml Balance 514.928 ml -1533 ml 164 ml medications Current Medications Medications Dose Ordered Sig/Jania Route Start Time Stop Time Status Last Admin Dose Admin Sodium Chloride 10 ml Q8HR IV 05/17/24 06:00 05/22/24 05:20 10 ML Acetaminophen 650 mg Q6HP PRN PO 05/17/24 01:30 Nitroglycerin 0.4 mg Q5MINP PRN SL 05/17/24 01:30 Morphine Sulfate 2 mg Q30M PRN IV 05/17/24 01:30 Furosemide 20 mg DAILY IV 05/17/24 10:00 05/22/24 10:28 20 MG Metronidazole 100 ml @ 100 mls/hr Q8HR IV 05/17/24 14:00 05/22/24 05:20 100 MLS/HR Ondansetron HCl 4 mg Q4HPRN PRN IV 05/17/24 13:45 Pantoprazole Sodium 40 mg DAILY IV 05/18/24 10:00 05/22/24 10:28 40 MG Cefazolin Sodium/ Dextrose 50 ml @ 50 mls/hr Q8HR IV 05/17/24 18:30 05/22/24 06:14 50 MLS/HR Amino Acids 0 ml @ 0 mls/hr PER PHARMACY IV 05/20/24 10:15 Diagnostic Test (Pha) 1 strip Q6HR 05/20/24 12:00 05/22/24 06:24 1 STRIP Insulin Human Regular FOLLOW SLIDING SCALE Q6HR SC 05/20/24 12:00 05/21/24 17:19 2 UNITS Dextrose 50 ml UD IV 05/20/24 11:45 Amino Acids/ Electrolytes/ Dextrose 1,000 ml @ 41 mls/hr DAILY@2200 IV 05/20/24 22:00 05/21/24 21:51 41 MLS/HR Heparin Sodium/ Dextrose 250 ml @ 18 mls/hr [id number] IV 05/22/24 10:15 05/22/24 10:25 18 MLS/HR Acetaminophen/ Codeine Phosphate 1 tab Q4HP PRN PO 05/22/24 10:30 laboratory and microbiology Laboratory Tests 05/22/24 03:09 Test 05/22/24 03:09 Range/Units Serum Glucose 124 H 74-106 mg/dL Problem List/Assessment/Plan Problem List/Assessment/Plan 05/18/24 remains sedated and intubated on ventilator, no need for BP support, good urine output, labs ok, abdomen soft and non distended, wounds clean and well approximated, CORDELIA drainage moderate volume, bile stained 05/20/24 HEMODYNAMICALLY STABLE, REMAINS INTUBATED, DRAINAGE MINIMAL NON BILIOUS 05/22/24 extubated, good inspiratory effort, wounds clean and well approximated, NGT removed, will start po liquids, dc morphine Plan discussed with: Patient Dietary Evaluation Review Comments: 1. Consider advancing to cardiac diet when medically appropriate 2. Consider Jevity 1.5 TF @45ml/hr providing 1620kcal, 69g pro, 821ml FW/TPN if NPO >7 days Expected Outcomes/Goals: 1. Pt will meet >75% estimated needs within 2-3 days SIDDHARTHA BROWN MD May 22, 2024 11:03
[2024-05-22] MEDS: ACETAMINOPHEN/CODEINE#3 (300/30mg) TAB PO PRN (14:00)
--- NOTE | 2024-05-22 14:54 | DVH ---
CHEST RADIOGRAPH Indication: r/o aspiration Technique: Single frontal view of the chest was obtained Comparison: XY CHEST XRAY 1 VIEW on DOS: 05/21/24, XY CHEST PORTABLE on DOS: 05/20/24, XY CHEST XRAY 1 EW on DOS: 05/19/24 FINDINGS: Lines and Tubes: None Lungs: No focal consolidation. Diffuse interstitial prominence. Pleura: No effusion. No pneumothorax. Cardiomediastinal contours: Unremarkable Bones: No acute osseous abnormality. IMPRESSION: Mild pulmonary vascular congestion ; improved from prior imaging. Interval removal of the endotracheal and enteric tubes.
[2024-05-22 15:32] LABS: INR 1.15 (0.9-1.15); Partial Thromboplastin Time 46.4 SEC (24.5-34.5)
[2024-05-22] MEDS: POTASSIUM PHOSPHATE 22 MEQ in SODIUM CHL 0.9% 100 ML IV ONE (15:56)
[2024-05-22] MEDS: FUROSEMIDE 20 MG/2 ML VIAL IV ONE (17:08)
[2024-05-22 22:29] LABS: Phosphorus 2.8 mg/dL (2.4-5.1)
[2024-05-22 22:31] LABS: INR 1.18 (0.9-1.15); Prothrombin Time 12.3 sec (9.3-11.8)
[2024-05-22 22:35] LABS: Potassium 3.5 mmol/L (3.5-5.1)
--- NOTE | 2024-05-22 22:57 | DVHPN2 ---
Progress Note - Dictate Date Seen: May 22, 2024 Has the PT tested + for MRSA If YES, has PT been informed?: No Medical Necessity Reason Pt with a Central, PICC or Fol: Yes The following are medically ne: Serna Catheter Reason for serna catheter: Strict I&O Subjective Patient seen and examined at bedside. Remains on supplemental oxygen Overnight events reviewed. vital signs Vital Sign Date Time Temp Pulse Resp B/P (MAP) Pulse Ox O2 Delivery O2 Flow Rate FiO2 05/22/24 20:00 73 05/22/24 20:00 22 95 Nasal Cannula* 3 32 05/22/24 18:00 129/66 (87) 05/22/24 16:00 98.5 98.5 Total Intake and Output 05/21/24 05/21/24 05/22/24 15:00 23:00 07:00 Intake Total 514.928 ml 612 ml 2417 ml Output Total 2145 ml 2235 ml Balance 514.928 ml -1533 ml 182 ml medications Current Medications Medications Dose Ordered Sig/Jania Route Start Time Stop Time Status Last Admin Dose Admin Sodium Chloride 10 ml Q8HR IV 05/17/24 06:00 05/22/24 14:04 10 ML Acetaminophen 650 mg Q6HP PRN PO 05/17/24 01:30 Nitroglycerin 0.4 mg Q5MINP PRN SL 05/17/24 01:30 Morphine Sulfate 2 mg Q30M PRN IV 05/17/24 01:30 Furosemide 20 mg DAILY IV 05/17/24 10:00 05/22/24 10:28 20 MG Metronidazole 100 ml @ 100 mls/hr Q8HR IV 05/17/24 14:00 05/22/24 13:59 100 MLS/HR Ondansetron HCl 4 mg Q4HPRN PRN IV 05/17/24 13:45 Pantoprazole Sodium 40 mg DAILY IV 05/18/24 10:00 05/22/24 10:28 40 MG Cefazolin Sodium/ Dextrose 50 ml @ 50 mls/hr Q8HR IV 05/17/24 18:30 05/22/24 21:21 50 MLS/HR Amino Acids 0 ml @ 0 mls/hr PER PHARMACY IV 05/20/24 10:15 Diagnostic Test (Pha) 1 strip Q6HR 05/20/24 12:00 05/22/24 17:38 1 STRIP Insulin Human Regular FOLLOW SLIDING SCALE Q6HR SC 05/20/24 12:00 05/21/24 17:19 2 UNITS Dextrose 50 ml UD IV 05/20/24 11:45 Amino Acids/ Electrolytes/ Dextrose 1,000 ml @ 41 mls/hr DAILY@2200 IV 05/20/24 22:00 05/22/24 21:45 41 MLS/HR Acetaminophen/ Codeine Phosphate 1 tab Q4HP PRN PO 05/22/24 10:30 05/22/24 14:00 1 TAB Heparin Sodium/ Dextrose 250 ml @ 20 mls/hr [id number] IV 05/22/24 16:00 05/22/24 21:55 20 MLS/HR objective Gen.: Patient lying in bed in no apparent distress. On supplemental oxygen. Head: Normocephalic, atraumatic. Eyes: EOMI/PERRLA. Ears: Normal hearing. Normal anatomy. Neck/trachea: Trachea midline, supple. Nose: Normal external anatomy. Mouth: Moist mucous membranes. Chest: Decreased air entry bilaterally. No wheezing or rhonchi. Cardiovascular: Positive S1, positive S2. Regular rate and rhythm. Abdomen: Positive bowel sounds in all 4 quadrants. Soft, non-tender, non- distended. : Deferred. Rectal: Deferred. Skin: Warm, dry. Intact. Extremities: 2+ radial pulses bilaterally. No lower extremity edema. Neuro: Awake, alert, oriented x3. No gross motor or sensory deficits. Cranial nerves II through XII intact. Gait not assessed. laboratory and microbiology Laboratory Tests 05/22/24 21:49 05/22/24 03:09 Test 05/22/24 03:09 Range/Units Serum Glucose 124 H 74-106 mg/dL Assessment/Plan Impression: Acute hypoxic respiratory failure Dependence on supplemental oxygen S/p laparoscopic cholecystectomy Sepsis Peritonitis Nicotine dependence Events: S/p extubation yesterday Remains on supplemental oxygen, 3 LPM NC Taper O2 as tolerated. On heparin drip Continue antibiotics Pain control Avoid oversedation Abdominal binder. NGT Surgery recs appreciated. Monitor hemoglobin Surgery recs appreciated Clinimix for nutritional support Diurese as tolerated w/ Lasix Monitor renal function Monitor electrolytes. Supplement as necessary. Monitor ins and outs. Maintain euvolemia. Labs and imaging reviewed. Rest of plan as noted below. Plan: s/p extubation on 05/21/24 Supplemental oxygen Titrate to keep O2 sats above 92%. Continue antibiotics. NGT - GI hemorrhage Monitor hemoglobin Surgery recs appreciated. Start pressors if necessary to maintain a mean arterial blood pressure greater than 65 mmHg. Monitor renal function Monitor electrolytes. Supplement as necessary. Monitor ins and outs. Maintain euvolemia. GI prophylaxis. DVT prophylaxis. Prognosis: Guarded given patient's multiple co-morbidities. Condition: Critical Rest of plan per hospitalist and other consultants. A total of 35 minutes of critical care time was spent reviewing the patient record, examining the patient, making a diagnostic and therapeutic plan, discussing this plan with the medical personnel, following up on diagnostic studies and following the patient for clinical stability excluding any and all procedures. At least 50% of this time was spent in direct, nouf-er-toha contact. Thank you Dr. Barnes for allowing me to participate in this patient's care. Further recommendations will depend on the patient's clinical course. Please do not hesitate to contact me if you have any questions or concerns. This medical document was created using an electronic medical record system with [employer] dictation system. Although these documentations are being carefully reviewed, there may still be some phonetic and typographical changes. The errors are purely typographical, due to imperfection on the software program, and do not reflect any compromise in the patient's medical care. Dietary Evaluation Review Comments: 1. Consider advancing to cardiac diet when medically appropriate 2. Consider Jevity 1.5 TF @45ml/hr providing 1620kcal, 69g pro, 821ml FW/TPN if NPO >7 days Expected Outcomes/Goals: 1. Pt will meet >75% estimated needs within 2-3 days Plan discussed with: Other (FARHEEN Diane) Critical Care Time(min): 35 MARK ULRICH MD May 22, 2024 22:57
[2024-05-22] MEDS: MORPHINE SULFATE INJ 2 MG/ml SYRG IV ONE (23:40)
[2024-05-23] VITALS (54 sets, daily range): BP systolic 101–135; BP diastolic 59–73; PULSE 57–83; RESP 13–35; TEMP 98.2–98.8; O2SAT 91–100
[2024-05-23] MEDS: POTASSIUM CHL 20MEQ/100ML 100 ML IV SCH (00:29)
[2024-05-23 03:41] LABS: Basophils # (auto) 0 10 ^3/uL (0-0.2); Basophils % (auto) 0.4 % (0.0-2.0); Eosinophils # (auto) 0.1 10 ^3/uL (0-0.8); Eosinophils % (auto) 1.1 % (0.0-7.0); Hematocrit 44.4 % (41.0-53.0); Hemoglobin 14.8 g/dL (13.5-17.5); Lymphocytes # (auto) 1.1 10 ^3/uL (0.4-5.4); Lymphocytes % (auto) 9.5 % (10.0-50.0); Mean Corpuscular Hemoglobin 30.5 pg (28.0-32.0); Mean Corpuscular Hgb Conc. 33.4 g/dL (32.0-36.0); Mean Corpuscular Volume 91.5 fL (80.0-100.0); Monocytes # (auto) 1.1 10 ^3/uL (0-1.3); Monocytes % (auto) 10.2 % (0.0-12.0); Neutrophils # (auto) 8.8 10 ^3/uL (1.6-8.6); Neutrophils % (auto) 78.8 % (37.0-80.0); Platelet Count (auto) 246 10^3/uL (140-450); Red Blood Cells 4.85 10^6/uL (4.5-5.90); Red Cell Distribution Width 13.3 % (11.8-14.3); White Blood Cell 11.2 10^3/uL (4.4-10.8)
[2024-05-23 03:54] LABS: Albumin 3.6 g/dL (3.2-4.8); Alkaline Phosphatase 94 U/L (46-116); Anion Gap 8 (5-15); BUN/Creatinine Ratio 15.6 (10.0-20.0); Bilirubin, Total 0.7 mg/dL (0.2-1.0); Blood Urea Nitrogen 10 mg/dL (9-23); Calcium 9.4 mg/dL (8.7-10.4); Carbon Dioxide 25 mmol/L (20-31); Chloride 106 mmol/L (98-107); Magnesium 1.7 mg/dL (1.6-2.6); Phosphorus 2.9 mg/dL (2.4-5.1); Potassium 3.9 mmol/L (3.5-5.1); Sodium 139 mmol/L (136-145)
[2024-05-23 03:59] LABS: INR 1.2 (0.9-1.15); Partial Thromboplastin Time 54.1 SEC (24.5-34.5); Prothrombin Time 12.5 sec (9.3-11.8)
[2024-05-23 04:05] LABS: Alanine Aminotransferase < 9 U/L (7-40); Aspartate Aminotransferase 12 U/L (13-40); Glucose 110 mg/dL (74-106); Total Protein 5.3 g/dL (5.7-8.2)
[2024-05-23] MEDS: MAGNESIUM SULFATE 1GM/100ML 100 ML IV ONE (04:19)
[2024-05-23 04:44] LABS: Triglycerides 71 mg/dL (< 150)
--- NOTE | 2024-05-23 05:18 | DVH ---
CHEST RADIOGRAPH Indication: recheck pulmonary vasc congestion Technique: Single frontal view of the chest was obtained Comparison: XY CHEST PORTABLE on DOS: 05/22/24 FINDINGS: Lines and Tubes: None Lungs: Decreased interstitial prominence. No focal consolidation. Pleura: No effusion. No pneumothorax. Cardiomediastinal contours: Unremarkable Bones: No acute osseous abnormality. IMPRESSION: 1. Decreased interstitial prominence compatible with improved pulmonary congestion.
[2024-05-23 10:52] LABS: INR 1.22 (0.9-1.15); Partial Thromboplastin Time 61.6 SEC (24.5-34.5); Prothrombin Time 12.7 sec (9.3-11.8)
--- NOTE | 2024-05-23 11:55 | DVHPN2 ---
Progress Note Date Seen: May 23, 2024 Has the PT tested + for MRSA If YES, has PT been informed?: No Medical Necessity Reason Pt with a Central, PICC or Fol: Yes The following are medically ne: Serna Catheter Reason for serna catheter: Strict I&O Objective vital signs Vital Sign Date Time Temp Pulse Resp B/P (MAP) Pulse Ox O2 Delivery O2 Flow Rate FiO2 05/23/24 10:00 63 05/23/24 10:00 98 Nasal Cannula* 2 28 05/23/24 09:32 123/63 05/23/24 04:00 98.5 98.5 Total Intake and Output 05/22/24 05/22/24 05/23/24 15:00 23:00 07:00 Intake Total 447 ml 765.50 ml 547 ml Output Total 3740 ml 1010 ml Balance 447 ml -2974.50 ml -463 ml medications Current Medications Medications Dose Ordered Sig/Jania Route Start Time Stop Time Status Last Admin Dose Admin Sodium Chloride 10 ml Q8HR IV 05/17/24 06:00 05/23/24 06:06 10 ML Acetaminophen 650 mg Q6HP PRN PO 05/17/24 01:30 Nitroglycerin 0.4 mg Q5MINP PRN SL 05/17/24 01:30 Morphine Sulfate 2 mg Q30M PRN IV 05/17/24 01:30 Furosemide 20 mg DAILY IV 05/17/24 10:00 05/23/24 09:32 20 MG Metronidazole 100 ml @ 100 mls/hr Q8HR IV 05/17/24 14:00 05/23/24 06:00 100 MLS/HR Ondansetron HCl 4 mg Q4HPRN PRN IV 05/17/24 13:45 Pantoprazole Sodium 40 mg DAILY IV 05/18/24 10:00 05/23/24 09:31 40 MG Cefazolin Sodium/ Dextrose 50 ml @ 50 mls/hr Q8HR IV 05/17/24 18:30 05/23/24 06:06 50 MLS/HR Amino Acids 0 ml @ 0 mls/hr PER PHARMACY IV 05/20/24 10:15 Diagnostic Test (Pha) 1 strip Q6HR 05/20/24 12:00 05/23/24 11:49 1 STRIP Insulin Human Regular FOLLOW SLIDING SCALE Q6HR SC 05/20/24 12:00 05/23/24 00:34 2 UNITS Dextrose 50 ml UD IV 05/20/24 11:45 Amino Acids/ Electrolytes/ Dextrose 1,000 ml @ 41 mls/hr DAILY@2200 IV 05/20/24 22:00 05/22/24 21:45 41 MLS/HR Acetaminophen/ Codeine Phosphate 1 tab Q4HP PRN PO 05/22/24 10:30 05/22/24 14:00 1 TAB Heparin Sodium/ Dextrose 250 ml @ 20 mls/hr [id number] IV 05/22/24 16:00 05/23/24 11:05 20 MLS/HR laboratory and microbiology Laboratory Tests 05/23/24 03:11 Test 05/23/24 03:11 Range/Units Serum Glucose 110 H 74-106 mg/dL Problem List/Assessment/Plan Problem List/Assessment/Plan 05/18/24 remains sedated and intubated on ventilator, no need for BP support, good urine output, labs ok, abdomen soft and non distended, wounds clean and well approximated, EUSEBIA drainage moderate volume, bile stained 05/20/24 HEMODYNAMICALLY STABLE, REMAINS INTUBATED, DRAINAGE MINIMAL NON BILIOUS 05/22/24 extubated, good inspiratory effort, wounds clean and well approximated, NGT removed, will start po liquids, dc morphine 05/23/24 abdomen non distended, non tender, eusebia drainage non bilious, wounds clean and wel approximated, awaiting swallow study, Plan discussed with: Patient Dietary Evaluation Review Comments: 1. Consider advancing to cardiac diet when medically appropriate 2. Consider Jevity 1.5 TF @45ml/hr providing 1620kcal, 69g pro, 821ml FW/TPN if NPO >7 days Expected Outcomes/Goals: 1. Pt will meet >75% estimated needs within 2-3 days SIDDHARTHA BROWN MD May 23, 2024 11:55
--- NOTE | 2024-05-23 15:46 | DVHPNRES ---
Progress Note Date Seen: May 23, 2024 Resident Creating Document: MIGUEL MOSCOSO RESIDENT Has the PT tested + for MRSA If YES, has PT been informed?: No Medical Necessity Reason Pt with a Central, PICC or Fol: Yes The following are medically ne: Serna Catheter Reason for serna catheter: Strict I&O Subjective Review of Systems This is a 69 year old male past medical history of HTN, CHF, COPD who presented to the ED with chief complaint of cholecystostomy tube dislodgement associated with severe abdominal pain. The patient stated that three days ago the cholecystostomy tube got stuck with a doorknob at the house and unintentionally pull the tube and slightly dislodged causing a lot of pain and inflammation at that time. Two days later the patient started to experiencing severe abdominal pain in the right upper quadrant and epigastric region. Apparently previously the patient was found to have cholecystitis but at that time due to severe comorbidities colostomy tube was placed instead of surgical cholecystectomy. Upon my examination, the patient was on severe excruciating pain in the right upper quadrant and epigastric region extending to the periumbilical region. The patient was hairm hard abdomen most likely consistent with acute abdomen. Surgery was consulted for possible laparoscopy due to suspection of peritonitis. The patient was experiencing excruciating right upper quadrant and epigastric abdominal pain that was extending to the periumbilical region. Upon my examination the abdomen was firm, hard and tender most likely consistent with acute abdomen. Surgery was consulted which took the patient to the OR for laparoscopic cholecystectomy with peritoneal lavage, insertion of a CORDELIA drain at the level of the liver where the gallbladder was located. Removal of cholecystostomy tube was performed as well. The patient was intubated for surgery and remained intubated after procedure, but was extubated successfully without complications. Patient seen and examined at bedside. The patient is alert and oriented in person, place and time. Not requiring any type of vasopressors or any hemodinamic drugs. Patient will be downgraded to telemetry since there is no significant reason to stay in the ICU at this time. We are still waiting for swallow evaluation to determine if the patient tolerates clear liquid diet or thickening fluids. The patient still complaining of mild to moderate abdominal tenderness especially to palpation. Wounds look clean and dry at this time with no oozing from the incisions. CORDELIA drainage is draining and proximally in 10 cc in the last 12 hours. Patient is currently on 2 L of oxygen through nasal cannula saturating 96%. Today the patient had a total output of 1000 cc. We will continue the patient on heparin drip for right upper extremity DVT. We will continue the patient on Clinimix until patient passes swallow evaluation we will continue IV cefazolin and metronidazole this time. ROS Constitutional: Denies weight loss, fever and chills. HEENT: Denies changes in vision and hearing. Respiratory: Denies shortness of breath and cough Cardiovascular: Denies chest discomfort or palpitations GI: Reports mild to moderate abdominal tenderness to palpation. Patient denies nausea, vomiting or diarrhea. Patient reports bowel movement today. : Denies dysuria and urinary frequency. Musculoskeletal: Denies myalgias and joint pain Skin: Denies rash and pruritus. Neurological: Denies dizziness, headache, vision or hearing problems Objective vital signs Vital Sign Date Time Temp Pulse Resp B/P (MAP) Pulse Ox O2 Delivery O2 Flow Rate FiO2 05/23/24 14:00 66 05/23/24 14:00 24 100 Nasal Cannula* 2 28 05/23/24 14:00 05/23/24 12:00 98.7 98.7 Total Intake and Output 05/22/24 05/22/24 05/23/24 15:00 23:00 07:00 Intake Total 447 ml 765.50 ml 547 ml Output Total 3740 ml 1010 ml Balance 447 ml -2974.50 ml -463 ml medications Current Medications Medications Dose Ordered Sig/Jania Route Start Time Stop Time Status Last Admin Dose Admin Sodium Chloride 10 ml Q8HR IV 05/17/24 06:00 05/23/24 14:00 10 ML Acetaminophen 650 mg Q6HP PRN PO 05/17/24 01:30 Nitroglycerin 0.4 mg Q5MINP PRN SL 05/17/24 01:30 Morphine Sulfate 2 mg Q30M PRN IV 05/17/24 01:30 Furosemide 20 mg DAILY IV 05/17/24 10:00 05/23/24 09:32 20 MG Metronidazole 100 ml @ 100 mls/hr Q8HR IV 05/17/24 14:00 05/23/24 13:58 100 MLS/HR Ondansetron HCl 4 mg Q4HPRN PRN IV 05/17/24 13:45 Pantoprazole Sodium 40 mg DAILY IV 05/18/24 10:00 05/23/24 09:31 40 MG Cefazolin Sodium/ Dextrose 50 ml @ 50 mls/hr Q8HR IV 05/17/24 18:30 05/23/24 14:00 50 MLS/HR Amino Acids 0 ml @ 0 mls/hr PER PHARMACY IV 05/20/24 10:15 Diagnostic Test (Pha) 1 strip Q6HR 05/20/24 12:00 05/23/24 11:49 1 STRIP Insulin Human Regular FOLLOW SLIDING SCALE Q6HR SC 05/20/24 12:00 05/23/24 00:34 2 UNITS Dextrose 50 ml UD IV 05/20/24 11:45 Amino Acids/ Electrolytes/ Dextrose 1,000 ml @ 41 mls/hr DAILY@2200 IV 05/20/24 22:00 05/22/24 21:45 41 MLS/HR Acetaminophen/ Codeine Phosphate 1 tab Q4HP PRN PO 05/22/24 10:30 05/22/24 14:00 1 TAB Heparin Sodium/ Dextrose 250 ml @ 20 mls/hr [id number] IV 05/22/24 16:00 05/23/24 11:05 20 MLS/HR Examination Physical Examination General: Patient alert and oriented in person, place and time. Patient following commands. HEENT: Normocephalic, atraumatic, moist mucous membranes Respiratory/pulmonary: There are mild coarse sounds at this time. patient extubated on 2 L of O2 through nasal cannula Cardiovascular: Normal heart sounds S1 and S2 with no associated murmurs Abdomen: Abdomen nondistended, Abd is tender to palpation 8/10 on pain scale at periumbilal region.There is an abdominal binder, CORDELIA drainage is draining approximately 10 cc in the past 12 hours. Surgical incisions looks dry and clean. No signs of erythema or infection at this time. Extremities: There is no peripheral edema present at the lower extremities. Peripheral Pulses: 3+ Radial (R). 3+ Radial (L). 3+ Dorsalis pedis (R). 3+ Dorsalis pedis(L) Skin: No rashes or pruritus, there is no sacral edema present at this time. Neurological: Intact cranial nerves with no focal neurologic deficits laboratory and microbiology Laboratory Tests 05/23/24 03:11 Test 05/23/24 03:11 Range/Units Serum Glucose 110 H 74-106 mg/dL Microbiology Date/Time Source Procedure Growth Status 05/17/24 17:53 Nose MRSA Screen - Final Complete 05/17/24 14:25 Sputum Expectorated Sputum Gram Stain - Final Complete 05/17/24 14:25 Sputum Expectorated Sputum Respiratory Culture - Final Complete 05/17/24 13:14 Peritoneal Fluid Gram Stain - Final Complete 05/17/24 13:14 Peritoneal Fluid Anaerobic Culture - Final Complete 05/17/24 13:14 Aerobic Culture - Final Klebsiella pneumoniae Complete Problem List/Assessment/Plan Problem List/Assessment/Plan Assessment/Plan Acute abdominal pain due to peritonitis due to complicated cholecystitis with dislodged cholecystostomy tube Acute abdomen Peritonitis Sepsis due to above S/P Laparoscopic cholecystectomy with peritoneal lavage day 6 -initially patient reported cholecystostomy tube dislodgement -initial WBC was 13.1 -patient had firm and hard abdomen to palpation -CT scan of the abdomen showed trace right perihepatic fluid which may reflect residual from initial catheter placement. Acute biliary leak is less likely but can not be entirely excluded. -surgery was consulted which performed laparoscopic cholecystectomy with peritoneal lavage -CORDELIA drain was placed per surgeon -patient was extubated on 05/21/24. ( NIF -40, RSBI 26, VC 1525, audible leak) -Currently on 2L of O2 through nasal cannula -follow-up ABG -CORDELIA drain is draining approximately 10 cc in the last 12 hours -Continue IV cefazolin -Continue IV metronidazole -Continue IV Clinimix, pending swallow evaluation to take decision regarding diet. -swallow evaluation is pending Acute on chronic heart failure with preserved ejection fraction (HFpEF 50%) -last echocardiogram performed of 04/08 showed an LVEF of 50% -furosemide 20 mg IV daily -monitor strict in's and out Right upper extremity acute DVT -Bilat upper ext venous doppler showed a thrombus seen in the distal right subclavian, proximal right axillary and right cephalic veins. The left cephalic vein is noncompressible likely secondary to chronic thrombus. -On Hep drip COPD, not exacerbation -currently intubated post surgery on mechanical ventilatory parameters as described above -monitor saturation History of DVT -status post IVC filter placed on February of 2024 Tobacco abuse -we will consult the patient wants the patient is more stable Nutrition -Continue Clinimix ACP, discussed with the patient at bedside for 20min. Will downgrade to telemetry Goals of care discussed with the patient at bedside for >23min, FULL CODE Plan discussed with Dr. Hebert Plan discussed with: Patient My Orders My Orders Orders - MIGUEL MOSCOSO Procedure Category Date Status Time Heparin Drip/D5w PHA 05/22/24 In Process 100units/Ml 16:00 PTPTT LAB 05/24/24 Verified 05:00 Comprehensive LAB 05/24/24 Verified Metabolic Panel 05:00 Magnesium LAB 05/24/24 Verified 05:00 Phosphorus LAB 05/24/24 Verified 05:00 Clinimix Per Pharmacy [facility] 05/23/24 In Process 22:00 Refer To Physical [facility] 05/23/24 In Process Therapy 15:09 Dietary Evaluation Review Comments: 1. Consider advancing to cardiac diet when medically appropriate 2. Consider Jevity 1.5 TF @45ml/hr providing 1620kcal, 69g pro, 821ml FW/TPN if NPO >7 days Expected Outcomes/Goals: 1. Pt will meet >75% estimated needs within 2-3 days Date of Service: May 23, 2024 Billing Provider: MARYANN LO MD Common Visit Codes: [id number] INP/OBS CARE(HIGH) MIGUEL MOSCOSO RESIDENT May 23, 2024 15:46 MARYANN LO MD May 27, 2024 09:49
[2024-05-23 19:38] LABS: INR 1.2 (0.9-1.15); Partial Thromboplastin Time 59.5 SEC (24.5-34.5); Prothrombin Time 12.5 sec (9.3-11.8)
--- NOTE | 2024-05-23 23:12 | DVHPN2 ---
Progress Note - Dictate Date Seen: May 23, 2024 Has the PT tested + for MRSA If YES, has PT been informed?: No Medical Necessity Reason Pt with a Central, PICC or Fol: Yes The following are medically ne: Serna Catheter Reason for serna catheter: Strict I&O Subjective Patient seen and examined at bedside. Remains on supplemental oxygen Overnight events reviewed. vital signs Vital Sign Date Time Temp Pulse Resp B/P (MAP) Pulse Ox O2 Delivery O2 Flow Rate FiO2 05/23/24 22:45 66 21 97 05/23/24 19:00 98.2 98.2 05/23/24 18:00 Nasal Cannula* 2 28 Total Intake and Output 05/22/24 05/22/24 05/23/24 15:00 23:00 07:00 Intake Total 447 ml 765.50 ml 588 ml Output Total 3740 ml 1010 ml Balance 447 ml -2974.50 ml -422 ml medications Current Medications Medications Dose Ordered Sig/Jania Route Start Time Stop Time Status Last Admin Dose Admin Sodium Chloride 10 ml Q8HR IV 05/17/24 06:00 05/23/24 22:02 10 ML Acetaminophen 650 mg Q6HP PRN PO 05/17/24 01:30 Nitroglycerin 0.4 mg Q5MINP PRN SL 05/17/24 01:30 Morphine Sulfate 2 mg Q30M PRN IV 05/17/24 01:30 Furosemide 20 mg DAILY IV 05/17/24 10:00 05/23/24 09:32 20 MG Metronidazole 100 ml @ 100 mls/hr Q8HR IV 05/17/24 14:00 05/23/24 22:02 100 MLS/HR Ondansetron HCl 4 mg Q4HPRN PRN IV 05/17/24 13:45 Pantoprazole Sodium 40 mg DAILY IV 05/18/24 10:00 05/23/24 09:31 40 MG Cefazolin Sodium/ Dextrose 50 ml @ 50 mls/hr Q8HR IV 05/17/24 18:30 05/23/24 22:08 50 MLS/HR Amino Acids 0 ml @ 0 mls/hr PER PHARMACY IV 05/20/24 10:15 Diagnostic Test (Pha) 1 strip Q6HR 05/20/24 12:00 05/23/24 17:33 1 STRIP Insulin Human Regular FOLLOW SLIDING SCALE Q6HR SC 05/20/24 12:00 05/23/24 00:34 2 UNITS Dextrose 50 ml UD IV 05/20/24 11:45 Amino Acids/ Electrolytes/ Dextrose 1,000 ml @ 41 mls/hr DAILY@2200 IV 05/20/24 22:00 05/23/24 22:03 41 MLS/HR Acetaminophen/ Codeine Phosphate 1 tab Q4HP PRN PO 05/22/24 10:30 05/22/24 14:00 1 TAB Heparin Sodium/ Dextrose 250 ml @ 20 mls/hr [id number] IV 05/22/24 16:00 05/23/24 22:03 20 MLS/HR objective Gen.: Patient lying in bed in no apparent distress. On supplemental oxygen. Head: Normocephalic, atraumatic. Eyes: EOMI/PERRLA. Ears: Normal hearing. Normal anatomy. Neck/trachea: Trachea midline, supple. Nose: Normal external anatomy. Mouth: Moist mucous membranes. Chest: Decreased air entry bilaterally. No wheezing or rhonchi. Cardiovascular: Positive S1, positive S2. Regular rate and rhythm. Abdomen: Positive bowel sounds in all 4 quadrants. Soft, non-tender, non- distended. : Deferred. Rectal: Deferred. Skin: Warm, dry. Intact. Extremities: 2+ radial pulses bilaterally. No lower extremity edema. Neuro: Awake, alert, oriented x3. No gross motor or sensory deficits. Cranial nerves II through XII intact. Gait not assessed. laboratory and microbiology Laboratory Tests 05/23/24 03:11 Test 05/23/24 03:11 Range/Units Serum Glucose 110 H 74-106 mg/dL Assessment/Plan Impression: Acute hypoxic respiratory failure Dependence on supplemental oxygen S/p laparoscopic cholecystectomy Sepsis Peritonitis Nicotine dependence Events: Remains on supplemental oxygen, 2 LPM NC Taper O2 as tolerated. Head of bed elevation Aspiration precautions On heparin drip Continue antibiotics Abdominal binder. NGT Surgery recs appreciated. Monitor hemoglobin Surgery recs appreciated Clinimix for nutritional support Diurese as tolerated w/ Lasix Monitor renal function Monitor electrolytes. Supplement as necessary. Monitor ins and outs. Potassium supplementation Magnesium supplementation Maintain euvolemia. Labs and imaging reviewed. Rest of plan as noted below. Plan: s/p extubation on 05/21/24 Supplemental oxygen Titrate to keep O2 sats above 92%. Continue antibiotics. NGT - GI hemorrhage Monitor hemoglobin Surgery recs appreciated. Start pressors if necessary to maintain a mean arterial blood pressure greater than 65 mmHg. Monitor renal function Monitor electrolytes. Supplement as necessary. Monitor ins and outs. Maintain euvolemia. GI prophylaxis. DVT prophylaxis. Prognosis: Guarded given patient's multiple co-morbidities. Condition: Critical Rest of plan per hospitalist and other consultants. A total of 35 minutes of critical care time was spent reviewing the patient record, examining the patient, making a diagnostic and therapeutic plan, discussing this plan with the medical personnel, following up on diagnostic studies and following the patient for clinical stability excluding any and all procedures. At least 50% of this time was spent in direct, [id number] contact. Thank you Dr. Barnes for allowing me to participate in this patient's care. Further recommendations will depend on the patient's clinical course. Please do not hesitate to contact me if you have any questions or concerns. This medical document was created using an electronic medical record system with [employer] dictation system. Although these documentations are being carefully reviewed, there may still be some phonetic and typographical changes. The errors are purely typographical, due to imperfection on the software program, and do not reflect any compromise in the patient's medical care. Dietary Evaluation Review Comments: 1. Consider advancing to cardiac diet when medically appropriate 2. Consider Jevity 1.5 TF @45ml/hr providing 1620kcal, 69g pro, 821ml FW/TPN if NPO >7 days Expected Outcomes/Goals: 1. Pt will meet >75% estimated needs within 2-3 days Plan discussed with: Other (FARHEEN Kunz) Critical Care Time(min): 35 MARK ULRICH MD May 23, 2024 23:12
[2024-05-24] VITALS (8 sets, daily range): BP systolic 99–114; BP diastolic 59–65; PULSE 54–70; RESP 14–20; TEMP 97.5–98.6; O2SAT 92–99
[2024-05-24 03:54] LABS: Basophils # (auto) 0.1 10 ^3/uL (0-0.2); Basophils % (auto) 1.2 % (0.0-2.0); Eosinophils # (auto) 0.4 10 ^3/uL (0-0.8); Eosinophils % (auto) 4.5 % (0.0-7.0); Hematocrit 40.8 % (41.0-53.0); Hemoglobin 14.5 g/dL (13.5-17.5); Lymphocytes # (auto) 1.5 10 ^3/uL (0.4-5.4); Lymphocytes % (auto) 19.1 % (10.0-50.0); Mean Corpuscular Hemoglobin 31.5 pg (28.0-32.0); Mean Corpuscular Hgb Conc. 35.5 g/dL (32.0-36.0); Mean Corpuscular Volume 88.8 fL (80.0-100.0); Monocytes # (auto) 0.9 10 ^3/uL (0-1.3); Monocytes % (auto) 11.5 % (0.0-12.0); Neutrophils % (auto) 63.7 % (37.0-80.0); Nucleated Red Blood Cells % 0.1 %; Platelet Count (auto) 248 10^3/uL (140-450); Red Cell Distribution Width 13.7 % (11.8-14.3); White Blood Cell 7.9 10^3/uL (4.4-10.8)
[2024-05-24 04:12] LABS: Albumin 3.5 g/dL (3.2-4.8); Alkaline Phosphatase 98 U/L (46-116); Anion Gap 7 (5-15); Aspartate Aminotransferase 14 U/L (13-40); BUN/Creatinine Ratio 19.1 (10.0-20.0); Blood Urea Nitrogen 13 mg/dL (9-23); Calcium 9.3 mg/dL (8.7-10.4); Carbon Dioxide 26 mmol/L (20-31); Chloride 107 mmol/L (98-107); Magnesium 1.8 mg/dL (1.6-2.6); Potassium 3.7 mmol/L (3.5-5.1); Sodium 140 mmol/L (136-145)
[2024-05-24 04:13] LABS: Bilirubin, Total 0.6 mg/dL (0.2-1.0); Phosphorus 3.3 mg/dL (2.4-5.1)
[2024-05-24 04:28] LABS: Alanine Aminotransferase < 9 U/L (7-40); Glucose 110 mg/dL (74-106); Total Protein 5.3 g/dL (5.7-8.2)
[2024-05-24 04:31] LABS: INR 1.22 (0.9-1.15); Partial Thromboplastin Time 64.4 SEC (24.5-34.5); Prothrombin Time 12.7 sec (9.3-11.8)
--- NOTE | 2024-05-24 10:33 | DVHPN2 ---
Progress Note Date Seen: May 24, 2024 Has the PT tested + for MRSA If YES, has PT been informed?: No Medical Necessity Reason Pt with a Central, PICC or Fol: Yes The following are medically ne: Serna Catheter Reason for serna catheter: Strict I&O Objective vital signs Vital Sign Date Time Temp Pulse Resp B/P (MAP) Pulse Ox O2 Delivery O2 Flow Rate FiO2 05/24/24 09:31 109/61 05/24/24 09:00 98.6 60 16 92 98.6 05/24/24 07:53 Nasal Cannula* 2 28 Total Intake and Output 05/23/24 05/23/24 05/24/24 15:00 23:00 07:00 Intake Total 588 ml 844 ml 250 ml Output Total 2055 ml 20 ml Balance 588 ml -1211 ml 230 ml medications Current Medications Medications Dose Ordered Sig/Jania Route Start Time Stop Time Status Last Admin Dose Admin Sodium Chloride 10 ml Q8HR IV 05/17/24 06:00 05/24/24 05:21 10 ML Acetaminophen 650 mg Q6HP PRN PO 05/17/24 01:30 Nitroglycerin 0.4 mg Q5MINP PRN SL 05/17/24 01:30 Morphine Sulfate 2 mg Q30M PRN IV 05/17/24 01:30 Furosemide 20 mg DAILY IV 05/17/24 10:00 05/24/24 09:31 20 MG Metronidazole 100 ml @ 100 mls/hr Q8HR IV 05/17/24 14:00 05/24/24 05:21 100 MLS/HR Ondansetron HCl 4 mg Q4HPRN PRN IV 05/17/24 13:45 Pantoprazole Sodium 40 mg DAILY IV 05/18/24 10:00 05/24/24 09:30 40 MG Cefazolin Sodium/ Dextrose 50 ml @ 50 mls/hr Q8HR IV 05/17/24 18:30 05/24/24 05:21 50 MLS/HR Amino Acids 0 ml @ 0 mls/hr PER PHARMACY IV 05/20/24 10:15 Diagnostic Test (Pha) 1 strip Q6HR 05/20/24 12:00 05/24/24 05:21 1 STRIP Insulin Human Regular FOLLOW SLIDING SCALE Q6HR SC 05/20/24 12:00 05/23/24 00:34 2 UNITS Dextrose 50 ml UD IV 05/20/24 11:45 Amino Acids/ Electrolytes/ Dextrose 1,000 ml @ 41 mls/hr DAILY@2200 IV 05/20/24 22:00 05/23/24 22:03 41 MLS/HR Acetaminophen/ Codeine Phosphate 1 tab Q4HP PRN PO 05/22/24 10:30 05/22/24 14:00 1 TAB Heparin Sodium/ Dextrose 250 ml @ 20 mls/hr [id number] IV 05/22/24 16:00 05/23/24 22:03 20 MLS/HR laboratory and microbiology Laboratory Tests 05/24/24 03:26 Test 05/24/24 03:26 Range/Units Serum Glucose 110 H 74-106 mg/dL Problem List/Assessment/Plan Problem List/Assessment/Plan 05/18/24 remains sedated and intubated on ventilator, no need for BP support, good urine output, labs ok, abdomen soft and non distended, wounds clean and well approximated, EUSEBIA drainage moderate volume, bile stained 05/20/24 HEMODYNAMICALLY STABLE, REMAINS INTUBATED, DRAINAGE MINIMAL NON BILIOUS 05/22/24 extubated, good inspiratory effort, wounds clean and well approximated, NGT removed, will start po liquids, dc morphine 05/23/24 abdomen non distended, non tender, eusebia drainage non bilious, wounds clean and wel approximated, awaiting swallow study, 05/24/24 alert, oriented, more comfortable, no pain, swallow eval reviewed, will change to pureed diet ,will dc injectable rx Plan discussed with: Patient Dietary Evaluation Review Comments: 1. Consider advancing to cardiac diet when medically appropriate 2. Consider Jevity 1.5 TF @45ml/hr providing 1620kcal, 69g pro, 821ml FW/TPN if NPO >7 days Expected Outcomes/Goals: 1. Pt will meet >75% estimated needs within 2-3 days SIDDHARTHA BROWN MD May 24, 2024 10:33
--- NOTE | 2024-05-24 11:21 | DVHPNRES ---
Progress Note Date Seen: May 24, 2024 Resident Creating Document: GARCÍA ASCENCIO RESIDENT Has the PT tested + for MRSA If YES, has PT been informed?: No Medical Necessity Reason Pt with a Central, PICC or Fol: Yes The following are medically ne: Serna Catheter Reason for serna catheter: Strict I&O Subjective Review of Systems This is a 69 year old male past medical history of HTN, CHF, COPD who presented to the ED with chief complaint of cholecystostomy tube dislodgement associated with severe abdominal pain. The patient stated that three days ago the cholecystostomy tube got stuck with a doorknob at the house and unintentionally pull the tube and slightly dislodged causing a lot of pain and inflammation at that time. Two days later the patient started to experiencing severe abdominal pain in the right upper quadrant and epigastric region. Apparently previously the patient was found to have cholecystitis but at that time due to severe comorbidities colostomy tube was placed instead of surgical cholecystectomy. Upon my examination, the patient was on severe excruciating pain in the right upper quadrant and epigastric region extending to the periumbilical region. The patient was hairm hard abdomen most likely consistent with acute abdomen. Surgery was consulted for possible laparoscopy due to suspection of peritonitis. The patient was experiencing excruciating right upper quadrant and epigastric abdominal pain that was extending to the periumbilical region. Upon my examination the abdomen was firm, hard and tender most likely consistent with acute abdomen. Surgery was consulted which took the patient to the OR for laparoscopic cholecystectomy with peritoneal lavage, insertion of a CORDELIA drain at the level of the liver where the gallbladder was located. Removal of cholecystostomy tube was performed as well. The patient was intubated for surgery and remained intubated after procedure, but was extubated successfully without complications. Patient was seen and examined on the bedside. He is alert oriented x3. patient is on telemetry and not requiring any type of vasopressors at this time. Passed swallow evaluation yesterday and on pureed diet. Complaint of mild pain in the abdomen and wound looks clean and dry with no oozing from the incision and CORDELIA drain 24 hour collection is 25 mL. Patient is on 2 L oxygen through nasal cannula and saturating 96%. Continue heparin drip for right upper extremity DVT and will continue IV cefazolin and metronidazole. Objective vital signs Vital Sign Date Time Temp Pulse Resp B/P (MAP) Pulse Ox O2 Delivery O2 Flow Rate FiO2 05/24/24 09:31 109/61 05/24/24 09:00 98.6 60 16 92 98.6 05/24/24 07:53 Nasal Cannula* 2 28 Total Intake and Output 05/23/24 05/23/24 05/24/24 15:00 23:00 07:00 Intake Total 588 ml 844 ml 250 ml Output Total 2055 ml 20 ml Balance 588 ml -1211 ml 230 ml medications Current Medications Medications Dose Ordered Sig/Jania Route Start Time Stop Time Status Last Admin Dose Admin Sodium Chloride 10 ml Q8HR IV 05/17/24 06:00 05/24/24 05:21 10 ML Acetaminophen 650 mg Q6HP PRN PO 05/17/24 01:30 Nitroglycerin 0.4 mg Q5MINP PRN SL 05/17/24 01:30 Furosemide 20 mg DAILY IV 05/17/24 10:00 05/24/24 09:31 20 MG Metronidazole 100 ml @ 100 mls/hr Q8HR IV 05/17/24 14:00 05/24/24 05:21 100 MLS/HR Ondansetron HCl 4 mg Q4HPRN PRN IV 05/17/24 13:45 Pantoprazole Sodium 40 mg DAILY IV 05/18/24 10:00 05/24/24 09:30 40 MG Cefazolin Sodium/ Dextrose 50 ml @ 50 mls/hr Q8HR IV 05/17/24 18:30 05/24/24 05:21 50 MLS/HR Amino Acids 0 ml @ 0 mls/hr PER PHARMACY IV 05/20/24 10:15 Diagnostic Test (Pha) 1 strip Q6HR 05/20/24 12:00 05/24/24 05:21 1 STRIP Insulin Human Regular FOLLOW SLIDING SCALE Q6HR SC 05/20/24 12:00 05/23/24 00:34 2 UNITS Dextrose 50 ml UD IV 05/20/24 11:45 Amino Acids/ Electrolytes/ Dextrose 1,000 ml @ 41 mls/hr DAILY@2200 IV 05/20/24 22:00 05/23/24 22:03 41 MLS/HR Heparin Sodium/ Dextrose 250 ml @ 20 mls/hr [id number] IV 05/22/24 16:00 05/23/24 22:03 20 MLS/HR Acetaminophen/ Codeine Phosphate 1 tab Q4HP PRN PO 05/24/24 10:30 Examination Physical Examination General: Patient alert and oriented in person, place and time. Patient following commands. HEENT: Normocephalic, atraumatic, moist mucous membranes Respiratory/pulmonary: mild bilateral crackles and on 2 L oxygen through nasal canula Cardiovascular: Normal heart sounds S1 and S2 with no associated murmurs Abdomen: Abdomen nondistended, mild tenderness present.There is an abdominal binder, CORDELIA drainage is draining approximately 25 cc in the past 24 hours. Surgical incisions looks dry and clean. No signs of erythema or infection at this time. Extremities: There is no peripheral edema present at the lower extremities. Peripheral Pulses: 3+ Radial (R). 3+ Radial (L). 3+ Dorsalis pedis (R). 3+ Dorsalis pedis(L) Skin: No rashes or pruritus, there is no sacral edema present at this time. Neurological: Intact cranial nerves with no focal neurologic deficits laboratory and microbiology Laboratory Tests 05/24/24 03:26 Test 05/24/24 03:26 Range/Units Serum Glucose 110 H 74-106 mg/dL Microbiology Date/Time Source Procedure Growth Status 05/17/24 17:53 Nose MRSA Screen - Final Complete 05/17/24 14:25 Sputum Expectorated Sputum Gram Stain - Final Complete 05/17/24 14:25 Sputum Expectorated Sputum Respiratory Culture - Final Complete 05/17/24 13:14 Peritoneal Fluid Gram Stain - Final Complete 05/17/24 13:14 Peritoneal Fluid Anaerobic Culture - Final Complete 05/17/24 13:14 Aerobic Culture - Final Klebsiella pneumoniae Complete Labs and/or images reviewed: Labs reviewed by me, Image(s) reviewed by me Problem List/Assessment/Plan Problem List/Assessment/Plan Assessment/Plan Acute abdominal pain due to peritonitis due to complicated cholecystitis with dislodged cholecystostomy tube Acute abdomen Peritonitis Sepsis due to above S/P Laparoscopic cholecystectomy with peritoneal lavage day 7 -initially patient reported cholecystostomy tube dislodgement -initial WBC was 13.1 -patient had firm and hard abdomen to palpation -CT scan of the abdomen showed trace right perihepatic fluid which may reflect residual from initial catheter placement. Acute biliary leak is less likely but can not be entirely excluded. -surgery was consulted which performed laparoscopic cholecystectomy with peritoneal lavage -CORDELIA drain was placed per surgeon -patient was extubated on 05/21/24. ( NIF -40, RSBI 26, VC 1525, audible leak) -Currently on 2L of O2 through nasal cannula -follow-up ABGs -CORDELIA drain is draining approximately 25 cc in the last 24 hours -Continue IV cefazolin -Continue IV metronidazole - Passed swallow evaluation and on pureed diet Acute on chronic heart failure with preserved ejection fraction (HFpEF 50%) -last echocardiogram performed of 04/08 showed an LVEF of 50% -furosemide 20 mg IV daily -monitor strict in's and out Right upper extremity acute DVT -Bilat upper ext venous doppler showed a thrombus seen in the distal right subclavian, proximal right axillary and right cephalic veins. The left cephalic vein is noncompressible likely secondary to chronic thrombus. -On Hep drip COPD, not exacerbation -currently intubated post surgery on mechanical ventilatory parameters as described above -monitor saturation History of DVT -status post IVC filter placed on February of 2024 Tobacco abuse -we will consult the patient wants the patient is more stable Nutrition -Continue pureed diet. Advanced care planning discussed with the patient at bedside for 20min; full code Plan discussed with Plan discussed with: Patient, Other (RN) Dietary Evaluation Review Comments: 1. Consider advancing to cardiac diet when medically appropriate 2. Consider Jevity 1.5 TF @45ml/hr providing 1620kcal, 69g pro, 821ml FW/TPN if NPO >7 days Expected Outcomes/Goals: 1. Pt will meet >75% estimated needs within 2-3 days Addendum Addendum Addendum I was physically present for the alba portions of the service provided to patient by THE RESIDENT. I have reviewed the documentation, discussed the case with resident and agree with the resident's documentation except as noted. Also the patient's clinical case was discussed with the patient's nurse. This medical document was created using an electronic medical record system with computerized dictation system. Although this document has been carefully reviewed, there might still be some phonetic and typographical errors. These areas are purely typographical due to imperfections of the software programs, and do not reflect any compromise in the patient's medical care. Late signature. Date of Service: May 24, 2024 Billing Provider: GENNA HAZEL MD Common Visit Codes: 15669-NJOEFSCLSH INP/OBS CARE(HIGH) Secondary Visit Codes: 23736-HTBKLHZP CARE PLAN 30 MINUTES (20 minutes) GARCÍA ASCENCIO RESIDENT May 24, 2024 11:20 GENNA HAZEL MD May 26, 2024 07:15
[2024-05-24] MEDS: ACETAMINOPHEN/CODEINE#3 (300/30mg) TAB PO PRN (11:29)
--- NOTE | 2024-05-24 22:24 | DVHPN2 ---
Progress Note - Dictate Date Seen: May 24, 2024 Has the PT tested + for MRSA If YES, has PT been informed?: No Medical Necessity Reason Pt with a Central, PICC or Fol: Yes The following are medically ne: Serna Catheter Reason for serna catheter: Strict I&O Subjective Patient seen and examined at bedside. Remains on supplemental oxygen Overnight events reviewed. vital signs Vital Sign Date Time Temp Pulse Resp B/P (MAP) Pulse Ox O2 Delivery O2 Flow Rate FiO2 05/24/24 16:30 98.2 62 14 103/59 (74) 98 98.2 05/24/24 07:53 Nasal Cannula* 2 28 Total Intake and Output 05/23/24 05/23/24 05/24/24 15:00 23:00 07:00 Intake Total 588 ml 844 ml 250 ml Output Total 2055 ml 20 ml Balance 588 ml -1211 ml 230 ml medications Current Medications Medications Dose Ordered Sig/Jania Route Start Time Stop Time Status Last Admin Dose Admin Sodium Chloride 10 ml Q8HR IV 05/17/24 06:00 05/24/24 21:32 10 ML Acetaminophen 650 mg Q6HP PRN PO 05/17/24 01:30 Nitroglycerin 0.4 mg Q5MINP PRN SL 05/17/24 01:30 Furosemide 20 mg DAILY IV 05/17/24 10:00 05/24/24 09:31 20 MG Metronidazole 100 ml @ 100 mls/hr Q8HR IV 05/17/24 14:00 05/24/24 21:32 100 MLS/HR Ondansetron HCl 4 mg Q4HPRN PRN IV 05/17/24 13:45 Pantoprazole Sodium 40 mg DAILY IV 05/18/24 10:00 05/24/24 09:30 40 MG Cefazolin Sodium/ Dextrose 50 ml @ 50 mls/hr Q8HR IV 05/17/24 18:30 05/24/24 21:32 50 MLS/HR Heparin Sodium/ Dextrose 250 ml @ 20 mls/hr [id number] IV 05/22/24 16:00 05/24/24 17:50 20 MLS/HR Acetaminophen/ Codeine Phosphate 1 tab Q4HP PRN PO 05/24/24 10:30 05/24/24 21:31 1 TAB objective Gen.: Patient lying in bed in no apparent distress. On supplemental oxygen. Head: Normocephalic, atraumatic. Eyes: EOMI/PERRLA. Ears: Normal hearing. Normal anatomy. Neck/trachea: Trachea midline, supple. Nose: Normal external anatomy. Mouth: Moist mucous membranes. Chest: Decreased air entry bilaterally. No wheezing or rhonchi. Cardiovascular: Positive S1, positive S2. Regular rate and rhythm. Abdomen: Positive bowel sounds in all 4 quadrants. Soft, non-tender, non- distended. : Deferred. Rectal: Deferred. Skin: Warm, dry. Intact. Extremities: 2+ radial pulses bilaterally. No lower extremity edema. Neuro: Awake, alert, oriented x3. No gross motor or sensory deficits. Cranial nerves II through XII intact. Gait not assessed. laboratory and microbiology Laboratory Tests 05/24/24 03:26 Test 05/24/24 03:26 Range/Units Serum Glucose 110 H 74-106 mg/dL Assessment/Plan Impression: Acute hypoxic respiratory failure Dependence on supplemental oxygen S/p laparoscopic cholecystectomy Sepsis Peritonitis Nicotine dependence Events: Remains on supplemental oxygen, 2 LPM NC Taper O2 as tolerated. Head of bed elevation Aspiration precautions On heparin drip Continue antibiotics Abdominal binder. Monitor CORDELIA drain output NGT Surgery recs appreciated. Pain control Avoid oversedation Monitor hemoglobin Clinimix for nutritional support On Puree diet Diurese as tolerated w/ Lasix Monitor renal function Monitor electrolytes. Supplement as necessary. Monitor ins and outs. Maintain euvolemia. Labs and imaging reviewed. Rest of plan as noted below. Plan: s/p extubation on 05/21/24 Supplemental oxygen Titrate to keep O2 sats above 92%. Continue antibiotics. NGT Monitor hemoglobin Surgery recs appreciated. Start pressors if necessary to maintain a mean arterial blood pressure greater than 65 mmHg. Monitor renal function Monitor electrolytes. Supplement as necessary. Monitor ins and outs. Maintain euvolemia. GI prophylaxis. DVT prophylaxis. Prognosis: Guarded given patient's multiple co-morbidities. Rest of plan per hospitalist and other consultants. Thank you Dr. Barnes for allowing me to participate in this patient's care. Further recommendations will depend on the patient's clinical course. Please do not hesitate to contact me if you have any questions or concerns. This medical document was created using an electronic medical record system with [employer] system. Although these documentations are being carefully reviewed, there may still be some phonetic and typographical changes. The errors are purely typographical, due to imperfection on the software program, and do not reflect any compromise in the patient's medical care. Dietary Evaluation Review Comments: 1. Consider advancing to cardiac diet when medically appropriate 2. Consider Jevity 1.5 TF @45ml/hr providing 1620kcal, 69g pro, 821ml FW/TPN if NPO >7 days Expected Outcomes/Goals: 1. Pt will meet >75% estimated needs within 2-3 days Plan discussed with: Patient, Other (FARHEEN Panda) MARK ULRICH MD May 24, 2024 22:24
[2024-05-25] VITALS (8 sets, daily range): BP systolic 100–121; BP diastolic 55–68; PULSE 53–67; RESP 17–20; TEMP 97.4–98; O2SAT 90–98
[2024-05-25 06:13] LABS: Basophils # (auto) 0.1 10 ^3/uL (0-0.2); Basophils % (auto) 0.6 % (0.0-2.0); Eosinophils # (auto) 0.4 10 ^3/uL (0-0.8); Hematocrit 41.8 % (41.0-53.0); Hemoglobin 14.4 g/dL (13.5-17.5); Lymphocytes # (auto) 1.2 10 ^3/uL (0.4-5.4); Lymphocytes % (auto) 11.9 % (10.0-50.0); Mean Corpuscular Hemoglobin 30.7 pg (28.0-32.0); Mean Corpuscular Hgb Conc. 34.4 g/dL (32.0-36.0); Mean Corpuscular Volume 89.4 fL (80.0-100.0); Monocytes # (auto) 0.9 10 ^3/uL (0-1.3); Monocytes % (auto) 8.8 % (0.0-12.0); Neutrophils # (auto) 7.4 10 ^3/uL (1.6-8.6); Neutrophils % (auto) 74.7 % (37.0-80.0); Platelet Count (auto) 288 10^3/uL (140-450); Red Blood Cells 4.68 10^6/uL (4.5-5.90); Red Cell Distribution Width 13.3 % (11.8-14.3); White Blood Cell 9.9 10^3/uL (4.4-10.8)
[2024-05-25 06:27] LABS: Anion Gap 7 (5-15); Carbon Dioxide 27 mmol/L (20-31); Chloride 106 mmol/L (98-107); Potassium 3.8 mmol/L (3.5-5.1); Sodium 140 mmol/L (136-145)
[2024-05-25 06:31] LABS: INR 1.19 (0.9-1.15); Prothrombin Time 12.4 sec (9.3-11.8)
[2024-05-25 06:33] LABS: BUN/Creatinine Ratio 14.8 (10.0-20.0); Blood Urea Nitrogen 12 mg/dL (9-23)
[2024-05-25 06:34] LABS: Glucose 114 mg/dL (74-106)
[2024-05-25] MEDS: HEPARIN DRIP/D5W 100UNITS/ML 250 ML IV SCH ×2 (09:00→17:26)
--- NOTE | 2024-05-25 11:03 | DVHPN2 ---
Progress Note Date Seen: May 25, 2024 Has the PT tested + for MRSA If YES, has PT been informed?: No Medical Necessity Reason Pt with a Central, PICC or Fol: Yes The following are medically ne: Serna Catheter Reason for serna catheter: Strict I&O Objective vital signs Vital Sign Date Time Temp Pulse Resp B/P (MAP) Pulse Ox O2 Delivery O2 Flow Rate FiO2 05/25/24 09:28 103/61 05/25/24 05:00 97.7 58 20 97 97.7 05/24/24 20:00 Nasal Cannula* 2 28 Total Intake and Output 05/24/24 05/24/24 05/25/24 15:00 23:00 07:00 Intake Total 50 ml 200 ml 300 ml Output Total 1850 ml 550 ml Balance 50 ml -1650 ml -250 ml medications Current Medications Medications Dose Ordered Sig/Jania Route Start Time Stop Time Status Last Admin Dose Admin Sodium Chloride 10 ml Q8HR IV 05/17/24 06:00 05/25/24 05:40 10 ML Acetaminophen 650 mg Q6HP PRN PO 05/17/24 01:30 Nitroglycerin 0.4 mg Q5MINP PRN SL 05/17/24 01:30 Furosemide 20 mg DAILY IV 05/17/24 10:00 05/25/24 09:28 20 MG Metronidazole 100 ml @ 100 mls/hr Q8HR IV 05/17/24 14:00 05/25/24 05:39 100 MLS/HR Ondansetron HCl 4 mg Q4HPRN PRN IV 05/17/24 13:45 Pantoprazole Sodium 40 mg DAILY IV 05/18/24 10:00 05/25/24 09:28 40 MG Cefazolin Sodium/ Dextrose 50 ml @ 50 mls/hr Q8HR IV 05/17/24 18:30 05/25/24 05:39 50 MLS/HR Acetaminophen/ Codeine Phosphate 1 tab Q4HP PRN PO 05/24/24 10:30 05/25/24 05:53 1 TAB Heparin Sodium/ Dextrose 250 ml @ 18 mls/hr [id number] IV 05/25/24 09:00 05/25/24 09:00 18 MLS/HR laboratory and microbiology Laboratory Tests 05/25/24 05:37 Test 05/25/24 05:37 Range/Units Serum Glucose 114 H 74-106 mg/dL Problem List/Assessment/Plan Problem List/Assessment/Plan 05/18/24 remains sedated and intubated on ventilator, no need for BP support, good urine output, labs ok, abdomen soft and non distended, wounds clean and well approximated, EUSEBIA drainage moderate volume, bile stained 05/20/24 HEMODYNAMICALLY STABLE, REMAINS INTUBATED, DRAINAGE MINIMAL NON BILIOUS 05/22/24 extubated, good inspiratory effort, wounds clean and well approximated, NGT removed, will start po liquids, dc morphine 05/23/24 abdomen non distended, non tender, eusebia drainage non bilious, wounds clean and wel approximated, awaiting swallow study, 05/24/24 alert, oriented, more comfortable, no pain, swallow eval reviewed, will change to pureed diet ,will dc injectable rx imroving, wounds clean and well approximated, drainage serous DC Serna Plan discussed with: Patient Dietary Evaluation Review Comments: 1. Consider advancing to cardiac diet when medically appropriate 2. Consider Jevity 1.5 TF @45ml/hr providing 1620kcal, 69g pro, 821ml FW/TPN if NPO >7 days Expected Outcomes/Goals: 1. Pt will meet >75% estimated needs within 2-3 days SIDDHARTHA BROWN MD May 25, 2024 11:03
--- NOTE | 2024-05-25 14:18 | DVHPNRES ---
Progress Note Date Seen: May 25, 2024 Resident Creating Document: MIGUEL MOSCOSO RESIDENT Has the PT tested + for MRSA If YES, has PT been informed?: No Medical Necessity Reason Pt with a Central, PICC or Fol: Yes The following are medically ne: Serna Catheter Reason for serna catheter: Strict I&O Subjective Review of Systems This is a 69 year old male past medical history of HTN, CHF, COPD who presented to the ED with chief complaint of cholecystostomy tube dislodgement associated with severe abdominal pain. The patient stated that three days ago the cholecystostomy tube got stuck with a doorknob at the house and unintentionally pull the tube and slightly dislodged causing a lot of pain and inflammation at that time. Two days later the patient started to experiencing severe abdominal pain in the right upper quadrant and epigastric region. Apparently previously the patient was found to have cholecystitis but at that time due to severe comorbidities colostomy tube was placed instead of surgical cholecystectomy. Upon my examination, the patient was on severe excruciating pain in the right upper quadrant and epigastric region extending to the periumbilical region. The patient was hairm hard abdomen most likely consistent with acute abdomen. Surgery was consulted for possible laparoscopy due to suspection of peritonitis. The patient was experiencing excruciating right upper quadrant and epigastric abdominal pain that was extending to the periumbilical region. Upon my examination the abdomen was firm, hard and tender most likely consistent with acute abdomen. Surgery was consulted which took the patient to the OR for laparoscopic cholecystectomy with peritoneal lavage, insertion of a CORDELIA drain at the level of the liver where the gallbladder was located. Removal of cholecystostomy tube was performed as well. The patient was intubated for surgery and remained intubated after procedure, but was extubated successfully without complications. The patient was initially started on clinimix, swallow eval passed succesfully and was started on puree diet which has tolerated without complications. Patient seen and examined at bedside. Patient is alert and oriented in person, place and time. Patient is currently on room air saturating 95%. The patient still complaining of mild to moderate abdominal tenderness which is expected after surgery. Patient is currently tolerating pureed diet without complications. Denies nausea/vomiting or any other GI disturbance. Patient is currently on IV cefazolin and metronidazole. We will continue heparin drip for right upper extremity DVT. Patient might be switch to Eliquis 5mg BID for three months and follow-up with his PCP on discharge. We are still waiting for surgical clearance, possible discharge tomorrow if the patient have bowel movements and no additional complications. We encouraged the patient to ambulate as tolerate. ROS Constitutional: Denies weight loss, fever and chills. HEENT: Denies changes in vision and hearing. Respiratory: Denies shortness of breath and cough Cardiovascular: Denies chest discomfort or palpitations GI: Reports mild to moderate abdominal tenderness at the periumbilical region. : Denies dysuria and urinary frequency. Musculoskeletal: Denies myalgias and joint pain Skin: Denies rash and pruritus. Neurological: Denies dizziness, headache, vision or hearing problems Objective vital signs Vital Sign Date Time Temp Pulse Resp B/P (MAP) Pulse Ox O2 Delivery O2 Flow Rate FiO2 05/25/24 13:00 97.5 62 19 106/61 (76) 98 97.5 05/25/24 08:00 Nasal Cannula* 2 28 Total Intake and Output 05/24/24 05/24/24 05/25/24 14:59 22:59 06:59 Intake Total 50 ml 200 ml 300 ml Output Total 1850 ml 550 ml Balance 50 ml -1650 ml -250 ml medications Current Medications Medications Dose Ordered Sig/Jania Route Start Time Stop Time Status Last Admin Dose Admin Sodium Chloride 10 ml Q8HR IV 05/17/24 06:00 05/25/24 05:40 10 ML Acetaminophen 650 mg Q6HP PRN PO 05/17/24 01:30 Nitroglycerin 0.4 mg Q5MINP PRN SL 05/17/24 01:30 Furosemide 20 mg DAILY IV 05/17/24 10:00 05/25/24 09:28 20 MG Metronidazole 100 ml @ 100 mls/hr Q8HR IV 05/17/24 14:00 05/25/24 05:39 100 MLS/HR Ondansetron HCl 4 mg Q4HPRN PRN IV 05/17/24 13:45 Pantoprazole Sodium 40 mg DAILY IV 05/18/24 10:00 05/25/24 09:28 40 MG Cefazolin Sodium/ Dextrose 50 ml @ 50 mls/hr Q8HR IV 05/17/24 18:30 05/25/24 05:39 50 MLS/HR Acetaminophen/ Codeine Phosphate 1 tab Q4HP PRN PO 05/24/24 10:30 05/25/24 05:53 1 TAB Heparin Sodium/ Dextrose 250 ml @ 18 mls/hr [id number] IV 05/25/24 09:00 05/25/24 09:00 18 MLS/HR Examination Physical Examination General: Patient alert and oriented in person, place and time. Patient following commands. HEENT: Normocephalic, atraumatic, moist mucous membranes Respiratory/pulmonary: There are mild coarse sounds at this time. patient extubated on 2 L of O2 through nasal cannula Cardiovascular: Normal heart sounds S1 and S2 with no associated murmurs Abdomen: Abdomen nondistended, Abd is tender to palpation 8/10 on pain scale at periumbilal region.There is an abdominal binder, CORDELIA drainage is draining approximately 10 cc in the past 12 hours. Surgical incisions looks dry and clean. No signs of erythema or infection at this time. Extremities: There is no peripheral edema present at the lower extremities. Peripheral Pulses: 3+ Radial (R). 3+ Radial (L). 3+ Dorsalis pedis (R). 3+ Dorsalis pedis(L) Skin: No rashes or pruritus, there is no sacral edema present at this time. Neurological: Intact cranial nerves with no focal neurologic deficits laboratory and microbiology Laboratory Tests 05/25/24 05:37 Test 05/25/24 05:37 Range/Units Serum Glucose 114 H 74-106 mg/dL Microbiology Date/Time Source Procedure Growth Status 05/17/24 17:53 Nose MRSA Screen - Final Complete 05/17/24 14:25 Sputum Expectorated Sputum Gram Stain - Final Complete 05/17/24 14:25 Sputum Expectorated Sputum Respiratory Culture - Final Complete 05/17/24 13:14 Peritoneal Fluid Gram Stain - Final Complete 05/17/24 13:14 Peritoneal Fluid Anaerobic Culture - Final Complete 05/17/24 13:14 Aerobic Culture - Final Klebsiella pneumoniae Complete Labs and/or images reviewed: Labs reviewed by me, Image(s) reviewed by me Problem List/Assessment/Plan Problem List/Assessment/Plan Assessment/Plan Acute abdominal pain due to peritonitis due to complicated cholecystitis with dislodged cholecystostomy tube Acute abdomen Peritonitis Sepsis due to above S/P Laparoscopic cholecystectomy with peritoneal lavage day 8 -initially patient reported cholecystostomy tube dislodgement -initial WBC was 13.1 -patient had firm and hard abdomen to palpation -CT scan of the abdomen showed trace right perihepatic fluid which may reflect residual from initial catheter placement. Acute biliary leak is less likely but can not be entirely excluded. -surgery was consulted which performed laparoscopic cholecystectomy with peritoneal lavage -CORDELIA drain was placed per surgeon -patient was extubated on 05/21/24. ( NIF -40, RSBI 26, VC 1525, audible leak) -Currently on room air sat 94% -follow-up ABG -CORDELIA drain is draining approximately 10 cc in the last 12 hours -Continue IV cefazolin -Continue IV metronidazole -Discontinue clinimix, since patient is tolerating puree diet -Pending surgical clearance, patient still not passed stools but is passing gases and ambulating w/o complications. Still reporting abd tenderness which is expected. Acute on chronic heart failure with preserved ejection fraction (HFpEF 50%) -last echocardiogram performed of 04/08 showed an LVEF of 50% -furosemide 20 mg IV daily -monitor strict in's and out Right upper extremity acute DVT -Bilat upper ext venous doppler showed a thrombus seen in the distal right subclavian, proximal right axillary and right cephalic veins. The left cephalic vein is noncompressible likely secondary to chronic thrombus. -On Hep drip COPD, not exacerbation -currently intubated post surgery on mechanical ventilatory parameters as described above -monitor saturation History of DVT -status post IVC filter placed on February of 2024 Tobacco abuse -we will consult the patient wants the patient is more stable Nutrition -Currently on puree diet Possible DC tomorrow if surgical clearance approved and patient keeps improving. Plan discussed with Dr. Hazel Plan discussed with: Patient, Other (RN) My Orders My Orders Orders - MIGUEL MOSCOSO Procedure Category Date Status Time Heparin Drip/D5w PHA 05/25/24 In Process 100units/Ml 09:00 PTPTT LAB 05/25/24 Logged 15:00 Dietary Evaluation Review Comments: 1. Consider advancing to cardiac diet when medically appropriate 2. Consider Jevity 1.5 TF @45ml/hr providing 1620kcal, 69g pro, 821ml FW/TPN if NPO >7 days Expected Outcomes/Goals: 1. Pt will meet >75% estimated needs within 2-3 days Addendum Addendum Addendum I was physically present for the alba portions of the service provided to patient by THE RESIDENT. I have reviewed the documentation, discussed the case with resident and agree with the resident's documentation except as noted. Also the patient's clinical case was discussed with the patient's nurse. This medical document was created using an electronic medical record system with computerized dictation system. Although this document has been carefully reviewed, there might still be some phonetic and typographical errors. These areas are purely typographical due to imperfections of the software programs, and do not reflect any compromise in the patient's medical care. Late signature. Date of Service: May 25, 2024 Billing Provider: GENNA HAZEL MD Common Visit Codes: [id number] INP/OBS CARE(HIGH) MIGUEL MOSCOSO RESIDENT May 25, 2024 14:18 GENNA HAZEL MD May 26, 2024 07:19
[2024-05-25 16:42] LABS: INR 1.16 (0.9-1.15); Partial Thromboplastin Time 29.8 SEC (24.5-34.5); Prothrombin Time 12.1 sec (9.3-11.8)
[2024-05-25] MEDS: HEPARIN SODIUM (PORCINE) 5000 UNITS/ML 1ML VIAL IV ONE (17:24)
--- NOTE | 2024-05-25 23:30 | DVHPN2 ---
Progress Note - Dictate Date Seen: May 25, 2024 Has the PT tested + for MRSA If YES, has PT been informed?: No Medical Necessity Reason Pt with a Central, PICC or Fol: Yes The following are medically ne: Serna Catheter Reason for serna catheter: Strict I&O Subjective Patient seen and examined at bedside. Remains on supplemental oxygen Overnight events reviewed. vital signs Vital Sign Date Time Temp Pulse Resp B/P (MAP) Pulse Ox O2 Delivery O2 Flow Rate FiO2 05/25/24 21:00 98.0 66 17 118/68 (85) 97 98.0 05/25/24 20:00 Nasal Cannula* 2 28 Total Intake and Output 05/24/24 05/24/24 05/25/24 15:00 23:00 07:00 Intake Total 50 ml 200 ml 300 ml Output Total 1850 ml 550 ml Balance 50 ml -1650 ml -250 ml medications Current Medications Medications Dose Ordered Sig/Jania Route Start Time Stop Time Status Last Admin Dose Admin Sodium Chloride 10 ml Q8HR IV 05/17/24 06:00 05/25/24 21:07 10 ML Acetaminophen 650 mg Q6HP PRN PO 05/17/24 01:30 Nitroglycerin 0.4 mg Q5MINP PRN SL 05/17/24 01:30 Furosemide 20 mg DAILY IV 05/17/24 10:00 05/25/24 09:28 20 MG Metronidazole 100 ml @ 100 mls/hr Q8HR IV 05/17/24 14:00 05/25/24 21:06 100 MLS/HR Ondansetron HCl 4 mg Q4HPRN PRN IV 05/17/24 13:45 Pantoprazole Sodium 40 mg DAILY IV 05/18/24 10:00 05/25/24 09:28 40 MG Cefazolin Sodium/ Dextrose 50 ml @ 50 mls/hr Q8HR IV 05/17/24 18:30 05/25/24 21:06 50 MLS/HR Acetaminophen/ Codeine Phosphate 1 tab Q4HP PRN PO 05/24/24 10:30 05/25/24 21:10 1 TAB Heparin Sodium/ Dextrose 250 ml @ 21 mls/hr [id number] IV 05/25/24 17:15 05/25/24 17:26 21 MLS/HR objective Gen.: Patient lying in bed in no apparent distress. On supplemental oxygen. Head: Normocephalic, atraumatic. Eyes: EOMI/PERRLA. Ears: Normal hearing. Normal anatomy. Neck/trachea: Trachea midline, supple. Nose: Normal external anatomy. Mouth: Moist mucous membranes. Chest: Decreased air entry bilaterally. No wheezing or rhonchi. Cardiovascular: Positive S1, positive S2. Regular rate and rhythm. Abdomen: Positive bowel sounds in all 4 quadrants. Soft, non-tender, non- distended. : Deferred. Rectal: Deferred. Skin: Warm, dry. Intact. Extremities: 2+ radial pulses bilaterally. No lower extremity edema. Neuro: Awake, alert, oriented x3. No gross motor or sensory deficits. Cranial nerves II through XII intact. Gait not assessed. laboratory and microbiology Laboratory Tests 05/25/24 05:37 Test 05/25/24 05:37 Range/Units Serum Glucose 114 H 74-106 mg/dL Assessment/Plan Impression: Acute hypoxic respiratory failure Dependence on supplemental oxygen S/p laparoscopic cholecystectomy Sepsis Peritonitis Nicotine dependence Events: Remains on supplemental oxygen, 2 LPM NC Taper O2 as tolerated. Head of bed elevation Aspiration precautions On heparin drip Continue antibiotics Incentive spirometry Abdominal binder. Monitor CORDELIA drain output NGT Surgery recs appreciated. Pain control Avoid oversedation Monitor hemoglobin Protonix for GI prophylaxis On Puree diet Diurese as tolerated w/ Lasix Monitor renal function Monitor electrolytes. Supplement as necessary. Monitor ins and outs. Maintain euvolemia. Labs and imaging reviewed. Rest of plan as noted below. Plan: s/p extubation on 05/21/24 Supplemental oxygen Titrate to keep O2 sats above 92%. Continue antibiotics. NGT Monitor hemoglobin Surgery recs appreciated. Start pressors if necessary to maintain a mean arterial blood pressure greater than 65 mmHg. Monitor renal function Monitor electrolytes. Supplement as necessary. Monitor ins and outs. Maintain euvolemia. GI prophylaxis. DVT prophylaxis. Prognosis: Guarded given patient's multiple co-morbidities. Rest of plan per hospitalist and other consultants. Thank you Dr. Barnes for allowing me to participate in this patient's care. Further recommendations will depend on the patient's clinical course. Please do not hesitate to contact me if you have any questions or concerns. This medical document was created using an electronic medical record system with [employer] system. Although these documentations are being carefully reviewed, there may still be some phonetic and typographical changes. The errors are purely typographical, due to imperfection on the software program, and do not reflect any compromise in the patient's medical care. Dietary Evaluation Review Comments: 1. Consider advancing to cardiac diet when medically appropriate 2. Consider Jevity 1.5 TF @45ml/hr providing 1620kcal, 69g pro, 821ml FW/TPN if NPO >7 days Expected Outcomes/Goals: 1. Pt will meet >75% estimated needs within 2-3 days Plan discussed with: Patient, Other (FARHEEN Gabriel) MARK ULRICH MD May 25, 2024 23:30
[2024-05-26] VITALS (11 sets, daily range): BP systolic 91–129; BP diastolic 43–68; PULSE 49–73; RESP 16–20; TEMP 97.3–98.6; O2SAT 94–98
[2024-05-26 01:19] LABS: INR 1.17 (0.9-1.15); Prothrombin Time 12.2 sec (9.3-11.8)
[2024-05-26 01:23] LABS: Partial Thromboplastin Time 71.7 SEC (24.5-34.5)
[2024-05-26 08:04] LABS: Basophils # (auto) 0 10 ^3/uL (0-0.2); Basophils % (auto) 0.5 % (0.0-2.0); Eosinophils # (auto) 0.3 10 ^3/uL (0-0.8); Eosinophils % (auto) 4.1 % (0.0-7.0); Hematocrit 42.2 % (41.0-53.0); Hemoglobin 14.3 g/dL (13.5-17.5); Lymphocytes # (auto) 1.2 10 ^3/uL (0.4-5.4); Mean Corpuscular Hemoglobin 30.5 pg (28.0-32.0); Mean Corpuscular Hgb Conc. 33.9 g/dL (32.0-36.0); Mean Corpuscular Volume 90.1 fL (80.0-100.0); Monocytes # (auto) 0.7 10 ^3/uL (0-1.3); Neutrophils # (auto) 6.1 10 ^3/uL (1.6-8.6); Neutrophils % (auto) 73.4 % (37.0-80.0); Platelet Count (auto) 297 10^3/uL (140-450); Red Blood Cells 4.68 10^6/uL (4.5-5.90); Red Cell Distribution Width 13.8 % (11.8-14.3); White Blood Cell 8.3 10^3/uL (4.4-10.8)
[2024-05-26 08:11] LABS: Anion Gap 8 (5-15); Carbon Dioxide 27 mmol/L (20-31); Chloride 104 mmol/L (98-107); Potassium 3.7 mmol/L (3.5-5.1); Sodium 139 mmol/L (136-145)
[2024-05-26 08:12] LABS: Calcium 9.1 mg/dL (8.7-10.4)
[2024-05-26 08:17] LABS: BUN/Creatinine Ratio 12.8 (10.0-20.0); Blood Urea Nitrogen 11 mg/dL (9-23); Glucose 131 mg/dL (74-106)
[2024-05-26 08:43] LABS: INR 1.19 (0.9-1.15); Prothrombin Time 12.4 sec (9.3-11.8)
[2024-05-26 08:52] LABS: Partial Thromboplastin Time 122.9 SEC (24.5-34.5)
[2024-05-26] MEDS: HEPARIN DRIP/D5W 100UNITS/ML 250 ML IV SCH (09:00)
--- NOTE | 2024-05-26 13:08 | DVHPN2 ---
Progress Note Date Seen: May 26, 2024 Has the PT tested + for MRSA If YES, has PT been informed?: No Medical Necessity Reason Pt with a Central, PICC or Fol: Yes The following are medically ne: Serna Catheter Reason for serna catheter: Strict I&O Subjective Patient reports: No new complaints, Feels better Review of Systems: HEENT:Normal, CVS:Normal, RESPIRATORY:Normal, GI:Normal, :Normal, NEURO:Normal Objective vital signs Vital Sign Date Time Temp Pulse Resp B/P (MAP) Pulse Ox O2 Delivery O2 Flow Rate FiO2 05/26/24 09:19 99/59 05/26/24 08:38 97.3 50 17 98 97.3 05/26/24 08:00 Nasal Cannula* 2 28 Total Intake and Output 05/25/24 05/25/24 05/26/24 15:00 23:00 07:00 Intake Total 750 ml 520 ml Output Total 1725 ml 1110 ml Balance -975 ml -590 ml medications Current Medications Medications Dose Ordered Sig/Jania Route Start Time Stop Time Status Last Admin Dose Admin Sodium Chloride 10 ml Q8HR IV 05/17/24 06:00 05/26/24 05:11 10 ML Acetaminophen 650 mg Q6HP PRN PO 05/17/24 01:30 Nitroglycerin 0.4 mg Q5MINP PRN SL 05/17/24 01:30 Furosemide 20 mg DAILY IV 05/17/24 10:00 05/26/24 09:19 20 MG Metronidazole 100 ml @ 100 mls/hr Q8HR IV 05/17/24 14:00 05/26/24 05:11 100 MLS/HR Ondansetron HCl 4 mg Q4HPRN PRN IV 05/17/24 13:45 Pantoprazole Sodium 40 mg DAILY IV 05/18/24 10:00 05/26/24 09:18 40 MG Cefazolin Sodium/ Dextrose 50 ml @ 50 mls/hr Q8HR IV 05/17/24 18:30 05/26/24 05:11 50 MLS/HR Acetaminophen/ Codeine Phosphate 1 tab Q4HP PRN PO 05/24/24 10:30 05/26/24 06:12 1 TAB Heparin Sodium/ Dextrose 250 ml @ 18 mls/hr [id number] IV 05/26/24 09:00 05/26/24 09:00 18 MLS/HR Examination: GENERAL:Normal, HEENT:Normal, NECK:Normal, LUNGS:Normal, CVS:Normal, ABDOMEN:Normal, MSK:Normal, SKIN:Normal, NEURO:Normal laboratory and microbiology Laboratory Tests 05/26/24 06:55 Test 05/26/24 06:55 Range/Units Serum Glucose 131 H 74-106 mg/dL Problem List/Assessment/Plan Problem List/Assessment/Plan 05/19/24 notes , labs reviewed, patient intubated, abdomen soft, non distended, wounds clean dry an intact, minimal fluid in CORDELIA drain , discussed with Dr. Cameron arriaza to CPAP 05/26/24 no new complaints, feeling better, abdomen soft, non distended, non tender, passing gas, bm, wounds clean dry and intact, CORDELIA drain with serous fluid Plan discussed with: Patient, Other Dietary Evaluation Review Comments: 1. Consider advancing to cardiac diet when medically appropriate 2. Consider Jevity 1.5 TF @45ml/hr providing 1620kcal, 69g pro, 821ml FW/TPN if NPO >7 days Expected Outcomes/Goals: 1. Pt will meet >75% estimated needs within 2-3 days DAVIS VERNON NP May 26, 2024 13:08
--- NOTE | 2024-05-26 16:00 | DVHPNRES ---
Progress Note Date Seen: May 26, 2024 Resident Creating Document: ABELINO GRAVES RESIDENT Has the PT tested + for MRSA If YES, has PT been informed?: No Medical Necessity Reason Pt with a Central, PICC or Fol: No Reason for serna catheter: Strict I&O Subjective Review of Systems This is a 69 year old male past medical history of HTN, CHF, COPD who presented to the ED with chief complaint of cholecystostomy tube dislodgement associated with severe abdominal pain. The patient stated that three days ago the cholecystostomy tube got stuck with a doorknob at the house and unintentionally pull the tube and slightly dislodged causing a lot of pain and inflammation at that time. Two days later the patient started to experiencing severe abdominal pain in the right upper quadrant and epigastric region. Apparently previously the patient was found to have cholecystitis but at that time due to severe comorbidities colostomy tube was placed instead of surgical cholecystectomy. Upon my examination, the patient was on severe excruciating pain in the right upper quadrant and epigastric region extending to the periumbilical region. The patient was hairm hard abdomen most likely consistent with acute abdomen. Surgery was consulted for possible laparoscopy due to suspection of peritonitis. The patient was experiencing excruciating right upper quadrant and epigastric abdominal pain that was extending to the periumbilical region. Upon my examination the abdomen was firm, hard and tender most likely consistent with acute abdomen. Surgery was consulted which took the patient to the OR for laparoscopic cholecystectomy with peritoneal lavage, insertion of a CORDELIA drain at the level of the liver where the gallbladder was located. Removal of cholecystostomy tube was performed as well. The patient was intubated for surgery and remained intubated after procedure, but was extubated successfully without complications. The patient was initially started on clinimix, swallow eval passed succesfully and was started on puree diet which has tolerated without complications. Patient was seen today for clinical evaluation. Labs and chart reviewed. Patient reported feeling much better today. Tolerating pureed diet well. Patient was seen by surgery [address] [address] [facility] Wilbert,. [employer] spoke to and he mentioned surgery will re-evaluate patient tomorrow morning and make a note about discharge planning. Patient might be switch to Eliquis 5mg BID. Patient's history of DVT with IVC filter placed in March 05, 2024. . We encouraged the patient to ambulate as tolerate. Patient reported he is on home oxygen [place] O2 2-3 liter/minute due to COPD. Ordered nebulization with Mucomyst b.i.d. Serna's catheter was removed today. Patient voided well. No acute sign or symptom of retention of uterine so far. ROS Constitutional: Denies weight loss, fever and chills. HEENT: Denies changes in vision and hearing. Respiratory: Denies shortness of breath and cough Cardiovascular: Denies chest discomfort or palpitations GI: Denies Nausea/vomiting : Denies dysuria and urinary frequency. Musculoskeletal: Denies myalgias and joint pain Skin: Denies rash and pruritus. Neurological: Denies dizziness, headache, vision or hearing problems Objective vital signs Vital Sign Date Time Temp Pulse Resp B/P (MAP) Pulse Ox O2 Delivery O2 Flow Rate FiO2 05/26/24 13:00 98.0 65 18 102/43 (62) 94 98.0 05/26/24 08:00 Nasal Cannula* 2 28 Total Intake and Output 05/25/24 05/25/24 05/26/24 15:00 23:00 07:00 Intake Total 750 ml 520 ml Output Total 1725 ml 1110 ml Balance -975 ml -590 ml medications Current Medications Medications Dose Ordered Sig/Jania Route Start Time Stop Time Status Last Admin Dose Admin Sodium Chloride 10 ml Q8HR IV 05/17/24 06:00 05/26/24 13:18 10 ML Acetaminophen 650 mg Q6HP PRN PO 05/17/24 01:30 Nitroglycerin 0.4 mg Q5MINP PRN SL 05/17/24 01:30 Furosemide 20 mg DAILY IV 05/17/24 10:00 Hold 05/26/24 09:19 20 MG Metronidazole 100 ml @ 100 mls/hr Q8HR IV 05/17/24 14:00 05/26/24 05:11 100 MLS/HR Ondansetron HCl 4 mg Q4HPRN PRN IV 05/17/24 13:45 Pantoprazole Sodium 40 mg DAILY IV 05/18/24 10:00 05/26/24 09:18 40 MG Cefazolin Sodium/ Dextrose 50 ml @ 50 mls/hr Q8HR IV 05/17/24 18:30 05/26/24 13:12 50 MLS/HR Acetaminophen/ Codeine Phosphate 1 tab Q4HP PRN PO 05/24/24 10:30 05/26/24 13:12 1 TAB Heparin Sodium/ Dextrose 250 ml @ 18 mls/hr [id number] IV 05/26/24 09:00 05/26/24 09:00 18 MLS/HR Acetylcysteine 200 mg BID NEB 05/26/24 22:00 UNV Examination Physical Examination General: Patient alert and oriented in person, place and time. Patient following commands. HEENT: Normocephalic, atraumatic, moist mucous membranes Respiratory/pulmonary: There are mild coarse sounds at this time. Cardiovascular: Normal heart sounds S1 and S2 with no associated murmurs Abdomen: serus Drainage through CORDELIA tube Surgical incisions looks dry and clean. No signs of erythema or infection at this time. Extremities: There is no peripheral edema present at the lower extremities. Peripheral Pulses: 3+ Radial (R). 3+ Radial (L). 3+ Dorsalis pedis (R). 3+ Dorsalis pedis(L) Skin: No rashes or pruritus, there is no sacral edema present at this time. Neurological: Intact cranial nerves with no focal neurologic deficits laboratory and microbiology Laboratory Tests 05/26/24 06:55 Test 05/26/24 06:55 Range/Units Serum Glucose 131 H 74-106 mg/dL Microbiology Date/Time Source Procedure Growth Status 05/17/24 17:53 Nose MRSA Screen - Final Complete 05/17/24 14:25 Sputum Expectorated Sputum Gram Stain - Final Complete 05/17/24 14:25 Sputum Expectorated Sputum Respiratory Culture - Final Complete 05/17/24 13:14 Peritoneal Fluid Gram Stain - Final Complete 05/17/24 13:14 Peritoneal Fluid Anaerobic Culture - Final Complete 05/17/24 13:14 Aerobic Culture - Final Klebsiella pneumoniae Complete Problem List/Assessment/Plan Problem List/Assessment/Plan Assessment/Plan Acute abdominal pain due to peritonitis due to complicated cholecystitis with dislodged cholecystostomy tube Acute abdomen Peritonitis Sepsis due to above S/P Laparoscopic cholecystectomy with peritoneal lavage day 9 -initially patient reported cholecystostomy tube dislodgement -initial WBC was 13.1 -patient had firm and hard abdomen to palpation -CT scan of the abdomen showed trace right perihepatic fluid which may reflect residual from initial catheter placement. Acute biliary leak is less likely but can not be entirely excluded. -surgery was consulted which performed laparoscopic cholecystectomy with peritoneal lavage -CORDELIA drain was placed per surgeon -patient was extubated on 05/21/24. ( NIF -40, RSBI 26, VC 1525, audible leak) -Currently on [place] O2 2 liter/minute, saturation 94% -follow-up ABG -CORDELIA drain is draining approximately 10 cc in the last 12 hours -Continue IV cefazolin -Continue IV metronidazole -Discontinue clinimix, since patient is tolerating puree diet -Pending surgical clearance, patient still not passed stools but is passing gases and ambulating w/o complications. Acute on chronic heart failure with preserved ejection fraction (HFpEF 50%) -last echocardiogram performed of 04/08 showed an LVEF of 50% -monitor strict in's and out Right upper extremity acute DVT -Bilat upper ext venous doppler showed a thrombus seen in the distal right subclavian, proximal right axillary and right cephalic veins. The left cephalic vein is noncompressible likely secondary to chronic thrombus. -On Hep drip COPD, not exacerbation -ordered nebulization with Mucomyst b.i.d. On NC O2 2 liter/minute -patient is on home oxygen 2-3 liter/minute as per patient -currently intubated post surgery on mechanical ventilatory parameters as described above -monitor saturation History of DVT -status post IVC filter placed on February of 2024 Tobacco abuse -we will consult the patient wants the patient is more stable Nutrition -Currently on puree diet Possible DC tomorrow if surgical clearance approved and patient keeps improving. Plan discussed with Dr. Hebert , nursing staff, patient Total time spent on patient evaluation, chart review, assessment and plan, discussion discussion >31 minutes Plan discussed with Dr. Hebert Plan discussed with: Patient, Other (RN) Plan discussed with: Patient, Other (RN) My Orders My Orders Orders - ABELINO GRAVES RESIDENT Procedure Category Date Status Time Acetylcysteine PHA 05/26/24 Logged Inhalation 20% 22:00 Dietary Evaluation Review Comments: 1. Consider advancing to cardiac diet when medically appropriate 2. Consider Jevity 1.5 TF @45ml/hr providing 1620kcal, 69g pro, 821ml FW/TPN if NPO >7 days Expected Outcomes/Goals: 1. Pt will meet >75% estimated needs within 2-3 days Date of Service: May 26, 2024 Billing Provider: MARYANN LO MD Common Visit Codes: [id number] INP/OBS CARE(HIGH) ABELINO GRAVES RESIDENT May 26, 2024 16:00 MARYANN LO MD May 27, 2024 09:56
[2024-05-26 17:24] LABS: INR 1.16 (0.9-1.15); Partial Thromboplastin Time 61.6 SEC (24.5-34.5); Prothrombin Time 12.1 sec (9.3-11.8)
[2024-05-26] MEDS: ACETYLCYSTEINE 20%(200MG/ML) SOL 4ML NEB SCH (22:07)
[2024-05-26] MEDS: ALBUTEROL SULF 2.5 MG/0.5ML(0.5%) NEB SOLN NEB SCH (22:07)
--- NOTE | 2024-05-26 22:41 | DVHPN2 ---
Progress Note - Dictate Date Seen: May 26, 2024 Has the PT tested + for MRSA If YES, has PT been informed?: No Medical Necessity Reason Pt with a Central, PICC or Fol: No Reason for serna catheter: Strict I&O Subjective Patient seen and examined at bedside. Remains on supplemental oxygen Overnight events reviewed. vital signs Vital Sign Date Time Temp Pulse Resp B/P (MAP) Pulse Ox O2 Delivery O2 Flow Rate FiO2 05/26/24 22:15 64 16 98 05/26/24 22:07 Nasal Cannula 2.0 05/26/24 22:07 28 05/26/24 20:59 98.6 98/62 (74) 98.6 Total Intake and Output 05/25/24 05/25/24 05/26/24 15:00 23:00 07:00 Intake Total 750 ml 520 ml Output Total 1725 ml 1110 ml Balance -975 ml -590 ml medications Current Medications Medications Dose Ordered Sig/Jania Route Start Time Stop Time Status Last Admin Dose Admin Sodium Chloride 10 ml Q8HR IV 05/17/24 06:00 05/26/24 21:24 10 ML Acetaminophen 650 mg Q6HP PRN PO 05/17/24 01:30 Nitroglycerin 0.4 mg Q5MINP PRN SL 05/17/24 01:30 Furosemide 20 mg DAILY IV 05/17/24 10:00 Hold 05/26/24 09:19 20 MG Metronidazole 100 ml @ 100 mls/hr Q8HR IV 05/17/24 14:00 05/26/24 21:24 100 MLS/HR Ondansetron HCl 4 mg Q4HPRN PRN IV 05/17/24 13:45 Pantoprazole Sodium 40 mg DAILY IV 05/18/24 10:00 05/26/24 09:18 40 MG Cefazolin Sodium/ Dextrose 50 ml @ 50 mls/hr Q8HR IV 05/17/24 18:30 05/26/24 21:25 50 MLS/HR Acetaminophen/ Codeine Phosphate 1 tab Q4HP PRN PO 05/24/24 10:30 05/26/24 18:12 1 TAB Heparin Sodium/ Dextrose 250 ml @ 18 mls/hr [id number] IV 05/26/24 09:00 05/26/24 18:07 18 MLS/HR Acetylcysteine 200 mg BID NEB 05/26/24 22:00 05/26/24 22:07 200 MG Albuterol 2.5 mg BID NEB 05/26/24 22:00 05/26/24 22:07 2.5 MG objective Gen.: Patient lying in bed in no apparent distress. On supplemental oxygen. Head: Normocephalic, atraumatic. Eyes: EOMI/PERRLA. Ears: Normal hearing. Normal anatomy. Neck/trachea: Trachea midline, supple. Nose: Normal external anatomy. Mouth: Moist mucous membranes. Chest: Decreased air entry bilaterally. No wheezing or rhonchi. Cardiovascular: Positive S1, positive S2. Regular rate and rhythm. Abdomen: Positive bowel sounds in all 4 quadrants. Soft, non-tender, non- distended. : Deferred. Rectal: Deferred. Skin: Warm, dry. Intact. Extremities: 2+ radial pulses bilaterally. No lower extremity edema. Neuro: Awake, alert, oriented x3. No gross motor or sensory deficits. Cranial nerves II through XII intact. Gait not assessed. laboratory and microbiology Laboratory Tests 05/26/24 06:55 Test 05/26/24 06:55 Range/Units Serum Glucose 131 H 74-106 mg/dL Assessment/Plan Impression: Acute hypoxic respiratory failure Dependence on supplemental oxygen S/p laparoscopic cholecystectomy Sepsis Peritonitis Nicotine dependence Events: Remains on supplemental oxygen, 2 LPM NC Taper O2 as tolerated. Follow up Surgery recommendations Head of bed elevation Aspiration precautions On heparin drip Continue antibiotics Incentive spirometry Abdominal binder per Surgery recs. Monitor CORDELIA drain output NGT Monitor hemoglobin Protonix for GI prophylaxis On Puree diet Diurese as tolerated w/ Lasix Monitor renal function Monitor electrolytes. Supplement as necessary. Monitor ins and outs. PT evaluation today Disposition per hospitalist. Labs and imaging reviewed. Rest of plan as noted below. Plan: s/p extubation on 05/21/24 Supplemental oxygen Titrate to keep O2 sats above 92%. Continue antibiotics. NGT Monitor hemoglobin Surgery recs appreciated. Start pressors if necessary to maintain a mean arterial blood pressure greater than 65 mmHg. Monitor renal function Monitor electrolytes. Supplement as necessary. Monitor ins and outs. Maintain euvolemia. GI prophylaxis. DVT prophylaxis. Prognosis: Guarded given patient's multiple co-morbidities. Rest of plan per hospitalist and other consultants. Thank you Dr. Barnes for allowing me to participate in this patient's care. Further recommendations will depend on the patient's clinical course. Please do not hesitate to contact me if you have any questions or concerns. This medical document was created using an electronic medical record system with [employer] dictation system. Although these documentations are being carefully reviewed, there may still be some phonetic and typographical changes. The errors are purely typographical, due to imperfection on the software program, and do not reflect any compromise in the patient's medical care. Dietary Evaluation Review Comments: 1. Consider advancing to cardiac diet when medically appropriate 2. Consider Jevity 1.5 TF @45ml/hr providing 1620kcal, 69g pro, 821ml FW/TPN if NPO >7 days Expected Outcomes/Goals: 1. Pt will meet >75% estimated needs within 2-3 days Plan discussed with: Patient, Other (FARHEEN Gabriel) MARK ULRICH MD May 26, 2024 22:41
[2024-05-26 23:41] LABS: INR 1.14 (0.9-1.15); Prothrombin Time 11.9 sec (9.3-11.8)
[2024-05-26 23:44] LABS: Partial Thromboplastin Time 90.8 SEC (24.5-34.5)
[2024-05-27] VITALS (16 sets, daily range): BP systolic 90–113; BP diastolic 46–66; PULSE 49–104; RESP 17–20; TEMP 97.9–98.3; O2SAT 95–100
[2024-05-27] MEDS: HEPARIN DRIP/D5W 100UNITS/ML 250 ML IV SCH ×2 (01:00→09:45)
[2024-05-27 07:39] LABS: Anion Gap 7 (5-15); Carbon Dioxide 27 mmol/L (20-31); Chloride 104 mmol/L (98-107); Potassium 4.1 mmol/L (3.5-5.1); Sodium 138 mmol/L (136-145)
[2024-05-27 07:40] LABS: Calcium 9.1 mg/dL (8.7-10.4)
[2024-05-27 07:44] LABS: INR 1.18 (0.9-1.15); Prothrombin Time 12.3 sec (9.3-11.8)
[2024-05-27 07:45] LABS: BUN/Creatinine Ratio 14.3 (10.0-20.0); Blood Urea Nitrogen 11 mg/dL (9-23); Glucose 105 mg/dL (74-106)
[2024-05-27 07:46] LABS: Basophils # (auto) 0.1 10 ^3/uL (0-0.2); Basophils % (auto) 0.7 % (0.0-2.0); Eosinophils # (auto) 0.4 10 ^3/uL (0-0.8); Eosinophils % (auto) 4.7 % (0.0-7.0); Hematocrit 41.1 % (41.0-53.0); Lymphocytes # (auto) 1.2 10 ^3/uL (0.4-5.4); Lymphocytes % (auto) 14.7 % (10.0-50.0); Mean Corpuscular Hemoglobin 30.6 pg (28.0-32.0); Mean Corpuscular Hgb Conc. 34.1 g/dL (32.0-36.0); Mean Corpuscular Volume 89.8 fL (80.0-100.0); Monocytes # (auto) 0.7 10 ^3/uL (0-1.3); Monocytes % (auto) 8.6 % (0.0-12.0); Neutrophils # (auto) 5.9 10 ^3/uL (1.6-8.6); Neutrophils % (auto) 71.3 % (37.0-80.0); Nucleated Red Blood Cells % 0.1 %; Platelet Count (auto) 327 10^3/uL (140-450); Red Blood Cells 4.57 10^6/uL (4.5-5.90); Red Cell Distribution Width 13.8 % (11.8-14.3); White Blood Cell 8.3 10^3/uL (4.4-10.8)
--- NOTE | 2024-05-27 09:43 | DVHPN2 ---
Progress Note Date Seen: May 27, 2024 Has the PT tested + for MRSA If YES, has PT been informed?: No Medical Necessity Reason Pt with a Central, PICC or Fol: No Reason for serna catheter: Strict I&O Objective vital signs Vital Sign Date Time Temp Pulse Resp B/P (MAP) Pulse Ox O2 Delivery O2 Flow Rate FiO2 05/27/24 09:00 98.2 51 17 100/54 (69) 96 98.2 05/27/24 06:43 Nasal Cannula* 2 28 Total Intake and Output 05/26/24 05/26/24 05/27/24 15:00 23:00 07:00 Intake Total 50 ml 748 ml 570 ml Output Total 300 ml 425 ml 900 ml Balance -250 ml 323 ml -330 ml medications Current Medications Medications Dose Ordered Sig/Jania Route Start Time Stop Time Status Last Admin Dose Admin Sodium Chloride 10 ml Q8HR IV 05/17/24 06:00 05/27/24 05:25 10 ML Acetaminophen 650 mg Q6HP PRN PO 05/17/24 01:30 Nitroglycerin 0.4 mg Q5MINP PRN SL 05/17/24 01:30 Furosemide 20 mg DAILY IV 05/17/24 10:00 Hold 05/26/24 09:19 20 MG Metronidazole 100 ml @ 100 mls/hr Q8HR IV 05/17/24 14:00 05/27/24 05:24 100 MLS/HR Ondansetron HCl 4 mg Q4HPRN PRN IV 05/17/24 13:45 Pantoprazole Sodium 40 mg DAILY IV 05/18/24 10:00 05/27/24 09:27 40 MG Cefazolin Sodium/ Dextrose 50 ml @ 50 mls/hr Q8HR IV 05/17/24 18:30 05/27/24 05:24 50 MLS/HR Acetaminophen/ Codeine Phosphate 1 tab Q4HP PRN PO 05/24/24 10:30 05/26/24 18:12 1 TAB Acetylcysteine 200 mg BID NEB 05/26/24 22:00 05/27/24 06:43 200 MG Albuterol 2.5 mg BID NEB 05/26/24 22:00 05/27/24 06:42 2.5 MG Heparin Sodium/ Dextrose 250 ml @ 17 mls/hr [id number] IV 05/27/24 09:45 laboratory and microbiology Laboratory Tests 05/27/24 06:37 Test 05/27/24 06:37 Range/Units Serum Glucose 105 74-106 mg/dL Problem List/Assessment/Plan Problem List/Assessment/Plan 05/18/24 remains sedated and intubated on ventilator, no need for BP support, good urine output, labs ok, abdomen soft and non distended, wounds clean and well approximated, EUSEBIA drainage moderate volume, bile stained 05/20/24 HEMODYNAMICALLY STABLE, REMAINS INTUBATED, DRAINAGE MINIMAL NON BILIOUS 05/22/24 extubated, good inspiratory effort, wounds clean and well approximated, NGT removed, will start po liquids, dc morphine 05/23/24 abdomen non distended, non tender, eusebia drainage non bilious, wounds clean and wel approximated, awaiting swallow study, 05/24/24 alert, oriented, more comfortable, no pain, swallow eval reviewed, will change to pureed diet ,will dc injectable rx imroving, wounds clean and well approximated, drainage serous DC Serna 05/27/24 feels well, normal bowel and bladder function, [id number] po intake EUSEBIA- drainage serous, may be discharged instructions given, Plan discussed with: Patient Dietary Evaluation Review Comments: 1. Consider advancing to cardiac diet when medically appropriate 2. Consider Jevity 1.5 TF @45ml/hr providing 1620kcal, 69g pro, 821ml FW/TPN if NPO >7 days Expected Outcomes/Goals: 1. Pt will meet >75% estimated needs within 2-3 days SIDDHARTHA BROWN MD May 27, 2024 09:43
[2024-05-27] MEDS ORDERED: AMOX875T4 PO (15:01)
[2024-05-27 16:02] LABS: INR 1.16 (0.9-1.15); Partial Thromboplastin Time 55.2 SEC (24.5-34.5); Prothrombin Time 12.1 sec (9.3-11.8)
[2024-05-27] MEDS ORDERED: APIX5TAB PO (17:20)
--- NOTE | 2024-05-27 17:25 | DVHDSRES ---
Discharge Summary Date of Admission Resident Creating Document: ABELINO GRAVES May 17, 2024 at 01:16 Date of Discharge: May 27, 2024 Admitting Diagnosis Acute abdominal pain due to peritonitis due to complicated cholecystitis with dislodged cholecystostomy tube Labs/Diagnostic Data: Laboratory Results Test 05/27/24 15:37 05/27/24 06:37 05/24/24 05:19 05/24/24 03:26 Prothrombin Time 12.1 sec (9.3-11.8) Prothrombin Time INR 1.16 (0.9-1.15) Activated Partial Thromboplast Time 55.2 SEC (24.5-34.5) White Blood Count 8.3 10^3/uL (4.4-10.8) Red Blood Count 4.57 10^6/uL (4.5-5.90) Hemoglobin 14.0 g/dL (13.5-17.5) Hematocrit 41.1 % (41.0-53.0) Mean Corpuscular Volume 89.8 fL (80.0-100.0) Mean Corpuscular Hemoglobin 30.6 pg (28.0-32.0) Mean Corpuscular Hemoglobin Concent 34.1 g/dL (32.0-36.0) Red Cell Distribution Width 13.8 % (11.8-14.3) Platelet Count 327 10^3/uL (140-450) Mean Platelet Volume 8.6 fL (6.9-10.8) Neutrophils (%) (Auto) 71.3 % (37.0-80.0) Lymphocytes (%) (Auto) 14.7 % (10.0-50.0) Monocytes (%) (Auto) 8.6 % (0.0-12.0) Eosinophils (%) (Auto) 4.7 % (0.0-7.0) Basophils (%) (Auto) 0.7 % (0.0-2.0) Neutrophils # (Auto) 5.9 10 ^3/uL (1.6-8.6) Lymphocytes # (Auto) 1.2 10 ^3/uL (0.4-5.4) Monocytes # (Auto) 0.7 10 ^3/uL (0-1.3) Eosinophils # (Auto) 0.4 10 ^3/uL (0-0.8) Basophils # (Auto) 0.1 10 ^3/uL (0-0.2) Nucleated Red Blood Cells 0.1 % Sodium Level 138 mmol/L (136-145) Potassium Level 4.1 mmol/L (3.5-5.1) Chloride Level 104 mmol/L (98-107) Carbon Dioxide Level 27 mmol/L (20-31) Anion Gap 7 (5-15) Blood Urea Nitrogen 11 mg/dL (9-23) Creatinine 0.77 mg/dL (0.700-1.30) Glomerular Filtration Rate Calc 97 mL/min (>90) BUN/Creatinine Ratio 14.3 (10.0-20.0) Serum Glucose 105 mg/dL (74-106) Calcium Level 9.1 mg/dL (8.7-10.4) POC Glucose 117 mg/dl (70-106) Phosphorus Level 3.3 mg/dL (2.4-5.1) Magnesium Level 1.8 mg/dL (1.6-2.6) Total Bilirubin 0.6 mg/dL (0.2-1.0) Aspartate Amino Transferase (AST) 14 U/L (13-40) Alanine Aminotransferase (ALT) < 9 U/L (7-40) Alkaline Phosphatase 98 U/L (46-116) Total Protein 5.3 g/dL (5.7-8.2) Albumin 3.5 g/dL (3.2-4.8) Test 05/23/24 03:11 05/21/24 10:51 05/21/24 07:19 05/20/24 11:28 Triglycerides Level 71 mg/dL (< 150) Blood Gas Specimen Type Arterial Blood Gas Sample Site Right radial Blood Gas Patient Temperature 37.0 Arterial Blood Date Drawn [id number] Arterial Blood pH 7.452 (7.350-7.450) Arterial Blood Partial Pressure CO2 39.5 mmHg (35.0-48.0) Arterial Blood Partial Pressure O2 71.4 mmHg (83.0-108.0) Arterial Blood HCO3 27.0 mmol/L (21.0-28.0) Arterial Blood Oxygen Saturation 95.0 % (94.0-98.0) Arterial Blood Base Excess 2.9 mmol/L (-2.0-3.0) Arterial Blood Oxyhemoglobin 93.9 % (94.0-98.0) Arterial Blood Carboxyhemoglobin 1.1 % (0.5-1.5) Arterial Blood Methemoglobin 0.1 % (0.0-1.5) Jonnie Test Modified Blood Gas Total Hemoglobin 15.10 g/dL (13.5-17.5) Blood Gas Modality Vent - cpap FiO2 % 30.0 Blood Gas Pressure Support 8 Blood Gas PEEP or CPAP 5.0 Blood Gas Critical Value Read Back Yes Blood Gas Set Respiration Rate 18.0 Blood Gas Tidal Volume 550.0 Blood Gas Spontaneous Rate 24 Blood Gas Spontaneous Tidal Volume 707 Test 05/20/24 03:11 05/18/24 07:01 05/17/24 15:40 05/17/24 07:37 Lactic Acid Level 1.5 mmol/L (0.4-2.0) Blood Gas Inspiratory Pressure 19.0 Bl Gas Inspiratory/Expiratory Ratio 1:1.8 Specimen Drawn By alesha yañez Blood Gas Notified Whom kiersten Barnes md Blood Gas Notified Time [id number] Blood Gas Notified By Helpdesk Specialist artem rivera Direct Bilirubin 0.7 mg/dL (<0.3) B-Type Natriuretic Peptide 37.16 pg/mL (0-100) Other Laboratory Tests 05/27/24 06:37 Brief Hx & Hospital Course: HPI-This is a 69 year old male past medical history of HTN, CHF, COPD who presented to the ED with chief complaint of cholecystostomy tube dislodgement associated with severe abdominal pain. The patient stated that three days ago the cholecystostomy tube got stuck with a doorknob at the house and unintentionally pull the tube and slightly dislodged causing a lot of pain and inflammation at that time. Two days later the patient started to experiencing severe abdominal pain in the right upper quadrant and epigastric region. Apparently previously the patient was found to have cholecystitis but at that time due to severe comorbidities colostomy tube was placed instead of surgical cholecystectomy. Upon my examination, the patient was on severe excruciating pain in the right upper quadrant and epigastric region extending to the periumbilical region. The patient was hairm hard abdomen most likely consistent with acute abdomen. Surgery was consulted for possible laparoscopy due to suspection of peritonitis. The patient was experiencing excruciating right upper quadrant and epigastric abdominal pain that was extending to the periumbilical region. Upon my examination the abdomen was firm, hard and tender most likely consistent with acute abdomen. Surgery was consulted which took the patient to the OR for laparoscopic cholecystectomy with peritoneal lavage, insertion of a CORDELIA drain at the level of the liver where the gallbladder was located. Removal of cholecystostomy tube was performed as well. The patient was intubated for surgery and remained intubated after procedure, but was extubated successfully without complications. The patient was initially started on clinimix, swallow eval passed succesfully and was started on puree diet which has tolerated without complications. Patient's history of DVT with IVC filter placed in March 05, 2024. Hospital course-patient was admitted due to abdominal pain. CT abdomen pelvis revealed-Status post percutaneous cholecystostomy as above. Trace right perihepatic fluid may reflect residual from initial catheter placement. Acute biliary leak is felt to be less likely but can not be entirely excluded. Laparoscopic cholecystectomy was done following surgery consult with the placement of insertion of CORDELIA drain at the level of the liver were gallbladder was located. Removal of the cholecystostomy team was performed. Patient was treated with IV cefazolin and metronidazole post surgery. Patient remained intubated following surgery as patient had aspiration. On 05/20/2024 Doppler study of the upper extremity revealed- There is thrombus seen in the distal right subclavian, proximal right axillary and right cephalic veins. The left cephalic vein is noncompressible likely secondary to chronic thrombus. Patient was started on. Patient was extubated successfully on 05/21/2024. Patient's CORDELIA draining tube draining was coming down slowly over the days with fluid. Before discharge serous fluid drainage was minimal around 5 mL. Patient was also weaned off from NC O2 before discharge when he was maintaining SpO2 96% in room air. Patient showed no acute respiratory distress. Patient was discharged with Eliquis 5 mg p.o. b.i.d. for 3 months. Augmentin 875 mg p.o. b.i.d. for 5 days. Patient was advised to follow up with the primary care physician in 1 week. Also to follow up with the surgery as per surgery recommendation for further evaluation and care. Patient was also advised to follow up with the biofuels plant operations engineer for further evaluation and management of recurrent DVT. Patient was provided front wheel walker. Patient's med were sent to the pharmacy electronically.Patient's vitals were stable discharge. Diagnosis Acute abdominal pain due to peritonitis due to complicated cholecystitis with dislodged cholecystostomy tube Acute abdomen Peritonitis Sepsis due to above S/P Laparoscopic cholecystectomy with peritoneal lavage Acute on chronic heart failure with preserved ejection fraction (HFpEF 50%) Right upper extremity acute DVT COPD, not exacerbation History of DVT-status post IVC filter placed on February of 2024 Splenic hematoma Tobacco abuse Discharge plan Augmentin 875 mg p.o. 2 times a day for 5 days Eliquis 5 mg p.o. b.i.d. for 3 months Please resume other home medications - Please follow up with the primary care physician in 1 week Please follow up with the surgery in 1 week for further evaluation and care and also for the further management of CORDELIA drain Please follow up with your museum exhibit technician Dr. Florentino for further evaluation and care of COPD Follow up with biofuels plant operations engineer for further follow up and evaluation of recurrent DVT and further plan of care for Eliquis Condition at Discharge: Stable Final Diagnosis/Problems List Acute abdominal pain due to peritonitis due to complicated cholecystitis with dislodged cholecystostomy tube Acute abdomen Peritonitis Sepsis due to above Acute hypoxic respiratory failure due to suspected aspiration pneumonia Status post mechanical ventilation S/P Laparoscopic cholecystectomy with peritoneal lavage Acute on chronic heart failure with preserved ejection fraction (HFpEF 50%) Right upper extremity acute DVT COPD, not exacerbation History of DVT-status post IVC filter placed on February of 2024 Splenic hematoma Tobacco abuse Discharge Disposition: Home Discharge Instruct/Medications Diet: Cardiac 2g Na,low cholest Activity: Light activity Follow Up/Referral: Please follow up with the primary care physician in 1 week Please follow up with the surgery in 1 week for further evaluation and care and also for the further management of CORDELIA drain Please follow up with your museum exhibit technician Dr. Florentino for further evaluation and care of COPD Follow up with the biofuels plant operations engineer for further follow up and evaluation of recurrent DVT and further plan of care for Eliquis Medications: Augmentin 875 mg p.o. 2 times a day for 5 days Eliquis 5 mg p.o. b.i.d. for 3 months Please resume other home medications Discharge Statement: "Patient was advised to return to the ER or call 911 if any headaches, dizziness, shortness of breath, chest pain, abdominal pain, bleeding, fevers, or worsening of medical condition. Patient was counseled about treatment plan, medications, possible side effects, patientverbalized understanding. All questions were answered to the best of my ability. This discharge took greater then 30 minutes in planning, reviewing documentation, counseling the patient, and discussing with other team members." ASSESSMENT ASSESSMENT Assessment Acute abdominal pain due to peritonitis due to complicated cholecystitis with dislodged cholecystostomy tube Acute abdomen Peritonitis Sepsis due to above S/P Laparoscopic cholecystectomy with peritoneal lavage Acute on chronic heart failure with preserved ejection fraction (HFpEF 50%) Right upper extremity acute DVT COPD, not exacerbation History of DVT-status post IVC filter placed on February of 2024 Tobacco abuse Date of Service: May 27, 2024 Billing Provider: MARYANN LO MD Common Visit Codes: 19347-MQS/OBS DISCH DAY >30min ABELINO GRAVES May 27, 2024 17:25 MARYANN LO MD Jun 02, 2024 00:28
[2024-05-27] MEDS: APIXABAN 5 MG TAB PO ONE (20:23)
--- NOTE | 2024-05-27 21:13 | DVHPN2 ---
Progress Note - Dictate Date Seen: May 27, 2024 Has the PT tested + for MRSA If YES, has PT been informed?: No Medical Necessity Reason Pt with a Central, PICC or Fol: No Reason for serna catheter: Strict I&O Subjective Patient seen and examined at bedside. Remains on supplemental oxygen Overnight events reviewed. vital signs Vital Sign Date Time Temp Pulse Resp B/P (MAP) Pulse Ox O2 Delivery O2 Flow Rate FiO2 05/27/24 21:00 98.0 70 19 112/61 (78) 95 98.0 05/27/24 14:18 0.0 05/27/24 14:18 Room Air* 21 Total Intake and Output 05/26/24 05/26/24 05/27/24 15:00 23:00 07:00 Intake Total 50 ml 748 ml 570 ml Output Total 300 ml 425 ml 900 ml Balance -250 ml 323 ml -330 ml medications Current Medications Medications Dose Ordered Sig/Jania Route Start Time Stop Time Status Last Admin Dose Admin Sodium Chloride 10 ml Q8HR IV 05/17/24 06:00 05/27/24 14:01 10 ML Acetaminophen 650 mg Q6HP PRN PO 05/17/24 01:30 Nitroglycerin 0.4 mg Q5MINP PRN SL 05/17/24 01:30 Furosemide 20 mg DAILY IV 05/17/24 10:00 Hold 05/26/24 09:19 20 MG Metronidazole 100 ml @ 100 mls/hr Q8HR IV 05/17/24 14:00 05/27/24 14:00 100 MLS/HR Ondansetron HCl 4 mg Q4HPRN PRN IV 05/17/24 13:45 Pantoprazole Sodium 40 mg DAILY IV 05/18/24 10:00 05/27/24 09:27 40 MG Cefazolin Sodium/ Dextrose 50 ml @ 50 mls/hr Q8HR IV 05/17/24 18:30 05/27/24 15:07 50 MLS/HR Acetaminophen/ Codeine Phosphate 1 tab Q4HP PRN PO 05/24/24 10:30 05/26/24 18:12 1 TAB Acetylcysteine 200 mg BID NEB 05/26/24 22:00 05/27/24 06:43 200 MG Albuterol 2.5 mg BID NEB 05/26/24 22:00 05/27/24 06:42 2.5 MG objective Gen.: Patient lying in bed in no apparent distress. On supplemental oxygen. Head: Normocephalic, atraumatic. Eyes: EOMI/PERRLA. Ears: Normal hearing. Normal anatomy. Neck/trachea: Trachea midline, supple. Nose: Normal external anatomy. Mouth: Moist mucous membranes. Chest: Decreased air entry bilaterally. No wheezing or rhonchi. Cardiovascular: Positive S1, positive S2. Regular rate and rhythm. Abdomen: Positive bowel sounds in all 4 quadrants. Soft, non-tender, non- distended. : Deferred. Rectal: Deferred. Skin: Warm, dry. Intact. Extremities: 2+ radial pulses bilaterally. No lower extremity edema. Neuro: Awake, alert, oriented x3. No gross motor or sensory deficits. Cranial nerves II through XII intact. Gait not assessed. laboratory and microbiology Laboratory Tests 05/27/24 06:37 Test 05/27/24 06:37 Range/Units Serum Glucose 105 74-106 mg/dL Assessment/Plan Impression: Acute hypoxic respiratory failure Dependence on supplemental oxygen S/p laparoscopic cholecystectomy Sepsis Peritonitis Nicotine dependence Events: Tapered from 2 LPM NC --> on room air Supplemental oxygen PRN Improved O2 requirements Surgery recommendations appreciated Head of bed elevation Aspiration precautions Off heparin drip. Continue antibiotics Incentive spirometry Eliquis for DVT. Pain control Avoid oversedation Abdominal binder per Surgery recs. Monitor CORDELIA drain output NGT Monitor hemoglobin Protonix for GI prophylaxis On Puree diet Advance diet per Surgery recs. Monitor renal function Monitor electrolytes. Supplement as necessary. Monitor ins and outs. PT evaluation today Disposition per hospitalist. Labs and imaging reviewed. Rest of plan as noted below. Plan: s/p extubation on 05/21/24 Supplemental oxygen PRN Titrate to keep O2 sats above 92%. Continue antibiotics. NGT Monitor hemoglobin Surgery recs appreciated. Start pressors if necessary to maintain a mean arterial blood pressure greater than 65 mmHg. Monitor renal function Monitor electrolytes. Supplement as necessary. Monitor ins and outs. Maintain euvolemia. GI prophylaxis. DVT prophylaxis. Prognosis: Guarded given patient's multiple co-morbidities. Rest of plan per hospitalist and other consultants. Thank you Dr. Barnes for allowing me to participate in this patient's care. Further recommendations will depend on the patient's clinical course. Please do not hesitate to contact me if you have any questions or concerns. This medical document was created using an electronic medical record system with [employer] dictation system. Although these documentations are being carefully reviewed, there may still be some phonetic and typographical changes. The errors are purely typographical, due to imperfection on the software program, and do not reflect any compromise in the patient's medical care. Dietary Evaluation Review Comments: 1. Consider advancing to cardiac diet when medically appropriate 2. Consider Jevity 1.5 TF @45ml/hr providing 1620kcal, 69g pro, 821ml FW/TPN if NPO >7 days Expected Outcomes/Goals: 1. Pt will meet >75% estimated needs within 2-3 days Plan discussed with: Patient, Other (RN Sera) MARK ULRICH MD May 27, 2024 21:13
== END 2024-05-28 00:50 | disposition home health service (06) | DRG 853 ==
LOC: ER 16:49 → TELE 05-17 01:16 → ICU WEST 05-17 01:23 → CATH ICU 05-17 15:04 → ICU WEST 05-18 01:40 → TELE-WESTW 05-23 23:28 → OVERFLOW 05-27 15:57 → WEST WING 05-27 16:01
PROVIDERS: ADMIT Student in an Organized Health Care Education/Training Program; ATTEND Emergency Medicine
PROC: 0F944ZZ Drainage of Gallbladder, Percutaneous Endoscopic Approach (ICD-10-PCS; 2024-05-17)
PROC: 5A1945Z Respiratory Ventilation, 24-96 Consecutive Hours (ICD-10-PCS; 2024-05-17)
PROC: 0BH17EZ Insertion of Endotracheal Airway into Trachea, Via Natural or Artificial Opening (ICD-10-PCS; 2024-05-17)
PROC: 0FT44ZZ Resection of Gallbladder, Percutaneous Endoscopic Approach (ICD-10-PCS; principal; 2024-05-17 12:02)
PROC: 05H933Z Insertion of Infusion Device into Right Brachial Vein, Percutaneous Approach (ICD-10-PCS; 2024-05-20)
PROC: B54MZZA Ultrasonography of Right Upper Extremity Veins, Guidance (ICD-10-PCS; 2024-05-20)
DX: A41.9 Sepsis, unspecified organism (principal); I50.33 Acute on chronic diastolic (congestive) heart failure; J96.01 Acute respiratory failure with hypoxia; K65.9 Peritonitis, unspecified; K80.00 Calculus of gallbladder with acute cholecystitis without obstruction; K91.89 Other postprocedural complications and disorders of digestive system; I82.B21 Chronic embolism and thrombosis of right subclavian vein; E87.20 Acidosis, unspecified; F41.9 Anxiety disorder, unspecified; K21.9 Gastro-esophageal reflux disease without esophagitis; I11.0 Hypertensive heart disease with heart failure; F17.210 Nicotine dependence, cigarettes, uncomplicated; Y83.8 Other surgical procedures as the cause of abnormal reaction of the patient, or of later complication, without mention of misadventure at the time of the procedure; J44.9 Chronic obstructive pulmonary disease, unspecified; M54.9 Dorsalgia, unspecified; Z86.718 Personal history of other venous thrombosis and embolism; Z82.49 Family history of ischemic heart disease and other diseases of the circulatory system; Z79.01 Long term (current) use of anticoagulants; Z83.3 Family history of diabetes mellitus; Y92.89 Other specified places as the place of occurrence of the external cause; Z99.81 Dependence on supplemental oxygen
CPT/HCPCS: 36415; 36600; 71045; 74177; 80048; 80053; 80076; 82805; 82962; 83605; 83735; 83880; 84100; 84132; 84478; 85025; 85610; 85730; 86850; 86900; 86901; 87070; 87075; 87077; 87081; 87186; 87205; 92610; 93970; 94002; 94003; 94640; 97110; 97116; 97163; 97530; G0378; J0330; J2250; J2470; J2704; J3480; J3490; J7060

== ENCOUNTER 2024-07-27 05:24 | Inpatient (IN) | payer OTHER, MEDICAID ==
[2024-07-27] VITALS (7 sets, daily range): BP systolic 93; BP diastolic 50; PULSE 77–82; RESP 18–25; TEMP 97.6; O2SAT 93–100
[~2024-07-27] VITALS: Ht 180.3 cm; Wt 72.6 kg
[~2024-07-27 05:24] MED LIST changes: -ACET-1882 PO; +ALBU0.084; +ALBU108A5 INH; +AMOX875T4 PO; +APIX5TAB PO; +ASCO500T6 PO; +DEXT1SYP; +MULT-443 PO; +NICO14DI29 TOP; +SENN-105 PO
[2024-07-27 06:12] LABS: Urine Bacteria None Seen /hpf (None Seen)
[2024-07-27 06:26] LABS: Alanine Aminotransferase 25 U/L (7-40); Albumin 4.7 g/dL (3.2-4.8); Anion Gap 5 (5-15); Aspartate Aminotransferase 15 U/L (13-40); Blood Urea Nitrogen 10 mg/dL (9-23); Calcium 10.2 mg/dL (8.7-10.4); Carbon Dioxide 28 mmol/L (20-31); Lipase 48 U/L (12-53); Potassium 4.1 mmol/L (3.5-5.1); Sodium 142 mmol/L (136-145); Total Protein 6.6 g/dL (5.7-8.2)
[2024-07-27 06:27] LABS: Urine Blood Negative /uL (Negative); Urine Clarity Clear (Clear); Urine Color Colorless (Yellow); Urine Protein, UAD Negative (Negative); Urine Specific Gravity 1.004 (1.001-1.035); Urine Squamous Epithelial Cell FEW /hpf (<5); Urine Urobilinogen Normal (Negative); Urine WBC < 1 /HPF (0-3)
[2024-07-27 06:27] LABS: Bilirubin, Total 0.5 mg/dL (0.2-1.0)
--- NOTE | 2024-07-27 06:31 | ED.PDOC ---
SOB-HPI HPI Comments 69 y.o male with PMHx of COPD, CHF and HTN, presents to the ED via EMS for a chief complaint of SOB that started last night s/p eating dinner. Patient on scene was tachypneic and wheezing per EMS, prompting a breathing treatment administration with some relief. Patient denies any other associating symptoms or pain. Patient admits to actively smoking tobacco, 2 cigarettes a day. Patient recently had alaparoscopic cholecystectomy, peritoneal lavage, insertion of drain, removal of dislodged 3 months ago with no active abdominal pain, nausea, vomiting or diarrhea. Chief Complaint: Shortness of Breath Time Seen by MD: 06:19 Primary Care Provider: KASANDRA Keating notes: Nurses Notes, Internet Technology Manager Notes, Medications, Allergies Information Source: Patient Mode of Arrival: EMS Severity: Moderate Timing: Hours Duration: Since onset PE Risk Factors: None History of: COPD, CHF Modifying Factors: Nothing Associated Signs and Symptoms: None Past Medical History PAST MEDICAL HISTORY: Anxiety, CHF, COPD, HTN Surgical History: Appendectomy, Cholecystectomy Family History Family History: Reviewed,noncontributory to illness, No family hx of Cancer, No family hx of DM, No family hx of Heart damaris Social History Smoker: Cigarettes Alcohol: Occasionally Drugs: Denies Drug Use Lives In: Home Constitutional: denies: chills, diaphoresis, fatigue, fever, malaise, sweats, weakness, others EENTM: denies: blurred vision, double vision, ear bleeding, ear discharge, ear drainage, ear pain, ear ringing, eye pain, eye redness, hearing loss, mouth pain, mouth swelling, nasal discharge, nose bleeding, nose congestion, nose pain, photophobia, tearing, throat pain, throat swelling, voice changes, others Respiratory: reports: SOB at rest, shortness of breath, SOB with excertion; denies: cough, hemoptysis, orthopnea, stridor, wheezing, others Cardiovascular: denies: chest pain, dizzy spells, diaphoresis, Dyspnea on exertion, edema, irregular heart beat, left arm pain, lightheadedness, palpitations, PND, syncope, others Gastrointestinal: denies: abdomen distended, abdominal pain, blood streaked bowels, constipated, diarrhea, dysphagia, difficulty swallowing, hematemesis, melena, nausea, poor appetite, poor fluid intake, rectal bleeding, rectal pain, vomiting, others Genitourinary: denies: burning, dysuria, flank pain, frequency, hematuria, incontinence, penile discharge, penile sore, pain, testicle pain, testicle swelling, urgency, others Musculoskeletal: denies: back pain, gout, joint pain, joint swelling, muscle pain, muscle stiffness, neck pain, others Integumetry: denies: bruises, change in color, change in hair/nails, dryness, laceration, lesions, lumps, rash, wounds, others Allergic/Immunocompromised: denies: Difficulty Healing, Frequent Infections, Hives, Itching, others Hematologic/Lymphatic: denies: anemia, blood clots, easy bleeding, easy bruising, swollen glands, others Endocrine: denies: excessive hunger, excessive sweating, excessive thirst, excessive urination, flushing, intolerance to cold, intolerance to heat, unexplained weight gain, unexplained weight loss, others Psychiatric: denies: anxiety, bipolar disorder, depression, hopeless, panic disorder, schizophrenia, sleepless, suicidal, others All Other Systems: Reviewed and Negative Physical Exam General Appearance: Moderate Distress HEENT: Normal ENT Inspection, Pharynx Normal, TMs Normal Neck: Full Range of Motion, Non-Tender, Normal, Normal Inspection Respiratory: Accessory Muscle Use, Respiratory Distress, Wheezing Cardiovascular: No Edema, No JVD, No Murmur, No Gallop, Normal Peripheral Pulses, Regular Rate/Rhythm Breast Exam: Deferred Gastrointestinal: No Organomegaly, Non Tender, No Pulsatile Mass, Normal Bowel Sounds, Soft, Other (CORDELIA drain possibly in gallbladder fossa) Genitalia: Deferred Pelvic: Deferred Rectal: Deferred Extremities: No calf tenderness, Normal capillary refill, Normal inspection, Normal range of motion, Non-tender, No pedal edema Musculoskeletal : Apperance: Normal Neurologic: Alert, patron attendant II-XII nml as Tested, No Motor Deficits, Normal Affect, Normal Mood, No Sensory Deficits Cerebellar Function: NOT DONE Reflexes: NOT DONE Skin: Dry, Normal Color, Warm Peripheral Pulses: 3+ Radial (R), 3+ Radial (L) Lymphatic: No Adenopathy Was a procedure done? Was a procedure done?: No Differential Dx Differential Diagnosis: Anxiety, Asthma, Bronchitis, Pneumonia, Respiratory Distress, URI X-Ray, Labs, Meds, VS Vital Signs Date Time Temp Pulse Resp B/P (MAP) Pulse Ox O2 Delivery O2 Flow Rate FiO2 07/27/24 06:41 89 19 111/68 07/27/24 06:24 79 19 97 Nasal Cannula* 4 36 07/27/24 06:23 98.2 79 19 118/67 (84) 97 98.2 07/27/24 05:33 97.3 92 30 127/77 (94) 91 97.3 07/27/24 05:26 91 Lab Test 07/27/24 06:10 07/27/24 05:40 Range/Units Urine Color Colorless Yellow Urine Clarity Clear Clear Urine pH 6.0 5.0-9.0 Urine Specific [place] 1.004 1.001-1.035 Urine Protein Negative Negative Urine Ketones Negative Negative Urine Blood Negative Negative /uL Urine Nitrite Negative Negative Urine Bilirubin Negative Negative Urine Urobilinogen Normal Negative mg/dL Urine Leukocyte Esterase Negative Negative /uL Urine RBC 5 0 - 3 /hpf Urine Microscopic WBC < 1 0-3 /HPF Urine Squamous Epithelial Cells Few <5 /hpf Urine Bacteria None seen None Seen /hpf Urine Glucose Normal Normal mg/dL White Blood Count Pending Red Blood Count Pending Hemoglobin Pending Hematocrit Pending Mean Corpuscular Volume Pending Mean Corpuscular Hemoglobin Pending Mean Corpuscular Hemoglobin Concent Pending Red Cell Distribution Width Pending Platelet Count Pending Mean Platelet Volume Pending Neutrophils (%) (Auto) Pending Lymphocytes (%) (Auto) Pending Monocytes (%) (Auto) Pending Basophils (%) (Auto) Pending Neutrophils # (Auto) Pending Lymphocytes # (Auto) Pending Monocytes # (Auto) Pending Sodium Level Pending Potassium Level Pending Chloride Level Pending Carbon Dioxide Level Pending Anion Gap Pending Blood Urea Nitrogen Pending Creatinine Pending Glomerular Filtration Rate Calc Pending BUN/Creatinine Ratio Pending Serum Glucose Pending Lactic Acid Level Pending Calcium Level Pending Total Bilirubin Pending Aspartate Amino Transferase (AST) Pending Alanine Aminotransferase (ALT) Pending Alkaline Phosphatase Pending Troponin I High Sensitivity Pending B-Type Natriuretic Peptide Pending Total Protein Pending Albumin Pending Lipase Pending Current Medications Medications (Trade) Dose Ordered Sig/Jania Route Start Time Stop Time Status Last Admin Morphine Sulfate 2 mg ONCE ONCE IV 07/27/24 05:30 07/27/24 05:31 DC 07/27/24 06:41 Ondansetron HCl (Zofran) 4 mg ONCE ONCE IV 07/27/24 05:30 07/27/24 05:31 DC 07/27/24 06:41 Methylprednisolone Sodium Succinate (Solu Medrol) 125 mg ONCE ONCE IV 07/27/24 06:30 07/27/24 06:31 DC 07/27/24 06:42 Patient alert. Complaining of shortness a breath. Continues to smoke cigarettes. Placed on oxygen. Counseled patient on effects of smoking cigarettes for 15 minutes. Has a CORDELIA drain and gallbladder fossa. Complaining of pain. Was given morphine. Was given Zofran. Was given steroid. Breathing treatment. Reviewed his previous visit. Explained to the patient. Continue monitoring. Time of 1ST Reevaluation: 06:28 Reevaluation 1ST: Unchanged Patient Education/Counseling: Diagnosis, Treatment, Prognosis Family Education/Counseling: No Family Present Departure 1 Departure Time of Disposition: 06:48 Impression: Primary Impression: Respiratory failure with hypoxia Qualified Codes: J96.01 - Acute respiratory failure with hypoxia Additional Impressions: COPD exacerbation Pneumonitis Disposition: ADMITTED INPATIENT Admit to: Med Surg Condition: Guarded Critical Care Note Critical Care Time?: Yes (90 min-critical care time only) Stability Stability form required: No I personally scribed for ANGIE CAMPOS MD ([email or web address]) on 07/27/24 at 06:31. Electronically submitted by [employer] ([facility]). ANGIE CAMPOS MD Jul 27, 2024 06:31
[2024-07-27] MEDS: ONDANSETRON HCL 4 MG/2 ML VIAL IV ONE (06:41)
[2024-07-27] MEDS: MORPHINE SULFATE INJ 2 MG/ml SYRG IV ONE (06:41)
[2024-07-27] MEDS: methylPREDNISolone SOD SUCC 125 MG/2 ML VL IV ONE (06:42)
[2024-07-27 07:07] LABS: Alkaline Phosphatase 160 U/L (46-116); Chloride 109 mmol/L (98-107); Glucose 112 mg/dL (74-106)
[2024-07-27] MEDS: ALBUTEROL SULF 2.5 MG/0.5ML(0.5%) NEB SOLN NEB ONE (07:15)
[2024-07-27] MEDS: IPRATROPIUM BROM 0.5 MG/2.5ML INH SOL NEB ONE (07:15)
[2024-07-27 07:22] LABS: Basophils # (auto) 0 10 ^3/uL (0-0.2); Basophils % (auto) 0.6 % (0.0-2.0); Eosinophils # (auto) 0.2 10 ^3/uL (0-0.8); Eosinophils % (auto) 2.6 % (0.0-7.0); Hematocrit 50.1 % (41.0-53.0); Hemoglobin 16.7 g/dL (13.5-17.5); Lymphocytes # (auto) 1.2 10 ^3/uL (0.4-5.4); Lymphocytes % (auto) 16.1 % (10.0-50.0); Mean Corpuscular Hemoglobin 30.5 pg (28.0-32.0); Mean Corpuscular Hgb Conc. 33.4 g/dL (32.0-36.0); Mean Corpuscular Volume 91.4 fL (80.0-100.0); Monocytes # (auto) 0.5 10 ^3/uL (0-1.3); Monocytes % (auto) 6.9 % (0.0-12.0); Neutrophils # (auto) 5.5 10 ^3/uL (1.6-8.6); Neutrophils % (auto) 73.8 % (37.0-80.0); Nucleated Red Blood Cells % 0.1 %; Platelet Count (auto) 228 10^3/uL (140-450); Red Blood Cells 5.49 10^6/uL (4.5-5.90); Red Cell Distribution Width 14.6 % (11.8-14.3); White Blood Cell 7.5 10^3/uL (4.4-10.8)
[2024-07-27] MEDS: IOHEXOL 300 MG/ML 100ML BOTTLE IJ ONE (07:57)
--- NOTE | 2024-07-27 08:36 | DVH ---
EXAM: XR Chest, 1 View CLINICAL INDICATION: Shortness of breath, wheezing TECHNIQUE: Frontal view of the chest. COMPARISON: XY CHEST PORTABLE on DOS: 05/23/24, XY CHEST PORTABLE on DOS: 05/22/24, XY CHEST XRAY 1 VIE W on DOS: 05/21/24, XY CHEST PORTABLE on DOS: 05/20/24, XY CHEST XRAY 1 VIEW on DOS: 05/19/24 FINDINGS: LUNGS AND PLEURAL SPACES: Pulmonary venous congestion. No consolidation. No pneumothorax. HEART: Unremarkable. No cardiomegaly. MEDIASTINUM: Unremarkable. Normal mediastinal contour. BONES/JOINTS: Unremarkable. No acute fracture. OTHER FINDINGS: . . IMPRESSION: Pulmonary venous congestion.
--- NOTE | 2024-07-27 09:08 | DVH ---
Exam: CT CT AB PEL WITH IV CON ONLY History: Right upper quadrant abdominal pain Comparison Study: CT scan of the abdomen pelvis dated 05/16/2024. Contrast: Type of contrast: Omnipaque 300 Contrast injected: 100 mL Contrast wasted: 0 TECHNIQUE: CT scan of the abdomen pelvis was performed from the lung bases to proximal femurs with in travenous contrast. Coronal and sagittal reformatted images are submitted. Radiation Dose Information: CT Dose: CTDI volume is 6.09 mGy. Dose-length product is 291.67 mGy*cm FINDINGS: Lung Bases: Emphysema in the lung bases. Normal heart size. No pleural or pericardial effusion. Liver: The liver is normal in size. No focal lesions. Normal hepatic vascular enhancement. Gallbladder and Biliary Tree: Hyperdensity in the gallbladder lumen. A right percutaneous drain is p resent which courses inferior to the gallbladder with the tip terminating near the wendy hepatis. The re is intrahepatic biliary ductal dilatation. The common bile duct is also dilated measuring 1.1 cm. Spleen: The spleen is normal in size. There is a subcapsular fluid collection which measures 5.1 cm previously measuring 8.2 cm. Pancreas: The pancreas is normal in appearance without focal lesions or abnormal enhancement. Adrenal Glands: Unremarkable Kidneys: Kidneys demonstrate normal symmetric enhancement without focal lesions, calculi or hydroneph rosis. Bladder: Unremarkable Bowel: The stomach is grossly normal in appearance. Small bowel and colon are normal in caliber and d istribution. The appendix is visualized and is normal. Intraperitoneal cavity: No pneumoperitoneum. No ascites. Lymphadenopathy: No mesenteric, retroperitoneal or periportal lymphadenopathy. Abdominal Wall and Mesentery: Unremarkable. Vasculature: Abdominal aorta measuring 3.6 cm. Scattered atherosclerotic calcifications in the abdom inal aorta and iliac arteries. IVC filter in place. Pelvic Organs: Prostate is enlarged measuring 5.5 cm. Musculoskeletal: No aggressive focal bony lesions, acute fractures or dislocation. Intervertebral dis c space narrowing at L5-S1. Soft tissues: Left inguinal hernia containing bowel loops. IMPRESSION: 1. Right percutaneous drain noted which courses inferior to the gallbladder lumen and the tip termina josé manuel near the wendy hepatis. No fluid collection. Intrahepatic and extrahepatic biliary ductal dilata tion. Soft tissue density in the gallbladder may reflect stones or sludge. 2. Decreased size of subcapsular fluid collection. 3. Additional nonacute findings as described similar to prior CT of the abdomen pelvis from 5. All CT scans at this medical facility are performed using dose modulation techniques as appropriate t o a performed exam including the following: Automated exposure control was utilized; adjustment of th e MA and/or KV according to patient size; and use of iterative reconstruction technique.
[2024-07-27] MEDS ORDERED: ONDANSETRON HCL 4 MG/2 ML VIAL IV PRN ×2 (11:45→12:00)
[2024-07-27] MEDS ORDERED: HYDROcodone-ACET 5/325MG TAB PO PRN ×2 (11:45→12:00)
[2024-07-27] MEDS ORDERED: MORPHINE SULFATE INJ 2 MG/ml SYRG IV PRN ×2 (11:45→12:00)
[2024-07-27] MEDS ORDERED: ACETAMINOPHEN 325 MG TAB PO PRN ×2 (11:45→12:00)
[2024-07-27] MEDS ORDERED: NICOTINE 7MG/24HR TOPICAL PATCH TD ONE (12:00)
[2024-07-27] MEDS ORDERED: IPRATROPIUM BROM 0.5 MG/2.5ML INH SOL NEB PRN (12:00)
[2024-07-27] MEDS ORDERED: IPRATROPIUM BROM 0.5 MG/2.5ML INH SOL NEB SCH (12:00)
[2024-07-27] MEDS ORDERED: ALBUTEROL SULF 2.5 MG/0.5ML(0.5%) NEB SOLN NEB PRN (12:00)
[2024-07-27] MEDS ORDERED: ALBUTEROL SULF 2.5 MG/0.5ML(0.5%) NEB SOLN NEB SCH (12:00)
--- NOTE | 2024-07-27 12:16 | DVHHP2 ---
History of Present Illness Reason for Visit: Shortness of breath History of Present Illness This 69-year-old male presents in the ED with a chief complaint of shortness of breath. The patient states shortness of breath started last night after eating dinner. Symptoms is associated with difficulty in breathing, tachypneic and wheezing. The patient also reports intermittent abdominal pain for the past few weeks s/p lap cholecystectomy with CORDELIA drain still intact. The patient denies chest pain, nausea, vomiting, diarrhea or other acute symptoms. Past medical history of hypertension, CHF, COPD, and tobacco use. Past Medical History As stated in HPI Past Surgical History Cholecystectomy Family History Reviewed, non-contributory to the management of this case. Past Social History Admits to tobacco use Denies illicit drug or ETOH abuse Review of Systems Constitutional: Yes: Malaise; No: Fever, Chills, Sweats, Weakness, Other Eyes: No: Pain, Vision change, Conjunctivae inflammation, Eyelid inflammation, Other, Redness ENT: No: Ear pain, Ear discharge, Nose pain, Nose discharge, Nose congestion, Mouth pain, Mouth swelling, Throat pain, Throat swelling, Other Respiratory: Shortness of breath, Wheezing; No: Cough, Dry, SOB with excertion, Hemoptysis, Pleuritic Pain, Sputum, Wheezing, Other Cardiovascular: No: Chest Pain, Palpitations, Orthopnea, Paroxysmal Noc. Dyspnea, Edema, Lt Headedness, Other Gastrointestinal: Abdominal Pain; No: Nausea, Vomiting, Diarrhea, Constipation, Melena, Hematochezia, Other Genitourinary: No Dysuria, No Frequency, No Incontinence, No Hematuria, No Retention, No Other Musculoskeletal: No: other, neck pain, shoulder pain, arm pain, back pain, hand pain, leg pain, foot pain Skin: No: Rash, Lesions, Jaundice, Bruising, Other Neurological: No: Weakness, Numbness, Incoordination, Change in speech, Confusion, Seizures, Other Allergies: Coded Allergies: NO KNOWN ALLERGIES (Unverified , 02/29/24) Exam Vital Signs Vital Signs Date Time Temp Pulse Resp B/P (MAP) Pulse Ox O2 Delivery O2 Flow Rate FiO2 07/27/24 10:00 85 28 105/55 (72) 96 07/27/24 09:00 98.0 98.0 07/27/24 09:00 Nasal Cannula* 3 32 General Appearance: Alert, Oriented X3, mild distress HEENT: Atraumatic, PERRLA Respiratory: Other (Diminished lung sounds) Cardiovascular: Regular rate, Normal S1, Normal S2 Abdominal: Normal bowel sounds, Soft, Other (CORDELIA drain) Extremities: No clubbing, No cyanosis Skin: No rashes, No breakdown, No significant lesion Neuro: Normal tone Psych/Mental Status: Mental status NL Labs/Xrays Labs Test 07/27/24 08:41 07/27/24 08:21 07/27/24 06:10 07/27/24 05:40 Range/Units Troponin I High Sensitivity < 3 L </=54 ng/L POC Glucose 114 H 70-106 mg/dl Urine Color Colorless Yellow Urine Clarity Clear Clear Urine pH 6.0 5.0-9.0 Urine Specific [place] 1.004 1.001-1.035 Urine Protein Negative Negative Urine Ketones Negative Negative Urine Blood Negative Negative /uL Urine Nitrite Negative Negative Urine Bilirubin Negative Negative Urine Urobilinogen Normal Negative mg/dL Urine Leukocyte Esterase Negative Negative /uL Urine RBC 5 0 - 3 /hpf Urine Microscopic WBC < 1 0-3 /HPF Urine Squamous Epithelial Cells Few <5 /hpf Urine Bacteria None seen None Seen /hpf Urine Glucose Normal Normal mg/dL White Blood Count 7.5 4.4-10.8 10^3/uL Red Blood Count 5.49 4.5-5.90 10^6/uL Hemoglobin 16.7 13.5-17.5 g/dL Hematocrit 50.1 41.0-53.0 % Mean Corpuscular Volume 91.4 80.0-100.0 fL Mean Corpuscular Hemoglobin 30.5 28.0-32.0 pg Mean Corpuscular Hemoglobin Concent 33.4 32.0-36.0 g/dL Red Cell Distribution Width 14.6 H 11.8-14.3 % Platelet Count 228 140-450 10^3/uL Mean Platelet Volume 8.6 6.9-10.8 fL Neutrophils (%) (Auto) 73.8 37.0-80.0 % Lymphocytes (%) (Auto) 16.1 10.0-50.0 % Monocytes (%) (Auto) 6.9 0.0-12.0 % Eosinophils (%) (Auto) 2.6 0.0-7.0 % Basophils (%) (Auto) 0.6 0.0-2.0 % Neutrophils # (Auto) 5.5 1.6-8.6 10 ^3/uL Lymphocytes # (Auto) 1.2 0.4-5.4 10 ^3/uL Monocytes # (Auto) 0.5 0-1.3 10 ^3/uL Eosinophils # (Auto) 0.2 0-0.8 10 ^3/uL Basophils # (Auto) 0 0-0.2 10 ^3/uL Nucleated Red Blood Cells 0.1 % Sodium Level 142 136-145 mmol/L Potassium Level 4.1 3.5-5.1 mmol/L Chloride Level 109 H 98-107 mmol/L Carbon Dioxide Level 28 20-31 mmol/L Anion Gap 5 5-15 Blood Urea Nitrogen 10 9-23 mg/dL Creatinine 0.91 0.700-1.30 mg/dL Glomerular Filtration Rate Calc 91 >90 mL/min BUN/Creatinine Ratio 11.0 10.0-20.0 Serum Glucose 112 H 74-106 mg/dL Lactic Acid Level 1.0 0.4-2.0 mmol/L Calcium Level 10.2 8.7-10.4 mg/dL Total Bilirubin 0.5 0.2-1.0 mg/dL Aspartate Amino Transferase (AST) 15 13-40 U/L Alanine Aminotransferase (ALT) 25 7-40 U/L Alkaline Phosphatase 160 H 46-116 U/L B-Type Natriuretic Peptide 9.64 0-100 pg/mL Total Protein 6.6 5.7-8.2 g/dL Albumin 4.7 3.2-4.8 g/dL Lipase 48 12-53 U/L PROCEDURE(s): CXR1 - CHEST XRAY 1 VIEW REASON: Shortness of breath, wheezing ORDER NUMBER(s): [id number], ACCESSION NUMBER(s): [id number] EXAM: XR Chest, 1 View CLINICAL INDICATION: Shortness of breath, wheezing TECHNIQUE: Frontal view of the chest. COMPARISON: XY CHEST PORTABLE on DOS: 05/23/24, XY CHEST PORTABLE on DOS: 05/22/24, XY CHEST XRAY 1 VIEW on DOS: 05/21/24, XY CHEST PORTABLE on DOS: 05/20/24, XY CHEST XRAY 1 VIEW on DOS: 05/19/24 FINDINGS: LUNGS AND PLEURAL SPACES: Pulmonary venous congestion. No consolidation. No pneumothorax. HEART: Unremarkable. No cardiomegaly. MEDIASTINUM: Unremarkable. Normal mediastinal contour. BONES/JOINTS: Unremarkable. No acute fracture. OTHER FINDINGS: . . IMPRESSION: Pulmonary venous congestion. Assessment/Plan Assessment/Plan # acute on chronic respiratory failure # COPD exacerbation Admit to M/S unit DuoNeb O2 supplement Chest x-ray in a.m. 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 Procedure Category Date Status Time Admit ADMIT 07/27/24 Transmitted 11:37 Code Status CODE 07/27/24 Transmitted 11:37 Hydrocodone-Acet PHA 07/27/24 Logged 5/325mg Tab ([place] 11:45 Ondansetron Hcl PHA 07/27/24 Logged (Zofran) 11:45 Fall Risk Precautions ARIANA 07/27/[address] 11:37 Complete Blood Count LAB 07/28/24 Verified 04:00 Comprehensive LAB 07/28/24 Verified Metabolic Panel 04:00 Cardiac DIET 07/27/24 Transmitted Diet-2gna,Lofat,Lochol Lunch Condition: Fair ARIANA 07/27/24 In Process 11:37 Acetaminophen Tablet PHA 07/27/24 Logged (Tylenol Tablet) 11:45 Morphine Sulfate PHA 07/27/24 Logged Injection 11:45 Apixaban (Eliquis) PHA 07/27/24 Logged 22:00 Furosemide Tablet PHA 07/28/24 Logged (Lasix Tablet) 10:00 Pantoprazole Tablet PHA 07/28/24 Logged (Protonix Tablet) 10:00 (Nf) Aripiprazole PHA 07/28/24 Logged 10:00 (Nf) Atorvastatin PHA 07/28/24 Logged Calcium 10:00 Albuterol Medneb PHA 07/27/24 Transmitted (Ventolin Medneb) 12:00 Albuterol Medneb PHA 07/27/24 Transmitted (Ventolin Medneb) 12:00 Ipratropium Medneb PHA 07/27/24 Verified (Atrovent Medneb) 12:00 Ipratropium Medneb PHA 07/27/24 Verified (Atrovent Medneb) 12:00 Methylprednisolone PHA 07/28/24 Verified Sod Succ (Solu Medrol 10:00 Nicotine 7mg/24hr PHA 07/28/24 Verified (Nicoderm 7mg/24hr) 10:00 Nicotine 7mg/24hr PHA 07/27/24 Verified (Nicoderm 7mg/24hr) 12:00 Date of Service: Jul 27, 2024 Billing Provider: CHANTELL TELLO Common Visit Codes: [id number] INP/OBS CARE (HIGH) CHANTELL TELLOP Jul 27, 2024 12:16
[2024-07-27] MEDS: NICOTINE 7MG/24HR TOPICAL PATCH TD ONE (12:28)
[2024-07-27] MEDS: ALBUTEROL SULF 2.5 MG/0.5ML(0.5%) NEB SOLN NEB SCH (12:36)
[2024-07-27] MEDS: IPRATROPIUM BROM 0.5 MG/2.5ML INH SOL NEB SCH (12:36)
[2024-07-27] MEDS: ALBUTEROL SULF 2.5 MG/0.5ML(0.5%) NEB SOLN NEB PRN (19:01)
[2024-07-27] MEDS: IPRATROPIUM BROM 0.5 MG/2.5ML INH SOL NEB PRN (19:02)
[2024-07-27] MEDS ORDERED: APIXABAN 5 MG TAB PO SCH (22:00)
[2024-07-27] MEDS: ATORVASTATIN 20 MG TAB PO SCH (22:19)
[2024-07-27] MEDS: APIXABAN 5 MG TAB PO SCH (22:19)
[2024-07-28 00:22] VITALS: PULSE 69; RESP 18; O2SAT 91
[2024-07-28 00:30] VITALS: PULSE 58; RESP 18; O2SAT 99
[2024-07-28 05:59] LABS: Basophils # (auto) 0 10 ^3/uL (0-0.2); Basophils % (auto) 0.1 % (0.0-2.0); Eosinophils # (auto) 0 10 ^3/uL (0-0.8); Eosinophils % (auto) 0.1 % (0.0-7.0); Hemoglobin 14.5 g/dL (13.5-17.5); Lymphocytes # (auto) 1.1 10 ^3/uL (0.4-5.4); Lymphocytes % (auto) 9.3 % (10.0-50.0); Mean Corpuscular Hemoglobin 29.9 pg (28.0-32.0); Mean Corpuscular Hgb Conc. 32.9 g/dL (32.0-36.0); Mean Corpuscular Volume 90.9 fL (80.0-100.0); Monocytes # (auto) 0.6 10 ^3/uL (0-1.3); Monocytes % (auto) 5.5 % (0.0-12.0); Neutrophils # (auto) 9.6 10 ^3/uL (1.6-8.6); Nucleated Red Blood Cells % 0.1 %; Platelet Count (auto) 216 10^3/uL (140-450); Red Blood Cells 4.84 10^6/uL (4.5-5.90); Red Cell Distribution Width 14.2 % (11.8-14.3); White Blood Cell 11.3 10^3/uL (4.4-10.8)
[2024-07-28 06:13] LABS: Alanine Aminotransferase 12 U/L (7-40); Albumin 3.7 g/dL (3.2-4.8); Anion Gap 5 (5-15); Bilirubin, Total 0.5 mg/dL (0.2-1.0); Blood Urea Nitrogen 16 mg/dL (9-23); Calcium 9.3 mg/dL (8.7-10.4); Carbon Dioxide 25 mmol/L (20-31); Potassium 4.5 mmol/L (3.5-5.1); Sodium 139 mmol/L (136-145)
[2024-07-28 06:21] LABS: Alkaline Phosphatase 123 U/L (46-116); Aspartate Aminotransferase < 8 U/L (13-40); Chloride 109 mmol/L (98-107); Glucose 108 mg/dL (74-106); Total Protein 5.4 g/dL (5.7-8.2)
[2024-07-28] MEDS: PANTOPRAZOLE 40 MG TAB PO SCH (06:32)
[2024-07-28 08:28] VITALS: O2SAT 97
[2024-07-28 08:57] VITALS: PULSE 53; RESP 98; O2SAT 98
[2024-07-28] MEDS ORDERED: NICOTINE 7MG/24HR TOPICAL PATCH TD SCH (10:00)
[2024-07-28] MEDS ORDERED: methylPREDNISolone SOD SUCC 125 MG/2 ML VL IV SCH (10:00)
[2024-07-28] MEDS ORDERED: FUROSEMIDE 20 MG TAB PO SCH (10:00)
[2024-07-28] MEDS: FUROSEMIDE 20 MG TAB PO SCH (10:00)
[2024-07-28] MEDS: ARIPIPRAZOLE 5 MG PO SCH (10:00)
[2024-07-28] MEDS ORDERED: PANTOPRAZOLE 40 MG TAB PO SCH (10:00)
[2024-07-28] MEDS ORDERED: PATIENTS OWN MEDICATION (Atorvastatin Calcium 40 MG) PO SCH (10:00)
[2024-07-28] MEDS: NICOTINE 7MG/24HR TOPICAL PATCH TD SCH (10:00)
[2024-07-28] MEDS ORDERED: PATIENTS OWN MEDICATION (Aripiprazole 1 TAB) PO SCH (10:00)
[2024-07-28] MEDS: methylPREDNISolone SOD SUCC 125 MG/2 ML VL IV SCH (10:54)
--- NOTE | 2024-07-28 11:37 | DVHPN2 ---
Subjective 69-year-old male with a history of COPD and chronic respiratory failure on home O2 came with the increased shortness of breath for 3 days He was here recently 3 months ago for acute cholecystitis but was found to be high risk for surgery at that time and therefore he had a cholecystostomy and the tube was done and she was sent home, he came back again here a month later and he had his cholecystectomy done on May [address] Barnes with a CORDELIA drain He is still has a CORDELIA drain now Changes from previous H/P or p: Changes Eyes: No Pain, No Vision change, No Conjunctivae inflammation, No Eyelid inflammation, No Other, No Redness ENT: No Ear pain, No Ear discharge, No Nose pain, No Nose discharge, No Nose congestion, No Mouth pain, No Mouth swelling, No Throat pain, No Throat swelling, No Other Cardiovascular: No Chest Pain, No Palpitations, No Orthopnea, No Paroxysmal Noc. Dyspnea, No Edema, No Lt Headedness, No Other Respiratory: No Cough, No Dry; Shortness of breath; No SOB with excertion; W heezing; No Hemoptysis, No Pleuritic Pain, No Sputum, No Other Gastrointestinal: No Nausea, No Vomiting; Abdominal Pain; No Diarrhea, No Constipation, No Melena, No Hematochezia, No Other Genitourinary: No Dysuria, No Frequency, No Incontinence, No Hematuria, No Retention, No Other Musculoskeletal: No other, No neck pain, No shoulder pain, No arm pain, No back pain, No hand pain, No leg pain, No foot pain Skin: No Rash, No Lesions, No Jaundice, No Bruising, No Other Objective Vitals Vital Signs Date Time Temp Pulse Resp B/P (MAP) Pulse Ox O2 Delivery O2 Flow Rate FiO2 07/28/24 10:20 71 15 98/53 (68) 97 07/28/24 08:57 Nasal Cannula* 2 28 07/28/24 07:52 98.1 98.1 General Appearance: Alert, Oriented X3, moderate distress Lungs: Other (Bilateral wheezing diffusely) Cardiovascular: Regular rate, Normal S1, Normal S2, No murmurs Abdomen: Normal bowel sounds, Soft, No tenderness Extremities: No edema Medications Current Medications Medications Dose Ordered Sig/Jania Route Start Time Stop Time Status Last Admin Dose Admin Ipratropium [place] 0.5 mg Q4HPRN PRN NEB 07/27/24 12:15 07/27/24 19:02 0.5 MG Ipratropium [place] 0.5 mg Q6HR NEB 07/27/24 12:15 07/28/24 00:22 0.5 MG Ondansetron HCl 4 mg Q4HP PRN IV 07/27/24 12:00 Morphine Sulfate 2 mg Q4HPRN PRN IV 07/27/24 12:00 Methylprednisolone Sodium Succinate 60 mg BID IV 07/28/24 10:00 07/28/24 10:54 60 MG Acetaminophen/ Hydrocodone Bitart 1 tab Q4HP PRN PO 07/27/24 12:00 Acetaminophen 650 mg Q6HP PRN PO 07/27/24 12:00 Apixaban 5 mg BID PO 07/27/24 22:00 07/28/24 10:56 5 MG Furosemide 20 mg DAILY PO 07/28/24 10:00 Pantoprazole Sodium 40 mg DAILY@0700 PO 07/28/24 07:00 07/28/24 06:32 40 MG Albuterol 2.5 mg Q4HPRN PRN NEB 07/27/24 12:15 07/27/24 19:01 2.5 MG Albuterol 2.5 mg Q6HR NEB 07/27/24 12:15 07/28/24 00:22 2.5 MG Nicotine 1 patch DAILY TD 07/28/24 10:00 Patient Own Medication 1 tab DAILY PO 07/28/24 10:00 Atorvastatin Calcium 40 mg HS PO 07/27/24 22:00 07/27/24 22:19 40 MG Laboratory Results Laboratory Tests 07/28/24 05:26 Chemistry Test 07/28/24 05:26 Albumin 3.7 g/dL (3.2-4.8) Calcium Level 9.3 mg/dL (8.7-10.4) Total Protein 5.4 g/dL (5.7-8.2) L LFT Test 07/28/24 05:26 Alanine Aminotransferase (ALT) 12 U/L (7-40) Alkaline Phosphatase 123 U/L (46-116) H Aspartate Amino Transferase (AST) < 8 U/L (13-40) L Total Bilirubin 0.5 mg/dL (0.2-1.0) Urinalysis Test 07/27/24 06:10 Urine Color Colorless (Yellow) Urine Clarity Clear (Clear) Urine pH 6.0 (5.0-9.0) Urine Specific [place] 1.004 (1.001-1.035) Urine Protein Negative (Negative) Urine Ketones Negative (Negative) Urine Blood Negative /uL (Negative) Urine Nitrite Negative (Negative) Urine Bilirubin Negative (Negative) Urine Urobilinogen Normal mg/dL (Negative) Urine Leukocyte Esterase Negative /uL (Negative) Urine RBC 5 /hpf (0 - 3) Urine Microscopic WBC < 1 /HPF (0-3) Urine Squamous Epithelial Cells Few /hpf (<5) Urine Bacteria None seen /hpf (None Seen) Urine Glucose Normal mg/dL (Normal) Assessment/Plan Assessment/Plan Acute hypoxic respiratory failure COPD exacerbation Chronic respiratory failure on home O2 Recent cholecystectomy and CORDELIA drain Hypertension History of CHF Tobacco use History of DVT Plan Dropped the oxygen from 5-2 L to keep the saturation in the low 90s Consult Dr. Barnes for surgical follow up and to remove the CORDELIA drain IV steroids Start IV antibiotics Rocephin and doxycycline Continue Eliquis for DVT Lipitor Lasix Full code Plan discussed with: Patient My Orders Orders - HERNESTO FAIRBANKS MD Procedure Category Date Status Time * Surgical Consult CONS 07/28/24 Transmitted *Consult CONS 07/28/24 Transmitted / 08:09 Date of Service: Jul 28, 2024 Billing Provider: HERNESTO FAIRBANKS MD Common Visit Codes: NOT BILLABLE HERNESTO FAIRBANKS MD Jul 28, 2024 11:37
--- NOTE | 2024-07-28 14:41 | ECG ---
[facility] Test Date: 2024-07-27 Test Time: 05:22:56 Pat Name: ELLEN LOYD Department: ED Room: 0218 Gender: M Candy Dipper Hand: er : 1955 Requested By: EMERGENCY EMERGENCY Order Number: [id number] Reading MD: Michael Degroot Measurements Intervals [place] Rate: 91 P: 78 WI: 159 QRS: 91 QRSD: 91 T: 39 QT: 367 QTc: 452 Interpretive Statements Sinus rhythm Atrial premature complexes Right axis deviation Nonspecific T abnrm, anterolateral leads Electronically Signed On 07-30-2024 20:54:50 PDT by Michael Degroot Please click the below link to view image of tracing.
[2024-07-28] MEDS: cefTRIAXone 1GM/50ML D5W 50 ML IV ONE (15:25)
[2024-07-28 19:06] VITALS: BP 109/67; PULSE 72; RESP 18; TEMP 98; O2SAT 96
--- NOTE | 2024-07-28 20:56 | DVHINCON2 ---
Date of service: Jul 28, 2024 Referring Physician Sri Altman MD Reason for Consultation Acute on chronic hypoxic respiratory failure, COPD exacerbation History of Present Illness A 69-year-old man with past medical history of COPD, hypertension, and CHF.who presented to the ED on 07/27/24 with a chief complaint of shortness of breath. The patient stated onset of shortness of breath the night prior after dinner. Symptoms associated with difficulty breathing, tachypnea and wheezing. He also c/o intermittent abdominal pain for the past few weeks, s/p laparoscopic cholecystectomy with CORDELIA drain still intact. Denied chest pain, nausea, vomiting, diarrhea or other acute symptoms. Patient was admitted for further care; and pulmonary consultation is requested for evaluation and management of acute on chronic hypoxic respiratory failure and COPD exacerbation. Review of Systems: 14-point review of systems negative unless otherwise noted above. Past Medical History: COPD, hypertension, CHF. Past Surgical History: Cholecystectomy Medications: Reviewed. Allergies: No known drug allergies. Family History: DM and heart disease. Social History: Smoker. No alcohol or illicit drug use. Family History: Cardiovascular disease G8 MOTHER G8 FATHER Diabetes mellitus G8 MOTHER Allergies: Coded Allergies: NO KNOWN ALLERGIES (Unverified , 02/29/24) Home Meds Active Scripts Methylprednisolone (Medrol Dosepak) 4 Mg Willie, 4 MG PO UD, #21 TAB UAD Prov:SRI ALTMAN MD 07/29/24 Doxycycline Monohydrate (Doxycycline Monohydrate) 100 Mg Cap, 1 CAP PO BID, #14 CAP Prov:SRI ALTMAN MD 07/29/24 Apixaban Base (ELIQUIS) 5 Mg Tab, 5 MG PO BID for 90 Days, #180 TAB Prov:ABELINO GRAVES RESIDENT 05/27/24 Ipratropium [place] (Ipratropium [place]) 0.02 % Adriana, 0.5 % HHN BID for 30 Days, #120 ML Prov:LIBORIO TRAN RESIDENT 03/19/24 Albuterol Sulfate (Ventolin) 2.5 Mg/0.5 Ml Nb, 2.5 MG NEB Q4HWA for 30 Days, #10 INH Prov:LIBORIO TRAN RESIDENT 03/19/24 Reported Medications Gabapentin (Gabapentin) 100 Mg Cap, 1 CAP PO TID for 30 Days, #90 07/29/24 Nicotine (Nicotine Transdermal Syst) 14 Mg/24 Hr Dis, 1 PATCH TOP DAILY for 28 Days, #28 07/29/24 Senna (Senna) 8.6 Mg Tab, 1 PO DAILY for 30 Days, #30 07/29/24 Multiple Vitamin (One-Daily Multi-Vitamin) 1 Tab Tab, 1 TAB PO DAILY for 30 Days, #30 07/29/24 Ascorbic Acid (Gnp Vitamin C W/Ellen Hips) 500 Mg Tab, 1 TAB PO BID for 30 Days, #60 07/29/24 Albuterol Sulfate (Albuterol Sulfate) 0.083 % Neb 05/17/24 Albuterol Sulfate (Albuterol Sulfate Hfa) 108 Mcg/Act Aer, 2 PUFF INH Q6HR PRN for WHEEZING for 33 Days, #18 05/17/24 Thiamine Hcl (VITAMIN B-1) 100 Mg Tb, 1 TAB PO DAILY for 30 Days, #30 03/12/24 Aripiprazole (Aripiprazole) 5 Mg Tab, 1 TAB PO DAILY for 30 Days, #30 03/12/24 Atorvastatin Calcium (ATORVASTATIN CALCIUM) 40 Mg Tab, 40 MG PO DAILY for 30 Day s, #30 03/12/24 Pantoprazole Sodium Sesquihydr (Pantoprazole Sodium) 40 Mg Tab, 1 TAB PO DAILY for 30 Days, #30 03/12/24 Furosemide (Furosemide) 20 Mg Tab, 1 TAB PO DAILY 03/12/24 Current Medications Current Medications Medications (Trade) Dose Ordered Sig/Jania Route PRN Reason Start Time Stop Time Status Last Admin Apixaban (Eliquis) 5 mg BID PO 07/27/24 22:00 07/27/24 11:54 DC Furosemide (Lasix Tablet) 20 mg DAILY PO 07/28/24 10:00 07/27/24 11:54 DC Pantoprazole Sodium (Protonix Tablet) 40 mg DAILY PO 07/28/24 10:00 07/27/24 11:54 DC Patient Own Medication 1 tab DAILY PO 07/28/24 10:00 07/27/24 11:54 DC Patient Own Medication 40 mg DAILY PO 07/28/24 10:00 07/27/24 11:54 DC Methylprednisolone Sodium Succinate (Solu Medrol) 60 mg BID IV 07/28/24 10:00 07/27/24 11:54 DC Nicotine (Nicoderm 7MG/ 24HR) 1 patch DAILY TD 07/28/24 10:00 07/27/24 11:55 DC Methylprednisolone Sodium Succinate (Solu Medrol) 60 mg BID IV 07/28/24 10:00 07/28/24 10:54 Apixaban (Eliquis) 5 mg BID PO 07/27/24 22:00 07/28/24 10:56 Furosemide (Lasix Tablet) 20 mg DAILY PO 07/28/24 10:00 Pantoprazole Sodium (Protonix Tablet) 40 mg DAILY@0700 PO 07/28/24 07:00 07/28/24 06:32 Nicotine (Nicoderm 7MG/ 24HR) 1 patch DAILY TD 07/28/24 10:00 Patient Own Medication 1 tab DAILY PO 07/28/24 10:00 Atorvastatin Calcium (Lipitor) 40 mg HS PO 07/27/24 22:00 07/27/24 22:19 Ceftriaxone Sodium 50 ml @ 100 mls/hr DAILY@09 IV 07/29/24 09:00 Doxycycline Hyclate 100 ml @ 50 mls/hr Q12HR IV 07/28/24 13:00 Vital Signs Vital Signs Date Time Temp Pulse Resp B/P (MAP) Pulse Ox O2 Delivery O2 Flow Rate FiO2 07/28/24 18:21 20 95 Room Air* 0 21 07/28/24 10:20 71 98/53 (68) 07/28/24 07:52 98.1 98.1 Physical Exam Gen.: Patient lying in bed in no apparent distress. On supplemental oxygen. Head: Normocephalic, atraumatic. Eyes: EOMI/PERRLA. Ears: Normal hearing. Normal anatomy. Neck/trachea: Trachea midline, supple. Nose: Normal external anatomy. Mouth: Moist mucous membranes. Chest: Decreased air entry bilaterally. No wheezing or rhonchi. Cardiovascular: Positive S1, positive S2. Regular rate and rhythm. Abdomen: Positive bowel sounds in all 4 quadrants. Soft, non-tender, non- distended. : Deferred. Rectal: Deferred. Skin: Warm, dry. Intact. Extremities: 2+ radial pulses bilaterally. No lower extremity edema. Neuro: Awake, alert, oriented x3. No gross motor or sensory deficits. Cranial nerves II through XII intact. Gait not assessed. Labs/Diagnostic Data Labs Test 07/28/24 05:26 07/27/24 08:41 07/27/24 08:21 07/27/24 06:10 Range/Units White Blood Count 11.3 #H 4.4-10.8 10^3/uL Red Blood Count 4.84 4.5-5.90 10^6/uL Hemoglobin 14.5 13.5-17.5 g/dL Hematocrit 44.0 # 41.0-53.0 % Mean Corpuscular Volume 90.9 80.0-100.0 fL Mean Corpuscular Hemoglobin 29.9 28.0-32.0 pg Mean Corpuscular Hemoglobin Concent 32.9 32.0-36.0 g/dL Red Cell Distribution Width 14.2 11.8-14.3 % Platelet Count 216 140-450 10^3/uL Mean Platelet Volume 8.2 6.9-10.8 fL Neutrophils (%) (Auto) 85.0 H 37.0-80.0 % Lymphocytes (%) (Auto) 9.3 L 10.0-50.0 % Monocytes (%) (Auto) 5.5 0.0-12.0 % Eosinophils (%) (Auto) 0.1 0.0-7.0 % Basophils (%) (Auto) 0.1 0.0-2.0 % Neutrophils # (Auto) 9.6 H 1.6-8.6 10 ^3/uL Lymphocytes # (Auto) 1.1 0.4-5.4 10 ^3/uL Monocytes # (Auto) 0.6 0-1.3 10 ^3/uL Eosinophils # (Auto) 0 0-0.8 10 ^3/uL Basophils # (Auto) 0 0-0.2 10 ^3/uL Nucleated Red Blood Cells 0.1 % Sodium Level 139 136-145 mmol/L Potassium Level 4.5 3.5-5.1 mmol/L Chloride Level 109 H 98-107 mmol/L Carbon Dioxide Level 25 20-31 mmol/L Anion Gap 5 5-15 Blood Urea Nitrogen 16 9-23 mg/dL Creatinine 0.89 0.700-1.30 mg/dL Glomerular Filtration Rate Calc 93 >90 mL/min BUN/Creatinine Ratio 18.0 10.0-20.0 Serum Glucose 108 H 74-106 mg/dL Calcium Level 9.3 8.7-10.4 mg/dL Total Bilirubin 0.5 0.2-1.0 mg/dL Aspartate Amino Transferase (AST) < 8 L 13-40 U/L Alanine Aminotransferase (ALT) 12 7-40 U/L Alkaline Phosphatase 123 H 46-116 U/L Total Protein 5.4 L 5.7-8.2 g/dL Albumin 3.7 3.2-4.8 g/dL Troponin I High Sensitivity < 3 L </=54 ng/L POC Glucose 114 H 70-106 mg/dl Urine Color Colorless Yellow Urine Clarity Clear Clear Urine pH 6.0 5.0-9.0 Urine Specific [place] 1.004 1.001-1.035 Urine Protein Negative Negative Urine Ketones Negative Negative Urine Blood Negative Negative /uL Urine Nitrite Negative Negative Urine Bilirubin Negative Negative Urine Urobilinogen Normal Negative mg/dL Urine Leukocyte Esterase Negative Negative /uL Urine RBC 5 0 - 3 /hpf Urine Microscopic WBC < 1 0-3 /HPF Urine Squamous Epithelial Cells Few <5 /hpf Urine Bacteria None seen None Seen /hpf Urine Glucose Normal Normal mg/dL Test 07/27/24 05:40 Range/Units Lactic Acid Level 1.0 0.4-2.0 mmol/L B-Type Natriuretic Peptide 9.64 0-100 pg/mL Lipase 48 12-53 U/L Assessment Impression: Acute on chronic hypoxic respiratory failure Dependence on supplemental oxygen Acute COPD exacerbation Congestive heart failure, EF 50% Deep venous thrombosis, right cephalic vein. S/p IVC filter Nicotine dependence Plan: Supplemental oxygen 2 LPM NC Titrate to keep O2 sats above 92%. Taper O2 as tolerated. CXR on 07/27/24 reveals pulmonary venous congestion. Continue bronchodilators. Continue antibiotics IV steroids Continue Lasix for diuresis Monitor renal function. Monitor electrolytes. Supplement as necessary. Monitor ins and outs. Continue Eliquis Smoking cessation discussed for greater than 10 minutes Smokes 3 cigarettes per day, cutting down. DVT prophylaxis. Prognosis: Poor given patient's multiple co-morbidities. Rest of plan per hospitalist and other consultants. Thank you Dr. Altman, for allowing me to participate in this patient's care. Further recommendations will depend on the patient's clinical course. Please do not hesitate to contact me if you have any questions or concerns. This medical document was created using an electronic medical record system with [employer] system. Although these documentations are being carefully reviewed, there may still be some phonetic and typographical changes. The errors are purely typographical, due to imperfection on the software program, and do not reflect any compromise in the patient's medical care. Plan discussed with: Patient, Other (RN/Dr. Altman) MARK ULRICH MD Jul 28, 2024 20:56
[2024-07-28 21:00] VITALS: BP 123/70; PULSE 76; RESP 20; TEMP 97.7; O2SAT 95
[2024-07-28] MEDS: DOXYCYCLINE 100MG/100ML 100 ML IV SCH (22:40)
[2024-07-29] VITALS (10 sets, daily range): BP systolic 104–128; BP diastolic 49–78; PULSE 55–70; RESP 16–20; TEMP 36.3; O2SAT 93–99
[2024-07-29] MEDS ORDERED: GABA-1308 PO (09:25)
[2024-07-29] MEDS: cefTRIAXone 1GM/50ML D5W 50 ML IV SCH (09:49)
[2024-07-29] MEDS ORDERED: DOXY1CAP57 PO (10:14)
[2024-07-29] MEDS ORDERED: METH4PAK PO (10:14)
--- NOTE | 2024-07-29 10:23 | DVHDS2 ---
Discharge Summary Date of Admission Jul 27, 2024 at 11:37 Date of Discharge: Jul 29, 2024 Labs/Diagnostic Data: Laboratory Results Test 07/28/24 05:26 07/27/24 08:41 07/27/24 08:21 07/27/24 06:10 White Blood Count 11.3 10^3/uL (4.4-10.8) Red Blood Count 4.84 10^6/uL (4.5-5.90) Hemoglobin 14.5 g/dL (13.5-17.5) Hematocrit 44.0 % (41.0-53.0) Mean Corpuscular Volume 90.9 fL (80.0-100.0) Mean Corpuscular Hemoglobin 29.9 pg (28.0-32.0) Mean Corpuscular Hemoglobin Concent 32.9 g/dL (32.0-36.0) Red Cell Distribution Width 14.2 % (11.8-14.3) Platelet Count 216 10^3/uL (140-450) Mean Platelet Volume 8.2 fL (6.9-10.8) Neutrophils (%) (Auto) 85.0 % (37.0-80.0) Lymphocytes (%) (Auto) 9.3 % (10.0-50.0) Monocytes (%) (Auto) 5.5 % (0.0-12.0) Eosinophils (%) (Auto) 0.1 % (0.0-7.0) Basophils (%) (Auto) 0.1 % (0.0-2.0) Neutrophils # (Auto) 9.6 10 ^3/uL (1.6-8.6) Lymphocytes # (Auto) 1.1 10 ^3/uL (0.4-5.4) Monocytes # (Auto) 0.6 10 ^3/uL (0-1.3) Eosinophils # (Auto) 0 10 ^3/uL (0-0.8) Basophils # (Auto) 0 10 ^3/uL (0-0.2) Nucleated Red Blood Cells 0.1 % Sodium Level 139 mmol/L (136-145) Potassium Level 4.5 mmol/L (3.5-5.1) Chloride Level 109 mmol/L (98-107) Carbon Dioxide Level 25 mmol/L (20-31) Anion Gap 5 (5-15) Blood Urea Nitrogen 16 mg/dL (9-23) Creatinine 0.89 mg/dL (0.700-1.30) Glomerular Filtration Rate Calc 93 mL/min (>90) BUN/Creatinine Ratio 18.0 (10.0-20.0) Serum Glucose 108 mg/dL (74-106) Calcium Level 9.3 mg/dL (8.7-10.4) Total Bilirubin 0.5 mg/dL (0.2-1.0) Aspartate Amino Transferase (AST) < 8 U/L (13-40) Alanine Aminotransferase (ALT) 12 U/L (7-40) Alkaline Phosphatase 123 U/L (46-116) Total Protein 5.4 g/dL (5.7-8.2) Albumin 3.7 g/dL (3.2-4.8) Troponin I High Sensitivity < 3 ng/L (</=54) POC Glucose 114 mg/dl (70-106) Urine Color Colorless (Yellow) Urine Clarity Clear (Clear) Urine pH 6.0 (5.0-9.0) Urine Specific [place] 1.004 (1.001-1.035) Urine Protein Negative (Negative) Urine Ketones Negative (Negative) Urine Blood Negative /uL (Negative) Urine Nitrite Negative (Negative) Urine Bilirubin Negative (Negative) Urine Urobilinogen Normal mg/dL (Negative) Urine Leukocyte Esterase Negative /uL (Negative) Urine RBC 5 /hpf (0 - 3) Urine Microscopic WBC < 1 /HPF (0-3) Urine Squamous Epithelial Cells Few /hpf (<5) Urine Bacteria None seen /hpf (None Seen) Urine Glucose Normal mg/dL (Normal) Test 07/27/24 05:40 Lactic Acid Level 1.0 mmol/L (0.4-2.0) B-Type Natriuretic Peptide 9.64 pg/mL (0-100) Lipase 48 U/L (12-53) Other Laboratory Tests 07/28/24 05:26 Brief Hx & Hospital Course: Final diagnoses: Acute hypoxic respiratory failure COPD exacerbation Chronic respiratory failure on home O2 Recent cholecystectomy and CORDELIA drain Hypertension History of CHF Tobacco use History of DVT on Eliquis 69-year-old male with a history of COPD on chronic respiratory failure on home O2 came with a chief complaint of shortness of breaths and cough and some hypoxia He was admitted for COPD exacerbation given IV and antibiotics and steroids and oxygen med neb treatments Overnight he is feeling better The patient recently had a cholecystectomy done and he is still has a CORDELIA drain and he has not seen the surgeon as an outpatient since surgery We consulted Dr. Barnes who is going to see him today Once the drain is removed then the patient can be discharged home He will be sent on a prescription for doxycycline and tapered dose prednisone and resume the home medications and follow up with his primary care physician as soon as possible Condition at Discharge: Stable Final Diagnosis/Problems List Acute hypoxic respiratory failure COPD exacerbation Chronic respiratory failure on home O2 Recent cholecystectomy and CORDELIA drain Hypertension History of CHF Tobacco use History of DVT Discharge Disposition: Home SNF Discharge Will this Physician continue t: No Discharge Instruct/Medications Diet: Cardiac 2g Na,low cholest Activity: No Restrictions, As Tolerated Follow Up/Referral: PCP as soon as possible Medications: Medrol Dosepak and doxycycline Resume the home meds Discharge Statement: "Patient was advised to return to the ER or call 911 if any headaches, dizziness, shortness of breath, chest pain, abdominal pain, bleeding, fevers, or worsening of medical condition. Patient was counseled about treatment plan, medications, possible side effects, patientverbalized understanding. All questions were answered to the best of my ability. This discharge took greater then 30 minutes in planning, reviewing documentation, counseling the patient, and discussing with other team members." ASSESSMENT ASSESSMENT Assessment Acute hypoxic respiratory failure COPD exacerbation Chronic respiratory failure on home O2 Recent cholecystectomy and CORDELIA drain Hypertension History of CHF Tobacco use History of DVT Date of Service: Jul 29, 2024 Billing Provider: HERNESTO FAIRBANKS MD Common Visit Codes: NOT BILLABLE HERNESTO FAIRBANKS MD Jul 29, 2024 10:23
--- NOTE | 2024-07-29 13:36 | DVHPN2 ---
Progress Note Date Seen: Jul 29, 2024 Medical Necessity Reason Pt with a Central, PICC or Fol: Yes Objective vital signs Vital Sign Date Time Temp Pulse Resp B/P (MAP) Pulse Ox O2 Delivery O2 Flow Rate FiO2 07/29/24 12:50 97.4 69 17 115/66 (82) 93 97.4 07/29/24 11:50 Nasal Cannula 3.0 07/29/24 11:50 32 Total Intake and Output 07/28/24 07/28/24 07/29/24 14:59 22:59 06:59 Intake Total 400 ml Balance 400 ml medications Current Medications Medications Dose Ordered Sig/Jania Route Start Time Stop Time Status Last Admin Dose Admin Ipratropium [place] 0.5 mg Q4HPRN PRN NEB 07/27/24 12:15 07/27/24 19:02 0.5 MG Ipratropium [place] 0.5 mg Q6HR NEB 07/27/24 12:15 07/29/24 11:50 0.5 MG Ondansetron HCl 4 mg Q4HP PRN IV 07/27/24 12:00 Morphine Sulfate 2 mg Q4HPRN PRN IV 07/27/24 12:00 Methylprednisolone Sodium Succinate 60 mg BID IV 07/28/24 10:00 07/29/24 09:51 60 MG Acetaminophen/ Hydrocodone Bitart 1 tab Q4HP PRN PO 07/27/24 12:00 Acetaminophen 650 mg Q6HP PRN PO 07/27/24 12:00 Apixaban 5 mg BID PO 07/27/24 22:00 07/29/24 09:51 5 MG Furosemide 20 mg DAILY PO 07/28/24 10:00 07/29/24 09:50 20 MG Pantoprazole Sodium 40 mg DAILY@0700 PO 07/28/24 07:00 07/28/24 06:32 40 MG Albuterol 2.5 mg Q4HPRN PRN NEB 07/27/24 12:15 07/27/24 19:01 2.5 MG Albuterol 2.5 mg Q6HR NEB 07/27/24 12:15 07/29/24 11:50 2.5 MG Nicotine 1 patch DAILY TD 07/28/24 10:00 Patient Own Medication 1 tab DAILY PO 07/28/24 10:00 Atorvastatin Calcium 40 mg HS PO 07/27/24 22:00 07/28/24 22:40 40 MG Ceftriaxone Sodium 50 ml @ 100 mls/hr DAILY@09 IV 07/29/24 09:00 07/29/24 09:49 100 MLS/HR Doxycycline Hyclate 100 ml @ 50 mls/hr Q12HR IV 07/28/24 13:00 07/29/24 10:35 50 MLS/HR laboratory and microbiology Laboratory Tests 07/28/24 05:26 Test 07/28/24 05:26 Range/Units Serum Glucose 108 H 74-106 mg/dL Problem List/Assessment/Plan Problem List/Assessment/Plan 07/29/24 patient had a CORDELIA drain indwelling since his operation, did not come to see me in the office because he didnt "know where the office was".Drain had minimal non bilious drainage and was removed without difficulty Plan discussed with: Patient SIDDHARTHA BROWN MD Jul 29, 2024 13:36
--- NOTE | 2024-07-29 20:25 | DVHPN2 ---
Progress Note - Dictate Date Seen: Jul 29, 2024 Medical Necessity Reason Pt with a Central, PICC or Fol: No Subjective Patient seen and examined at bedside. Remains on supplemental oxygen Overnight events reviewed. vital signs Vital Sign Date Time Temp Pulse Resp B/P (MAP) Pulse Ox O2 Delivery O2 Flow Rate FiO2 07/29/24 14:05 36.3 07/29/24 12:50 69 17 115/66 (82) 93 07/29/24 11:50 Nasal Cannula 3.0 07/29/24 11:50 32 Total Intake and Output 07/28/24 07/28/24 07/29/24 15:00 23:00 07:00 Intake Total 400 ml Balance 400 ml objective Gen.: Patient lying in bed in no apparent distress. On supplemental oxygen. Head: Normocephalic, atraumatic. Eyes: EOMI/PERRLA. Ears: Normal hearing. Normal anatomy. Neck/trachea: Trachea midline, supple. Nose: Normal external anatomy. Mouth: Moist mucous membranes. Chest: Decreased air entry bilaterally. No wheezing or rhonchi. Cardiovascular: Positive S1, positive S2. Regular rate and rhythm. Abdomen: Positive bowel sounds in all 4 quadrants. Soft, non-tender, non- distended. : Deferred. Rectal: Deferred. Skin: Warm, dry. Intact. Extremities: 2+ radial pulses bilaterally. No lower extremity edema. Neuro: Awake, alert, oriented x3. No gross motor or sensory deficits. Cranial nerves II through XII intact. Gait not assessed. laboratory and microbiology Laboratory Tests 07/28/24 05:26 Test 07/28/24 05:26 Range/Units Serum Glucose 108 H 74-106 mg/dL Assessment/Plan Impression: Acute on chronic hypoxic respiratory failure Dependence on supplemental oxygen Acute COPD exacerbation Congestive heart failure, EF 50% Deep venous thrombosis, right cephalic vein. S/p IVC filter Nicotine dependence Events: Remains on supplemental oxygen, 3 LPM NC Taper O2 as tolerated Continue bronchodilators Continue steroids Incentive spirometry Patient continues to smoke, refused nicotine patch. Patient is stable for discharge from the pulmonary standpoint. Follow up in 2 weeks in Pulmonary Clinic. Labs and imaging reviewed. Rest of plan as noted below. Plan: Supplemental oxygen Titrate to keep O2 sats above 92%. CXR on 07/27/24 reveals pulmonary venous congestion. Continue bronchodilators. Continue antibiotics IV steroids Continue Lasix for diuresis Monitor renal function. Monitor electrolytes. Supplement as necessary. Monitor ins and outs. Continue Eliquis Smoking cessation discussed for greater than 10 minutes Smokes 3 cigarettes per day, cutting down. DVT prophylaxis. Prognosis: Poor given patient's multiple co-morbidities. Rest of plan per hospitalist and other consultants. Thank you Dr. Altman, for allowing me to participate in this patient's care. Further recommendations will depend on the patient's clinical course. Please do not hesitate to contact me if you have any questions or concerns. This medical document was created using an electronic medical record system with [employer] dictation system. Although these documentations are being carefully reviewed, there may still be some phonetic and typographical changes. The errors are purely typographical, due to imperfection on the software program, and do not reflect any compromise in the patient's medical care. Plan discussed with: Patient, Other (FARHEEN Carvajal) MARK ULRICH MD Jul 29, 2024 20:25
== END 2024-07-29 14:38 | disposition home or self-care (01) | DRG 189 ==
LOC: EDBD 05:24 → ER 05:24 → OVERFLOW 11:37 → ER 11:46 → CENTRAL 07-28 23:56
PROVIDERS: ADMIT Internal Medicine Geriatric Medicine; ATTEND Internal Medicine Geriatric Medicine
DX: J96.21 Acute and chronic respiratory failure with hypoxia (principal); J44.1 Chronic obstructive pulmonary disease with (acute) exacerbation; I50.32 Chronic diastolic (congestive) heart failure; I11.0 Hypertensive heart disease with heart failure; F41.9 Anxiety disorder, unspecified; F17.210 Nicotine dependence, cigarettes, uncomplicated; Z71.6 Tobacco abuse counseling; Z90.49 Acquired absence of other specified parts of digestive tract; Z86.718 Personal history of other venous thrombosis and embolism; Z82.49 Family history of ischemic heart disease and other diseases of the circulatory system; Z83.3 Family history of diabetes mellitus; Z79.2 Long term (current) use of antibiotics; Z79.899 Other long term (current) drug therapy; Z79.01 Long term (current) use of anticoagulants; Z99.81 Dependence on supplemental oxygen; Z95.828 Presence of other vascular implants and grafts
CPT/HCPCS: 36415; 71045; 74177; 80053; 81001; 82962; 83605; 83690; 83880; 84484; 85025; 87081; 93005; 94640; 96374; 96375; 99291; 99292; G0378; J2405

== ENCOUNTER 2024-08-26 23:08 | Emergency (ER) | payer MEDICARE, MEDICAID ==
[~2024-08-26] VITALS: Ht 180.3 cm; Wt 74.2 kg
[~2024-08-26 23:08] MED LIST changes: -AMOX875T4 PO; -ASCO500T11 PO; -DEXT1SYP; -DEXT1SYP9 PO; -DOX100T PO; +DOXY1CAP57 PO; +GABA-1308 PO; +METH4PAK PO; -MULTTAB99 PO; -NICO14DI9 TD; -PRED20TA2 PO; -RESPKIT15 XX
[2024-08-26 23:42] LABS: Basophils # (auto) 0 10 ^3/uL (0-0.2); Basophils % (auto) 0.6 % (0.0-2.0); Eosinophils # (auto) 0.4 10 ^3/uL (0-0.8); Hematocrit 49.1 % (41.0-53.0); Lymphocytes # (auto) 1.5 10 ^3/uL (0.4-5.4); Mean Corpuscular Hemoglobin 30.8 pg (28.0-32.0); Mean Corpuscular Hgb Conc. 34.6 g/dL (32.0-36.0); Mean Corpuscular Volume 88.9 fL (80.0-100.0); Monocytes # (auto) 0.5 10 ^3/uL (0-1.3); Neutrophils % (auto) 62.4 % (37.0-80.0); Nucleated Red Blood Cells % 0.1 %; Platelet Count (auto) 222 10^3/uL (140-450); Red Blood Cells 5.52 10^6/uL (4.5-5.90); Red Cell Distribution Width 14.7 % (11.8-14.3); White Blood Cell 6.5 10^3/uL (4.4-10.8)
[2024-08-27] MEDS: DICYCLOMINE HCL (10MG/ML) 2 ML AMPULE IM ONE
[2024-08-27] MEDS: ONDANSETRON ODT 4 MG TAB PO ONE
[2024-08-27] MEDS: HYDROcodone-ACET 10/325MG TAB PO ONE
[2024-08-27 00:01] LABS: Alanine Aminotransferase 22 U/L (7-40); Albumin 4.5 g/dL (3.2-4.8); Anion Gap 6 (5-15); Aspartate Aminotransferase 15 U/L (13-40); Bilirubin, Total 0.5 mg/dL (0.2-1.0); Calcium 9.2 mg/dL (8.7-10.4); Carbon Dioxide 30 mmol/L (20-31); Glucose 78 mg/dL (74-106); Lipase 42 U/L (12-53); Potassium 4.4 mmol/L (3.5-5.1); Sodium 145 mmol/L (136-145); Total Protein 6.3 g/dL (5.7-8.2)
--- NOTE | 2024-08-27 00:04 | ED.PDOC ---
History of Present Illness HPI Comments 69 y/o M presents with c/o nonradiating, epigastric abdominal pain, dizziness, and excessive sweating. Patient is a poor historian. Endorses on pain ongoing, intermittently, for over the past 6 months, with most recent episode starting 2 weeks ago. Report suspicion on cause of pain being his "gallbladder," due to being informed on having "gallbladder-related issue" during previous hospital visit and endoscopy for pain. He denies on having any current nausea, vomiting, diarrhea, urinary symptoms, fever, chills, or further associated symptoms. Time Seen by MD: 23:50 Primary Care Provider: KASANDRA Reviewed Notes: Nurses Notes, Medications, Allergies Allergies: Coded Allergies: NO KNOWN ALLERGIES (Unverified , 02/29/24) Home Meds Active Scripts Gabapentin (Once-Daily) (Gabapentin) 300 Mg Tab, 300 MG PO Q6HP PRN, #30 TAB Prov:JOHNNY JOEL MD 08/27/24 Famotidine (PEPCID TABLET) 20 Mg Tb, 1 TAB PO BID PRN, #60 TAB 5 Refills Prov:JOHNNY JOEL MD 08/27/24 Ondansetron HCl (Ondansetron Hydrochloride) 8 Mg Tab, 8 MG PO Q6HP PRN, #30 TAB Prov:JOHNNY JOEL MD 08/27/24 Methylprednisolone (Medrol Dosepak) 4 Mg Willie, 4 MG PO UD, #21 TAB UAD Prov:HERNESTO FAIRBANKS MD 07/29/24 Doxycycline Monohydrate (Doxycycline Monohydrate) 100 Mg Cap, 1 CAP PO BID, #14 CAP Prov:HERNESTO FAIRBANKS MD 07/29/24 Apixaban Base (ELIQUIS) 5 Mg Tab, 5 MG PO BID for 90 Days, #180 TAB Prov:ABELINO GRAVES RESIDENT 05/27/24 Ipratropium [place] (Ipratropium [place]) 0.02 % Adriana, 0.5 % HHN BID for 30 Days, #120 ML Prov:LIBORIO TRAN RESIDENT 03/19/24 Albuterol Sulfate (Ventolin) 2.5 Mg/0.5 Ml Nb, 2.5 MG NEB Q4HWA for 30 Days, #10 INH Prov:LIBORIO TRAN RESIDENT 03/19/24 Reported Medications Gabapentin (Gabapentin) 100 Mg Cap, 1 CAP PO TID for 30 Days, #90 07/29/24 Nicotine (Nicotine Transdermal Syst) 14 Mg/24 Hr Dis, 1 PATCH TOP DAILY for 28 Days, #28 07/29/24 Senna (Senna) 8.6 Mg Tab, 1 PO DAILY for 30 Days, #30 07/29/24 Multiple Vitamin (One-Daily Multi-Vitamin) 1 Tab Tab, 1 TAB PO DAILY for 30 Da ys, #30 07/29/24 Ascorbic Acid (Gnp Vitamin C W/Ellen Hips) 500 Mg Tab, 1 TAB PO BID for 30 Days, #60 07/29/24 Albuterol Sulfate (Albuterol Sulfate) 0.083 % Neb 05/17/24 Albuterol Sulfate (Albuterol Sulfate Hfa) 108 Mcg/Act Aer, 2 PUFF INH Q6HR PRN for WHEEZING for 33 Days, #18 05/17/24 Thiamine Hcl (VITAMIN B-1) 100 Mg Tb, 1 TAB PO DAILY for 30 Days, #30 03/12/24 Aripiprazole (Aripiprazole) 5 Mg Tab, 1 TAB PO DAILY for 30 Days, #30 03/12/24 Atorvastatin Calcium (ATORVASTATIN CALCIUM) 40 Mg Tab, 40 MG PO DAILY for 30 Days, #30 03/12/24 Pantoprazole Sodium Sesquihydr (Pantoprazole Sodium) 40 Mg Tab, 1 TAB PO DAILY for 30 Days, #30 03/12/24 Furosemide (Furosemide) 20 Mg Tab, 1 TAB PO DAILY 03/12/24 Information Source: Patient Mode of Arrival: Ambulatory Severity: Moderate Timing: Weeks Duration: Since onset Prehospital treatment: None Past Medical History PAST MEDICAL HISTORY: Anxiety, CHF, COPD, HTN Surgical History: Appendectomy, Cholecystectomy Family History Family History: Reviewed,noncontributory to illness, No family hx of Cancer, No family hx of DM, No family hx of Heart damaris Social History Smoker: Cigarettes Alcohol: Occasionally Drugs: Denies Drug Use Lives In: Home All Other Systems: Reviewed and Negative (Comprehensive systems review obtained and negative except for what is stated in the HPI.) Physical Exam General Appearance: No Apparent Distress, Normal HEENT: Normal ENT Inspection, Pharynx Normal, TMs Normal Neck: Full Range of Motion, Non-Tender, Normal, Normal Inspection Respiratory: Chest Non-Tender, Lungs Clear, No Accessory Muscle Use, No Respiratory Distress, Normal Breath Sounds Cardiovascular: No Edema, No JVD, No Murmur, No Gallop, Normal Peripheral Pulses, Regular Rate/Rhythm Breast Exam: Deferred Gastrointestinal: Epigastric (tenderness ), No Organomegaly, No Pulsatile Mass, Normal Bowel Sounds, Soft, Tenderness (epigastric region ) Genitalia: Deferred Pelvic: Deferred Rectal: Deferred Extremities: No calf tenderness, Normal capillary refill, Normal inspection, Normal range of motion, Non-tender, No pedal edema Musculoskeletal : Apperance: Normal Neurologic: Alert, paediatric physiotherapist II-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 Was a procedure done?: No Differential Dx Considerations may include: gastritis, gastroenteritis, GERD, PUD, cholecystitis, cholelithiasis, viral syndrome, among others X-Ray, Labs, Meds, VS Vital Signs Date Time Temp Pulse Resp B/P (MAP) Pulse Ox O2 Delivery O2 Flow Rate FiO2 08/26/24 23:25 98.2 80 16 113/78 (90) 93 98.2 Lab Test 08/27/24 00:05 08/26/24 22:35 Range/Units Urine Color Yellow Yellow Urine Clarity Clear Clear Urine pH 6.0 5.0-9.0 Urine Specific [place] 1.011 1.001-1.035 Urine Protein Negative Negative Urine Ketones Negative Negative Urine Blood Negative Negative /uL Urine Nitrite Negative Negative Urine Bilirubin Negative Negative Urine Urobilinogen 2 H Negative mg/dL Urine Leukocyte Esterase Trace Negative /uL Urine RBC 1 0 - 3 /hpf Urine Microscopic WBC 2 0-3 /HPF Urine Squamous Epithelial Cells None seen <5 /hpf Urine Bacteria None seen None Seen /hpf Urine Glucose Normal Normal mg/dL White Blood Count 6.5 4.4-10.8 10^3/uL Red Blood Count 5.52 4.5-5.90 10^6/uL Hemoglobin 17.0 13.5-17.5 g/dL Hematocrit 49.1 41.0-53.0 % Mean Corpuscular Volume 88.9 80.0-100.0 fL Mean Corpuscular Hemoglobin 30.8 28.0-32.0 pg Mean Corpuscular Hemoglobin Concent 34.6 32.0-36.0 g/dL Red Cell Distribution Width 14.7 H 11.8-14.3 % Platelet Count 222 140-450 10^3/uL Mean Platelet Volume 7.5 6.9-10.8 fL Neutrophils (%) (Auto) 62.4 37.0-80.0 % Lymphocytes (%) (Auto) 23.0 10.0-50.0 % Monocytes (%) (Auto) 8.0 0.0-12.0 % Eosinophils (%) (Auto) 6.0 0.0-7.0 % Basophils (%) (Auto) 0.6 0.0-2.0 % Neutrophils # (Auto) 4.0 1.6-8.6 10 ^3/uL Lymphocytes # (Auto) 1.5 0.4-5.4 10 ^3/uL Monocytes # (Auto) 0.5 0-1.3 10 ^3/uL Eosinophils # (Auto) 0.4 0-0.8 10 ^3/uL Basophils # (Auto) 0 0-0.2 10 ^3/uL Nucleated Red Blood Cells 0.1 % Sodium Level 145 136-145 mmol/L Potassium Level 4.4 3.5-5.1 mmol/L Chloride Level 109 H 98-107 mmol/L Carbon Dioxide Level 30 20-31 mmol/L Anion Gap 6 5-15 Blood Urea Nitrogen 6 L 9-23 mg/dL Creatinine 1.00 0.700-1.30 mg/dL Glomerular Filtration Rate Calc 81 >90 mL/min BUN/Creatinine Ratio 6.0 L 10.0-20.0 Serum Glucose 78 74-106 mg/dL Calcium Level 9.2 8.7-10.4 mg/dL Total Bilirubin 0.5 0.2-1.0 mg/dL Aspartate Amino Transferase (AST) 15 13-40 U/L Alanine Aminotransferase (ALT) 22 7-40 U/L Alkaline Phosphatase 146 H 46-116 U/L Total Protein 6.3 5.7-8.2 g/dL Albumin 4.5 3.2-4.8 g/dL Lipase 42 12-53 U/L Time of 1ST Reevaluation: 00:20 Reevaluation 1ST: Unchanged Patient Education/Counseling: Diagnosis, Treatment Family Education/Counseling: No Family Present Departure 1 Departure Time of Disposition: 03:00 Impression: Primary Impression: Inguinal hernia Additional Impression: Epigastric pain Disposition: HOME / SELF CARE / HOMELESS Condition: Stable e-Prescriptions Gabapentin (Once-Daily) (Gabapentin) 300 Mg Tab 300 MG PO Q6HP PRN, #30 TAB Prov: JOHNNY JOEL MD 08/27/24 Famotidine (PEPCID TABLET) 20 Mg Tb 1 TAB PO BID PRN, #60 TAB 5 Refills Prov: JOHNNY JOEL MD 08/27/24 Ondansetron HCl (Ondansetron Hydrochloride) 8 Mg Tab 8 MG PO Q6HP PRN, #30 TAB Prov: JOHNNY JOEL MD 08/27/24 Critical Care Note Critical Care Time?: No Stability Stability form required: No Heart Score Heart Score: Heart Score Response (Comments) Value History N/A 0 EKG N/A 0 Age N/A 0 Risk Factors N/A 0 Troponin N/A 0 Total 0 I personally scribed for JOHNNY JOEL MD ([email or web address]) on 08/27/24 at 00:04. Electronically submitted by Andrez Merlos ([email or web address]). JOHNNY JOEL MD August 27, 2024 00:04
[2024-08-27 00:14] LABS: Alkaline Phosphatase 146 U/L (46-116); Blood Urea Nitrogen 6 mg/dL (9-23); Chloride 109 mmol/L (98-107)
--- NOTE | 2024-08-27 01:12 | DVH ---
CLINICAL HISTORY: upper abd pain TECHNIQUE: CT of the abdomen and pelvis was performed without intravenous contrast. This exam was per formed according to our departmental dose optimization program. Up-to-date CT equipment and radiation dose reduction techniques are utilized as appropriate. CTDI: 5.73 DLP: 298.45 WID: COMPARISON: CT CT AB PEL WO CON-NO ORAL OR IV on DOS: 04/16/24 FINDINGS: Lower Thorax: Mild emphysema in the lung bases. Linear bibasilar scarring or atelectasis. Normal-siz ed heart. Liver and Biliary system: There is a well-defined hypodense lesion in segment 2 of the liver unchange d, which may reflect a cyst prior cholecystectomy with mild choledocho ectasia of the common bile boni t. Trace fluid along the inferior right lobe of the liver on coronal image 36. No intrahepatic bile duct dilatation. Spleen: A rounded hypodense collection along the left lateral spleen is decreased in size. The splee n is normal size. Adrenal Glands and Kidneys: Unremarkable. Pancreas and Retroperitoneum: Atrophic pancreas. No retroperitoneal lymphadenopathy. Aorta and Major Vessels: Aortoiliac vessels contain [id number] calcified atherosclerotic plaque . Ectasia of the infrarenal abdominal aorta. IVC filter terminates at the level and just above the le eva of the renal veins. Bowel, Mesentery and Peritoneal space: No Free air or fluid collection. Normal caliber small and larg e bowel. Pelvis: Dystrophic calcifications in the prostate gland. Mild prostatomegaly. Anterior right bladder wall extends into the origin of the right inguinal hernia. Abdominal wall and Osseous Structures: Mild lower thoracic and lumbar spondylosis. Grade 1 retrolisth esis at L5-S1 with moderate degenerative disc space narrowing at this level. IMPRESSION: 1. Prior cholecystectomy. Trace fluid along The inferior right lobe of the liver. No drainable flui d collection is seen. 2. No bowel obstruction, fluid collection, or free air. 3. Anterior right bladder wall extends into the origin of the right inguinal hernia. 4. Decrease in size of subcapsular splenic fluid collection. 5. Mild prostatomegaly. 6. Mild emphysema. 7. Ectasia of the infrarenal abdominal aorta.
[2024-08-27 01:17] LABS: Urine Bacteria None Seen /hpf (None Seen)
[2024-08-27 01:26] LABS: Urine Blood Negative /uL (Negative); Urine Clarity Clear (Clear); Urine Color Yellow (Yellow); Urine Protein, UAD Negative (Negative); Urine Specific Gravity 1.011 (1.001-1.035); Urine Squamous Epithelial Cell None Seen /hpf (<5); Urine Urobilinogen 2 mg/dL (Negative); Urine WBC 2 /HPF (0-3)
[2024-08-27] MEDS ORDERED: ONDA-180 PO (01:51)
[2024-08-27] MEDS ORDERED: GABA300T4 PO (01:51)
[2024-08-27] MEDS ORDERED: FAMO20TA10 PO (01:51)
[2024-08-27 07:43] VITALS: BP 108/66; PULSE 75; RESP 16; TEMP 97.5; O2SAT 95
[2024-08-27 08:14] VITALS: RESP 18; O2SAT 96
[2024-08-27] MEDS: ALBUTEROL SULF 2.5 MG/0.5ML(0.5%) NEB SOLN NEB ONE (08:14)
== END 2024-08-27 08:35 | disposition home or self-care (01) ==
LOC: ER 23:08
DX: K40.90 Unilateral inguinal hernia, without obstruction or gangrene, not specified as recurrent (principal); I11.0 Hypertensive heart disease with heart failure; I50.9 Heart failure, unspecified; F41.9 Anxiety disorder, unspecified; J45.909 Unspecified asthma, uncomplicated; F17.210 Nicotine dependence, cigarettes, uncomplicated; Z79.899 Other long term (current) drug therapy; Z90.49 Acquired absence of other specified parts of digestive tract
CPT/HCPCS: 36415; 74176; 80053; 81001; 83690; 85025; 94640

== ENCOUNTER 2024-10-14 15:21 | Emergency (ER) | payer MEDICARE, MEDICAID ==
[~2024-10-14 15:21] MED LIST changes: +FAMO20TA10 PO; +GABA300T4 PO; +ONDA-180 PO
[2024-10-14] MEDS ORDERED: METH4PAK PO (16:20)
[2024-10-14] MEDS ORDERED: MUPI2CRE17 EX (16:20)
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
[2024-10-14 18:16] VITALS: BP 124/70; PULSE 77; RESP 20; TEMP 98.4; O2SAT 95
[2024-10-14] MEDS: methylPREDNISolone SOD SUCC 125 MG/2 ML VL IM ONE (18:16)
== END 2024-10-14 18:23 | disposition home or self-care (01) ==
LOC: ER 15:30
DX: T20.06XA Burn of unspecified degree of forehead and cheek, initial encounter (principal); J44.9 Chronic obstructive pulmonary disease, unspecified; I11.0 Hypertensive heart disease with heart failure; I50.9 Heart failure, unspecified; F17.210 Nicotine dependence, cigarettes, uncomplicated; Z79.899 Other long term (current) drug therapy; Z90.49 Acquired absence of other specified parts of digestive tract; X08.8XXA Exposure to other specified smoke, fire and flames, initial encounter; Y93.89 Activity, other specified; Y92.89 Other specified places as the place of occurrence of the external cause; Y99.8 Other external cause status
CPT/HCPCS: 16020; 96372; 99283; J2919

== ENCOUNTER 2025-02-25 18:08 | Inpatient (IN) | payer MEDICARE, MEDICAID ==
[~2025-02-25] VITALS: Ht 180.3 cm; Wt 78.1 kg
[~2025-02-25 18:08] MED LIST changes: +MUPI2CRE17 EX
[2025-02-25] MEDS: IPRATROPIUM BROM 0.5 MG/2.5ML INH SOL NEB ONE ×2 (18:38→20:45)
[2025-02-25] MEDS: ALBUTEROL SULF 2.5 MG/0.5ML(0.5%) NEB SOLN NEB ONE ×2 (18:39→20:45)
[2025-02-25] MEDS: ACETAMINOPHEN IV 1000 MG/100ML (10MG/ML) IV ONE (18:40)
[2025-02-25] MEDS: methylPREDNISolone SOD SUCC 125 MG/2 ML VL IV ONE (18:40)
--- NOTE | 2025-02-25 19:04 | DVH ---
CHEST RADIOGRAPH Indication: SOB Technique: Single frontal view of the chest was obtained Comparison: XY CHEST XRAY 1 VIEW on DOS: 07/27/24, XY CHEST PORTABLE on DOS: 05/23/24, XY CHEST PORTABLE on DOS: 05/22/24 FINDINGS: Lines and Tubes: None Lungs: Patchy airspace disease is noted in the perihilar area bilaterally in the right lower lobe left lower lobe and left upper lobe. Pleura: No effusion. No pneumothorax. Cardiomediastinal contours: Unremarkable Bones: No acute osseous abnormality. IMPRESSION: 1. Bilateral patchy infiltrates developed.
[2025-02-25 19:21] LABS: Hematocrit 44.9 % (41.0-53.0); Hemoglobin 15.3 g/dL (13.5-17.5); Mean Corpuscular Hemoglobin 30.8 pg (28.0-32.0); Mean Corpuscular Volume 90.3 fL (80.0-100.0); Nucleated Red Blood Cells % 0.0 %
--- NOTE | 2025-02-25 19:24 | ED.PDOC ---
History of Present Illness HPI Comments 69-year-old male BIBA with prior medical history of COPD, uses O2 at home of 4 L and the chief complaint of a lingering cough. Patient reports that he was sitting on the couch at home when he had one Singulair cough causing a coughing fit. Patient kept coughing and was unable to stop for which started associating with the wheezing and the patient called EMS. When EMS arrived on scene the patient was satting at 79% on room air. Denies any other symptoms at this time. Denies chills, fever, N/V/D, CP. No other associated symptoms, modifiers, recent injuries or sick contacts present at this time. Chief Complaint: Shortness of Breath Time Seen by MD: 19:20 Primary Care Provider: KASANDRA Keating Notes: Nurses Notes, Medications, Allergies Allergies: Coded Allergies: NO KNOWN ALLERGIES (Unverified , 02/29/24) Home Meds Active Scripts Methylprednisolone (Medrol Dosepak) 4 Mg Willie, 4 MG PO UD, #21 TAB 0 Refills UAD Prov:CATALINO FAJARDO GOSPEL WORKER 10/14/24 Mupirocin Calcium (Topical) (MUPIROCIN) 2 % Cre, 2 % EX BID for 7 Days, #30 CRE 0 Refills Prov:CATALINO FAJARDO GOSPEL WORKER 10/14/24 Gabapentin (Once-Daily) (Gabapentin) 300 Mg Tab, 300 MG PO Q6HP PRN, #30 TAB Prov:JOHNNY JOEL MD 08/27/24 Famotidine (PEPCID TABLET) 20 Mg Tb, 1 TAB PO BID PRN, #60 TAB 5 Refills Prov:JOHNNY JOEL MD 08/27/24 Ondansetron HCl (Ondansetron Hydrochloride) 8 Mg Tab, 8 MG PO Q6HP PRN, #30 TAB Prov:JOHNNY JOEL MD 08/27/24 Methylprednisolone (Medrol Dosepak) 4 Mg Willie, 4 MG PO UD, #21 TAB UAD Prov:HERNESTO FAIRBANKS MD 07/29/24 Doxycycline Monohydrate (Doxycycline Monohydrate) 100 Mg Cap, 1 CAP PO BID, #14 CAP Prov:HERNESTO FAIRBANKS MD 07/29/24 Apixaban Base (ELIQUIS) 5 Mg Tab, 5 MG PO BID for 90 Days, #180 TAB Prov:ABELINO GRAVES RESIDENT 05/27/24 Ipratropium [place] (Ipratropium [place]) 0.02 % Adriana, 0.5 % HHN BID for 30 Days, #120 ML Prov:LIBORIO TRAN RESIDENT 03/19/24 Albuterol Sulfate (Ventolin) 2.5 Mg/0.5 Ml Nb, 2.5 MG NEB Q4HWA for 30 Days, #10 INH Prov:TATYANALIBORIO PAZ RESIDENT 03/19/24 Reported Medications Gabapentin (Gabapentin) 100 Mg Cap, 1 CAP PO TID for 30 Days, #90 07/29/24 Nicotine (Nicotine Transdermal Syst) 14 Mg/24 Hr Dis, 1 PATCH TOP DAILY for 28 Days, #28 07/29/24 Senna (Senna) 8.6 Mg Tab, 1 PO DAILY for 30 Days, #30 07/29/24 Multiple Vitamin (One-Daily Multi-Vitamin) 1 Tab Tab, 1 TAB PO DAILY for 30 Days, #30 07/29/24 Ascorbic Acid (Gnp Vitamin C W/Ellen Hips) 500 Mg Tab, 1 TAB PO BID for 30 Days, #60 07/29/24 Albuterol Sulfate (Albuterol Sulfate) 0.083 % Neb 05/17/24 Albuterol Sulfate (Albuterol Sulfate Hfa) 108 Mcg/Act Aer, 2 PUFF INH Q6HR PRN for WHEEZING for 33 Days, #18 05/17/24 Thiamine Hcl (VITAMIN B-1) 100 Mg Tb, 1 TAB PO DAILY for 30 Days, #30 03/12/24 Aripiprazole (Aripiprazole) 5 Mg Tab, 1 TAB PO DAILY for 30 Days, #30 03/12/24 Atorvastatin Calcium (ATORVASTATIN CALCIUM) 40 Mg Tab, 40 MG PO DAILY for 30 Days, #30 03/12/24 Pantoprazole Sodium Sesquihydr (Pantoprazole Sodium) 40 Mg Tab, 1 TAB PO DAILY for 30 Days, #30 03/12/24 Furosemide (Furosemide) 20 Mg Tab, 1 TAB PO DAILY 03/12/24 Information Source: Patient Mode of Arrival: EMS Severity: Moderate Timing: Hours Duration: Since onset, Hours Prehospital treatment: None Past Medical History PAST MEDICAL HISTORY: Anxiety, CHF, COPD, HTN Past Medical History (Other): Uses 4 L of O2 at home Surgical History: Appendectomy, Cholecystectomy Family History Family History: Reviewed,noncontributory to illness, Unknown Social History Smoker: Cigarettes Alcohol: Occasionally Drugs: Denies Drug Use Lives In: Home Constitutional: denies: chills, diaphoresis, fatigue, fever, malaise, sweats, weakness, others EENTM: denies: blurred vision, double vision, ear bleeding, ear discharge, ear drainage, ear pain, ear ringing, eye pain, eye redness, hearing loss, mouth pain, mouth swelling, nasal discharge, nose bleeding, nose congestion, nose pain, photophobia, tearing, throat pain, throat swelling, voice changes, others Respiratory: reports: cough, SOB at rest, wheezing; denies: hemoptysis, orthopnea, shortness of breath, SOB with excertion, stridor, others Cardiovascular: denies: chest pain, dizzy spells, diaphoresis, Dyspnea on exertion, edema, irregular heart beat, left arm pain, lightheadedness, palpitations, PND, syncope, others Gastrointestinal: denies: abdomen distended, abdominal pain, blood streaked bowels, constipated, diarrhea, dysphagia, difficulty swallowing, hematemesis, melena, nausea, poor appetite, poor fluid intake, rectal bleeding, rectal pain, vomiting, others Genitourinary: denies: burning, dysuria, flank pain, frequency, hematuria, incontinence, penile discharge, penile sore, pain, testicle pain, testicle swelling, urgency, others Neurological: denies: dizziness, fainting, headache, left sided numbness, left sided weakness, numbness, paresthesia, pre-existing deficit, right sided numbness, right sided weakness, seizure, speech problems, tingling, tremors, weakness, others Musculoskeletal: denies: back pain, gout, joint pain, joint swelling, muscle pain, muscle stiffness, neck pain, others Integumetry: denies: bruises, change in color, change in hair/nails, dryness, laceration, lesions, lumps, rash, wounds, others Allergic/Immunocompromised: denies: Difficulty Healing, Frequent Infections, H frank, Itching, others Hematologic/Lymphatic: denies: anemia, blood clots, easy bleeding, easy bruising, swollen glands, others Endocrine: denies: excessive hunger, excessive sweating, excessive thirst, excessive urination, flushing, intolerance to cold, intolerance to heat, unexplained weight gain, unexplained weight loss, others Psychiatric: denies: anxiety, bipolar disorder, depression, hopeless, panic disorder, schizophrenia, sleepless, suicidal, others All Other Systems: Reviewed and Negative Physical Exam Exam Comments Wheezing to the bilateral jamil, tachypneic General Appearance: No Apparent Distress, Normal HEENT: Normal ENT Inspection, Pharynx Normal, TMs Normal Neck: Full Range of Motion, Non-Tender, Normal, Normal Inspection Respiratory: Chest Non-Tender, Lungs Clear, No Accessory Muscle Use, No Respiratory Distress, Normal Breath Sounds Cardiovascular: No Edema, No JVD, No Murmur, No Gallop, Normal Peripheral Pulses, Regular Rate/Rhythm Breast Exam: Deferred Gastrointestinal: No Organomegaly, Non Tender, No Pulsatile Mass, Normal Bowel Sounds, Soft Genitalia: Deferred Pelvic: Deferred Rectal: Deferred Extremities: No calf tenderness, Normal capillary refill, Normal inspection, Normal range of motion, Non-tender, No pedal edema Musculoskeletal : Apperance: Normal Neurologic: Alert, biomedical engineering supervisor II-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 Was a procedure done?: No Differential Dx Considerations may include: Pneumonia, COPD exacerbation, bronchitis, respiratory distress X-Ray, Labs, Meds, VS Vital Signs Date Time Temp Pulse Resp B/P (MAP) Pulse Ox O2 Delivery O2 Flow Rate FiO2 02/25/25 20:48 92 Nasal Cannula* 5 40 02/25/25 20:48 26 92 Nasal Cannula* 5 40 02/25/25 19:00 97.7 113 22 99/44 (62) 96 97.7 02/25/25 19:00 Nasal Cannula* 5 40 02/25/25 18:41 33 96 Nasal Cannula* 5 40 02/25/25 18:41 96 Nasal Cannula* 5 40 02/25/25 18:29 98.8 135 28 143/73 94 98.8 02/25/25 18:15 Nasal Cannula* 6 44 02/25/25 18:15 101.1 131 16 140/70 (93) 96 101.1 Lab Test 02/25/25 19:55 02/25/25 18:58 Range/Units Troponin I High Sensitivity 20 15 </=54 ng/L White Blood Count 10.8 4.4-10.8 10^3/uL Red Blood Count 4.97 4.5-5.90 10^6/uL Hemoglobin 15.3 13.5-17.5 g/dL Hematocrit 44.9 41.0-53.0 % Mean Corpuscular Volume 90.3 80.0-100.0 fL Mean Corpuscular Hemoglobin 30.8 28.0-32.0 pg Mean Corpuscular Hemoglobin Concent 34.1 32.0-36.0 g/dL Red Cell Distribution Width 13.8 11.8-14.3 % Platelet Count 203 140-450 10^3/uL Mean Platelet Volume 8.3 6.9-10.8 fL Neutrophils (%) (Auto) 80.5 H 37.0-80.0 % Lymphocytes (%) (Auto) 5.4 L 10.0-50.0 % Monocytes (%) (Auto) 13.7 H 0.0-12.0 % Eosinophils (%) (Auto) 0.1 0.0-7.0 % Basophils (%) (Auto) 0.3 0.0-2.0 % Neutrophils # (Auto) 8.7 H 1.6-8.6 10 ^3/uL Lymphocytes # (Auto) 0.6 0.4-5.4 10 ^3/uL Monocytes # (Auto) 1.5 H 0-1.3 10 ^3/uL Eosinophils # (Auto) 0 0-0.8 10 ^3/uL Basophils # (Auto) 0 0-0.2 10 ^3/uL Nucleated Red Blood Cells 0.0 % Sodium Level 140 136-145 mmol/L Potassium Level 3.7 3.5-5.1 mmol/L Chloride Level 103 98-107 mmol/L Carbon Dioxide Level 25 20-31 mmol/L Anion Gap 12 5-15 Blood Urea Nitrogen 13 9-23 mg/dL Creatinine 1.13 0.700-1.30 mg/dL Glomerular Filtration Rate Calc 70 >90 mL/min BUN/Creatinine Ratio 11.5 10.0-20.0 Serum Glucose 129 H 74-106 mg/dL Calcium Level 8.9 8.7-10.4 mg/dL Total Bilirubin 1.5 H 0.2-1.0 mg/dL Aspartate Amino Transferase (AST) 15 13-40 U/L Alanine Aminotransferase (ALT) 17 7-40 U/L Alkaline Phosphatase 138 H 46-116 U/L B-Type Natriuretic Peptide 21.69 0-100 pg/mL Total Protein 5.9 5.7-8.2 g/dL Albumin 4.0 3.2-4.8 g/dL Current Medications Medications (Trade) Dose Ordered Sig/Jania Route Start Time Stop Time Status Last Admin Ipratropium [place] (Atrovent Medneb) 0.5 mg ONCE ONCE NEB 02/25/25 18:30 02/25/25 18:31 DC 02/25/25 18:38 Albuterol (Ventolin Medneb) 5 mg ONCE ONCE NEB 02/25/25 18:30 02/25/25 18:31 DC 02/25/25 18:39 Methylprednisolone Sodium Succinate (Solu Medrol) 125 mg ONCE ONCE IV 02/25/25 18:30 02/25/25 18:31 DC 02/25/25 18:40 Acetaminophen (Ofirmev) 1,000 mg ONCE ONCE IV 02/25/25 18:30 02/25/25 18:31 DC 02/25/25 18:40 Ceftriaxone Sodium 50 ml @ 100 mls/hr ONCE ONCE IV 02/25/25 19:30 02/25/25 20:04 DC 02/25/25 20:35 X-Ray, Labs, Meds, VS Comment Imaging was reviewed by this provider, bilateral infiltrates forming. Pending radiology review Labs were reviewed by this provider, no abnormalities Vital signs reviewed by this provider, clinically stable Time of 1ST Reevaluation: 19:50 Reevaluation 1ST: Unchanged Patient Education/Counseling: Diagnosis, Treatment, Prognosis, Need For Follow Up (Here hold the PCP at next available appointment. Return emergency department if symptoms worsen.) Family Education/Counseling: No Family Present SEPSIS Sepsis Screen Date sepsis recognized/suspect: Feb 25, 2025 Time Sepsis recognized/suspect: 1811 Recent Procedure: No On Antibiotic Therapy: No Respiratory Rate >20: No Heart Rate >90: No Temp<36 C (96.8 F) or >38.3 C: No SBP <90 or MAP <65 mmHG: No New Acute Mental Status Change: No Is the patient on CPAP, BIPAP,: No Physician Orders Chest Xray 1 View (02/25/25 18:28) Vital Signs Date Time Temp Pulse Resp B/P (MAP) Pulse Ox O2 Delivery O2 Flow Rate FiO2 02/25/25 20:48 92 Nasal Cannula* 5 40 02/25/25 20:48 26 92 Nasal Cannula* 5 40 02/25/25 19:00 97.7 113 22 99/44 (62) 96 97.7 02/25/25 19:00 Nasal Cannula* 5 40 02/25/25 18:41 33 96 Nasal Cannula* 5 40 02/25/25 18:41 96 Nasal Cannula* 5 40 02/25/25 18:29 98.8 135 28 143/73 94 98.8 02/25/25 18:15 Nasal Cannula* 6 44 02/25/25 18:15 101.1 131 16 140/70 (93) 96 101.1 Laboratory Tests Test 02/25/25 18:58 White Blood Count 10.8 10^3/uL (4.4-10.8) Medications Medications Dose Ordered Sig/Jania Route Start Time Stop Time Status Last Admin Dose Admin Acetaminophen 1,000 mg ONCE ONCE IV 02/25/25 18:30 02/25/25 18:31 DC 02/25/25 18:40 Albuterol 2.5 mg STK-MED ONCE .ROUTE 02/25/25 20:45 02/25/25 20:44 DC 02/25/25 20:46 Albuterol 5 mg ONCE ONCE NEB 02/25/25 18:30 02/25/25 18:31 DC 02/25/25 18:39 Ceftriaxone Sodium 50 ml @ 100 mls/hr ONCE ONCE IV 02/25/25 19:30 02/25/25 20:04 DC 02/25/25 20:35 Ipratropium [place] 0.5 mg ONCE ONCE NEB 02/25/25 18:30 02/25/25 18:31 DC 02/25/25 18:38 Ipratropium [place] 0.5 mg STK-MED ONCE .ROUTE 02/25/25 20:45 02/25/25 20:44 DC 02/25/25 20:45 Methylprednisolone Sodium Succinate 125 mg ONCE ONCE IV 02/25/25 18:30 02/25/25 18:31 DC 02/25/25 18:40 Departure 1 Departure Time of Disposition: 21:36 Impression: Primary Impression: COPD exacerbation Additional Impression: Pneumonitis Disposition: HOME / SELF CARE / HOMELESS Condition: Fair e-Prescriptions Levalbuterol Tartrate (Xopenex Hfa) 45 Mcg/Act Aer 45 MCG IN TID PRN, #1 AER Prov: NINOSKA HA 02/25/25 Prednisone (Prednisone) 20 Mg Tab 40 MG PO DAILY for 5 Days, #10 MG Prov: NINOSKA HA 02/25/25 Amoxicillin & Pot Clavulanate (AUGMENTIN TABLET) 875 Mg Tb 875 MG PO BID for 10 Days, #20 TAB Prov: NINOSKA HA 02/25/25 Discharged With: Self Critical Care Note Critical Care Time?: No Stability Stability form required: No I personally scribed for NINOSKA HA ([email or web address]) on 02/25/25 at 19:24. Electronically submitted by Agustín Marx ([email or web address]). NINOSKA HA Feb 25, 2025 19:24
[2025-02-25 19:35] LABS: Alanine Aminotransferase 17 U/L (7-40); Albumin 4.0 g/dL (3.2-4.8); Anion Gap 12 (5-15); BUN/Creatinine Ratio 11.5 (10.0-20.0); Blood Urea Nitrogen 13 mg/dL (9-23); Calcium 8.9 mg/dL (8.7-10.4); Carbon Dioxide 25 mmol/L (20-31); Chloride 103 mmol/L (98-107); Potassium 3.7 mmol/L (3.5-5.1); Sodium 140 mmol/L (136-145); Total Protein 5.9 g/dL (5.7-8.2)
[2025-02-25 19:37] LABS: Alkaline Phosphatase 138 U/L (46-116); Bilirubin, Total 1.5 mg/dL (0.2-1.0); Glucose 129 mg/dL (74-106)
[2025-02-25] MEDS: IPRATROPIUM BROM 0.5 MG/2.5ML INH SOL ONE (20:45)
[2025-02-25] MEDS: ALBUTEROL SULF 2.5 MG/0.5ML(0.5%) NEB SOLN ONE (20:46)
[2025-02-25] MEDS ORDERED: LEVAAER IN (21:38)
[2025-02-25] MEDS ORDERED: AUG875T PO (21:38)
[2025-02-25] MEDS ORDERED: PRED20TA2 PO (21:38)
[2025-02-25] MEDS: MORPHINE SULFATE 4 MG/ML SYR/VIAL IV ONE (21:39)
[2025-02-25] MEDS: AZITHROMYCIN 500MG/250ML 250 ML IV ONE (22:41)
[2025-02-25] MEDS: SODIUM CHLORIDE 0.9% 1,000 ML IV ONE (23:41)
[2025-02-26] VITALS (13 sets, daily range): BP systolic 101–117; BP diastolic 46–64; PULSE 71–98; RESP 18–26; TEMP 97.6–98.7; O2SAT 93–100
--- NOTE | 2025-02-26 03:08 | ED.PDOC ---
Departure 1 Departure Time of Disposition: 21:36 Impression: Primary Impression: COPD exacerbation Additional Impressions: Pneumonitis Hypotension Disposition: ADMITTED INPATIENT Condition: Fair e-Prescriptions Levalbuterol Tartrate (Xopenex Hfa) 45 Mcg/Act Aer 45 MCG IN TID PRN, #1 AER Prov: NINOSKA HA 02/25/25 Prednisone (Prednisone) 20 Mg Tab 40 MG PO DAILY for 5 Days, #10 MG Prov: NINOSKA HA 02/25/25 Amoxicillin & Pot Clavulanate (AUGMENTIN TABLET) 875 Mg Tb 875 MG PO BID for 10 Days, #20 TAB Prov: NINOSKA HA 02/25/25 Discharged With: Self Comments Patient persistently hypotensive prior to discharge. Patient admitted to hospitalist service for further treatment, evaluation and monitoring. JOSE MILLARD MD Feb 26, 2025 03:08
[2025-02-26] MEDS ORDERED: MORPHINE SULFATE INJ 2 MG/ml SYRG IV PRN (04:15)
[2025-02-26] MEDS ORDERED: IPRATROPIUM BROM 0.5 MG/2.5ML INH SOL NEB PRN ×2 (04:15→15:45)
[2025-02-26] MEDS ORDERED: NITROGLYCERIN 0.4 MG SL TAB SL PRN (04:15)
[2025-02-26] MEDS ORDERED: ALBUTEROL SULF 2.5 MG/0.5ML(0.5%) NEB SOLN NEB PRN ×2 (04:15→15:45)
--- NOTE | 2025-02-26 04:53 | DVHHP2 ---
History of Present Illness Reason for Visit: Shortness for breath History of Present Illness 69-year-old male presents for evaluation of shortness for breath. Patient reports a one day history of worsening shortness for breath. He uses 4 L of nasal cannula oxygen. He developed a cough as well yesterday. Denies chest pain or palpitations. No fever or chills. Past Medical History CHF, hypertension, COPD Past Surgical History Cholecystectomy, appendectomy Family History Noncontributory Smoke: <1 pack per day ALCOHOL: occassional Drugs: None Review of Systems Review of Systems Review of systems are currently negative otherwise addressed in HPI. Allergies: Coded Allergies: NO KNOWN ALLERGIES (Unverified , 02/29/24) Medications Current Medications Medications Dose Ordered Sig/Jania Route Start Time Stop Time Status Last Admin Dose Admin Apixaban 5 mg BID PO 02/26/25 10:00 Atorvastatin Calcium 40 mg HS PO 02/26/25 22:00 Ceftriaxone Sodium 50 ml @ 100 mls/hr DAILY@09 IV 02/26/25 09:00 Azithromycin 250 ml @ 125 mls/hr Q24H IV 02/26/25 23:30 Albuterol 2.5 mg Q6HPRN PRN NEB 02/26/25 04:15 Ipratropium [place] 0.5 mg Q6HPRN PRN NEB 02/26/25 04:15 Ondansetron HCl 4 mg Q4HP PRN IV 02/26/25 04:15 Acetaminophen 650 mg Q6HP PRN PO 02/26/25 04:15 Nitroglycerin 0.4 mg Q5MINP PRN SL 02/26/25 04:15 Morphine Sulfate 2 mg Q30M PRN IV 02/26/25 04:15 Exam Vital Signs Vital Signs Date Time Temp Pulse Resp B/P (MAP) Pulse Ox O2 Delivery O2 Flow Rate FiO2 02/26/25 04:15 83 26 103/56 96 4.0 36 02/25/25 20:48 Nasal Cannula* 02/25/25 19:00 97.7 97.7 Exam Gen: 69-year-old male in mild distress Skin: Warm, dry, normal color and texture, no rash. HEENT: Normocephalic atraumatic, mucous membranes moist and pink. Neck: Cervical and supraclavicular nodes normal without enlargement, trachea is midline, thyroid gland is normal without masses. Pulmonary: Bilateral wheeze Cardiac: Regular rate and rhythm. No murmur Abdomen: Soft, nontender, nondistended, bowel sounds present all 4 quadrants, no guarding, no rigidity, no organomegaly. Extremities: No cyanosis, clubbing, no edema Neuro: Cranial nerves II through XII grossly intact, normal affect and speech, no focal motor deficits. Labs/Xrays ORDERING PHYSICIAN: NINOSKA HA PROCEDURE(s): CXR1 - CHEST XRAY 1 VIEW REASON: SOB ORDER NUMBER(s): [id number], ACCESSION NUMBER(s): [id number] CHEST RADIOGRAPH Indication: SOB Technique: Single frontal view of the chest was obtained Comparison: XY CHEST XRAY 1 VIEW on DOS: 07/27/24, XY CHEST PORTABLE on DOS: 05/23/24, XY CHEST PORTABLE on DOS: 05/22/24 FINDINGS: Lines and Tubes: None Lungs: Patchy airspace disease is noted in the perihilar area bilaterally in the right lower lobe left lower lobe and left upper lobe. Pleura: No effusion. No pneumothorax. Cardiomediastinal contours: Unremarkable Bones: No acute osseous abnormality. IMPRESSION: 1. Bilateral patchy infiltrates developed. ATED BY: JOSE ZELAYA Jr. DO Labs Test 02/25/25 19:55 02/25/25 18:58 Range/Units Troponin I High Sensitivity 20 </=54 ng/L White Blood Count 10.8 4.4-10.8 10^3/uL Red Blood Count 4.97 4.5-5.90 10^6/uL Hemoglobin 15.3 13.5-17.5 g/dL Hematocrit 44.9 41.0-53.0 % Mean Corpuscular Volume 90.3 80.0-100.0 fL Mean Corpuscular Hemoglobin 30.8 28.0-32.0 pg Mean Corpuscular Hemoglobin Concent 34.1 32.0-36.0 g/dL Red Cell Distribution Width 13.8 11.8-14.3 % Platelet Count 203 140-450 10^3/uL Mean Platelet Volume 8.3 6.9-10.8 fL Neutrophils (%) (Auto) 80.5 H 37.0-80.0 % Lymphocytes (%) (Auto) 5.4 L 10.0-50.0 % Monocytes (%) (Auto) 13.7 H 0.0-12.0 % Eosinophils (%) (Auto) 0.1 0.0-7.0 % Basophils (%) (Auto) 0.3 0.0-2.0 % Neutrophils # (Auto) 8.7 H 1.6-8.6 10 ^3/uL Lymphocytes # (Auto) 0.6 0.4-5.4 10 ^3/uL Monocytes # (Auto) 1.5 H 0-1.3 10 ^3/uL Eosinophils # (Auto) 0 0-0.8 10 ^3/uL Basophils # (Auto) 0 0-0.2 10 ^3/uL Nucleated Red Blood Cells 0.0 % Sodium Level 140 136-145 mmol/L Potassium Level 3.7 3.5-5.1 mmol/L Chloride Level 103 98-107 mmol/L Carbon Dioxide Level 25 20-31 mmol/L Anion Gap 12 5-15 Blood Urea Nitrogen 13 9-23 mg/dL Creatinine 1.13 0.700-1.30 mg/dL Glomerular Filtration Rate Calc 70 >90 mL/min BUN/Creatinine Ratio 11.5 10.0-20.0 Serum Glucose 129 H 74-106 mg/dL Calcium Level 8.9 8.7-10.4 mg/dL Total Bilirubin 1.5 H 0.2-1.0 mg/dL Aspartate Amino Transferase (AST) 15 13-40 U/L Alanine Aminotransferase (ALT) 17 7-40 U/L Alkaline Phosphatase 138 H 46-116 U/L B-Type Natriuretic Peptide 21.69 0-100 pg/mL Total Protein 5.9 5.7-8.2 g/dL Albumin 4.0 3.2-4.8 g/dL SEPSIS Sepsis Screen Date sepsis recognized/suspect: Feb 25, 2025 Time Sepsis recognized/suspect: 1899 Recent Procedure: No On Antibiotic Therapy: No Respiratory Rate >20: Yes Heart Rate >90: Yes Temp<36 C (96.8 F) or >38.3 C: No SBP <90 or MAP <65 mmHG: No New Acute Mental Status Change: No Is the patient on CPAP, BIPAP,: No Physician Orders Lactic Acid W/ Reflex Order (02/26/25 04:02) Apixaban (Eliquis) (02/26/25 10:00) Atorvastatin (Lipitor) (02/26/25 22:00) Ceftriaxone 1gm/50ml (Rocephin) (02/26/25 09:00) Azithromycin 500mg/ 250ml (Zithromax 50 (02/26/25 23:30) Albuterol Medneb (Ventolin Medneb) (02/26/25 04:15) Ipratropium Medneb (Atrovent Medneb) (02/26/25 04:15) Basic Metabolic Panel (02/27/25 04:00) Admit (02/26/25 04:02) Ondansetron Hcl (Zofran) (02/26/25 04:15) Complete Blood Count (02/27/25 04:00) Cardiac Diet-2gna,Lofat,Lochol (02/26/25 Breakfast) Condition: Fair (02/26/25 04:02) Acetaminophen Tablet (Tylenol Tablet) (02/26/25 04:15) Bedrest With Bathroom Privileg (02/26/25 04:02) Nitroglycerin Sublingual (Ntrostat Subli (02/26/25 04:15) Morphine Sulfate Injection (02/26/25 04:15) Stat Ekg For Chest Pain (02/26/25 04:02) Notify Md Of Changes From Base (02/26/25 04:02) Batch Plant Supervisor For 24 Hours (02/26/25 04:02) Emergency Dysrhythmia Protocol (02/26/25 04:02) Rhythm Strips Once Every Shift (02/26/25 04:02) Oxygen By Nasal Cannula (02/26/25 04:02) Vital Signs Date Time Temp Pulse Resp B/P (MAP) Pulse Ox O2 Delivery O2 Flow Rate FiO2 02/26/25 04:15 83 26 103/56 96 4.0 36 02/26/25 03:44 83 103/56 02/26/25 02:00 66 30 88/48 (61) 96 02/26/25 01:00 69 24 83/50 (61) 99 02/26/25 00:00 74 25 92/53 (66) 99 02/25/25 23:00 81 23 94/54 (67) 98 02/25/25 22:00 95 26 93/47 (62) 95 02/25/25 21:39 101 42 101/62 02/25/25 21:00 104 43 98/45 (62) 96 Laboratory Tests Test 02/25/25 18:58 White Blood Count 10.8 10^3/uL (4.4-10.8) Medications Medications Dose Ordered Sig/Jania Route Start Time Stop Time Status Last Admin Dose Admin Acetaminophen 1,000 mg ONCE ONCE IV 02/25/25 18:30 02/25/25 18:31 DC 02/25/25 18:40 1,000 MG Albuterol 2.5 mg STK-MED ONCE .ROUTE 02/25/25 20:45 02/25/25 20:44 DC 02/25/25 20:46 2.5 MG Albuterol 5 mg ONCE ONCE NEB 02/25/25 18:30 02/25/25 18:31 DC 02/25/25 18:39 5 MG Azithromycin 250 ml @ 125 mls/hr ONCE ONCE IV 02/25/25 19:30 02/25/25 21:29 DC 02/25/25 22:41 125 MLS/HR Ceftriaxone Sodium 50 ml @ 100 mls/hr ONCE ONCE IV 02/25/25 19:30 02/25/25 20:04 DC 02/25/25 20:35 100 MLS/HR Ipratropium [place] 0.5 mg ONCE ONCE NEB 02/25/25 18:30 02/25/25 18:31 DC 02/25/25 18:38 0.5 MG Ipratropium [place] 0.5 mg STK-MED ONCE .ROUTE 02/25/25 20:45 02/25/25 20:44 DC 02/25/25 20:45 0.5 MG Methylprednisolone Sodium Succinate 125 mg ONCE ONCE IV 02/25/25 18:30 02/25/25 18:31 DC 02/25/25 18:40 125 MG Morphine Sulfate 4 mg ONCE ONCE IV 02/25/25 20:45 02/25/25 21:12 DC 02/25/25 21:39 4 MG Sodium Chloride 1,000 ml @ 1,000 mls/hr Q1H ONCE IV 02/25/25 23:30 02/26/25 00:29 DC 02/25/25 23:41 1,000 MLS/HR Assessment/Plan Assessment/Plan Assessment Community-acquired pneumonia COPD Hypotension Plan Admit the patient to telemetry to the hospitalist Med nebs Rocephin/azithromycin Resume home medications Continue treatment per orders Plan discussed with: Patient My Orders Orders - MATHEW MARKS Procedure Category Date Status Time Lactic Acid W/ Reflex LAB 02/26/25 Logged Order 04:02 Apixaban (Eliquis) PHA 02/26/25 In Process 10:00 Atorvastatin (Lipitor) PHA 02/26/25 In Process 22:00 Ceftriaxone 1gm/50ml PHA 02/26/25 In Process (Rocephin) 09:00 Azithromycin 500mg/ PHA 02/26/25 In Process 250ml (Zithromax 50 23:30 Albuterol Medneb PHA 02/26/25 In Process (Ventolin Medneb) 04:15 Ipratropium Medneb PHA 02/26/25 In Process (Atrovent Medneb) 04:15 Basic Metabolic Panel LAB 02/27/25 Verified 04:00 Admit ADMIT 02/26/25 Transmitted 04:02 Ondansetron Hcl PHA 02/26/25 In Process (Zofran) 04:15 Complete Blood Count LAB 02/27/25 Verified 04:00 Cardiac DIET 02/26/25 Transmitted Diet-2gna,Lofat,Lochol Breakfast Condition: Fair ARIANA 02/26/25 In Process 04:02 Acetaminophen Tablet [facility] 02/26/25 In Process (Tylenol Tablet) 04:15 Bedrest With Bathroom [facility] 02/26/25 In Process Privileg 04:02 Nitroglycerin [facility] 02/26/25 In Process Sublingual (Ntrostat 04:15 Morphine Sulfate [facility] 02/26/25 In Process Injection 04:15 Stat Ekg For Chest [facility] 02/26/25 In Process Pain 04:02 Notify Md Of Changes [facility] 02/26/25 In Process From Base 04:02 Batch Plant Supervisor For [facility] 02/26/25 In Process 24 Hours 04:02 Emergency Dysrhythmia [facility] 02/26/25 In Process Protocol 04:02 Rhythm Strips Once [facility] 02/26/25 In Process Every Shift 04:02 Oxygen By Nasal RT 02/26/25 Transmitted Cannula 04:02 Date of Service: Feb 26, 2025 Billing Provider: MARKS,CAROL AGACNP Common Visit Codes: [id number] INP/OBS CARE (HIGH) MATHEW MARKS [facility] Feb 26, 2025 04:52
[2025-02-26 08:37] LABS: Urine Protein, UAD TRACE (Negative)
[2025-02-26] MEDS: APIXABAN 5 MG TAB PO SCH (09:07)
--- NOTE | 2025-02-26 10:58 | DVHPN2 ---
Reviewed: H&P Changes from previous H/P or p: No Changes General: Per HPI Objective Vitals Vital Signs Date Time Temp Pulse Resp B/P (MAP) Pulse Ox O2 Delivery O2 Flow Rate FiO2 02/26/25 10:00 78 17 92/46 (61) 94 02/26/25 09:38 Nasal Cannula* 4 36 02/26/25 08:00 97.6 97.6 Intake/Output Intake and Output 02/26/25 07:00 Intake Total 175 ml Balance 175 ml Intake IV Total 175 ml Exam GEN: Healthy appearing, well-developed, NAD. HEENT: NC/AT; MMM. CV: RRR, no m/r/g. LUNGS: Wheezing diffusely in all lung jamil ABD: Soft, NT/ND, NBS, no masses or organomegaly. EXT: skin Warm, well perfused. no rashes. No clubbing, cyanosis, or edema. NEURO: Ambulating with no limitations. No focal deficits. Medications Current Medications Medications Dose Ordered Sig/Jania Route Start Time Stop Time Status Last Admin Dose Admin Apixaban 5 mg BID PO 02/26/25 10:00 02/26/25 09:07 5 MG Atorvastatin Calcium 40 mg HS PO 02/26/25 22:00 Ceftriaxone Sodium 50 ml @ 100 mls/hr DAILY@09 IV 02/26/25 09:00 02/26/25 09:07 100 MLS/HR Azithromycin 250 ml @ 125 mls/hr Q24H IV 02/26/25 23:30 Albuterol 2.5 mg Q6HPRN PRN NEB 02/26/25 04:15 Ipratropium [place] 0.5 mg Q6HPRN PRN NEB 02/26/25 04:15 Ondansetron HCl 4 mg Q4HP PRN IV 02/26/25 04:15 Acetaminophen 650 mg Q6HP PRN PO 02/26/25 04:15 Nitroglycerin 0.4 mg Q5MINP PRN SL 02/26/25 04:15 Morphine Sulfate 2 mg Q30M PRN IV 02/26/25 04:15 Laboratory Results Laboratory Tests 02/25/25 18:58 Chemistry Test 02/25/25 18:58 Albumin 4.0 g/dL (3.2-4.8) Calcium Level 8.9 mg/dL (8.7-10.4) Total Protein 5.9 g/dL (5.7-8.2) Cardiac Markers Test 02/25/25 18:58 B-Type Natriuretic Peptide 21.69 pg/mL (0-100) LFT Test 02/25/25 18:58 Alanine Aminotransferase (ALT) 17 U/L (7-40) Alkaline Phosphatase 138 U/L (46-116) H Aspartate Amino Transferase (AST) 15 U/L (13-40) Total Bilirubin 1.5 mg/dL (0.2-1.0) H Urinalysis Test 02/26/25 08:05 Urine Color Yellow (Yellow) Urine Clarity Clear (Clear) Urine pH 5.5 (5.0-9.0) Urine Specific [place] 1.017 (1.001-1.035) Urine Protein Trace (Negative) H Urine Ketones Negative (Negative) Urine Blood Negative /uL (Negative) Urine Nitrite Negative (Negative) Urine Bilirubin Negative (Negative) Urine Urobilinogen 2 mg/dL (Negative) H Urine Leukocyte Esterase Negative /uL (Negative) Urine RBC 1 /hpf (0 - 3) Urine Microscopic WBC 5 /HPF (0-3) H Urine Squamous Epithelial Cells Few /hpf (<5) Urine Bacteria None seen /hpf (None Seen) Urine Glucose 3+ mg/dL (Normal) H Labs and/or images reviewed: Labs reviewed by me, Image(s) reviewed by me Assessment/Plan Assessment/Plan 69-year-old male presents for evaluation of shortness for breath. Patient reports a one day history of worsening shortness for breath. He uses 4 L of nasal cannula oxygen. He developed a cough as well yesterday. Denies chest pain or palpitations. No fever or chills. Past Medical History CHF, hypertension, COPD 02/26: Admitted for pneumonia. Continuing IV antibiotics azithromycin and Rocephin. Nebulizers prn for shortness of breath. Patient has having diffuse wheezing we will start scheduled nebs and start treatment as COPD as well. Assessment Community-acquired pneumonia, Gram-negative Gram-positive likely Acute COPD exacerbation, with pneumonitis Hypertension ?History of CHF Plan Admit the patient to telemetry to the hospitalist Med nebs Rocephin/azithromycin Resume home medications Continue treatment per orders Plan discussed with: Patient Date of Service: Feb 26, 2025 Billing Provider: MARYANN LO MD Common Visit Codes: [id number] INP/OBS CARE(HIGH) MARYANN LO MD Feb 26, 2025 10:58
[2025-02-26] MEDS: methylPREDNISolone SOD SUCC 40 MG/ML VL IV SCH (15:26)
[2025-02-26] MEDS: IPRATROPIUM BROM 0.5 MG/2.5ML INH SOL NEB SCH ×2 (15:46→18:50)
[2025-02-26] MEDS: ALBUTEROL SULF 2.5 MG/0.5ML(0.5%) NEB SOLN NEB SCH ×2 (15:46→18:50)
[2025-02-26] MEDS: ATORVASTATIN 20 MG TAB PO SCH (21:02)
[2025-02-26] MEDS: ACETAMINOPHEN 325 MG TAB PO PRN (21:02)
[2025-02-26] MEDS: guaiFENesin-DM 100/10mg/5ml SYR PO PRN (22:45)
[2025-02-26] MEDS: AZITHROMYCIN 500MG/250ML 250 ML IV SCH (23:16)
[2025-02-27] VITALS (19 sets, daily range): BP systolic 98–132; BP diastolic 54–66; PULSE 56–82; RESP 16–20; TEMP 97.8–98.1; O2SAT 68–100
[2025-02-27 06:40] LABS: Hematocrit 42.4 % (41.0-53.0); Hemoglobin 14.6 g/dL (13.5-17.5); Mean Corpuscular Hemoglobin 31.3 pg (28.0-32.0); Mean Corpuscular Volume 90.5 fL (80.0-100.0); Nucleated Red Blood Cells % 0.0 %
[2025-02-27 06:55] LABS: Chloride 107 mmol/L (98-107); Potassium 4.3 mmol/L (3.5-5.1); Sodium 142 mmol/L (136-145)
[2025-02-27 06:56] LABS: Anion Gap 9 (5-15); Carbon Dioxide 26 mmol/L (20-31)
[2025-02-27 06:57] LABS: Calcium 9.2 mg/dL (8.7-10.4)
[2025-02-27 07:01] LABS: BUN/Creatinine Ratio 25.5 (10.0-20.0)
[2025-02-27 07:02] LABS: Blood Urea Nitrogen 26 mg/dL (9-23); Glucose 137 mg/dL (74-106)
--- NOTE | 2025-02-27 10:03 | DVHPN2 ---
Reviewed: H&P Changes from previous H/P or p: No Changes General: Per HPI Objective Vitals Vital Signs Date Time Temp Pulse Resp B/P (MAP) Pulse Ox O2 Delivery O2 Flow Rate FiO2 02/27/25 09:58 79 18 100 02/27/25 07:02 Nasal Cannula* 2 28 02/27/25 05:00 98.1 104/65 (78) 98.1 Intake/Output Intake and Output 02/27/25 07:00 Intake Total 780 ml Output Total 200 ml Balance 580 ml Intake Oral 480 ml IV Total 300 ml Output Urine Total 200 ml # Voids 4 Exam GEN: Healthy appearing, well-developed, NAD. HEENT: NC/AT; MMM. CV: RRR, no m/r/g. LUNGS: Wheezing diffusely in all lung jamil ABD: Soft, NT/ND, NBS, no masses or organomegaly. EXT: skin Warm, well perfused. no rashes. No clubbing, cyanosis, or edema. NEURO: Ambulating with no limitations. No focal deficits. Medications Current Medications Medications Dose Ordered Sig/Jania Route Start Time Stop Time Status Last Admin Dose Admin Apixaban 5 mg BID PO 02/26/25 10:00 02/26/25 21:02 5 MG Atorvastatin Calcium 40 mg HS PO 02/26/25 22:00 02/26/25 21:02 40 MG Ceftriaxone Sodium 50 ml @ 100 mls/hr DAILY@09 IV 02/26/25 09:00 02/26/25 09:07 100 MLS/HR Azithromycin 250 ml @ 125 mls/hr Q24H IV 02/26/25 23:30 02/26/25 23:16 125 MLS/HR Ondansetron HCl 4 mg Q4HP PRN IV 02/26/25 04:15 Acetaminophen 650 mg Q6HP PRN PO 02/26/25 04:15 02/26/25 21:02 650 MG Nitroglycerin 0.4 mg Q5MINP PRN SL 02/26/25 04:15 Morphine Sulfate 2 mg Q30M PRN IV 02/26/25 04:15 Methylprednisolone Sodium Succinate 40 mg BID IV 02/26/25 13:15 02/26/25 21:02 40 MG Albuterol 2.5 mg Q4HPRN PRN NEB 02/26/25 15:45 Ipratropium [place] 0.5 mg Q4HPRN PRN NEB 02/26/25 15:45 Albuterol 2.5 mg Q4H NEB 02/26/25 18:00 02/27/25 09:52 2.5 MG Ipratropium [place] 0.5 mg Q4H NEB 02/26/25 18:00 02/27/25 09:52 0.5 MG Guaifenesin/ Dextromethorphan 10 ml Q6HPRN PRN PO 02/26/25 21:15 02/26/25 22:45 10 ML Laboratory Results Laboratory Tests 02/27/25 05:05 Chemistry Test 02/27/25 05:05 Calcium Level 9.2 mg/dL (8.7-10.4) Urinalysis Test 02/26/25 08:05 Urine Color Yellow (Yellow) Urine Clarity Clear (Clear) Urine pH 5.5 (5.0-9.0) Urine Specific [place] 1.017 (1.001-1.035) Urine Protein Trace (Negative) H Urine Ketones Negative (Negative) Urine Blood Negative /uL (Negative) Urine Nitrite Negative (Negative) Urine Bilirubin Negative (Negative) Urine Urobilinogen 2 mg/dL (Negative) H Urine Leukocyte Esterase Negative /uL (Negative) Urine RBC 1 /hpf (0 - 3) Urine Microscopic WBC 5 /HPF (0-3) H Urine Squamous Epithelial Cells Few /hpf (<5) Urine Bacteria None seen /hpf (None Seen) Urine Glucose 3+ mg/dL (Normal) H Labs and/or images reviewed: Labs reviewed by me, Image(s) reviewed by me Assessment/Plan Assessment/Plan 69-year-old male presents for evaluation of shortness for breath. Patient reports a one day history of worsening shortness for breath. He uses 4 L of nasal cannula oxygen. He developed a cough as well yesterday. Denies chest pain or palpitations. No fever or chills. Past Medical History CHF, hypertension, COPD 02/26: Admitted for pneumonia. Continuing IV antibiotics azithromycin and Rocephin. Nebulizers prn for shortness of breath. Patient has having diffuse wheezing we will start scheduled nebs and start treatment as COPD as well. 02/27: Patient complaining of falls smell in urine, change in urine color. We will repeat UA. Patient is already on ceftriaxone. Continue antibiotics, we will decrease scheduled nebs to Q 6 H. otherwise continue present management. Patient appears to still be in COPD exacerbation. Assessment Community-acquired pneumonia, Gram-negative Gram-positive likely Acute COPD exacerbation, with pneumonitis Hypertension ?History of CHF Plan Admit the patient to telemetry to the hospitalist Med nebs Rocephin/azithromycin Resume home medications Continue treatment per orders Plan discussed with: Patient My Orders Orders - MARYANN LO MD Procedure Category Date Status Time Methylprednisolone PHA 02/26/25 In Process Sod Succ (Solu Medrol 13:15 Albuterol Medneb PHA 02/26/25 In Process (Ventolin Medneb) 15:45 Ipratropium Medneb PHA 02/26/25 In Process (Atrovent Medneb) 15:45 Albuterol Medneb PHA 02/26/25 In Process (Ventolin Medneb) 18:00 Ipratropium Medneb PHA 02/26/25 In Process (Atrovent Medneb) 18:00 Date of Service: Feb 27, 2025 Billing Provider: MARYANN LO MD Common Visit Codes: [id number] INP/OBS CARE(HIGH) MARYANN LO MD Feb 27, 2025 10:03
[2025-02-27] MEDS: BACLOFEN 10 MG TAB PO SCH (13:07)
[2025-02-27 18:09] LABS: Urine Protein, UAD Negative (Negative)
[2025-02-27] MEDS: ALBUTEROL SULF 2.5 MG/0.5ML(0.5%) NEB SOLN NEB SCH (18:33)
[2025-02-27] MEDS: IPRATROPIUM BROM 0.5 MG/2.5ML INH SOL NEB SCH (18:33)
[2025-02-28] VITALS (17 sets, daily range): BP systolic 111–133; BP diastolic 63–77; PULSE 58–75; RESP 14–20; TEMP 97.3–98; O2SAT 93–100
[2025-02-28 06:49] LABS: Albumin 3.5 g/dL (3.2-4.8); Anion Gap 8 (5-15); BUN/Creatinine Ratio 20.0 (10.0-20.0); Blood Urea Nitrogen 18 mg/dL (9-23); Calcium 8.8 mg/dL (8.7-10.4); Carbon Dioxide 26 mmol/L (20-31); Potassium 5.0 mmol/L (3.5-5.1); Sodium 141 mmol/L (136-145)
[2025-02-28 06:50] LABS: Alanine Aminotransferase 57 U/L (7-40); Alkaline Phosphatase 125 U/L (46-116); Bilirubin, Total 0.3 mg/dL (0.2-1.0); Chloride 107 mmol/L (98-107); Glucose 146 mg/dL (74-106); Total Protein 5.3 g/dL (5.7-8.2)
[2025-03-01] VITALS (17 sets, daily range): BP systolic 112–135; BP diastolic 63–81; PULSE 50–89; RESP 14–20; TEMP 97–98.1; O2SAT 93–99
--- NOTE | 2025-03-01 23:44 | DVHPN2 ---
Reviewed: Care Plan, H&P Changes from previous H/P or p: No Changes General: Per HPI Objective Vitals Vital Signs Date Time Temp Pulse Resp B/P (MAP) Pulse Ox O2 Delivery O2 Flow Rate FiO2 03/01/25 21:00 97.0 60 18 121/80 (94) 96 97.0 03/01/25 20:00 Nasal Cannula* 4 36 Intake/Output Intake and Output 03/01/25 07:00 Intake Total 1150 ml Output Total 900 ml Balance 250 ml Intake Oral 1100 ml IV Total 50 ml Output Urine Total 900 ml General Appearance: Alert, Oriented X3, Cooperative Cardiovascular: Regular rate, Normal S1, Normal S2 Abdomen: Normal bowel sounds Medications Current Medications Medications Dose Ordered Sig/Jania Route Start Time Stop Time Status Last Admin Dose Admin Apixaban 5 mg BID PO 02/26/25 10:00 03/01/25 22:27 5 MG Atorvastatin Calcium 40 mg HS PO 02/26/25 22:00 03/01/25 22:27 40 MG Ceftriaxone Sodium 50 ml @ 100 mls/hr DAILY@09 IV 02/26/25 09:00 03/01/25 09:32 100 MLS/HR Azithromycin 250 ml @ 125 mls/hr Q24H IV 02/26/25 23:30 03/01/25 22:28 125 MLS/HR Ondansetron HCl 4 mg Q4HP PRN IV 02/26/25 04:15 Acetaminophen 650 mg Q6HP PRN PO 02/26/25 04:15 02/26/25 21:02 650 MG Nitroglycerin 0.4 mg Q5MINP PRN SL 02/26/25 04:15 Morphine Sulfate 2 mg Q30M PRN IV 02/26/25 04:15 Methylprednisolone Sodium Succinate 40 mg BID IV 02/26/25 13:15 03/01/25 22:26 40 MG Albuterol 2.5 mg Q4HPRN PRN NEB 02/26/25 15:45 Ipratropium [place] 0.5 mg Q4HPRN PRN NEB 02/26/25 15:45 Guaifenesin/ Dextromethorphan 10 ml Q6HPRN PRN PO 02/26/25 21:15 02/28/25 10:14 10 ML Albuterol 2.5 mg Q6HR NEB 02/27/25 18:00 03/01/25 18:38 2.5 MG Ipratropium [place] 0.5 mg Q6HR NEB 02/27/25 18:00 03/01/25 18:38 0.5 MG Baclofen 10 mg BID PO 02/27/25 10:00 03/01/25 22:27 10 MG Laboratory Results Laboratory Tests 02/27/25 05:05 02/28/25 05:35 Urinalysis Test 02/27/25 17:50 Urine Color Light-yellow (Yellow) Urine Clarity Clear (Clear) Urine pH 6.0 (5.0-9.0) Urine Specific [place] 1.018 (1.001-1.035) Urine Protein Negative (Negative) Urine Ketones Negative (Negative) Urine Blood Negative /uL (Negative) Urine Nitrite Negative (Negative) Urine Bilirubin Negative (Negative) Urine Urobilinogen Normal mg/dL (Negative) Urine Leukocyte Esterase Negative /uL (Negative) Urine RBC <1 /hpf (0 - 3) Urine Microscopic WBC 2 /HPF (0-3) Urine Squamous Epithelial Cells None seen /hpf (<5) Urine Bacteria None seen /hpf (None Seen) Urine Glucose Normal mg/dL (Normal) Labs and/or images reviewed: Labs reviewed by me, Image(s) reviewed by me Assessment/Plan Assessment/Plan 69-year-old male presents for evaluation of shortness for breath. Patient reports a one day history of worsening shortness for breath. He uses 4 L of nasal cannula oxygen. He developed a cough as well yesterday. Denies chest pain or palpitations. No fever or chills. Past Medical History CHF, hypertension, COPD 02/26: Admitted for pneumonia. Continuing IV antibiotics azithromycin and Rocephin. Nebulizers prn for shortness of breath. Patient has having diffuse wheezing we will start scheduled nebs and start treatment as COPD as well. 02/27: Patient complaining of falls smell in urine, change in urine color. We will repeat UA. Patient is already on ceftriaxone. Continue antibiotics, we will decrease scheduled nebs to Q 6 H. otherwise continue present management. Patient appears to still be in COPD exacerbation. 02/28/2025: pt remains on O2 and IV Abx for PNA tx. discussed with pt regarding current tx. Assessment Community-acquired pneumonia, Gram-negative Gram-positive likely Acute COPD exacerbation, with pneumonitis Hypertension ?History of CHF initial plan Admit the patient to telemetry to the hospitalist Bhupinder khan Rocephin/azithromycin Resume home medications Continue treatment per orders Plan discussed with: Patient My Orders Orders - DARLYN ALEJANDRO DO Procedure Category Date Status Time * Wound Consult CONS 03/01/25 Transmitted Date of Service: Feb 28, 2025 Billing Provider: DARLYN ALEJANDRO DO Common Visit Codes: [id number] INP/OBS CARE(HIGH) DARLYN ALEJANDRO DO Mar 01, 2025 23:44
--- NOTE | 2025-03-01 23:52 | DVHPN2 ---
Reviewed: Care Plan, H&P, Labs, Medications Changes from previous H/P or p: No Changes General: Per HPI Objective Vitals Vital Signs Date Time Temp Pulse Resp B/P (MAP) Pulse Ox O2 Delivery O2 Flow Rate FiO2 03/01/25 21:00 97.0 60 18 121/80 (94) 96 97.0 03/01/25 20:00 Nasal Cannula* 4 36 Intake/Output Intake and Output 03/01/25 07:00 Intake Total 1150 ml Output Total 900 ml Balance 250 ml Intake Oral 1100 ml IV Total 50 ml Output Urine Total 900 ml General Appearance: Alert, Oriented X3, Cooperative Cardiovascular: Regular rate, Normal S1, Normal S2 Abdomen: Normal bowel sounds Medications Current Medications Medications Dose Ordered Sig/Jania Route Start Time Stop Time Status Last Admin Dose Admin Apixaban 5 mg BID PO 02/26/25 10:00 03/01/25 22:27 5 MG Atorvastatin Calcium 40 mg HS PO 02/26/25 22:00 03/01/25 22:27 40 MG Ceftriaxone Sodium 50 ml @ 100 mls/hr DAILY@09 IV 02/26/25 09:00 03/01/25 09:32 100 MLS/HR Azithromycin 250 ml @ 125 mls/hr Q24H IV 02/26/25 23:30 03/01/25 22:28 125 MLS/HR Ondansetron HCl 4 mg Q4HP PRN IV 02/26/25 04:15 Acetaminophen 650 mg Q6HP PRN PO 02/26/25 04:15 02/26/25 21:02 650 MG Nitroglycerin 0.4 mg Q5MINP PRN SL 02/26/25 04:15 Morphine Sulfate 2 mg Q30M PRN IV 02/26/25 04:15 Methylprednisolone Sodium Succinate 40 mg BID IV 02/26/25 13:15 03/01/25 22:26 40 MG Albuterol 2.5 mg Q4HPRN PRN NEB 02/26/25 15:45 Ipratropium [place] 0.5 mg Q4HPRN PRN NEB 02/26/25 15:45 Guaifenesin/ Dextromethorphan 10 ml Q6HPRN PRN PO 02/26/25 21:15 02/28/25 10:14 10 ML Albuterol 2.5 mg Q6HR NEB 02/27/25 18:00 03/01/25 18:38 2.5 MG Ipratropium [place] 0.5 mg Q6HR NEB 02/27/25 18:00 03/01/25 18:38 0.5 MG Baclofen 10 mg BID PO 02/27/25 10:00 03/01/25 22:27 10 MG Laboratory Results Laboratory Tests 02/27/25 05:05 02/28/25 05:35 Urinalysis Test 02/27/25 17:50 Urine Color Light-yellow (Yellow) Urine Clarity Clear (Clear) Urine pH 6.0 (5.0-9.0) Urine Specific [place] 1.018 (1.001-1.035) Urine Protein Negative (Negative) Urine Ketones Negative (Negative) Urine Blood Negative /uL (Negative) Urine Nitrite Negative (Negative) Urine Bilirubin Negative (Negative) Urine Urobilinogen Normal mg/dL (Negative) Urine Leukocyte Esterase Negative /uL (Negative) Urine RBC <1 /hpf (0 - 3) Urine Microscopic WBC 2 /HPF (0-3) Urine Squamous Epithelial Cells None seen /hpf (<5) Urine Bacteria None seen /hpf (None Seen) Urine Glucose Normal mg/dL (Normal) Labs and/or images reviewed: Labs reviewed by me, Image(s) reviewed by me Assessment/Plan Assessment/Plan 69-year-old male presents for evaluation of shortness for breath. Patient reports a one day history of worsening shortness for breath. He uses 4 L of nasal cannula oxygen. He developed a cough as well yesterday. Denies chest pain or palpitations. No fever or chills. Past Medical History CHF, hypertension, COPD 02/26: Admitted for pneumonia. Continuing IV antibiotics azithromycin and Rocephin. Nebulizers prn for shortness of breath. Patient has having diffuse wheezing we will start scheduled nebs and start treatment as COPD as well. 02/27: Patient complaining of falls smell in urine, change in urine color. We will repeat UA. Patient is already on ceftriaxone. Continue antibiotics, we will decrease scheduled nebs to Q 6 H. otherwise continue present management. Patient appears to still be in COPD exacerbation. 02/28/2025: pt remains on O2 and IV Abx for PNA tx. discussed with pt regarding current tx. 03/01/2025: improving significantly possible d/c in 24 hours with further oral Abx Assessment Community-acquired pneumonia, Gram-negative Gram-positive likely Acute COPD exacerbation, with pneumonitis Hypertension ?History of CHF initial plan Admit the patient to telemetry to the hospitalist Bhupinder khan Rocephin/azithromycin Resume home medications Continue treatment per orders Plan discussed with: Patient My Orders Orders - DARLYN ALEJANDRO DO Procedure Category Date Status Time * Wound Consult CONS 03/01/25 Transmitted Date of Service: Mar 01, 2025 Billing Provider: DARLYN ALEJANDRO DO Common Visit Codes: [id number] INP/OBS CARE(HIGH) DARLYN ALEJANDRO DO Mar 01, 2025 23:52
[2025-03-02] VITALS (16 sets, daily range): BP systolic 107–137; BP diastolic 56–86; PULSE 52–86; RESP 14–20; TEMP 97.2–98; O2SAT 92–100
[2025-03-02] MEDS ORDERED: AZIT-185 PO (00:44)
--- NOTE | 2025-03-02 09:41 | DVHPN2 ---
Reviewed: Care Plan, H&P, Labs, Medications Changes from previous H/P or p: No Changes General: Per HPI Objective Vitals Vital Signs Date Time Temp Pulse Resp B/P (MAP) Pulse Ox O2 Delivery O2 Flow Rate FiO2 03/02/25 06:34 61 18 95 03/02/25 02:15 Nasal Cannula 2.0 03/02/25 02:15 28 03/02/25 01:00 97.2 112/71 (85) 97.2 Intake/Output Intake and Output 03/02/25 07:00 Intake Total 1420 ml Output Total 1204 ml Balance 216 ml Intake Oral 1120 ml IV Total 300 ml Output Urine Total 1204 ml Exam GEN: Healthy appearing, well-developed, NAD. HEENT: NC/AT; MMM. CV: RRR, no m/r/g. LUNGS: Wheezing diffusely in all lung jamil ABD: Soft, NT/ND, NBS, no masses or organomegaly. EXT: skin Warm, well perfused. no rashes. No clubbing, cyanosis, or edema. NEURO: Ambulating with no limitations. No focal deficits. General Appearance: Alert, Oriented X3, Cooperative Cardiovascular: Regular rate, Normal S1, Normal S2 Abdomen: Normal bowel sounds Medications Current Medications Medications Dose Ordered Sig/Jania Route Start Time Stop Time Status Last Admin Dose Admin Apixaban 5 mg BID PO 02/26/25 10:00 03/02/25 08:53 5 MG Atorvastatin Calcium 40 mg HS PO 02/26/25 22:00 03/01/25 22:27 40 MG Ceftriaxone Sodium 50 ml @ 100 mls/hr DAILY@09 IV 02/26/25 09:00 03/02/25 08:53 100 MLS/HR Azithromycin 250 ml @ 125 mls/hr Q24H IV 02/26/25 23:30 03/01/25 22:28 125 MLS/HR Ondansetron HCl 4 mg Q4HP PRN IV 02/26/25 04:15 Acetaminophen 650 mg Q6HP PRN PO 02/26/25 04:15 02/26/25 21:02 650 MG Nitroglycerin 0.4 mg Q5MINP PRN SL 02/26/25 04:15 Morphine Sulfate 2 mg Q30M PRN IV 02/26/25 04:15 Methylprednisolone Sodium Succinate 40 mg BID IV 02/26/25 13:15 03/02/25 08:53 40 MG Albuterol 2.5 mg Q4HPRN PRN NEB 02/26/25 15:45 Ipratropium [place] 0.5 mg Q4HPRN PRN NEB 02/26/25 15:45 Guaifenesin/ Dextromethorphan 10 ml Q6HPRN PRN PO 02/26/25 21:15 02/28/25 10:14 10 ML Albuterol 2.5 mg Q6HR NEB 02/27/25 18:00 03/02/25 06:34 2.5 MG Ipratropium [place] 0.5 mg Q6HR NEB 02/27/25 18:00 03/02/25 06:34 0.5 MG Baclofen 10 mg BID PO 02/27/25 10:00 03/02/25 08:53 10 MG Laboratory Results Laboratory Tests 02/27/25 05:05 02/28/25 05:35 Urinalysis Test 02/27/25 17:50 Urine Color Light-yellow (Yellow) Urine Clarity Clear (Clear) Urine pH 6.0 (5.0-9.0) Urine Specific [place] 1.018 (1.001-1.035) Urine Protein Negative (Negative) Urine Ketones Negative (Negative) Urine Blood Negative /uL (Negative) Urine Nitrite Negative (Negative) Urine Bilirubin Negative (Negative) Urine Urobilinogen Normal mg/dL (Negative) Urine Leukocyte Esterase Negative /uL (Negative) Urine RBC <1 /hpf (0 - 3) Urine Microscopic WBC 2 /HPF (0-3) Urine Squamous Epithelial Cells None seen /hpf (<5) Urine Bacteria None seen /hpf (None Seen) Urine Glucose Normal mg/dL (Normal) Labs and/or images reviewed: Labs reviewed by me, Image(s) reviewed by me Assessment/Plan Assessment/Plan 69-year-old male presents for evaluation of shortness for breath. Patient reports a one day history of worsening shortness for breath. He uses 4 L of nasal cannula oxygen. He developed a cough as well yesterday. Denies chest pain or palpitations. No fever or chills. Past Medical History CHF, hypertension, COPD 02/26: Admitted for pneumonia. Continuing IV antibiotics azithromycin and Rocephin. Nebulizers prn for shortness of breath. Patient has having diffuse wheezing we will start scheduled nebs and start treatment as COPD as well. 02/27: Patient complaining of falls smell in urine, change in urine color. We will repeat UA. Patient is already on ceftriaxone. Continue antibiotics, we will decrease scheduled nebs to Q 6 H. otherwise continue present management. Patient appears to still be in COPD exacerbation. 03/02: Over weekend patient was improving and was planned for discharge yesterday. Prior to discharge patient got significant relapse of exacerbation. We will increase Solu-Medrol to 40 t.i.d., continue q.6 scheduled nebs, add Pepcid 20 IV b.i.d. as patient went into reflux worsening exacerbation. We will start Mucomyst q.8 and an induced sputum trial. - hold discharge Assessment: Community-acquired pneumonia, Gram-negative Gram-positive likely Acute COPD exacerbation, with pneumonitis Hypertension ?History of CHF Plan: Med nebs Rocephin/azithromycin Resume home medications Continue treatment per orders Tele Full code Plan discussed with: Patient Date of Service: Mar 02, 2025 Billing Provider: MARYANN LO MD Common Visit Codes: [id number] INP/OBS CARE(HIGH) MARYANN LO MD Mar 02, 2025 09:41
[2025-03-02] MEDS: ACETYLCYSTEINE ORAL for CIN 20%(200MG/ML) 4ML PO SCH (10:00)
[2025-03-02] MEDS: FAMOTIDINE (10MG/ML) 2ML VL IV SCH (13:07)
[2025-03-02] MEDS: ONDANSETRON HCL 4 MG/2 ML VIAL IV PRN (23:38)
[2025-03-03] VITALS (11 sets, daily range): BP systolic 108–112; BP diastolic 63–67; PULSE 56–89; RESP 16–18; TEMP 97.6–98.2; O2SAT 95–100
--- NOTE | 2025-03-03 07:21 | ECG ---
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
--- NOTE | 2025-03-03 10:15 | DVHDS2 ---
Discharge Summary Date of Admission Feb 26, 2025 at 04:02 Date of Discharge: Mar 02, 2025 Labs/Diagnostic Data: Laboratory Results Test 02/28/25 05:35 02/27/25 17:50 02/27/25 05:05 02/26/25 06:00 Sodium Level 141 mmol/L (136-145) Potassium Level 5.0 mmol/L (3.5-5.1) Chloride Level 107 mmol/L (98-107) Carbon Dioxide Level 26 mmol/L (20-31) Anion Gap 8 (5-15) Blood Urea Nitrogen 18 mg/dL (9-23) Creatinine 0.90 mg/dL (0.700-1.30) Glomerular Filtration Rate Calc 92 mL/min (>90) BUN/Creatinine Ratio 20.0 (10.0-20.0) Serum Glucose 146 mg/dL (74-106) Calcium Level 8.8 mg/dL (8.7-10.4) Total Bilirubin 0.3 mg/dL (0.2-1.0) Aspartate Amino Transferase (AST) 33 U/L (13-40) Alanine Aminotransferase (ALT) 57 U/L (7-40) Alkaline Phosphatase 125 U/L (46-116) Total Protein 5.3 g/dL (5.7-8.2) Albumin 3.5 g/dL (3.2-4.8) Urine Color Light-yellow (Yellow) Urine Clarity Clear (Clear) Urine pH 6.0 (5.0-9.0) Urine Specific [place] 1.018 (1.001-1.035) Urine Protein Negative (Negative) Urine Ketones Negative (Negative) Urine Blood Negative /uL (Negative) Urine Nitrite Negative (Negative) Urine Bilirubin Negative (Negative) Urine Urobilinogen Normal mg/dL (Negative) Urine Leukocyte Esterase Negative /uL (Negative) Urine RBC <1 /hpf (0 - 3) Urine Microscopic WBC 2 /HPF (0-3) Urine Squamous Epithelial Cells None seen /hpf (<5) Urine Bacteria None seen /hpf (None Seen) Urine Glucose Normal mg/dL (Normal) White Blood Count 12.3 10^3/uL (4.4-10.8) Red Blood Count 4.68 10^6/uL (4.5-5.90) Hemoglobin 14.6 g/dL (13.5-17.5) Hematocrit 42.4 % (41.0-53.0) Mean Corpuscular Volume 90.5 fL (80.0-100.0) Mean Corpuscular Hemoglobin 31.3 pg (28.0-32.0) Mean Corpuscular Hemoglobin Concent 34.6 g/dL (32.0-36.0) Red Cell Distribution Width 13.7 % (11.8-14.3) Platelet Count 240 10^3/uL (140-450) Mean Platelet Volume 8.7 fL (6.9-10.8) Neutrophils (%) (Auto) 91.8 % (37.0-80.0) Lymphocytes (%) (Auto) 3.9 % (10.0-50.0) Monocytes (%) (Auto) 4.2 % (0.0-12.0) Eosinophils (%) (Auto) 0.0 % (0.0-7.0) Basophils (%) (Auto) 0.1 % (0.0-2.0) Neutrophils # (Auto) 11.3 10 ^3/uL (1.6-8.6) Lymphocytes # (Auto) 0.5 10 ^3/uL (0.4-5.4) Monocytes # (Auto) 0.5 10 ^3/uL (0-1.3) Eosinophils # (Auto) 0 10 ^3/uL (0-0.8) Basophils # (Auto) 0 10 ^3/uL (0-0.2) Nucleated Red Blood Cells 0.0 % Lactic Acid Level 1.5 mmol/L (0.4-2.0) Test 02/25/25 19:55 02/25/25 18:58 Troponin I High Sensitivity 20 ng/L (</=54) B-Type Natriuretic Peptide 21.69 pg/mL (0-100) Other Laboratory Tests 02/28/25 05:35 02/27/25 05:05 Brief Hx & Hospital Course: 69-year-old male presents for evaluation of shortness for breath. Patient reports a one day history of worsening shortness for breath. He uses 4 L of nasal cannula oxygen. He developed a cough as well yesterday. Denies chest pain or palpitations. No fever or chills. Past Medical History CHF, hypertension, COPD 02/26: Admitted for pneumonia. Continuing IV antibiotics azithromycin and Rocephin. Nebulizers prn for shortness of breath. Patient has having diffuse wheezing we will start scheduled nebs and start treatment as COPD as well. 02/27: Patient complaining of falls smell in urine, change in urine color. We will repeat UA. Patient is already on ceftriaxone. Continue antibiotics, we will decrease scheduled nebs to Q 6 H. otherwise continue present management. Patient appears to still be in COPD exacerbation. 03/02: Over weekend patient was improving and was planned for discharge yesterday. Prior to discharge patient got significant relapse of exacerbation. We will increase Solu-Medrol to 40 t.i.d., continue q.6 scheduled nebs, add Pepcid 20 IV b.i.d. as patient went into reflux worsening exacerbation. We will start Mucomyst q.8 and an induced sputum trial. - hold discharge 03/03: Patient is Nicole longer wheezing, GERD acid reflux pains have improved. Patient will need 2 more days of Mucomyst at home. He wants refill for albuterol nebulizer vials at home. We will continue patient on a long taper for steroids. We will continue azithromycin 500 mg daily for 5 days. Continue antacids Pepcid 20 mg twice daily for 1 month. Okay to continue other home medications. 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 DC clinic 1 week. Diagnosis: Community-acquired pneumonia, Gram-negative Gram-positive likely Acute COPD exacerbation, with pneumonitis GERD, acute on chronic, in exacerbation Hypertension ?History of CHF Plan: - Continue Mucomyst twice daily for 2 days - Continue Azithromycin 500 mg daily for 5 days - Continue Prednisone taper. 40 mg daily for 5 days, 20 mg daily for 5 days, 10 mg daily for 6 days - Take Pepcid 20 mg twice daily for 1 month - Okay to continue other home medications. 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 - DC clinic 1 week. Condition at Discharge: Guarded Final Diagnosis/Problems List Community-acquired pneumonia, Gram-negative Gram-positive likely Acute COPD exacerbation, with pneumonitis GERD, acute on chronic, in exacerbation Hypertension ?History of CHF Discharge Disposition: Home Discharge Instruct/Medications Diet: Cardiac 2g Na,low cholest Activity: No Restrictions, As Tolerated Scheduled Albuterol Sulfate (Ventolin), 2.5 MG NEB Q4HWA Amoxicillin & Pot Clavulanate (Augmentin Tablet), 875 MG PO BID Apixaban Base (Eliquis), 5 MG PO BID Aripiprazole (Aripiprazole), 1 TAB PO DAILY, (Reported) Ascorbic Acid (Gnp Vitamin C W/Ellen Hips), 1 TAB PO BID, (Reported) Atorvastatin Calcium (Atorvastatin Calcium), 40 MG PO DAILY, (Reported) Azithromycin (Zithromax Tablet), 250 MG PO DAILY Doxycycline Monohydrate (Doxycycline Monohydrate), 1 CAP PO BID Furosemide (Furosemide), 1 TAB PO DAILY, (Reported) Gabapentin (Gabapentin), 1 CAP PO TID, (Reported) Ipratropium [place] (Ipratropium [place]), 0.5 % HHN BID Methylprednisolone (Medrol Dosepak), 4 MG PO UD Methylprednisolone (Medrol Dosepak), 4 MG PO UD Multiple Vitamin (One-Daily Multi-Vitamin), 1 TAB PO DAILY, (Reported) Mupirocin Calcium (Topical) (Mupirocin), 2 % EX BID Nicotine (Nicotine Transdermal Syst), 1 PATCH TOP DAILY, (Reported) Pantoprazole Sodium Sesquihydr (Pantoprazole Sodium), 1 TAB PO DAILY, (Reported) Prednisone (Prednisone), 40 MG PO DAILY Senna (Senna), 1 PO DAILY, (Reported) Thiamine Hcl (Vitamin B-1), 1 TAB PO DAILY, (Reported) Scheduled PRN Albuterol Sulfate (Albuterol Sulfate Hfa), 2 PUFF INH Q6HR PRN for WHEEZING, (Reported) Famotidine (Pepcid Tablet), 1 TAB PO BID PRN Gabapentin (Once-Daily) (Gabapentin), 300 MG PO Q6HP PRN Levalbuterol Tartrate (Xopenex Hfa), 45 MCG IN TID PRN Ondansetron HCl (Ondansetron Hydrochloride), 8 MG PO Q6HP PRN Miscellaneous Medications Albuterol Sulfate (Albuterol Sulfate), (Reported) Discharge Statement: "Patient was advised to return to the ER or call 911 if any headaches, dizziness, shortness of breath, chest pain, abdominal pain, bleeding, fevers, or worsening of medical condition. Patient was counseled about treatment plan, medications, possible side effects, patientverbalized understanding. All questions were answered to the best of my ability. This discharge took greater then 30 minutes in planning, reviewing documentation, counseling the patient, and discussing with other team members." ASSESSMENT ASSESSMENT Assessment Date of Service: Mar 03, 2025 Billing Provider: MARYANN LO MD Common Visit Codes: 17835-ZII/OBS DISCH DAY >30min MARYANN LO MD Mar 03, 2025 10:15
[2025-03-03] MEDS ORDERED: FAMO20TA10 PO (13:22)
[2025-03-03] MEDS ORDERED: AZIT500T66 PO (13:22)
[2025-03-03] MEDS ORDERED: ACE1030 IN (13:22)
[2025-03-03] MEDS ORDERED: PRED20TA2 PO (13:22)
[2025-03-03] MEDS ORDERED: ALBU0.084 NEB (13:24)
== END 2025-03-03 16:35 | disposition home or self-care (01) | DRG 177 ==
LOC: EDBD 18:08 → ER 18:08 → EDUNIT# 18:08 → OVERFLOW 02-26 04:02 → TELE-CENTR 02-26 16:43
PROVIDERS: ADMIT Student in an Organized Health Care Education/Training Program; ATTEND Student in an Organized Health Care Education/Training Program
DX: J15.69 Pneumonia due to other Gram-negative bacteria (principal); J96.21 Acute and chronic respiratory failure with hypoxia; J44.0 Chronic obstructive pulmonary disease with (acute) lower respiratory infection; J15.9 Unspecified bacterial pneumonia; I11.0 Hypertensive heart disease with heart failure; J44.1 Chronic obstructive pulmonary disease with (acute) exacerbation; I50.9 Heart failure, unspecified; J98.4 Other disorders of lung; I95.9 Hypotension, unspecified; F17.210 Nicotine dependence, cigarettes, uncomplicated; K21.9 Gastro-esophageal reflux disease without esophagitis; F41.9 Anxiety disorder, unspecified; Z79.899 Other long term (current) drug therapy; Z90.49 Acquired absence of other specified parts of digestive tract
CPT/HCPCS: 36415; 71045; 80048; 80053; 81001; 83605; 83880; 84484; 85025; 93005; 94640; 96365; 96366; 96367; 96375; G0378; J0131; J2405; J3490